=== PATIENT | male | born 1945 | race Caucasian/White ===

== ENCOUNTER 2018-08-04 18:01 | Inpatient (IN) ==
--- NOTE | 2018-08-04 18:49 | Cat Scan Report ---
CLINICAL INFORMATION: Acute neurodeficit code stroke COMPARISON: 05/24/[address] without contrast. TECHNIQUE: 2.5 mm helical slices were obtained in the skull base to vertex. Following reconstruction, axial reformatted images were reviewed at bone and parenchymal windows. The exam was performed using radiation dose optimization techniques including, but not limited to, automated exposure control, adjustment of the mA and/or kV according to patient size and use of iterative reconstruction technique. FINDINGS: The ventricles, sulci, fissures, and cisterns are symmetrically enlarged compatible with moderate age-related atrophy. This has increased considerably since previous study. Moderate patchy chronic ischemic changes throughout the cerebral white matter also progressed considerably. There are scattered remote lacunar infarcts in the deep bifrontal and basal ganglia which are all new. There is no intracerebral hemorrhage, mass effect or edema. 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 Right cochlear implant is grossly normal . IMPRESSION: Moderate atrophy and extensive chronic ischemic changes in the deep cerebral white matter with scattered remote lacunar infarcts in the deep bifrontal white matter and both basal ganglia all new from the remote comparison CT 11 years ago. There is no intracerebral hemorrhage mass effect or edema or other acute finding. Interpreted and Authenticated by: Abhishek Goldman 08/04/18
[2018-08-04 18:53] LABS: POC Blood Urea Nitrogen 39 mg/dl (8-23); POC CO2 19 mmol/L (22-30); POC Chloride 106 mmol/L (96-108); POC Glucose, Random 155 mg/dL (70-105); POC Potassium 4.3 mmol/L (3.3-5.1); POC Sodium 140 mmol/L (133-145)
[2018-08-04 18:54] LABS: POC Pro Time 12.2 sec (11.9-14.5)
[2018-08-04 19:26] LABS: Basophils # (Auto) 0 K/mcL (0.0-0.3); Basophils % (Auto) 0.5 % (0.0-2.0); Eosinophils # (Auto) 0.2 K/mcL (0.0-0.7); Eosinophils % (Auto) 2.8 % (0.0-7.0); Granulocytes % (Auto) 72.4 % (38.0-78.0); Hematocrit 35.5 % (41.0-55.0); Lymphocytes # (Auto) 1.3 K/mcL (1.5-4.8); Lymphocytes % (Auto) 15.5 % (15.5-49.0); Mean Cell Volume 98.1 fL (80.0-100.0); Mean Corpuscular HGB Conc 33.7 g/dL (31.0-36.0); Monocytes # (Auto) 0.7 K/mcL (0.1-0.9); Monocytes % (Auto) 8.8 % (1.0-12.0); Platelet Count 164 K/mcL (140-440); RBC 3.62 M/mcL (4.50-5.90); Red Cell Distribution Width 13.7 % (11.5-14.5); WBC 8.1 K/mcL (4.5-11.0)
[2018-08-04 19:46] LABS: Alcohol,Blood 0.163 gm/dl (<0.010)
[2018-08-04 19:51] LABS: ALT/SGPT 12 U/l (0-40); AST/SGOT 17 U/l (0-37); Albumin 3.3 gm/dL (3.2-5.2); Albumin/Globulin Ratio 1.1 (1.0-2.3); Alkaline Phosphatase 98 U/L (39-117); Bilirubin,Total 0.3 mg/dL (0.0-1.0); Blood Urea Nitrogen 43 mg/dl (8-23); Calcium 9.2 mg/dl (8.6-10.4); Carbon Dioxide 17 mmol/L (22-30); Chloride 104 mmol/L (96-108); Glomerular Filtration Rate 22; Glucose 156 mg/dL (70-105); Potassium 4.3 mmol/L (3.3-5.1); Sodium 138 mmol/L (133-145)
--- NOTE | 2018-08-04 19:53 | Emergency Department Note ---
Neuro HPI - General Chief Complaint: Neuro Symptoms/Deficit Stated Complaint: Weakness, recent hydrocephalus Time Seen by Provider: 08/04/18 19:52 Source: EMS Mode of arrival: EMS - History of Present Illness HPI Narrative: This 73-year-old gentleman developed some slurred speech and describing blurry vision and imbalance that was worsened. He has had some episodes in the past. His last normal was 330. Today his memory is also been bad and that he has not remembered conversations. His speech included inappropriate things such as "put the dog on the lesion in the house" and he seemed to be mouthing some words. At times he was not making sense. At times he was unable to walk because of imbalance. It feels like he cannot make his legs work. This is been progressive over multiple weeks but the last few weeks have been worse for his had to use a walker a lot of the time. He has had difficulty balancing his checkbook in the last 3 to 4 months with it being significantly worse. He has fallen 3 times in the last 4 weeks. Has a diagnosis of hydrocephalus and is being scheduled for a shunt possibly. REVIEW OF SYSTEMS: No fevers, chills, sweats. No chest pain or palpitations No cough or shortness of breath No nausea or vomiting No dysuria Feels imbalanced and dizzy like he is going to fall over but not near syncope No anxiety or depression per - Related Data Home Medications: Home Medications Medication Instructions Recorded Confirmed Hydrochlorothiazide [Oretic] 25 mg PO DAILY 08/04/18 08/04/18 Metoprolol Succinate [Toprol Xl] 100 mg PO ONCE 08/04/18 08/04/18 Ramipril [Altace] 2.5 mg PO TID 08/04/18 08/04/18 Simvastatin [Zocor] 40 mg PO HS 08/04/18 08/04/18 Allergies/Adverse Reactions: Allergies Allergy/AdvReac Type Severity Reaction Status Date / Time aspirin Allergy Mild Gastrointestinal Verified 08/04/18 18:03 Upset Past Medical History - Past Medical History [facility] Narrative: Medical History (Last Updated 08/04/18 @ 20:17 by Howie Napier DO) Cochlear implant status (Acute) Overweight (BMI 25.0-29.9) (Chronic) History of acute myocardial infarction (Chronic) Diabetes mellitus type 2, controlled (Chronic) Normal pressure hydrocephalus (Chronic) Chronic renal failure, stage 3 (moderate) (Chronic) Meniere's disease (Chronic) Chronic alcoholism (Acute) Hearing loss (Chronic) Past Surgical History (Last Updated 08/04/18 @ 20:24 by Howie Napier DO) Cochlear implant status (Acute) Psychiatric history: Denies: anxiety, depression - Social History smoking status: Former smoker Alcohol use: Reports: Daily, Heavy Amount of alcohol consumed: 24 (4 glasses of wine of about 6 ounces each daily.) Drug use: Reports: none. Denies: marijuana Physical Exam Limitations: no limitations General appearance: alert, in no apparent distress Head: atraumatic, normocephalic Eye: Present: PERRL, EOMI, visual browne intact. Absent: nystagmus ENT: normal oropharynx, mucous membranes moist Neck: Present: trachea midline. Absent: lymphadenopathy, thyromegaly Chest: Present: symmetric chest wall rise Respiratory: Present: normal lung sounds bilaterally. Absent: respiratory distress, wheezes, stridor, accessory muscle use, prolonged expiratory phase Cardiovascular: Present: regular rate, normal rhythm. Absent: systolic murmur, diastolic murmur Abdominal: Present: soft. Absent: distention, tenderness, guarding, rebound, rigidity, organomegaly, mass Extremities: Absent: pedal edema, pretibial edema, calf tenderness Neurological: Present: alert, oriented X3 Patient oriented to: Present: person, place, time Speech: Present: slurred Cranial nerves: EOM function (II, III, IV, ): Normal, facial sensation (V): Normal Cerebellar function: finger to nose: Normal, heel to mckeon: Normal Cerebellar function: ataxic gait Motor strength - LUE: 4/5 Motor strength - RUE: 4/5 Motor strength - LLE: 4/5 Motor strength - RLE: 4/5 Sensory exam upper extremity: Normal: light touch, pin prick Sensory exam lower extremity: Normal: light touch, pin prick Coma Scale Eye Opening: Spontaneous Coma Scale Motor Response: Obeys Commands Coma Scale Verbal Response: Oriented Coma Scale Total: 15 Psychiatric: Present: flat affect (Mildly), serious Skin: Present: warm, dry Course Vital Signs Temperature 98.5 F 08/04/18 18:03 Pulse Rate 71 08/04/18 18:03 Respiratory Rate 20 08/04/18 18:03 Blood Pressure 142/77 08/04/18 18:03 Pulse Oximetry (%) 95 08/04/18 18:03 Temperature 98.5 F 08/04/18 18:03 Pulse Rate 69 08/04/18 21:45 Respiratory Rate 20 08/04/18 21:45 Blood Pressure 132/79 08/04/18 21:45 Pulse Oximetry (%) 91 08/04/18 21:45 Neuro Symptoms/Deficit - [facility] Narrative Medical decision making narrative: 6:08 PM - some progressive ambulatory difficulties and dysfunction with falls and disequilibrium probably attributed to his normal pressure hydrocephalus. But today with worsening of slurred speech. We will do CT scan of the head. 6:30 PM - CT of the head is negative for bleed. Unable to do CTA of the head neck due to his renal dysfunction. Await labs. 7:30 PM - labs include a mild normochromic normocytic anemia. Creatinine is 2.7 with BUN proportional at 43. Liver function tests are normal. Alcohol level is 0.163. 9:05 PM - I spoke with Dr. No, neurosurgeon, [facility] who emphasizes that his normal pressure hydrocephalus is not the cause of his slurred speech or needing acute intervention. He does recommend further evaluation to make sure that he has not had other causes such as a stroke. 10:23 PM - spoke with , neurologist, [place], who after reviewing the clinical information says there is no other imaging available. He recommends admitting the patient and having a CT scan of the head in 24 hours as well as carotid ultrasound to be done. Make sure there is no infection but there is no urgent need for any neurologic intervention or consultation as nothing can be done currently. He suggest going ahead with Plavix 75 mg daily as it is possible stroke could be very small. 10:49 PM - spoke with Dr. Allen, hospitalist here at [facility] who kindly accepts this patient's care. Note that slurred speech persisted throughout his emergency room stay with no significant variation. Difficulty not seeing all of his words completely with quiet voice some as well. - Lab Data Lab results reviewed: Yes I reviewed the patient's lab results. Result diagrams: 08/04/18 18:40 08/04/18 18:40 Lab Results 06/13/19 06/13/19 06/13/19 Range/Units 18:40 18:40 18:40 WBC 8.1 (4.5-11.0) K/mcL RBC 3.62 L (4.50-5.90) M/mcL Hgb 12.0 L (13.5-16.5) g/dL Hct 35.5 L (41.0-55.0) % POC Hct 33.0 L (41.0-55.0) % MCV 98.1 (80.0-100.0) fL MCH 33.1 (26.0-34.0) pg MCHC 33.7 (31.0-36.0) g/dL RDW 13.7 (11.5-14.5) % Plt Count 164 (140-440) K/mcL MPV 8.0 (7.4-10.4) fL Gran % 72.4 (38.0-78.0) % Lymph % (Auto) 15.5 (15.5-49.0) % [place] % (Auto) 8.8 (1.0-12.0) % Eos % (Auto) 2.8 (0.0-7.0) % Baso % (Auto) 0.5 (0.0-2.0) % Gran # 5.9 (1.8-8.0) K/mcL Lymph # (Auto) 1.3 L (1.5-4.8) K/mcL [place] # (Auto) 0.7 (0.1-0.9) K/mcL Eos # (Auto) 0.2 (0.0-0.7) K/mcL Baso # (Auto) 0 (0.0-0.3) K/mcL POC PT 12.2 (11.9-14.5) sec POC INR 1.0 (0.9-1.2) APTT 34 (20-37) sec POC Sodium 140 (133-145) mmol/L Sodium 138 (133-145) mmol/L POC Potassium 4.3 (3.3-5.1) mmol/L Potassium 4.3 (3.3-5.1) mmol/L POC Chloride 106 (96-108) mmol/L Chloride 104 (96-108) mmol/L Carbon Dioxide 17 L (22-30) mmol/L POC Total CO2 19 L (22-30) mmol/L Anion Gap 17.0 H (8-16) POC BUN 39 H (8-23) mg/dl BUN 43 H (8-23) mg/dl Creatinine 2.7 H (0.7-1.2) mg/dl POC Creatinine 3.0 H (0.7-1.2) mg/dl GFR Calculation 22 Glucose 156 H (70-105) mg/dL POC Glucose 155 H (70-105) mg/dL Calcium 9.2 (8.6-10.4) mg/dl POC WB Ioniz Calcium 1.20 (1.16-1.32) mmol/L Total Bilirubin 0.3 (0.0-1.0) mg/dL AST 17 (0-37) U/l ALT 12 (0-40) U/l Alkaline Phosphatase 98 (39-117) U/L Troponin T (0-0.03) ng/ml Total Protein 6.3 (5.9-8.4) gm/dL Albumin 3.3 (3.2-5.2) gm/dL Globulin 3.0 (2.2-3.7) gm/dL Albumin/Globulin Ratio 1.1 (1.0-2.3) Ethyl Alcohol (<0.010) gm/dl 08/04/18 08/04/18 Range/Units 18:40 18:40 WBC (4.5-11.0) K/mcL RBC (4.50-5.90) M/mcL Hgb (13.5-16.5) g/dL Hct (41.0-55.0) % POC Hct (41.0-55.0) % MCV (80.0-100.0) fL MCH (26.0-34.0) pg MCHC (31.0-36.0) g/dL RDW (11.5-14.5) % Plt Count (140-440) K/mcL MPV (7.4-10.4) fL Gran % (38.0-78.0) % Lymph % (Auto) (15.5-49.0) % [place] % (Auto) (1.0-12.0) % Eos % (Auto) (0.0-7.0) % Baso % (Auto) (0.0-2.0) % Gran # (1.8-8.0) K/mcL Lymph # (Auto) (1.5-4.8) K/mcL [place] # (Auto) (0.1-0.9) K/mcL Eos # (Auto) (0.0-0.7) K/mcL Baso # (Auto) (0.0-0.3) K/mcL POC PT (11.9-14.5) sec POC INR (0.9-1.2) APTT (20-37) sec POC Sodium (133-145) mmol/L Sodium (133-145) mmol/L POC Potassium (3.3-5.1) mmol/L Potassium (3.3-5.1) mmol/L POC Chloride (96-108) mmol/L Chloride (96-108) mmol/L Carbon Dioxide (22-30) mmol/L POC Total CO2 (22-30) mmol/L Anion Gap (8-16) POC BUN (8-23) mg/dl BUN (8-23) mg/dl Creatinine (0.7-1.2) mg/dl POC Creatinine (0.7-1.2) mg/dl GFR Calculation Glucose (70-105) mg/dL POC Glucose (70-105) mg/dL Calcium (8.6-10.4) mg/dl POC WB Ioniz Calcium (1.16-1.32) mmol/L Total Bilirubin (0.0-1.0) mg/dL AST (0-37) U/l ALT (0-40) U/l Alkaline Phosphatase (39-117) U/L Troponin T < 0.01 (0-0.03) ng/ml Total Protein (5.9-8.4) gm/dL Albumin (3.2-5.2) gm/dL Globulin (2.2-3.7) gm/dL Albumin/Globulin Ratio (1.0-2.3) Ethyl Alcohol 0.163 H (<0.010) gm/dl - Radiology Data Radiology results reviewed: Yes I reviewed the patient's radiology results. - EKG Data EKG results narrative: No acute coronary syndrome findings. This ECG will be read by a natural remedy consultant. Disposition Pt seen by BIOLOGICAL SCIENCE TECHNICIAN/PA only: No Clinical Impression: Slurred speech, Ataxia, Normal pressure hydrocephalus, Chronic alcoholism Anemia Qualifiers: Anemia type: unspecified type Qualified Code(s): D64.9 - Anemia, unspecified CVA (cerebral vascular accident) Qualifiers: CVA mechanism: unspecified Qualified Code(s): I63.9 - Cerebral infarction, unspecified Disposition: Xfer As Inpt ([facility]) Condition: Fair Referrals: Francisco Cali MD [Primary Care Provider] -
--- NOTE | 2018-08-04 22:54 | Internal Med History&Physical ---
Medical - H&P: [facility] Patient information: Note initiated : 08/04/18 at 10:49 pm Service Date, if different from initiated Date: [] Patient: Darron Veliz a 73 y/o M admitted on for Weakness, recent hydrocephalus. Chief Complaint: [] Chief complaint: Weakness, slurred speech History of present illness: Mr. Veliz is a 73 year old M with a history of NPH/DM type II/CAD and alcoholism who presents to ER with rapid onset difficulty speaking along with balance and coordination. Symptoms started around 3:30 in the afternoon. Symptoms were not associated with loss of consciousness, headache, chest palpitation, tearing neck pain or diaphoresis. Denies taking new medication, dehydration, he denied associated difficulty swallowing or unilateral weakness. He then presented to the ER. Initial work-up with head CT revealed chronic ischemic change with remote lacunar infarct but no hemorrhage. Elevated blood alcohol level at 0.163. Creatinine 2.7. ER physician discussed with ne urosurgery(history of hydrocephalus) who did not recommend acute intervention. Subsequently stroke neurologist was consulted. Patient was unable to undergo CT angiogram head or neck due to elevated creatinine or MRI brain due to cochlear implant. Neurologist recommended Plavix and statin and hospital admission for carotid Doppler/repeat CT head in 24 hours as no further interventions mandated at tertiary center. Subsequently hospitalist service was consulted. At the time of evaluation p ferminient is able to answer most of the questions. He is alert and cooperative. Endorses to history as above. He also endorses to gradual weakness that has progressed since he saw the neurosurgeon 3 weeks ago. He denies sensory abnormalities Review of systems 10 point review system was performed and is negative except was discussed above Medical - H&P: PMH Medical history: Cochlear implant status (Acute) Overweight (BMI 25.0-29.9) (Chronic) History of acute myocardial infarction (Chronic) Diabetes mellitus type 2, controlled (Chronic) Normal pressure hydrocephalus (Chronic) Hypertensive chronic renal failure, stage 3 (moderate) (Chronic) Meniere's disease (Chronic) Chronic alcoholism (Acute) Hearing loss (Chronic) History of myocardial infarctions status post CABG Hypertension History of gout Alcohol dependence Past Surgical History (Last Updated 08/04/18 @ 20:24 by Howie Napier DO) Cochlear implant status (Acute) CABG 7 years ago Sinus surgeries Psychiatric history: Denies: anxiety, depression - Social History smoking status: Former smoker Lives with significant other in [place] Alcohol use: Reports: Daily, Heavy Amount of alcohol consumed: 24 (4 glasses of wine of about 6 ounces each daily.) Drug use: Reports: none. Denies: marijuana Quit smoking 20 years ago Pertinent family history: CVA Father CAD/diabetes/cervical cancer mother Melanoma father Medical - H&P: Meds Home Medications Medication Instructions Recorded Confirmed Type Hydrochlorothiazide [Oretic] 25 mg PO DAILY 08/04/18 08/04/18 History Metoprolol Succinate [Toprol Xl] 100 mg PO ONCE 08/04/18 08/04/18 History Ramipril [Altace] 2.5 mg PO TID 08/04/18 08/04/18 History Simvastatin [Zocor] 40 mg PO HS 08/04/18 08/04/18 History Allergies Allergy/AdvReac Type Severity Reaction Status Date / Time aspirin Allergy Mild Gastrointestinal Verified 08/04/18 18:03 Upset Medical - H&P: Exam - Constitutional Vitals: Temp Pulse Resp BP Pulse Ox 98.5 F 69 20 132/79 91 08/04/18 18:03 08/04/18 21:45 08/04/18 21:45 08/04/18 21:45 08/04/18 21:45 General appearance: average body habitus Exam: Alert and cooperative Oral cavity dry no ear nose discharge Eye movement symmetrical Head normocephalic Neck no lymphadenopathy S1-S2 regular rhythm, no murmur appreciated Chest clear to auscultation bilaterally abdomen soft nontender Skin no suspicious lesion Lower extremity no cyanosis clubbing no joint swelling Psych alert cooperative Neuro normal cranial nerves except for dysarthria Symmetrical strength and sensation/tone Higher function unremarkable GCS 15, NIH 2 Medical - H&P: Reslt - Labs CBC & Chem 7: 08/04/18 18:40 08/04/18 18:40 Labs: Short CBC 08/04/18 Range/Units 18:40 WBC 8.1 (4.5-11.0) K/mcL Hgb 12.0 L (13.5-16.5) g/dL Hct 35.5 L (41.0-55.0) % Plt Count 164 (140-440) K/mcL BMP 08/04/18 18:40 Sodium 138 Potassium 4.3 Chloride 104 Carbon Dioxide 17 L BUN 43 H Creatinine 2.7 H Glucose 156 H Calcium 9.2 Cardiac Enzymes 08/04/18 Range/Units 18:40 Troponin T < 0.01 (0-0.03) ng/ml Liver Function 08/04/18 Range/Units 18:40 Total Bilirubin 0.3 (0.0-1.0) mg/dL AST 17 (0-37) U/l ALT 12 (0-40) U/l Alkaline Phosphatase 98 (39-117) U/L Albumin 3.3 (3.2-5.2) gm/dL Medical - H&P: A/P (1) Acute CVA (cerebrovascular accident) Current visit: Yes Status: Acute * Acute ischemic CVA with bulbar symptoms. Patient was started on Plavix/statin after stroke neurologist consult in ER. Cochlear implants precludes MRI brain. Elevated creatinine precludes CT angiogram head and neck. Neurologist recommended Doppler ultrasound/repeat CT in a.m. Continue Plavix/statin as per neurologist. For details of discussions between ER physician and neur ologist refer ED physician note. * Dysarthria/change mental status-likely secondary to CVA, possibly brainstem involvement * History of alcoholism-monitor for withdrawals * History of normal pressure hydrocephalus- will follow-up with neurosurgery as outpatient. * Hypertensive chronic kidney disease stage IIIb-nephrology consult. Monitor renal function. Avoid nephrotoxins. * History of CAD status post CABG 7 years ago at [place] * DM type II continue sliding-scale insulin/CCD * History of gout stable, continue allopurinol * History of hypertension continue ARMIN inhibitor/beta-court/thiazide * Full code * Prophylaxis heparin Plan * Inpatient admission telemetry * Echocardiogram/CT head in 24 hours/Doppler carotid * Monitor renal function * Monitor for alcohol withdrawal * PT OT ST eval * Pre-existing well condition management and home meds * Case management to coordinate discharge planning
[2018-08-05] MEDS ORDERED: ONDANSETRON 4 MG/2 ML VIAL IV PRN (00:13)
[2018-08-05] MEDS ORDERED: MAGNESIUM SULFATE 2 GM/50 ML BAG IV PRN (00:13)
[2018-08-05] MEDS ORDERED: DEXTROSE 31 GM ORAL.SUSP PO PRN (00:13)
[2018-08-05] MEDS ORDERED: POTASSIUM CHLORIDE 20 MEQ PACKET PO PRN (00:13)
[2018-08-05] MEDS ORDERED: METOPROLOL SUCCINATE 100 MG PO SCH (00:13)
[2018-08-05] MEDS ORDERED: traZODone HCL 50 MG TABLET PO PRN (00:13)
[2018-08-05] MEDS ORDERED: DEXTROSE 50% 50 ML VIAL IV PRN (00:13)
[2018-08-05] MEDS ORDERED: ACETAMINOPHEN 1,000 MG/100 ML BOTTLE IV PRN (00:13)
[2018-08-05] MEDS ORDERED: guaiFENesin/CODEINE 10 ML UDC PO PRN (00:13)
[2018-08-05] MEDS ORDERED: METOPROLOL SUCCINATE 50 MG TAB.XL.24H PO ONE ×2 (00:22→10:00)
[2018-08-05 05:05] LABS: Hematocrit 32.7 % (41.0-55.0); Hemoglobin 11.2 g/dL (13.5-16.5); Mean Cell Volume 97.9 fL (80.0-100.0); Mean Corpuscular HGB Conc 34.2 g/dL (31.0-36.0); Mean Platelet Volume 8.1 fL (7.4-10.4); Platelet Count 149 K/mcL (140-440); RBC 3.34 M/mcL (4.50-5.90); Red Cell Distribution Width 13.8 % (11.5-14.5); WBC 6.7 K/mcL (4.5-11.0)
[2018-08-05 05:16] LABS: ALT/SGPT 11 U/l (0-40); AST/SGOT 16 U/l (0-37); Albumin 2.9 gm/dL (3.2-5.2); Alkaline Phosphatase 91 U/L (39-117); Bilirubin,Direct < 0.2 mg/dL (0.0-0.3); Bilirubin,Total 0.3 mg/dL (0.0-1.0); Blood Urea Nitrogen 42 mg/dl (8-23); Calcium 9.2 mg/dl (8.6-10.4); Carbon Dioxide 20 mmol/L (22-30); Chloride 105 mmol/L (96-108); Glomerular Filtration Rate 22; Glucose 106 mg/dL (70-105); Lactate Dehydrogenase 157 U/L (94-250); Magnesium 1.4 mg/dL (1.6-2.5); Phosphorous 3.4 mg/dL (2.7-4.5); Sodium 138 mmol/L (133-145); Triglycerides 188 mg/dl (<150); Uric Acid 5.7 mg/dL (2.5-8.0)
[2018-08-05] MEDS: 0.9 % SODIUM CHLORIDE 10 ML SYRINGE IV SCH ×3 (05:32→21:46)
[2018-08-05 06:30] LABS: Eosinophils % (Manual) 6 % (0-7); Lymphocytes % 20 % (15-49); Monocytes % (Manual) 3 % (1-12); Platelet Estimate NORMAL (NORMAL); RBC Morphology NORMAL (NORMAL); Segmented Neutrophils % 71 % (38-78)
--- NOTE | 2018-08-05 07:13 | Internal Med Progress Note ---
Medical - PN: Subj Patient information: Note initiated : 08/05/18 at 7:11 am Service Date, if different from initiated Date: [] Patient: Darron Veliz a 73 y/o M admitted on 08/04/18 for Weakness, recent hydrocephalus. Chief Complaint: [] Interval history: Mr. Veliz is a 73 year old M with a history of NPH/DM type II/CAD and alcoholism who presents to ER with rapid onset difficulty speaking along with balance and coordination. Symptoms started around 3:30 in the afternoon. Symptoms were not associated with loss of consciousness, headache, chest palpitation, tearing neck pain or diaphoresis. Denies taking new medication, dehydration, he denied associated difficulty swallowing or unilateral weakness. He then presented to the ER. Initial work-up with head CT revealed chronic ischemic change with remote lacunar infarct but no hemorrhage. Elevated blood alcohol level at 0.163. Creatinine 2.7. ER physician discussed with neurosurgery(history of hydrocephalus) who did not recommend acute intervention. Subsequently stroke neurologist was consulted. Patient was unable to undergo CT angiogram head or neck due to elevated creatinine or MRI brain due to cochlear implant. Neurologist recommended Plavix and statin and hospital admission for carotid Doppler/repeat CT head in 24 hours as no further interventions mandated at tertiary center. Subsequently hospitalist service was consulted. At the time of evaluation patient is able to answer most of the questions. He is alert and cooperative. Endorses to history as above. He also endorses to gradual weakness that has progressed since he saw the neurosurgeon 3 weeks ago. He denies sensory abnormalities 08/05-patient doing well overnight. Denies score 2. No further neurological changes or deterioration. Persistent slurring. Stable hemodynamics. No telemetry events. No overnight fever or chills. Carotid ultrasound/echo/CT head ordered. Continue aggressive rehab/ST eval. Renal function at baseline with a creatinine 2.7. History of alcoholism currently on close monitoring for withdrawals. - Constitutional Vitals: Vital Signs Temp Pulse Resp BP Pulse Ox 98.7 F 68 18 171/78 94 08/05/18 03:54 08/04/18 23:50 08/05/18 03:54 08/05/18 03:54 08/05/18 03:54 Period Temp Pulse Resp BP Sys/Joseph Pulse Ox Last 24 Hr 97.8 F-98.7 F 67-73 15-24 115-171/49-91 87-95 Intake and Output 08/04/18 08/05/18 08/05/18 21:59 05:59 13:59 Output Total 750 400 Balance -750 -400 Weight 225 lb 212 lb 11.2 oz Intake & Output: Intake & Output 08/04/18 08/05/18 08/05/18 21:59 05:59 13:59 Output Total 750 400 Balance -750 -400 Weight 225 lb 212 lb 11.2 oz Output: Void Amount 750 400 Exam: Persistent dysarthria No telemetry events Stable hemodynamics Nonlabored breathing No anxiety Medical - PN: Obj Da - Labs CBC & Chem 7: 08/05/18 03:45 08/05/18 03:45 Labs: Abnormal Lab Results 08/05/18 08/05/18 08/04/18 03:45 03:45 18:40 RBC 3.34 L Hgb 11.2 L Hct 32.7 L POC Hct Lymph # (Auto) Carbon Dioxide 20 L POC Total CO2 Anion Gap POC BUN BUN 42 H Creatinine 2.7 H POC Creatinine Glucose 106 H POC Glucose Magnesium 1.4 L GGT 86 H Albumin 2.9 L Triglycerides 188 H Ethyl Alcohol 0.163 H 08/04/18 08/04/18 18:40 18:40 RBC 3.62 L Hgb 12.0 L Hct 35.5 L POC Hct 33.0 L Lymph # (Auto) 1.3 L Carbon Dioxide 17 L POC Total CO2 19 L Anion Gap 17.0 H POC BUN 39 H BUN 43 H Creatinine 2.7 H POC Creatinine 3.0 H Glucose 156 H POC Glucose 155 H Magnesium GGT Albumin Triglycerides Ethyl Alcohol Meds: Medications Acetaminophen (Tylenol) 650 mg PO Q4-6HP PRN PRN Reason: PAIN/FEVER > 101 Atorvastatin Calcium (Lipitor) 40 mg PO HS LA Clopidogrel Bisulfate (Plavix) 75 mg PO DAILY [facility] Cyanocobalamin (Vitamin B-12) 1,000 mcg PO BID LA Stop: 08/09/18 21:01 Dextrose (Dextrose 50%) 0 ml IV UD PRN PRN Reason: Hypoglycemia Diagnostic Test (Pha) (Accu-Chek) 1 each FS ACHS LA Docusate Sodium (Colace) 100 mg PO BID LA Folic Acid (Folic Acid) 1 mg PO DAILY [facility] Glucose (Insta-Glucose) 15 gm PO PRN PRN PRN Reason: Hypoglycemia Guaifenesin/Codeine Phosphate (Robitussin Ac) 10 ml PO Q4HP PRN PRN Reason: Cough Heparin Sodium (Porcine) (Heparin) 5,000 unit SQ Q12 [place] Hydrochlorothiazide (Oretic) 25 mg PO DAILY [facility] Magnesium Sulfate (Magnesium Sulfate) 2 gm in 50 mls @ 50 mls/hr IV UD PRN PRN Reason: MG = or < 1.7 Acetaminophen (Ofirmev) 1,000 mg in 100 mls @ 200 mls/hr IV Q6HP PRN PRN Reason: PAIN/FEVER > 101 Insulin Human Lispro (Humalog) 0 unit SQ ACHS LA; Protocol Iron Carb/Multivit/Respiratory Therapy Aide/Folic Acid (Multivitamin W/Minerals) 1 tab PO DAILY [facility] Melatonin (Melatonin 3mg Tablet) 3 mg PO HSP PRN PRN Reason: Insomnia Non-Formulary Medication (Metoprolol Succinate [Toprol Xl]) 100 mg PO ONCE [facility] Last Admin: 08/05/18 00:24 Dose: Not Given Documented by: Ondansetron HCl (Zofran) 4 mg IV Q4-6HP PRN PRN Reason: Nausea And Vomiting Potassium Chloride (Klor-Con) 40 meq PO DAILYP PRN PRN Reason: K+ < 3.5 Ramipril (Altace) 2.5 mg PO TID [facility] Senna/Docusate Sodium (Senna Plus Tablet) 1 tab PO HS [facility] Sodium Chloride (Saline Flush) 10 ml IV Q8 [facility] Last Admin: 08/05/18 05:32 Dose: 10 ml Documented by: Thiamine HCl (Vitamin B1) 100 mg PO DAILY [place] Trazodone HCl (Desyrel) 50 mg PO HSP PRN PRN Reason: Insomnia Medical - PN: A/P - Time Spent With Patient Total time spent is greater than 50% in coordination of care (as documented) at patient's floor/unit and/or counseling patient: 25 - 35 minutes (1) Acute CVA (cerebrovascular accident) Status: Acute Assessment and plan: * Acute ischemic CVA with dysarthria. Clinical diagnosis as MRI cannot be performed. Repeat CT in 24 hours. Await Doppler carotid/echocardiogram. Continue Plavix/statin as per recommendations from stroke neurologist consult in ER. Cochlear implants precludes MRI brain. Elevated creatinine precludes CT angiogram head and neck. For details of discussions between ER physician and neurologist refer to ED physician note. * Ataxia-likely secondary to NPH/CVA. Continue aggressive PT OT/gait training * History of alcoholism-monitor for withdrawals. History of limited consumption of 4 glasses of wine * History of normal pressure hydrocephalus-patient has seen neurosurgery 3 weeks ago. Will follow on discharge. * Hypertensive chronic kidney disease stage IIIb-nephrology consult. Monitor renal function. Avoid nephrotoxins. * History of CAD status post CABG 7 years ago at [place] * DM type II continue sliding-scale insulin/CCD * History of gout stable, continue allopurinol * History of hypertension continue ARMIN inhibitor/beta-court/thiazide * Full code * Prophylaxis heparin Plan * Continue stroke work-up including echocardiogram/CT head in 24 hours/Doppler carotid * Monitor renal function and avoid nephrotoxins * Monitor for alcohol withdrawal * PT OT ST eval * Pre-existing medical condition management on home meds * Case management to coordinate discharge planning Current Visit: Yes Medical - PN: Qual - Stroke Symptom Onset Unknown: Yes - VTE Deep Vein Thrombosis/Pulmonary Embolism Present on Admission: No
[2018-08-05] MEDS: ACETAMINOPHEN 325 MG TABLET PO PRN (08:10)
[2018-08-05] MEDS: INSULIN LISPRO 1 UNIT/0.01 ML UNIT SQ SCH ×4 (08:17→20:27)
[2018-08-05] MEDS ORDERED: RAMIPRIL 2.5 MG CAPSULE PO SCH (09:00)
[2018-08-05] MEDS ORDERED: HYDROCHLOROTHIAZIDE 25 MG TABLET PO SCH (09:00)
[2018-08-05] MEDS ORDERED: CLOPIDOGREL 75 MG TABLET PO SCH (09:00)
[2018-08-05] MEDS: DOCUSATE SODIUM 100 MG CAPSULE PO SCH ×2 (09:48→20:24)
[2018-08-05] MEDS: HEPARIN 5,000 UNIT/ML VIAL SQ SCH ×2 (09:48→20:23)
[2018-08-05] MEDS: CYANOCOBALAMIN (VITAMIN B-12) 500 MCG TABLET PO SCH ×2 (09:48→20:23)
[2018-08-05] MEDS: CLOPIDOGREL 75 MG TABLET PO SCH (09:48)
[2018-08-05] MEDS: FOLIC ACID 1 MG TABLET PO SCH (09:49)
[2018-08-05] MEDS: THIAMINE 100 MG TABLET PO SCH (09:49)
[2018-08-05] MEDS: MULTIVIT,THER IRON,CA,FA & MIN 1 TABLET PO SCH (09:49)
--- NOTE | 2018-08-05 09:59 | Ultrasound Report ---
CLINICAL INFORMATION: Weakness COMPARISON: None. TECHNIQUE: Spectral Doppler velocity measurements were obtained in the proximal, mid and distal common and internal carotid, both vertebral and proximal external carotid arteries bilaterally. Supplemental color and power Doppler imaging was also obtained to optimize stenosis detection. In reporting, any internal carotid stenosis was indirectly quantified comparing the distal internal carotid velocity. For ratio comparison, the internal carotid artery, at the level of stenosis, was utilized in the numerator and the normal distal internal carotid artery velocity was utilized as the denominator. Velocities are validated with angiographic measurements extrapolated from diameter data - as defined by the Society of Radiologists in Ultrasound Consensus Conference .Radiology 2003; 229; 340 - 346. FINDINGS: See worksheet by the technologist for velocities in PACS IMPRESSION: 1. Critical (greater than 90%) stenosis of the proximal left internal carotid artery. The left common and external carotid arteries are widely patent. Suggest CT cervical carotid angiogram. If the patient cannot tolerate IV contrast then a MR carotid angiogram would be an adequate substituted. 2. The right common, internal and external carotid arteries are widely patent 3. Antegrade flow present in both renal arteries. Please correlate with CTA CT Angiography or MRA MR Angiography if surgery is contemplated. Interpreted and Authenticated by: Abhishek Goldman 08/05/18
[2018-08-05] MEDS ORDERED: RAMIPRIL 2.5 MG CAPSULE PO ONE (10:00)
--- NOTE | 2018-08-05 11:37 | Internal Med Progress Note ---
Medical - PN: Subj Patient information: Note initiated : 08/05/18 at 11:28 am Service Date, if different from initiated Date: [] Patient: Darron Veliz a 73 y/o M admitted on 08/04/18 for Weakness, recent hydrocephalus. Chief Complaint: [] Interval history: Mr. Veliz is a 73 year old M with a history of NPH/DM type II/CAD and alcoholism who presents to ER with rapid onset difficulty speaking along with balance and coordination. Symptoms started around 3:30 in the afternoon. Symptoms were not associated with loss of consciousness, headache, chest palpitation, tearing neck pain or diaphoresis. Denies taking new medication, dehydration, he denied associated difficulty swallowing or unilateral weakness. He then presented to the ER. Initial work-up with head CT revealed chronic ischemic change with remote lacunar infarct but no hemorrhage. Elevated blood alcohol level at 0.163. Creatinine 2.7. ER physician discussed with neurosurgery(history of hydrocephalus) who did not recommend acute intervention. Subsequently stroke neurologist was consulted. Patient was unable to undergo CT angiogram head or neck due to elevated creatinine or MRI brain due to cochlear implant. Neurologist recommended Plavix and statin and hospital admission for carotid Doppler/repeat CT head in 24 hours as no further interventions mandated at tertiary center. Subsequently hospitalist service was consulted. At the time of evaluation patient is able to answer most of the questions. He is alert and cooperative. Endorses to history as above. He also endorses to gradual weakness that has progressed since he saw the neurosurgeon 3 weeks ago. He denies sensory abnormalities 08/05-patient doing well overnight. Denies score 2. No further neurological changes or deterioration. Persistent slurring. Stable hemodynamics. No telemetry events. No overnight fever or chills. Carotid ultrasound/echo/CT head ordered. Continue aggressive rehab/ST eval. Renal function at baseline with a creatinine 2.7. History of alcoholism currently on close monitoring for withdrawals. 08/06 - Constitutional Vitals: Vital Signs Temp Pulse Resp BP Pulse Ox 98.2 F 68 20 207/93 97 08/05/18 08:00 08/04/18 23:50 08/05/18 08:00 08/05/18 08:00 08/05/18 08:00 Period Temp Pulse Resp BP Sys/Joseph Pulse Ox Last 24 Hr 97.8 F-98.7 F 67-73 15-24 115-207/49-93 87-97 Intake and Output 08/04/18 08/05/18 08/05/18 21:59 05:59 13:59 Intake Total 240 Output Total 750 750 Balance -750 -510 Weight 102.058 kg 96.479 kg Intake & Output: Intake & Output 08/04/18 08/05/18 08/05/18 21:59 05:59 13:59 Intake Total 240 Output Total 750 750 Balance -750 -510 Weight 102.058 kg 96.479 kg Intake: Oral 240 Output: Void Amount 750 750 Other: Meal Breakfast Percent of Meal Consumed 100% Urine Appearance Clear Urine Color Pale Exam: General: Alert, Awake, No acute Distress Eyes/N/T: EOMI, Head/Neck: neck supple, normocephalic atraumatic CV: RRR, No murmurs, normal s1/s2 Pulm: Clear b/l, no wheezing/rhonchi/rales Abd: soft, nontender, +BS x4 Ext: no clubbing/cyanosis/edema Neuro: Alert, dysarthria, moves all extremities Skin: warm/dry Medical - PN: Obj Da - Labs CBC & Chem 7: 08/05/18 03:45 08/05/18 03:45 Labs: Abnormal Lab Results 08/05/18 08/05/18 08/04/18 03:45 03:45 18:40 RBC 3.34 L Hgb 11.2 L Hct 32.7 L POC Hct Lymph # (Auto) Carbon Dioxide 20 L POC Total CO2 Anion Gap POC BUN BUN 42 H Creatinine 2.7 H POC Creatinine Glucose 106 H POC Glucose Magnesium 1.4 L GGT 86 H Albumin 2.9 L Triglycerides 188 H Ethyl Alcohol 0.163 H 08/04/18 08/04/18 18:40 18:40 RBC 3.62 L Hgb 12.0 L Hct 35.5 L POC Hct 33.0 L Lymph # (Auto) 1.3 L Carbon Dioxide 17 L POC Total CO2 19 L Anion Gap 17.0 H POC BUN 39 H BUN 43 H Creatinine 2.7 H POC Creatinine 3.0 H Glucose 156 H POC Glucose 155 H Magnesium GGT Albumin Triglycerides Ethyl Alcohol Meds: Medications Acetaminophen (Tylenol) 650 mg PO Q4-6HP PRN PRN Reason: PAIN/FEVER > 101 Last Admin: 08/05/18 08:10 Dose: 650 mg Documented by: Atorvastatin Calcium (Lipitor) 40 mg PO HS [facility] Clopidogrel Bisulfate (Plavix) 75 mg PO DAILY [facility] Last Admin: 08/05/18 09:48 Dose: 75 mg Documented by: Cyanocobalamin (Vitamin B-12) 1,000 mcg PO BID [facility] Stop: 08/09/18 21:01 Last Admin: 08/05/18 09:48 Dose: 1,000 mcg Documented by: Dextrose (Dextrose 50%) 0 ml IV UD PRN PRN Reason: Hypoglycemia Diagnostic Test (Pha) (Accu-Chek) 1 each FS ACHS [facility] Last Admin: 08/05/18 08:17 Dose: 1 each Documented by: Docusate Sodium (Colace) 100 mg PO BID [facility] Last Admin: 08/05/18 09:48 Dose: 100 mg Documented by: Folic Acid (Folic Acid) 1 mg PO DAILY [facility] Last Admin: 08/05/18 09:49 Dose: 1 mg Documented by: Glucose (Insta-Glucose) 15 gm PO PRN PRN PRN Reason: Hypoglycemia Guaifenesin/Codeine Phosphate (Robitussin Ac) 10 ml PO Q4HP PRN PRN Reason: Cough Heparin Sodium (Porcine) (Heparin) 5,000 unit SQ Q12 [facility] Last Admin: 08/05/18 09:48 Dose: 5,000 unit Documented by: Hydrochlorothiazide (Oretic) 25 mg PO DAILY [facility] Last Admin: 08/05/18 09:48 Dose: 25 mg Documented by: Magnesium Sulfate (Magnesium Sulfate) 2 gm in 50 mls @ 50 mls/hr IV UD PRN PRN Reason: MG = or < 1.7 Acetaminophen (Ofirmev) 1,000 mg in 100 mls @ 200 mls/hr IV Q6HP PRN PRN Reason: PAIN/FEVER > 101 Insulin Human Lispro (Humalog) 0 unit SQ [facility]; Protocol Last Admin: 08/05/18 08:17 Dose: Not Given Documented by: Iron Carb/Multivit/[place]/Folic Acid (Multivitamin W/Minerals) 1 tab PO DAILY [facility] Last Admin: 08/05/18 09:49 Dose: 1 tab Documented by: Melatonin (Melatonin 3mg Tablet) 3 mg PO HSP PRN PRN Reason: Insomnia Metoprolol Succinate (Toprol Xl) 100 mg PO DAILY [facility] Ondansetron HCl (Zofran) 4 mg IV Q4-6HP PRN PRN Reason: Nausea And Vomiting Potassium Chloride (Klor-Con) 40 meq PO DAILYP PRN PRN Reason: K+ < 3.5 Ramipril (Altace) 2.5 mg PO DAILY [place] Senna/Docusate Sodium (Senna Plus Tablet) 1 tab PO HS [place] Sodium Chloride (Saline Flush) 10 ml IV Q8 [facility] Last Admin: 08/05/18 05:32 Dose: 10 ml Documented by: Thiamine HCl (Vitamin B1) 100 mg PO DAILY [facility] Last Admin: 08/05/18 09:49 Dose: 100 mg Documented by: Trazodone HCl (Desyrel) 50 mg PO HSP PRN PRN Reason: Insomnia Medical - PN: A/P - Time Spent With Patient Total time spent is greater than 50% in coordination of care (as documented) at patient's floor/unit and/or counseling patient: - Narrative A/P Narrative: A: *Acute ischemic CVA w/Dysarthria & dizziness: Clinical diagnosis as MRI cannot be performed (cochlear implants precludes MRI brain), Elevated creatinine precludes CT angiogram head and neck. For details of discussions between ER physician and neurologist refer to ED physician note. -Stenosis of Left IC artery *Ataxia: likely secondary to NPH/CVA. *h/o Alcoholism: *NPH: patient has seen neurosurgery 3 weeks ago. Will follow on discharge. *CKD IIIb, hypertensive: follows with Dr. Arguelles *CAD w/CABG 7 years ago at [place]: *DM type II: *HTN: home med ACEI/BB/thiazide Plan: -Permissive hypertension first 24 hours -echo pending -CT brain in AM -Continue Plavix/statin as per recommendations from stroke neurologist consult in ER. -Monitor renal function and avoid nephrotoxins -Monitor for alcohol withdrawal -SSI -PT OT ST eval -Case management to coordinate discharge planning -f/u with Dr. Elizondo/[facility] outpt -ppx: Heparin Full code Medical - PN: Qual - Stroke Symptom Onset Unknown: Yes - VTE Deep Vein Thrombosis/Pulmonary Embolism Present on Admission: No
[2018-08-05] MEDS ORDERED: LABETALOL 5 MG/ML ML IV PRN (11:42)
[2018-08-05] MEDS ORDERED: 0.9 % SODIUM CHLORIDE 1,000 ML IV SCH (11:45)
[2018-08-05] MEDS: SENNOSIDES/DOCUSATE SODIUM 1 TAB TABLET PO SCH (20:20)
[2018-08-05] MEDS: MELATONIN 3 MG TABLET PO PRN (20:48)
[2018-08-05] MEDS: ATORVASTATIN 20 MG TABLET PO SCH (21:46)
[2018-08-06 07:11] LABS: ALT/SGPT 14 U/l (0-40); AST/SGOT 22 U/l (0-37); Alkaline Phosphatase 102 U/L (39-117); Bilirubin,Direct < 0.2 mg/dL (0.0-0.3); Bilirubin,Total 0.5 mg/dL (0.0-1.0); Blood Urea Nitrogen 42 mg/dl (8-23); Calcium 9.4 mg/dl (8.6-10.4); Carbon Dioxide 22 mmol/L (22-30); Chloride 104 mmol/L (96-108); Glomerular Filtration Rate 25; Glucose 132 mg/dL (70-105); Lactate Dehydrogenase 187 U/L (94-250); Magnesium 1.8 mg/dL (1.6-2.5); Phosphorous 3.6 mg/dL (2.7-4.5); Potassium 3.8 mmol/L (3.3-5.1); Sodium 139 mmol/L (133-145); Triglycerides 184 mg/dl (<150); Uric Acid 5.8 mg/dL (2.5-8.0)
--- NOTE | 2018-08-06 08:13 | Internal Med Progress Note ---
Medical - PN: Subj Patient information: Note initiated : 08/06/18 at 8:06 am Service Date, if different from initiated Date: [] Patient: Darron Veliz a 73 y/o M admitted on 08/04/18 for Weakness, recent hydrocephalus. Chief Complaint: [] Interval history: Mr. Veliz is a 73 year old M with a history of NPH/DM type II/CAD and alcoholism who presents to ER with rapid onset difficulty speaking along with balance and coordination. Symptoms started around 3:30 in the afternoon. Symptoms were not associated with loss of consciousness, headache, chest palpitation, tearing neck pain or diaphoresis. Denies taking new medication, dehydration, he denied associated difficulty swallowing or unilateral weakness. He then presented to the ER. Initial work-up with head CT revealed chronic ischemic change with remote lacunar infarct but no hemorrhage. Elevated blood alcohol level at 0.163. Creatinine 2.7. ER physician discussed with neurosurgery(history of hydrocephalus) who did not recommend acute intervention. Subsequently stroke neurologist was consulted. Patient was unable to undergo CT angiogram head or neck due to elevated creatinine or MRI brain due to cochlear implant. Neurologist recommended Plavix and statin and hospital admission for carotid Doppler/repeat CT head in 24 hours as no further interventions mandated at tertiary center. Subsequently hospitalist service was consulted. At the time of evaluation patient is able to answer most of the questions. He is alert and cooperative. Endorses to history as above. He also endorses to gradual weakness that has progressed since he saw the neurosurgeon 3 weeks ago. He denies sensory abnormalities 08/05-patient doing well overnight. Denies score 2. No further neurological changes or deterioration. Persistent slurring. Stable hemodynamics. No telemetry events. No overnight fever or chills. Carotid ultrasound/echo/CT head ordered. Continue aggressive rehab/ST eval. Renal function at baseline with a creatinine 2.7. History of alcoholism currently on close monitoring for withdrawals. 08/06 Slept okay. No overnight events. Other than his headache is feeling fine. Feels his speech is improving. CT of the brain repeated unremarkable. Reports some constipation Review of Systems: denies fever/chills/nausea/vomiting/chest or abdominal pain/cough/dyspnea/diarrhea. Otherwise see above. - Constitutional Vitals: Vital Signs Temp Pulse Resp BP Pulse Ox 98.1 F 65 18 161/60 94 06/15/19 04:37 08/05/18 20:02 08/06/18 04:37 08/06/18 04:37 08/06/18 04:37 Period Temp Pulse Resp BP Sys/Joseph Pulse Ox Last 24 Hr 97.8 F-98.6 F 65-65 18-24 136-207/53-93 94-97 Intake and Output 08/05/18 08/06/18 08/06/18 21:59 05:59 13:59 Intake Total 340 Output Total 650 350 Balance -310 -350 Weight 96.615 kg Intake & Output: Intake & Output 08/05/18 08/06/18 08/06/18 21:59 05:59 13:59 Intake Total 340 Output Total 650 350 Balance -310 -350 Weight 96.615 kg Intake: IV 100 Oral 240 Output: Void Amount 650 350 Other: Meal Dinner Percent of Meal Consumed 100% Urine Color Dark Yellow Exam: General: Alert, Awake, No acute Distress Eyes/N/T: EOMI, Head/Neck: neck supple, normocephalic atraumatic CV: RRR, No murmurs, normal s1/s2 Pulm: Clear b/l, no wheezing/rhonchi/rales Abd: soft, nontender, +BS x4 Ext: no clubbing/cyanosis/edema Neuro: Alert, dysarthria, moves all extremities, face symmetrical Skin: warm/dry Medical - PN: Obj Da - Labs CBC & Chem 7: 08/05/18 03:45 08/06/18 03:50 Labs: Abnormal Lab Results 08/06/18 08/05/18 08/05/18 03:50 03:45 03:45 RBC 3.34 L Hgb 11.2 L Hct 32.7 L POC Hct Lymph # (Auto) Carbon Dioxide 20 L POC Total CO2 Anion Gap POC BUN BUN 42 H 42 H Creatinine 2.5 H 2.7 H POC Creatinine Glucose 132 H 106 H POC Glucose Magnesium 1.4 L GGT 99 H 86 H Albumin 3.0 L 2.9 L Triglycerides 184 H 188 H Ethyl Alcohol 08/04/18 08/04/18 08/04/18 18:40 18:40 18:40 RBC 3.62 L Hgb 12.0 L Hct 35.5 L POC Hct 33.0 L Lymph # (Auto) 1.3 L Carbon Dioxide 17 L POC Total CO2 19 L Anion Gap 17.0 H POC BUN 39 H BUN 43 H Creatinine 2.7 H POC Creatinine 3.0 H Glucose 156 H POC Glucose 155 H Magnesium GGT Albumin Triglycerides Ethyl Alcohol 0.163 H Meds: Medications Acetaminophen (Tylenol) 650 mg PO Q4-6HP PRN PRN Reason: PAIN/FEVER > 101 Last Admin: 08/05/18 08:10 Dose: 650 mg Documented by: Atorvastatin Calcium (Lipitor) 40 mg PO HS [facility] Last Admin: 08/05/18 21:46 Dose: 40 mg Documented by: Clopidogrel Bisulfate (Plavix) 75 mg PO DAILY [facility] Last Admin: 08/05/18 09:48 Dose: 75 mg Documented by: Cyanocobalamin (Vitamin B-12) 1,000 mcg PO BID [facility] Stop: 08/09/18 21:01 Last Admin: 08/05/18 20:23 Dose: 1,000 mcg Documented by: Dextrose (Dextrose 50%) 0 ml IV UD PRN PRN Reason: Hypoglycemia Diagnostic Test (Pha) (Accu-Chek) 1 each FS ACHS [facility] Last Admin: 08/05/18 20:24 Dose: 1 each Documented by: Docusate Sodium (Colace) 100 mg PO BID [facility] Last Admin: 08/05/18 20:24 Dose: 100 mg Documented by: Folic Acid (Folic Acid) 1 mg PO DAILY [facility] Last Admin: 08/05/18 09:49 Dose: 1 mg Documented by: Glucose (Insta-Glucose) 15 gm PO PRN PRN PRN Reason: Hypoglycemia Guaifenesin/Codeine Phosphate (Robitussin Ac) 10 ml PO Q4HP PRN PRN Reason: Cough Heparin Sodium (Porcine) (Heparin) 5,000 unit SQ Q12 [facility] Last Admin: 08/05/18 20:23 Dose: 5,000 unit Documented by: Magnesium Sulfate (Magnesium Sulfate) 2 gm in 50 mls @ 50 mls/hr IV UD PRN PRN Reason: MG = or < 1.7 Acetaminophen (Ofirmev) 1,000 mg in 100 mls @ 200 mls/hr IV Q6HP PRN PRN Reason: PAIN/FEVER > 101 Last Infusion: 08/05/18 20:49 Dose: Infused Documented by: Insulin Human Lispro (Humalog) 0 unit SQ [facility]; Protocol Last Admin: 08/05/18 20:27 Dose: 1 unit Documented by: Iron Carb/Multivit/Strategic Debriefing Specialist/Folic Acid (Multivitamin W/Minerals) 1 tab PO DAILY [facility] Last Admin: 08/05/18 09:49 Dose: 1 tab Documented by: Labetalol HCl (Trandate) 0 mg IV Q2HP PRN PRN Reason: Hypertension Melatonin (Melatonin 3mg Tablet) 3 mg PO HSP PRN PRN Reason: Insomnia Last Admin: 08/05/18 20:48 Dose: 3 mg Documented by: Metoprolol Succinate (Toprol Xl) 100 mg PO DAILY [facility] Ondansetron HCl (Zofran) 4 mg IV Q4-6HP PRN PRN Reason: Nausea And Vomiting Potassium Chloride (Klor-Con) 40 meq PO DAILYP PRN PRN Reason: K+ < 3.5 Ramipril (Altace) 2.5 mg PO DAILY [facility] Senna/Docusate Sodium (Senna Plus Tablet) 1 tab PO HS [facility] Last Admin: 08/05/18 20:20 Dose: 1 tab Documented by: Sodium Chloride (Saline Flush) 10 ml IV Q8 [facility] Last Admin: 08/05/18 21:46 Dose: 10 ml Documented by: Thiamine HCl (Vitamin B1) 100 mg PO DAILY [facility] Last Admin: 08/05/18 09:49 Dose: 100 mg Documented by: Trazodone HCl (Desyrel) 50 mg PO HSP PRN PRN Reason: Insomnia Medical - PN: A/P - Time Spent With Patient Total time spent is greater than 50% in coordination of care (as documented) at patient's floor/unit and/or counseling patient: - Narrative A/P Narrative: A: *Acute ischemic CVA w/Dysarthria & dizziness: Clinical diagnosis as MRI cannot be performed (cochlear implants precludes MRI brain), Elevated creatinine precludes CT angiogram head and neck. For details of discussions between ER physician and neurologist refer to ED physician note. -original CT w/o showing remote bilateral frontal and basal ganglia infarcts and mod atrophy -repeat CT brain no new changes -Stenosis of Left IC artery -Echo unremarkable *Ataxia: likely secondary to NPH/CVA. *h/o Alcoholism: *NPH: patient has seen neurosurgery 3 weeks ago. Will follow on discharge, Dr. umana *CKD IIIb, hypertensive: follows with Dr. Arguelles *CAD w/CABG 7 years ago at [facility]: *DM type II: *HTN: home med ACEI/BB/thiazide Plan: -Permissive hypertension first 24 hours; restart home BB, hold thiazide for now -Continue Plavix/statin as per recommendations from stroke neurologist consult in ER. -Monitor renal function and avoid nephrotoxins -Monitor for alcohol withdrawal -SSI -PT/OT/ST eval -Case management to coordinate discharge planning -f/u with Dr. Elizondo outpt regarding Left ICA stenosis -ppx: Heparin Discharge planning Full code Medical - PN: Qual - Stroke Symptom Onset Unknown: Yes - VTE Deep Vein Thrombosis/Pulmonary Embolism Present on Admission: No
[2018-08-06] MEDS ORDERED: 0.9 % SODIUM CHLORIDE 1,000 ML IV SCH (08:15)
[2018-08-06] MEDS: ACETAMINOPHEN 325 MG TABLET PO PRN (08:18)
[2018-08-06] MEDS: 0.9 % SODIUM CHLORIDE 10 ML SYRINGE IV SCH ×2 (08:19→14:23)
[2018-08-06] MEDS ORDERED: RAMIPRIL 2.5 MG CAPSULE PO SCH (09:00)
--- NOTE | 2018-08-06 09:12 | Cat Scan Report ---
CLINICAL INFORMATION: CVA symptom, dysarthria COMPARISON: Head CT two days prior 08/04/2018. FINDINGS: The ventricles, sulci, fissures, and cisterns are symmetrically enlarged compatible with moderate age-related atrophy. This has increased considerably since previous study. Moderate patchy chronic ischemic changes throughout the cerebral white matter also progressed considerably. There are scattered remote lacunar infarcts in the deep bifrontal and basal ganglia which are all new. There is no intracerebral hemorrhage, mass effect or edema. 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 Right cochlear implant is grossly normal . IMPRESSION: Moderate atrophy and extensive chronic ischemic changes in the deep cerebral white matter with scattered remote lacunar infarcts in the deep bifrontal white matter and both basal ganglia all new from the remote comparison CT 11 years ago. There is no intracerebral hemorrhage mass effect or edema or other acute finding. Interpreted and Authenticated by: Abhishek Goldman 08/06/18
[2018-08-06] MEDS: HEPARIN 5,000 UNIT/ML VIAL SQ SCH ×2 (09:23→21:01)
[2018-08-06] MEDS: INSULIN LISPRO 1 UNIT/0.01 ML UNIT SQ SCH ×4 (09:23→21:11)
[2018-08-06] MEDS: CYANOCOBALAMIN (VITAMIN B-12) 500 MCG TABLET PO SCH ×2 (09:24→21:02)
[2018-08-06] MEDS: FOLIC ACID 1 MG TABLET PO SCH (09:24)
[2018-08-06] MEDS: MULTIVIT,THER IRON,CA,FA & MIN 1 TABLET PO SCH (09:25)
[2018-08-06] MEDS: METOPROLOL SUCCINATE 50 MG TAB.XL.24H PO SCH (09:25)
[2018-08-06] MEDS: THIAMINE 100 MG TABLET PO SCH (09:25)
[2018-08-06] MEDS: CLOPIDOGREL 75 MG TABLET PO SCH (09:25)
[2018-08-06] MEDS: DOCUSATE SODIUM 100 MG CAPSULE PO SCH (09:25)
[2018-08-06] MEDS ORDERED: POLYETHYLENE GLYCOL 3350 17 GM PACKET PO ONE (10:09)
[2018-08-06] MEDS ORDERED: BUTALB/ACETAMINOPHEN/CAFFEINE 1 TABLET PO ONE (10:09)
[2018-08-06] MEDS ORDERED: POLYETHYLENE GLYCOL 3350 17 GM PACKET PO PRN (10:09)
--- NOTE | 2018-08-06 10:28 | Discharge Summary ---
Medical - DS: Prov Patient information: Note initiated : 08/06/18 at 10:26 am Service Date, if different from initiated Date: [] Patient: Darron Veliz 73 y/o M admitted on 08/04/18 for Weakness, recent hydrocephalus. Chief Complaint: [] Date of admission: 08/04/18 23:50 Discharge date: 08/07/18 Primary care physician: Francisco Cali Medical - DS: Meds - Discharge Medications Prescriptions: Clopidogrel Bisulfate [Plavix] 75 mg PO DAILY #30 tab Ramipril [Altace] 10 mg PO DAILY #30 cap Active and Home Medications: Home Medications Hydrochlorothiazide [Oretic] 25 mg PO DAILY 08/04/18 [History Confirmed 08/04/18 Last Taken Unknown] Metoprolol Succinate [Toprol Xl] 100 mg PO DAILY 08/04/18 [History Confirmed 08/05/18 Last Taken Unknown] Ramipril [Altace] 2.5 mg PO DAILY 08/04/18 [History Confirmed 08/05/18 Last Taken Unknown] Simvastatin [Zocor] 40 mg PO HS 08/04/18 [History Confirmed 08/04/18 Last Taken Unknown] Home Medications Hydrochlorothiazide [Oretic] 25 mg PO DAILY 08/04/18 [History Confirmed 08/04/18 Last Taken Unknown] Metoprolol Succinate [Toprol Xl] 100 mg PO DAILY 08/04/18 [History Confirmed 08/05/18 Last Taken Unknown] Simvastatin [Zocor] 40 mg PO HS 08/04/18 [History Confirmed 08/04/18 Last Taken Unknown] Clopidogrel Bisulfate [Plavix] 75 mg PO DAILY #30 tab 08/06/18 [Rx Last Taken Unknown] Ramipril [Altace] 10 mg PO DAILY #30 cap 08/07/18 [Rx Last Taken Unknown] Medical - DS: Hosp Hospital course: Mr. Veliz is a 73 year old M Mr. Veliz is a 73 year old M with a history of NPH/DM type II/CAD and alcoholism who presents to ER with rapid onset difficulty speaking along with balance and coordination. Symptoms started around 3:30 in the afternoon. S ymptoms were not associated with loss of consciousness, headache, chest palpitation, tearing neck pain or diaphoresis. Denies taking new medication, dehydration, he denied associated difficulty swallowing or unilateral weakness. He then presented to the ER. Initial work-up with head CT revealed chronic ischemic change with remote lacunar infarct but no hemorrhage. Elevated blood alcohol level at 0.163. Creatinine 2.7. ER physician discussed with neurosurgery(history of hydrocephalus) who did not recommend acute intervention. Subsequently stroke neurologist was consulted. Patient was unable to undergo CT angiogram head or neck due to elevated creatinine or MRI brain due to cochlear implant. Neurologist recommended Plavix and statin and hospital admission for carotid Doppler/repeat CT head in 24 hours as no further interventions mandated at tertiary center. Subsequently hospitalist service was consulted. At the time of evaluation patient is able to answer most of the questions. He is alert and cooperative. Endorses to history as above. He also endorses to gradual weakness that has progressed since he saw the neurosurgeon 3 weeks ago. He denies sensory abnormalities 08/05-patient doing well overnight. Denies score 2. No further neurological changes or deterioration. Persistent slurring. Stable hemodynamics. No telemetry events. No overnight fever or chills. Carotid ultrasound/echo/CT head ordered. Continue aggressive rehab/ST eval. Renal function at baseline with a creatinine 2.7. History of alcoholism currently on close monitoring for withdrawals. 08/06 Slept okay. No overnight events. Other than his headache is feeling fine. Feels his speech is improving. CT of the brain repeated unremarkable. Reports some constipation 08/07 Patient continues to feel better. No overnight events. Stable for discharge. Increase his home ramipril. Instructed him to monitor his blood pressure twice daily and bring log to primary care provider. Discharge diagnosis: Acute ischemic CVA with dysarthria and dizziness hypertension Secondary discharge diagnosis: NPH alcoholism chronic kidney disease CAD diabetes hypertension - Time Spent with Patient Total time spent providing and/or coordinating discharge services: Greater than 30 minutes Medical - DS: Exam - Constitutional Vitals: Vital Signs Temp Pulse Resp BP BP Pulse Ox 08/06/18 08:00 98.0 F 20 182/87 99 08/06/18 04:37 98.1 F 18 161/60 94 08/06/18 00:10 98.6 F 145/53 08/05/18 21:38 136/53 08/05/18 21:05 186/87 08/05/18 20:47 188/89 08/05/18 20:32 174/67 08/05/18 20:17 181/85 08/05/18 20:02 65 194/81 96 08/05/18 19:59 65 190/81 96 08/05/18 12:00 97.8 F 24 H 183/82 97 08/05/18 11:18 183/82 Intake and Output 08/05/18 08/06/18 08/06/18 21:59 05:59 13:59 Intake Total 1169 240 Output Total 650 350 850 Balance 519 -488 -928 Intake: IV 929 Sodium Chloride 0.9% 1,000 ml @ 829 125 mls/hr IV .Q8H LA Rx#: [id number] Oral 240 240 Output: Void Amount 650 350 850 Other: Meal Dinner Breakfast Percent of Meal Consumed 100% 100% Feeding Ability Independent Urine Color Dark Yellow Weight 96.615 kg Medical - DS: Data Labs on day of discharge: Labs from last 24 hours 08/06/18 03:50 Sodium 139 Potassium 3.8 Chloride 104 Carbon Dioxide 22 Anion Gap 13.0 BUN 42 H Creatinine 2.5 H GFR Calculation 25 Glucose 132 H Uric Acid 5.8 Calcium 9.4 Phosphorus 3.6 Magnesium 1.8 Total Bilirubin 0.5 Direct Bilirubin < 0.2 GGT 99 H AST 22 ALT 14 Alkaline Phosphatase 102 Lactate Dehydrogenase 187 Total Protein 6.0 Albumin 3.0 L Globulin 3.0 Albumin/Globulin Ratio 1.0 Triglycerides 184 H Medical - DS: A/P - Patient/Caregiver Discharge Instructions Activity: as per physical therapy Diet: Cardiac Additional Instructions: Measure blood pressure twice daily and bring log to primary care provider for further adjustment of blood pressure medications Prescriptions: Clopidogrel Bisulfate [Plavix] 75 mg PO DAILY #30 tab - Follow up Plan Follow up with: Shonna Goodwin MD [Physician] - Abhishek Elizondo MD [Physician] - (Left internal carotid artery stenosis) Disposition: Home, Self-Care Prognosis: Fair Rehab Potential: Fair Overall status at discharge: patient is progressing back to baseline Medical - DS: Qual - VTE Deep Vein Thrombosis/Pulmonary Embolism Present on Admission: No
[2018-08-06] MEDS: ATORVASTATIN 20 MG TABLET PO SCH (21:02)
[2018-08-06] MEDS: MELATONIN 3 MG TABLET PO PRN (21:02)
[2018-08-06] MEDS: SENNOSIDES/DOCUSATE SODIUM 1 TAB TABLET PO SCH (21:02)
[2018-08-07] MEDS: DOCUSATE SODIUM 100 MG CAPSULE PO SCH ×2 (01:12→08:38)
[2018-08-07 05:49] LABS: ALT/SGPT 27 U/l (0-40); AST/SGOT 33 U/l (0-37); Albumin 2.7 gm/dL (3.2-5.2); Albumin/Globulin Ratio 0.9 (1.0-2.3); Alkaline Phosphatase 113 U/L (39-117); Bilirubin,Direct < 0.2 mg/dL (0.0-0.3); Bilirubin,Total 0.4 mg/dL (0.0-1.0); Blood Urea Nitrogen 41 mg/dl (8-23); Calcium 9.4 mg/dl (8.6-10.4); Carbon Dioxide 23 mmol/L (22-30); Chloride 107 mmol/L (96-108); Globulin 3.1 gm/dL (2.2-3.7); Glomerular Filtration Rate 27; Glucose 143 mg/dL (70-105); Lactate Dehydrogenase 177 U/L (94-250); Magnesium 1.6 mg/dL (1.6-2.5); Phosphorous 2.8 mg/dL (2.7-4.5); Potassium 3.7 mmol/L (3.3-5.1); Sodium 141 mmol/L (133-145); Triglycerides 172 mg/dl (<150); Uric Acid 5.6 mg/dL (2.5-8.0)
[2018-08-07] MEDS: 0.9 % SODIUM CHLORIDE 10 ML SYRINGE IV SCH ×2 (06:19→06:46)
[2018-08-07] MEDS: INSULIN LISPRO 1 UNIT/0.01 ML UNIT SQ SCH ×2 (06:47→11:55)
[2018-08-07] MEDS: ACETAMINOPHEN 325 MG TABLET PO PRN (06:57)
[2018-08-07] MEDS ORDERED: LABETALOL 5 MG/ML ML IV PRN (07:33)
[2018-08-07] MEDS: HEPARIN 5,000 UNIT/ML VIAL SQ SCH (08:32)
[2018-08-07] MEDS: CYANOCOBALAMIN (VITAMIN B-12) 500 MCG TABLET PO SCH (08:32)
[2018-08-07] MEDS: CLOPIDOGREL 75 MG TABLET PO SCH (08:32)
[2018-08-07] MEDS: THIAMINE 100 MG TABLET PO SCH (08:32)
[2018-08-07] MEDS: FOLIC ACID 1 MG TABLET PO SCH (08:32)
[2018-08-07] MEDS: METOPROLOL SUCCINATE 50 MG TAB.XL.24H PO SCH (08:32)
[2018-08-07] MEDS: MULTIVIT,THER IRON,CA,FA & MIN 1 TABLET PO SCH (08:32)
[2018-08-07] MEDS ORDERED: RAMIPRIL 2.5 MG CAPSULE PO SCH (09:00)
[2018-08-07] MEDS ORDERED: RAMIPRIL 5 MG CAPSULE PO ONE (16:11)
== END 2018-08-07 11:50 | disposition home or self-care (01) | DRG 65 ==
LOC: ED 18:01 → ICU 23:50 → ED 23:51 → ICU 08-06 15:00
PROVIDERS: ADMIT Internal Medicine; ATTEND Internal Medicine

== ENCOUNTER 2019-10-20 21:06 | Inpatient (IN) ==
[2019-10-20] MEDS ORDERED: IOPAMIDOL 100 ML BOTTLE IV ONE (21:07)
--- NOTE | 2019-10-20 21:54 | Emergency Department Note ---
Weakness HPI General Chief complaint: Weakness Stated complaint: weakness Time Seen by Provider: 10/20/19 21:10 Source: EMS Mode of arrival: EMS Limitations: physical limitation (wheelchair bound coming in.) History of Present Illness HPI Narrative: Narrative: This pleasant 74-year-old male comes accompanied by his significant other, Jenny Hensley with street 2 weeks ago of 3 fractured ribs on the posterior left side after a fall. He has had persisting left hip pain such that he is having difficulty ambulating due to the left hip pain as well as he has some right-sided weakness lower extremity weakness due to previous stroke as well as his generalized weakness. He can hardly transfer between wheelchair and a bed. He slept in his wheelchair due to pain recently. He gets dialysis 3 times per week. He has not been eating normally having skipped dinner the last 2 days and seems to have decreased his amount of fluids. He is not producing as much urine as he usually does which is a few times a day. It is actually been a bit darker. He takes hydrocodone once or twice daily as well as takes a muscle relaxant. He has been avoiding other people except he does get out to do dialysis. No fevers at home but he has had some chills last night. No sweats. He has had more cough and more phlegm with a little bit of gurgling in the past day or 2. He does not particularly feel short of breath. Related Data Home Medications Medication Instructions Recorded Confirmed hydrochlorothiazide 50 mg PO DAILY 08/04/18 10/21/19 metoprolol succinate 100 mg PO BID 08/04/18 10/21/19 aspirin 81 mg tablet,delayed 81 mg PO QDAY 10/06/19 10/21/19 release blood sugar diagnostic #10 each 10/06/19 10/21/19 fluticasone propionate 50 1 spray INTRANASAL QDAY 10/06/19 10/21/19 mcg/actuation nasal spray,suspension folic acid 1 mg tablet 1 mg PO QDAY 10/06/19 10/21/19 hydralazine 50 mg tablet 50 mg PO DAILY tab 10/06/19 10/21/19 pantoprazole 40 mg tablet,delayed 40 mg PO BID 10/06/19 10/21/19 release torsemide 20 mg tablet 20 mg PO QDAY 10/06/19 10/21/19 Previous Rx's Medication Instructions Recorded hydrocodone-acetaminophen 1 tab PO Q6-8HP PRN #20 tab 10/12/19 methocarbamol 500 mg PO TID PRN #20 tab 10/12/19 Allergies Allergy/AdvReac Type Severity Reaction Status Date / Time aspirin Allergy Mild Gastrointestinal Verified 10/12/19 13:54 Upset prednisone Allergy Verified 10/12/19 13:55 Review of Systems ROS ROS Narrative: Narrative: Denies chest pain No abdominal pain, nausea, vomiting, diarrhea. Has had some constipation. No hematochezia or melena Urine is a little bit darker than usual. Other ROS see HPI. PFS Narrative Patient History Narrative: Narrative: Medical/Surgical/Family History All Active Problems (Updated 10/21/19 @ 00:47 by Howie Napier DO) Weakness (Acute) Fever (Acute) Closed fracture of left hip (Acute) Elevated LFTs (Acute) Anemia due to chronic kidney disease (Acute) Cardiomegaly (Chronic) Multiple fractures of ribs, left side, initial encounter for closed fracture (Acute) At high risk for falls (Acute) Diabetes (Acute) Gastrointestinal stromal tumor (GIST) (Acute) Hydrocephalus (Acute) Hx of GI malignancy (Acute) History of tobacco use (Acute) Encounter for long-term (current) use of other medications (Acute) Class 1 obesity (Acute) Obstructive sleep apnea (Acute) Thrombocytopenia (Acute) Hereditary hemochromatosis (Acute) Carpal tunnel syndrome (Acute) Gout (Acute) COPD (chronic obstructive pulmonary disease) (Acute) CAD (coronary artery disease) (Acute) Arthralgia (Acute) History of squamous cell carcinoma (Acute) Weakness (Acute) Diplopia (Acute) Actinic keratosis (Acute) Confusion (Acute) Left knee pain (Acute) Osteoarthritis (Acute) Arthritis of right knee (Acute) Dependence on renal dialysis (Acute) Stroke (Acute) Chronic renal failure, stage 5 (Acute) DNR no code (do not resuscitate) (Chronic) CVA (cerebral vascular accident) (Acute) Anemia (Chronic) Cochlear implant status (Chronic) Overweight (BMI 25.0-29.9) (Chronic) History of acute myocardial infarction (Chronic) Diabetes mellitus type 2, controlled (Chronic) Normal pressure hydrocephalus (Chronic) Meniere's disease (Chronic) Chronic alcoholism (Acute) Hearing loss (Chronic) Medical History (Updated 10/21/19 @ 00:47 by Howie Napier DO) Actinic keratosis (Acute) Anemia (Chronic) Arthralgia (Acute) Arthritis of right knee (Acute) Ataxia (Resolved) CAD (coronary artery disease) (Acute) Cardiomegaly (Chronic) Carpal tunnel syndrome (Acute) Chronic alcoholism (Acute) Chronic kidney disease, stage 4 (severe) (Inactive) Chronic renal failure, stage 3 (moderate) (Inactive) creatinine 2.7 08-04-2018 Class 1 obesity (Acute) Concussion without loss of consciousness (Inactive) Confusion (Acute) COPD (chronic obstructive pulmonary disease) (Acute) Dependence on renal dialysis (Acute) Diabetes (Acute) Type 2 Diabetes mellitus type 2, controlled (Chronic) Diplopia (Acute) DNR no code (do not resuscitate) (Chronic) per patient's significant other, Medical POAJenny. Encounter for long-term (current) use of other medications (Acute) Gastrointestinal stromal tumor (GIST) (Acute) Gout (Acute) Hearing loss (Chronic) Hereditary hemochromatosis (Acute) History of acute myocardial infarction (Chronic) History of squamous cell carcinoma (Acute) History of tobacco use (Acute) Hx of GI malignancy (Acute) Hydrocephalus (Acute) Left knee pain (Acute) Meniere's disease (Chronic) Normal pressure hydrocephalus (Chronic) Obstructive sleep apnea (Acute) Osteoarthritis (Acute) Overweight (BMI 25.0-29.9) (Chronic) Seborrheic keratosis (Inactive) Slurred speech (Resolved) Stroke (Acute) Thrombocytopenia (Acute) Weakness (Acute) Surgical History (Updated 10/20/19 @ 21:57 by Howie Napier DO) Cochlear implant status (Chronic) H/O sinus surgery (Inactive) 3 sinus surgeries History of appendectomy (Inactive ~1948) History of carotid endarterectomy (Acute ~09/27/18) Patient significant other believes that this happened on the right in 2019. History of ear surgery (Inactive) 5 ear surgeries History of four vessel coronary artery bypass graft (Acute ~04/2006) History of partial gastrectomy (Acute ~2018) Stomach cancer; [facility] of [facility] (Inactive ~01/2012[facility] Family History Father, Age 58 Mother, Age 84 Skin cancer Unknown Cervical cancer Mother Diabetes Mother Congestive heart failure Mother Father Heart disease Unknown COPD (chronic obstructive pulmonary disease) Father Stroke Mother Social History Smoking Status: Former smoker Alcohol Intake Frequency: 2+ drinks per day Substance Use: does not use Exam Narrative Narrative: Narrative: General Limitations: physical limitation (wheelchair bound coming in.) General appearance: alert, in no apparent distress and nontoxic Head Head: atraumatic and normocephalic Eye Eye: Present normal appearance and EOMI Neck Neck: Present trachea midline; Absent lymphadenopathy and thyromegaly Chest Chest: Present symmetric chest wall rise and other (Some tenderness with movement such as reaching his right arm crossed and forward or changing positions will cause him to splint and have pain in his left posterior rib cage area where his fractures are.) Respiratory Respiratory: Present normal lung sounds bilaterally; Absent respiratory distress, rales/crackles, wheezes, stridor, accessory muscle use and prolonged expiratory phase Cardiovascular Cardiovascular: Present regular rate and normal rhythm; Absent systolic murmur and diastolic murmur Adbominal Abdominal: Present soft; Absent distention, tenderness, guarding, rebound, rigidity, organomegaly and mass Extremities Extremities: Absent pedal edema, pretibial edema, calf tenderness and cyanosis Back Back: Absent CVA tenderness (R), CVA tenderness (L) and spinous process tenderness Neurological Neurological: Present alert and oriented X3 Psychiatric Psychiatric: Present serious, polite and pleasant; Absent depressed, agitated, anxious and poor eye contact Skin Skin: Present warm and dry; Absent cyanosis and pallor Course Vital Signs Vital signs: Vital Signs Temperature 100.5 F H 10/20/19 21:09 Pulse Rate 99 H 10/20/19 21:09 Respiratory Rate 17 10/20/19 21:09 Blood Pressure 151/77 10/20/19 21:09 Pulse Oximetry (%) 94 10/20/19 21:09 Temperature 100.4 F H 10/20/19 23:31 Pulse Rate 100 H 10/21/19 00:31 Respiratory Rate 17 10/20/19 21:09 Blood Pressure 108/60 10/21/19 00:31 Pulse Oximetry (%) 97 10/21/19 00:31 MDM MDM Narrative Medical decision making narrative: Narrative: 9:30 PM - interviewed and examined. Dialysis patient with post fall 2 weeks ago with also some increased respiratory symptoms, consider pneumonia, consider dehydration; labs, lactic acid, pro calcitonin, blood culture, etc.. He has had dialysis today and earlier this week. He believes 2900 cc were removed today which is about normal for him. His hip pain has actually worsened rather than gotten better and so I will order CT imaging of the pelvis to include the left hip. Labs come back with a white count of 10.7. Hemoglobin 10.9, hematocrit 31.7. Platelet count 235. Lactic acid 1.0 CMP with normal electrolytes including anion gap of 15.0, carbon dioxide 25. BUN and creatinine are 23 and 3.1 which is lower than average but similar to the past several times from July. New is a bilirubin of 1.3 were normal was 0.4- 0.7. AST and ALT are elevated at 97/108 which is new. Alkaline phosphatase also elevated at 274 which is also new. 11:40 PM - bladder scan was only 5 cc visible. I suspect that patient may be somewhat intravascularly dry. He remains slightly tachy at 100-105 though his low-grade temperature could be the cause of his tachycardia as well. 11:50 PM - procalcitonin elevated at 0.38. I will ask for the chest [facility] 11[facility] PM - CT of the pelvis demonstrates a "left femoral basicervical fracture with fragmentation of the greater trochanter." Chest x-ray read as "no acute cardiopulmonary pathology". Patient continues to have low-grade temperature most recent a few minutes ago of 100.4. Had 100.2 earlier. Exact source of this fever is not known; pt confirms no runny nose, sore throat, no new or change with cough. No abdominal pain or diarrhea, nausea or vomiting. With his elevated liver function test and alkaline phos and bilirubin, CT scan of the abdomen seems appropriate but I will need to talk with nephrology first, re contrast and dialysis. 1213 approximately - spoke with hospitalist, Dr. Gianluca Merchant, who agrees with management of obtaining CT of the abdomen and pelvis because of the elevated LFTs, alk phos low-grade fever of uncertain origin; and if negative and nephrology and Ortho agreeable to have patient be admitted under his service and I will write transition orders. 12:23 AM - spoke with Dr. Tamez, pipe machine operator, who is okay with going ahead with contrast-enhanced CT abdomen of the pelvis. And she indicates we can give 500 cc of crystalloids. We could do a catheterized UA but it is okay to wait on this. She does agree with Zosyn 2.25 after blood cultures (blood cultures were done earlier). Possibility of bacteremia/sepsis due to his catheter is mentioned. 12:30 AM - I spoke with Ortho, Dr. Rocha, and read to him the hip fracture report. He is agreeable to consult and consider repair. He asked for the rapid COVID test in case patient will go to surgery in the near future (likely less than 48 hours). 12:47 AM - consider if his hemodialysis catheter has to be removed due to no other source for his fever -- will the obtaining and timing of a new catheter effect near future dialysis and surgery? 1:42 AM - if patient needs transfer for hemodialysis catheter placement it would not be until later in the morning anyway. His CT scan of the abdomen and pelvis comes back without any major pathology. Patient will be admitted to PCU. See transition orders. DNR per patient request after discussing some aspects of such scenarios. Lab Data Result diagrams: 10/20/19 21:44 10/20/19 21:44 Labs: Lab Results 10/20/19 10/20/19 10/20/19 Range/Units 21:44 21:44 21:44 WBC 10.7 (4.50-11.00) K/mcL RBC 3.26 L (4.63-6.08) M/mcL Hgb 10.9 L (13.7-17.5) g/dL Hct 31.7 L (40.1-51.0) % MCV 97.2 (80.0-100.0) fL MCH 33.4 (26.0-34.0) pg MCHC 34.4 (31.0-36.0) g/dL RDW 11.9 (11.5-14.5) % Plt Count 235 (140-440) K/mcL MPV 9.7 (7.4-10.4) fL Gran % 83.5 H (38.0-78.0) % Lymph % (Auto) 6.3 L (15.5-49.0) % [place] % (Auto) 9.3 (1.0-12.0) % Eos % (Auto) 0.4 (0.0-7.0) % Baso % (Auto) 0.5 (0.0-2.0) % Gran # 8.96 H (1.80-8.00) K/mcL Lymph # (Auto) 0.67 L (1.50-4.80) K/mcL [place] # (Auto) 1.00 H (0.10-0.90) K/mcL Eos # (Auto) 0.04 (0.00-0.70) K/mcL Baso # (Auto) 0.05 (0.00-0.30) K/mcL VBG Lactic Acid 1.0 (0.5-2.0) mmol/L Sodium 136 (133-145) mmol/L Potassium 3.9 (3.3-5.1) mmol/L Chloride 96 (96-108) mmol/L Carbon Dioxide 25 (22-30) mmol/L Anion Gap 15.0 (8-16) BUN 23 (8-23) mg/dl Creatinine 3.1 H (0.7-1.2) mg/dl GFR Calculation 19 Glucose 159 H (70-105) mg/dL Calcium 9.8 (8.6-10.4) mg/dl Total Bilirubin 1.3 H (0.0-1.0) mg/dL AST 97 H (0-37) U/l ALT 108 H (0-40) U/l Alkaline Phosphatase 274 H (39-117) U/L Total Protein 7.4 (5.9-8.4) gm/dL Albumin 3.3 (3.2-5.2) gm/dL Globulin 4.1 H (2.2-3.7) gm/dL Albumin/Globulin Ratio 0.8 L (1.0-2.3) Procalcitonin (<0.10) ng/mL 10/20/19 Range/Units 21:44 WBC (4.50-11.00) K/mcL RBC (4.63-6.08) M/mcL Hgb (13.7-17.5) g/dL Hct (40.1-51.0) % MCV (80.0-100.0) fL MCH (26.0-34.0) pg MCHC (31.0-36.0) g/dL RDW (11.5-14.5) % Plt Count (140-440) K/mcL MPV (7.4-10.4) fL Gran % (38.0-78.0) % Lymph % (Auto) (15.5-49.0) % [place] % (Auto) (1.0-12.0) % Eos % (Auto) (0.0-7.0) % Baso % (Auto) (0.0-2.0) % Gran # (1.80-8.00) K/mcL Lymph # (Auto) (1.50-4.80) K/mcL [place] # (Auto) (0.10-0.90) K/mcL Eos # (Auto) (0.00-0.70) K/mcL Baso # (Auto) (0.00-0.30) K/mcL VBG Lactic Acid (0.5-2.0) mmol/L Sodium (133-145) mmol/L Potassium (3.3-5.1) mmol/L Chloride (96-108) mmol/L Carbon Dioxide (22-30) mmol/L Anion Gap (8-16) BUN (8-23) mg/dl Creatinine (0.7-1.2) mg/dl GFR Calculation Glucose (70-105) mg/dL Calcium (8.6-10.4) mg/dl Total Bilirubin (0.0-1.0) mg/dL AST (0-37) U/l ALT (0-40) U/l Alkaline Phosphatase (39-117) U/L Total Protein (5.9-8.4) gm/dL Albumin (3.2-5.2) gm/dL Globulin (2.2-3.7) gm/dL Albumin/Globulin Ratio (1.0-2.3) Procalcitonin 0.38 (<0.10) ng/mL Discharge Plan Patient/Caregiver Discharge Instructions Pt seen by DOPE MAINTENANCE WORKER/PA only: No Clinical Impression: Weakness, Elevated LFTs Fever Qualifiers: Fever type: unspecified Qualified Code(s): R50.9 - Fever, unspecified Closed fracture of left hip Qualifiers: Encounter type: initial encounter Qualified Code(s): S72.002A - Fracture of unspecified part of neck of left femur, initial encounter for closed fracture Anemia due to chronic kidney disease Qualifiers: Chronic kidney disease stage: on chronic dialysis Qualified Code(s): N18.6 - End stage renal disease Patient Disposition: Xfer As Inpt ([facility]) Follow up with: Shonna Goodwin MD [Primary Care Provider] - Prescriptions: No Action fluticasone propionate 50 mcg/actuation spray,suspension 1 spray INTRANASAL QDAY RF: 0 folic acid 1 mg tablet 1 mg PO QDAY RF: 0 pantoprazole 40 mg tablet,delayed release (DR/EC) 40 mg PO BID RF: 0 torsemide 20 mg tablet 20 mg PO QDAY RF: 0 hydralazine 50 mg tablet 50 mg PO DAILY RF: 0 aspirin [Adult Aspirin Regimen] 81 mg tablet,delayed release (DR/EC) 81 mg PO QDAY RF: 0 (DME) Accu-Chek Guide test strips Strip See Rx Instructions .ROUTE .MEDSUPPLY Qty: 10 RF: 0 metoprolol succinate 100 MG tablet extended release 24 hr 100 mg PO BID RF: 0 hydrochlorothiazide 25 MG tablet 50 mg PO DAILY RF: 0 methocarbamol 500 mg tablet 500 mg PO TID PRN (Reason: Pain and spasm) Qty: 20 RF: 0 hydrocodone-acetaminophen 5-325 mg tablet 1 tab PO Q6-8HP PRN (Reason: pain) Qty: 20 RF: 0
[2019-10-20] MEDS ORDERED: ONDANSETRON 4 MG/2 ML VIAL IV ONE (22:11)
[2019-10-20] MEDS: HYDROmorphone 0.5 MG/0.5 ML SYRINGE IV PRN (22:21)
[2019-10-20 22:57] LABS: Basophils # (Auto) 0.05 K/mcL (0.00-0.30); Basophils % (Auto) 0.5 % (0.0-2.0); Eosinophils # (Auto) 0.04 K/mcL (0.00-0.70); Eosinophils % (Auto) 0.4 % (0.0-7.0); Granulocytes % (Auto) 83.5 % (38.0-78.0); Hematocrit 31.7 % (40.1-51.0); Hemoglobin 10.9 g/dL (13.7-17.5); Lymphocytes # (Auto) 0.67 K/mcL (1.50-4.80); Lymphocytes % (Auto) 6.3 % (15.5-49.0); Mean Cell Volume 97.2 fL (80.0-100.0); Mean Corpuscular HGB Conc 34.4 g/dL (31.0-36.0); Mean Platelet Volume 9.7 fL (7.4-10.4); Monocytes % (Auto) 9.3 % (1.0-12.0); Platelet Count 235 K/mcL (140-440); RBC 3.26 M/mcL (4.63-6.08); Red Cell Distribution Width 11.9 % (11.5-14.5); WBC 10.7 K/mcL (4.50-11.00)
[2019-10-20 23:18] LABS: ALT/SGPT 108 U/l (0-40); AST/SGOT 97 U/l (0-37); Albumin 3.3 gm/dL (3.2-5.2); Albumin/Globulin Ratio 0.8 (1.0-2.3); Alkaline Phosphatase 274 U/L (39-117); Bilirubin,Total 1.3 mg/dL (0.0-1.0); Blood Urea Nitrogen 23 mg/dl (8-23); Calcium 9.8 mg/dl (8.6-10.4); Carbon Dioxide 25 mmol/L (22-30); Chloride 96 mmol/L (96-108); Globulin 4.1 gm/dL (2.2-3.7); Glomerular Filtration Rate 19; Glucose 159 mg/dL (70-105)
[2019-10-21] MEDS: HYDROmorphone 0.5 MG/0.5 ML SYRINGE IV PRN ×3 (00:07→14:16)
[2019-10-21] MEDS ORDERED: 0.9 % SODIUM CHLORIDE 500 ML IV ONE (00:31)
[2019-10-21] MEDS ORDERED: PIPERACILLIN SODIUM/TAZOBACTAM 2.25 GM in DEXTROSE 5% IN WATER 50 ML IV ONE (00:32)
[2019-10-21] MEDS ORDERED: DEXTROSE 5% IN WATER 50 ML IV ONE (01:12)
[2019-10-21] MEDS ORDERED: ONDANSETRON 4 MG/2 ML VIAL IV PRN ×4 (01:37→12:32)
[2019-10-21] MEDS ORDERED: NALOXONE HCL 0.4 MG/ML VIAL IV PRN ×3 (01:37→12:32)
[2019-10-21] MEDS ORDERED: HYDROmorphone 0.5 MG/0.5 ML SYRINGE IV PRN ×2 (01:37→12:32)
--- NOTE | 2019-10-21 06:22 | XRay Report ---
INDICATION: fever TECHNIQUE: AP portable semiupright chest x-ray COMPARISON: Previous chest x-ray dated 07/28/2007 FINDINGS:The examination was initially interpreted by [facility] Previous median sternotomy. There is a large caliber right central venous catheter with its tip in the right atrium. There is no pneumothorax. Lungs:Lungs are negative. No focal pulmonary parenchymal infiltrate or mass Heart, vascular:No significant cardiomegaly. Pulmonary vascularity is normal. No pulmonary edema or pulmonary congestion Mediastinum, kristyn:No mediastinal widening. No hilar mass Pleura:There may be a single small calcified pleural plaque at the left lung base. Skeletal:Nonacute healed left-sided rib fractures IMPRESSION: 1. Right central venous catheter with its tip in the right atrium. No pneumothorax 2. No other acute abnormality Interpreted and Authenticated by: Abhishek Tovar 10/21/19
--- NOTE | 2019-10-21 06:29 | Cat Scan Report ---
INDICATION: pain left hip, after fall 2 wks ago TECHNIQUE: Axial images through the pelvis. Sagittal and coronal reformatted images COMPARISON: Plain film examination dated 10/12/2019 FINDINGS: Basicervical left hip fracture. No significant displacement. There is a nondisplaced greater trochanter fracture. Left femoral head is negative. Calvarium is negative. There is no pelvic fracture. Pubic bones iliac bones are negative. Sacrum and sacroiliac joints are unremarkable. There is severe atherosclerotic calcification. There is very dense calcification of the left common iliac artery with probable significant stenosis or occlusion. No free intraperitoneal fluid. No localized fluid collections. No extrapelvic soft tissue mass. Examination initially interpreted by [facility] IMPRESSION: Basicervical left hip fracture. Associated nondisplaced fracture of the greater trochanter Interpreted and Authenticated by: Abhishek Tovar 10/21/19
--- NOTE | 2019-10-21 07:03 | Cat Scan Report ---
INDICATION: Elevated liver function tests COMPARISON: None. TECHNIQUE: Axial images were obtained through the abdomen and pelvis. Sagittally and coronally reformatted images. 80 mL Isovue 370 injected intravenously. Oral contrast material was not administered FINDINGS: Examination was initially interpreted by [facility] Lung bases:Bilateral lower lobe pulmonary parenchymal density most consistent with atelectasis. No significant pleural effusion. No discrete mass or consolidation. There is severe calcified coronary artery disease. There is cardiomegaly. No pericardial effusion. Liver:Negative. No focal intrahepatic mass. No focal abnormality. Liver contour is smooth. No evidence for cirrhosis Gallbladder, bilary:No calcified gallstones. No gallbladder wall thickening. No dilated intra or extrahepatic bile ducts. Spleen:No splenomegaly. Normal enhancement of splenic and portal veins. Pancreas:No pancreatic mass. No peripancreatic abnormality Adrenal glands:Negative Kidneys, ureters, bladder:Kidneys are atrophic bilaterally No solid or cystic renal mass. No hydronephrosis. No obstructing calculi. There is no hydroureter. No ureteral stone No bladder calculi or detectable mass Gastrointestinal:No detectable colonic mass. There is no diverticulitis. Small bowel is negative. No mechanical small bowel obstruction. Stomach and duodenum are unremarkable Appendix: The appendix is not visualized Vascular:Calcification of the abdominal aorta. No abdominal aortic aneurysm. There is dense calcification at the origins of the celiac trunk and superior mesenteric artery. There is probable stenosis in the proximal superior mesenteric artery. Renal arteries are calcified. Lymphatic:No retroperitoneal or mesenteric adenopathy Mesentery, peritoneum: No free intraperitoneal fluid. No mesenteric or retroperitoneal mass. No intra-abdominal abscess Reproductive:Prostate is not significantly enlarged Musculoskeletal:Multilevel degenerative facet arthropathy. Probable spinal canal stenosis at L3-4 and L4-5. No acute compression fractures. There is mild T12 superior endplate depression. Sacrum and pelvis are negative. IMPRESSION: 1. Cardiomegaly 2. Extensive atherosclerotic disease 3. Renal atrophy 4. Negative liver The exam was performed using radiation dose optimization techniques including, but not limited to, automated exposure control, adjustment of the mA and/or kV according to patient size and use of iterative reconstruction technique. Interpreted and Authenticated by: Abhishek Tovar 10/21/19
[2019-10-21 07:22] LABS: Basophils # (Auto) 0.06 K/mcL (0.00-0.30); Basophils % (Auto) 0.6 % (0.0-2.0); Eosinophils # (Auto) 0.07 K/mcL (0.00-0.70); Eosinophils % (Auto) 0.6 % (0.0-7.0); Granulocytes % (Auto) 76.8 % (38.0-78.0); Hematocrit 30.6 % (40.1-51.0); Hemoglobin 10.3 g/dL (13.7-17.5); Lymphocytes # (Auto) 1.22 K/mcL (1.50-4.80); Lymphocytes % (Auto) 11.2 % (15.5-49.0); Mean Corpuscular HGB Conc 33.7 g/dL (31.0-36.0); Mean Platelet Volume 9.8 fL (7.4-10.4); Monocytes # (Auto) 1.18 K/mcL (0.10-0.90); Monocytes % (Auto) 10.8 % (1.0-12.0); Platelet Count 222 K/mcL (140-440); RBC 3.06 M/mcL (4.63-6.08); WBC 10.9 K/mcL (4.50-11.00)
[2019-10-21 07:45] LABS: ALT/SGPT 87 U/l (0-40); AST/SGOT 60 U/l (0-37); Albumin 3.1 gm/dL (3.2-5.2); Albumin/Globulin Ratio 0.8 (1.0-2.3); Alkaline Phosphatase 236 U/L (39-117); Bilirubin,Total 1.3 mg/dL (0.0-1.0); Blood Urea Nitrogen 27 mg/dl (8-23); Calcium 9.8 mg/dl (8.6-10.4); Carbon Dioxide 29 mmol/L (22-30); Chloride 97 mmol/L (96-108); Globulin 3.9 gm/dL (2.2-3.7); Glomerular Filtration Rate 16; Glucose 121 mg/dL (70-105); Lactate Dehydrogenase 157 U/L (94-250); Phosphorous 5.3 mg/dL (2.7-4.5); Triglycerides 138 mg/dl (<150); Uric Acid 4.4 mg/dL (2.5-8.0)
[2019-10-21] MEDS ORDERED: DEXTROSE 50% 50 ML VIAL IV PRN ×2 (09:45→12:32)
[2019-10-21] MEDS ORDERED: MAGNESIUM SULFATE 2 GM/50 ML BAG IV PRN ×2 (09:45→12:32)
[2019-10-21] MEDS ORDERED: IPRATROPIUM/ALBUTEROL 3 ML AMPUL.NEB NEB PRN ×3 (09:45→12:32)
[2019-10-21] MEDS ORDERED: HYDROcodone/APAP 5/325MG TABLET PO PRN ×3 (09:45→12:32)
[2019-10-21] MEDS ORDERED: POTASSIUM CHLORIDE 40 MEQ in DEXTROSE 5% IN WATER 500 ML IV PRN ×2 (09:45→12:32)
[2019-10-21] MEDS ORDERED: SENNOSIDES 1 TABLET PO PRN ×2 (09:45→12:32)
[2019-10-21] MEDS ORDERED: DEXTROSE 31 GM ORAL.SUSP PO PRN ×2 (09:45→12:32)
[2019-10-21] MEDS ORDERED: POTASSIUM CHLORIDE 20 MEQ TABLET PO PRN ×4 (09:45→12:32)
[2019-10-21] MEDS ORDERED: POLYETHYLENE GLYCOL 3350 17 GM PACKET PO PRN ×2 (09:45→12:32)
[2019-10-21] MEDS ORDERED: cloNIDine HCL 0.1 MG TABLET PO PRN ×2 (09:45→12:32)
[2019-10-21] MEDS ORDERED: LORazepam 2 MG/ML VIAL IV PRN ×2 (09:45→12:32)
[2019-10-21] MEDS ORDERED: ACETAMINOPHEN 325 MG TABLET PO PRN ×2 (09:45→12:32)
--- NOTE | 2019-10-21 09:45 | Internal Med History&Physical ---
HPI History of Present Illness Patient information: Note initiated : 10/21/19 at 9:27 am Service Date, if different from initiated Date: [] Patient: Darron Veliz a 74 y/o M admitted on 10/21/19 for weakness. Chief Complaint: [] History of present illness: Mr. Veliz is a 74 year old M Who is brought in the ED because of weakness and inability to bear weight on the left hip. He fell several weeks ago and sustained some fractures the left side. He did have a stroke recent Vinny in July and had right-sided weakness. He is difficult for him to transfer between wheelchair and bed sleeps in a wheelchair recently. He is on hemodialysis Wednesday. Work-up in the ED demonstrated left femoral neck fracture. Only patient was noted to have a temperature of 100.4, chest x-ray and CT abdomen pelvis were done. But unable to get urine in the ED. he states he did have a fever yesterday but not today. He has had a mild cough of clear sputum for the past week. Chest x-ray unremarkable. Afebrile o/n. Review of Systems: Pertinent positives above. Denies headache//nausea/vomiting/chest or abdominal pain/dyspnea/diarrhea. Many 10 point review of system reviewed negative PFSH PFSH All Active Problems (Updated 10/21/19 @ 00:47 by Howie Napier DO) Weakness (Acute) Fever (Acute) Closed fracture of left hip (Acute) Elevated LFTs (Acute) Anemia due to chronic kidney disease (Acute) Cardiomegaly (Chronic) Multiple fractures of ribs, left side, initial encounter for closed fracture (Acute) At high risk for falls (Acute) Diabetes (Acute) Gastrointestinal stromal tumor (GIST) (Acute) Hydrocephalus (Acute) Hx of GI malignancy (Acute) History of tobacco use (Acute) Encounter for long-term (current) use of other medications (Acute) Class 1 obesity (Acute) Obstructive sleep apnea (Acute) Thrombocytopenia (Acute) Hereditary hemochromatosis (Acute) Carpal tunnel syndrome (Acute) Gout (Acute) COPD (chronic obstructive pulmonary disease) (Acute) CAD (coronary artery disease) (Acute) Arthralgia (Acute) History of squamous cell carcinoma (Acute) Weakness (Acute) Diplopia (Acute) Actinic keratosis (Acute) Confusion (Acute) Left knee pain (Acute) Osteoarthritis (Acute) Arthritis of right knee (Acute) Dependence on renal dialysis (Acute) Stroke (Acute) Chronic renal failure, stage 5 (Acute) DNR no code (do not resuscitate) (Chronic) CVA (cerebral vascular accident) (Acute) Anemia (Chronic) Cochlear implant status (Chronic) Overweight (BMI 25.0-29.9) (Chronic) History of acute myocardial infarction (Chronic) Diabetes mellitus type 2, controlled (Chronic) Normal pressure hydrocephalus (Chronic) Meniere's disease (Chronic) Chronic alcoholism (Acute) Hearing loss (Chronic) Medical History (Updated 10/21/19 @ 00:47 by Howie Napier DO) Actinic keratosis (Acute) Anemia (Chronic) Arthralgia (Acute) Arthritis of right knee (Acute) Ataxia (Resolved) CAD (coronary artery disease) (Acute) Cardiomegaly (Chronic) Carpal tunnel syndrome (Acute) Chronic alcoholism (Acute) Chronic kidney disease, stage 4 (severe) (Inactive) Chronic renal failure, stage 3 (moderate) (Inactive) creatinine 2.7 08-04-2018 Class 1 obesity (Acute) Concussion without loss of consciousness (Inactive) Confusion (Acute) COPD (chronic obstructive pulmonary disease) (Acute) Dependence on renal dialysis (Acute) Diabetes (Acute) Type 2 Diabetes mellitus type 2, controlled (Chronic) Diplopia (Acute) DNR no code (do not resuscitate) (Chronic) per patient's significant other, Medical POA, Jenny Hensley. Encounter for long-term (current) use of other medications (Acute) Gastrointestinal stromal tumor (GIST) (Acute) Gout (Acute) Hearing loss (Chronic) Hereditary hemochromatosis (Acute) History of acute myocardial infarction (Chronic) History of squamous cell carcinoma (Acute) History of tobacco use (Acute) Hx of GI malignancy (Acute) Hydrocephalus (Acute) Left knee pain (Acute) Meniere's disease (Chronic) Normal pressure hydrocephalus (Chronic) Obstructive sleep apnea (Acute) Osteoarthritis (Acute) Overweight (BMI 25.0-29.9) (Chronic) Seborrheic keratosis (Inactive) Slurred speech (Resolved) Stroke (Acute) Thrombocytopenia (Acute) Weakness (Acute) Surgical History (Updated 10/20/19 @ 21:57 by Howie Napier DO) Cochlear implant status (Chronic) H/O sinus surgery (Inactive) 3 sinus surgeries History of appendectomy (Inactive ~1948) History of carotid endarterectomy (Acute ~09/27/18) Patient significant other believes that this happened on the right in 2019. History of ear surgery (Inactive) 5 ear surgeries History of four vessel coronary artery bypass graft (Acute ~04/2006) History of partial gastrectomy (Acute ~2018) Stomach cancer; [facility] History of surgery (Inactive ~01/2012) [facility] Family History Mother , Age 84 Cervical cancer Diabetes Stroke Congestive heart failure Unknown Heart disease Unknown Skin cancer Father , Age 58 COPD (chronic obstructive pulmonary disease) Congestive heart failure Social History (Updated 10/06/19 @ 08:37 by Franca Sheridan) marital status: single occupational status: disabled physical activity: none smoking status: Never smoker smoking status start date: 02/22/1959 smoking status stop date: 02/22/79 alcohol intake frequency: 2+ drinks per day counseling given: No substance use type: does not use MEDS/ALLERGIES Home Medications and Allergies Home Medications Medication Instructions Recorded Confirmed Type hydrochlorothiazide 50 mg PO DAILY 08/04/18 10/21/19 History metoprolol succinate 100 mg PO BID 08/04/18 10/21/19 History aspirin 81 mg tablet,delayed 81 mg PO QDAY 10/06/19 10/21/19 History release blood sugar diagnostic #10 each 10/06/19 10/21/19 History fluticasone propionate 50 1 spray INTRANASAL QDAY 10/06/19 10/21/19 History mcg/actuation nasal spray,suspension folic acid 1 mg tablet 1 mg PO QDAY 10/06/19 10/21/19 History hydralazine 50 mg tablet 50 mg PO DAILY tab 10/06/19 10/21/19 History pantoprazole 40 mg tablet,delayed 40 mg PO BID 10/06/19 10/21/19 History release torsemide 20 mg tablet 20 mg PO QDAY 10/06/19 10/21/19 History hydrocodone-acetaminophen 1 tab PO Q6-8HP PRN #20 tab 10/12/19 10/21/19 Rx methocarbamol 500 mg PO TID PRN #20 tab 10/12/19 10/21/19 Rx Allergies Allergy/AdvReac Type Severity Reaction Status Date / Time prednisone Allergy Unknown Unknown Verified 10/21/19 07:35 aspirin AdvReac Mild Gastrointestinal Verified 10/21/19 07:35 Upset EXAM Constitutional Vitals: Temp Pulse Resp BP Pulse Ox 99.7 F H 89 16 146/75 99 10/21/19 08:01 10/21/19 08:26 10/21/19 08:26 10/21/19 08:01 10/21/19 09:23 DATA Data Completed and Pending Labs: Labs from last 24 hours 10/21/19 10/21/19 10/21/19 08:36 05:57 05:57 WBC 10.9 RBC 3.06 L Hgb 10.3 L Hct 30.6 L MCV 100.0 MCH 33.7 MCHC 33.7 RDW 12.0 Plt Count 222 MPV 9.8 Gran % 76.8 Lymph % (Auto) 11.2 L [place] % (Auto) 10.8 Eos % (Auto) 0.6 Baso % (Auto) 0.6 Gran # 8.35 H Lymph # (Auto) 1.22 L [place] # (Auto) 1.18 H Eos # (Auto) 0.07 Baso # (Auto) 0.06 PT Pending INR Pending VBG Lactic Acid Sodium 140 Potassium 4.2 Chloride 97 Carbon Dioxide 29 Anion Gap 14.0 BUN 27 H Creatinine 3.6 H GFR Calculation 16 Glucose 121 H Uric Acid 4.4 Calcium 9.8 Phosphorus 5.3 H Magnesium 1.9 Total Bilirubin 1.3 H Direct Bilirubin 1.0 H GGT 230 H AST 60 H ALT 87 H Alkaline Phosphatase 236 H Lactate Dehydrogenase 157 Total Protein 7.0 Albumin 3.1 L Globulin 3.9 H Albumin/Globulin Ratio 0.8 L Triglycerides 138 Procalcitonin COVID-19 PCR 10/21/19 10/20/19 10/20/19 00:39 21:44 21:44 WBC RBC Hgb Hct MCV MCH MCHC RDW Plt Count MPV Gran % Lymph % (Auto) [place] % (Auto) Eos % (Auto) Baso % (Auto) Gran # Lymph # (Auto) [place] # (Auto) Eos # (Auto) Baso # (Auto) PT INR VBG Lactic Acid 1.0 Sodium Potassium Chloride Carbon Dioxide Anion Gap BUN Creatinine GFR Calculation Glucose Uric Acid Calcium Phosphorus Magnesium Total Bilirubin Direct Bilirubin GGT AST ALT Alkaline Phosphatase Lactate Dehydrogenase Total Protein Albumin Globulin Albumin/Globulin Ratio Triglycerides Procalcitonin 0.38 COVID-19 PCR Covid-19 negative 10/20/19 10/20/19 21:44 21:44 WBC 10.7 RBC 3.26 L Hgb 10.9 L Hct 31.7 L MCV 97.2 MCH 33.4 MCHC 34.4 RDW 11.9 Plt Count 235 MPV 9.7 Gran % 83.5 H Lymph % (Auto) 6.3 L [place] % (Auto) 9.3 Eos % (Auto) 0.4 Baso % (Auto) 0.5 Gran # 8.96 H Lymph # (Auto) 0.67 L [place] # (Auto) 1.00 H Eos # (Auto) 0.04 Baso # (Auto) 0.05 PT INR VBG Lactic Acid Sodium 136 Potassium 3.9 Chloride 96 Carbon Dioxide 25 Anion Gap 15.0 BUN 23 Creatinine 3.1 H GFR Calculation 19 Glucose 159 H Uric Acid Calcium 9.8 Phosphorus Magnesium Total Bilirubin 1.3 H Direct Bilirubin GGT AST 97 H ALT 108 H Alkaline Phosphatase 274 H Lactate Dehydrogenase Total Protein 7.4 Albumin 3.3 Globulin 4.1 H Albumin/Globulin Ratio 0.8 L Triglycerides Procalcitonin COVID-19 PCR A/P Narrative A/P Narrative: A: *Left hip fracture: *Fever in ED 100.5: CXR and ct a/p unremarkable, UA pending, does have HD cath *h/o CVA w/residual right side weakness/numbess: *Ataxia: 2/2 NPH/CVA *NPH: follows with Dr. umana *ESRD: follows with Dr. Arguelles *CAD w/CABG 7 years ago at [place]: *DM type II: *HTN: home med Hydralazine/BB/thiazide *h/o Alcoholism: states currently drinks 2-3/day *GERD: P: -Dr. Rocha for orthopedic surgery -Dr. Tamez for dialysis - -awaiting BC/UA before further Abx -cont ASA post-op -CIWA -SSI -pt/ot - -ppx: scd currently and post-op per ortho DNR Time Spent With Patient Time: Total time spent is greater than 50% in coordination of care (as documented) at patient's floor/unit and/or counseling patient: QUALITY Stroke Onset of Symptoms Date: 08/06/19
--- NOTE | 2019-10-21 10:11 | Consultation ---
DATE OF CONSULTATION: 10/21/2019 IDENTIFICATION: Mr. Veliz is a 74-year-old male. CHIEF COMPLAINT: Hip pain, subsequent to a base of the neck fracture of the left hip. HISTORY: Mr. Veliz sustained a fall several weeks ago. He had rib fractures and has had persistent left hip pain and has been unable to weightbear. He now presents with generalized weakness and of course part of his complaint is this left hip. He has had challenges managing at home because of such. On examination this morning, he does have minimal pain at rest, but does certainly complain of any pain with range of motion in the left groin. He certainly has the rib fractures on the left as well and pain there. PAST MEDICAL HISTORY: Significant for diabetes. He has hypertension, sleep apnea. He has renal failure, for which he does dialysis. He has coronary artery disease and COPD. PAST SURGICAL HISTORY: Not particularly contributory to this present problem, neither is his family history. MEDICATIONS: Hydrochlorothiazide, metoprolol, aspirin, fluticasone, hydralazine, pantoprazole, torsemide. ALLERGIES: LISTED ASPIRIN AND PREDNISONE. REVIEW OF SYSTEMS: Again, he has multiple medical problems that are being actively managed. He did have a fever in the emergency room. PHYSICAL EXAMINATION: GENERAL: He is a sleeping as I enter the room, but he does awaken appropriately, is responsive and answers questions, although seems just slightly somnolent as if he was not too distantly medicated. HEAD: Normocephalic, atraumatic. EYES: PERRLA. Conjunctivae clear. ENT: Within normal limits. NECK: Supple without pain on range of motion. HEART: Regular. LUNGS: Clear. ABDOMEN: Generally benign. MUSCULOSKELETAL: He does have pain over the chest wall on the left. EXTREMITIES: His left lower extremity shows no gross deformity. He is neurologically intact. Pulses are difficult to elicit, but he does have appropriate cap refill. He does have pain with any motion whatsoever. IMAGING: Radiographs demonstrate a fracture, low base of the neck. This is minimally displaced, slightly angulated. IMPRESSION: Left hip fracture in need of operative stabilization. This is certainly an explanation for why he has been unable to bear weight. This has been discussed with the patient along with risks, complications and limitations of surgical intervention and we will plan to move ahead with an open reduction and internal fixation of left hip. GDD:in Job ID: [id number] Doc ID: [id number] Son Rocha MD
[2019-10-21] MEDS ORDERED: DEXAMETHASONE 10 MG/ML VIAL ONE (10:22)
[2019-10-21] MEDS ORDERED: LIDOCAINE HCL/PF 100 MG/5 ML SYRINGE IV ONE (10:22)
[2019-10-21] MEDS ORDERED: PHENYLEPHRINE 10 MG/ML VIAL ONE (10:22)
[2019-10-21] MEDS ORDERED: KETAMINE 100 MG/ML ML ONE (10:22)
[2019-10-21] MEDS ORDERED: ONDANSETRON 4 MG/2 ML VIAL ONE (10:22)
[2019-10-21] MEDS ORDERED: PROPOFOL 200 MG/20 ML VIAL IV ONE (10:22)
[2019-10-21 10:46] LABS: INR 1.2 (0.9-1.1); Prothrombin Time 15.2 sec (11.9-14.5)
[2019-10-21] MEDS ORDERED: MEPERIDINE 25 MG/ML SYRINGE IV PRN (10:54)
[2019-10-21] MEDS ORDERED: fentaNYL 100 MCG/2 ML VIAL IV PRN (10:54)
[2019-10-21] MEDS ORDERED: ePHEDrine 50 MG/ML AMPUL IV PRN (10:54)
[2019-10-21] MEDS ORDERED: diphenhydrAMINE 50 MG/ML VIAL IV PRN (10:54)
[2019-10-21] MEDS ORDERED: ATROPINE SULFATE 0.4 MG/ML VIAL IV PRN (10:54)
[2019-10-21] MEDS ORDERED: METOPROLOL TARTRATE 5 MG/5 ML VIAL IV PRN (10:54)
[2019-10-21] MEDS ORDERED: METHOCARBAMOL 1,000 MG/10 ML VIAL IV PRN (10:54)
[2019-10-21] MEDS ORDERED: LACTATED RINGERS 1,000 ML IV SCH (11:00)
--- NOTE | 2019-10-21 11:24 | Brief Operative Note ---
Brief Operative Note Date of procedure: 10/21/19 Pre-op diagnosis: Left hip fracture Post-op diagnosis: same Procedure: gamma ORIF Grafts/Implants: No Complications: none Surgeon: Son Rocha Petroleum Sampler: Yanet Jesus Estimated blood loss (cc): 50
[2019-10-21] MEDS ORDERED: METHOCARBAMOL 500 MG TABLET PO PRN ×2 (11:25→12:32)
[2019-10-21] MEDS ORDERED: BLOOD SUGAR DIAGNOSTIC SCH (11:30)
[2019-10-21] MEDS ORDERED: INSULIN LISPRO 1 UNIT/0.01 ML UNIT SQ SCH (11:30)
[2019-10-21] MEDS ORDERED: MEPERIDINE 50 MG/ML INJECTION ONE (11:48)
--- NOTE | 2019-10-21 11:57 | XRay Report ---
INDICATION: ORIF Left Hip TECHNIQUE: 0.5 minutes fluoroscopy and 4.30 mGy exposure utilized. Intraoperative spot films were obtained. Open reduction and internal fixation of left basicervical hip fracture are performed with gamma nail placement IMPRESSION: Intraoperative fluoroscopy and spot films as above Interpreted and Authenticated by: Abhishek Tovar 10/21/19
[2019-10-21] MEDS ORDERED: IOPAMIDOL 100 ML BOTTLE IV ONE (12:32)
[2019-10-21] MEDS: 0.9 % SODIUM CHLORIDE 10 ML SYRINGE IV SCH ×2 (13:00→20:24)
[2019-10-21] MEDS ORDERED: 0.9 % SODIUM CHLORIDE 10 ML SYRINGE IV SCH (14:00)
[2019-10-21] MEDS: METOPROLOL SUCCINATE 50 MG TAB.XL.24H PO SCH ×2 (14:39→20:23)
[2019-10-21] MEDS: TORSEMIDE 10 MG TABLET PO SCH (14:40)
[2019-10-21] MEDS: HYDROCHLOROTHIAZIDE 25 MG TABLET PO SCH (14:41)
[2019-10-21] MEDS: hydrALAZINE 25 MG TABLET PO SCH (14:42)
[2019-10-21] MEDS: HYDROcodone/APAP 5/325MG TABLET PO PRN (16:19)
[2019-10-21] MEDS: ACETAMINOPHEN 650 MG/65 ML BOTTLE IV PRN (16:20)
[2019-10-21] MEDS: INSULIN LISPRO 1 UNIT/0.01 ML UNIT SQ SCH ×2 (16:53→23:38)
[2019-10-21 18:11] LABS: Appearance,Urine CLEAR; Bilirubin,Urine NEG (NEG); Color,Urine AMBER; Glucose,Urine (UA) NEGATIVE (NEG); Ketones,Urine NEG (NEG); Leukocyte Esterase,Urine 25 /uL (NEG); Nitrate,Urine NEG (NEG); Protein,Urine >=500 mg/dL (NEG); Specific Gravity,Urine 1.031 (1.000-1.035); Urine Blood 0.03 mg/dL (<0.03)
[2019-10-21 18:42] LABS: Bacteria,Urine 0 /hpf (0); Culture Indicated,Urine YES; Mucus,Urine 1+ /hpf (0); Urine Hyaline Cast 2 /lpf (0-2); Urine RBC 1 /hpf (0-1); Urine Squamous Epithelial Cell 1 /hpf (0-4); Urine WBC 22 /hpf (0-4)
[2019-10-21] MEDS: PANTOPRAZOLE 40 MG TABLET PO SCH (20:23)
[2019-10-21] MEDS: DOCUSATE SODIUM 100 MG CAPSULE PO SCH (20:23)
[2019-10-21] MEDS ORDERED: PANTOPRAZOLE 40 MG TABLET PO SCH (21:00)
[2019-10-21] MEDS ORDERED: FAMOTIDINE 20 MG TABLET PO SCH ×2 (21:00)
[2019-10-21] MEDS ORDERED: METOPROLOL SUCCINATE 50 MG TAB.XL.24H PO SCH (21:00)
[2019-10-21] MEDS ORDERED: DOCUSATE SODIUM 100 MG CAPSULE PO SCH (21:00)
[2019-10-21 21:26] LABS: Band Neutrophils % 2 % (0-10); Lymphocytes % 10 % (15-49); Monocytes % (Manual) 5 % (1-12); Platelet Estimate NORMAL (NORMAL); RBC Morphology NORMAL (NORMAL); Segmented Neutrophils % 83 % (38-78)
[2019-10-22] MEDS: HYDROmorphone 0.5 MG/0.5 ML SYRINGE IV PRN ×2 (04:39→20:08)
[2019-10-22] MEDS: ACETAMINOPHEN 650 MG/65 ML BOTTLE IV PRN ×2 (04:39→13:37)
[2019-10-22] MEDS: 0.9 % SODIUM CHLORIDE 10 ML SYRINGE IV SCH ×4 (05:37→20:41)
[2019-10-22 07:05] LABS: Basophils # (Auto) 0.03 K/mcL (0.00-0.30); Basophils % (Auto) 0.2 % (0.0-2.0); Eosinophils # (Auto) 0 K/mcL (0.00-0.70); Eosinophils % (Auto) 0 % (0.0-7.0); Granulocytes % (Auto) 88.4 % (38.0-78.0); Hematocrit 27.6 % (40.1-51.0); Hemoglobin 9.2 g/dL (13.7-17.5); Lymphocytes # (Auto) 0.63 K/mcL (1.50-4.80); Lymphocytes % (Auto) 4.5 % (15.5-49.0); Mean Corpuscular HGB Conc 33.3 g/dL (31.0-36.0); Mean Platelet Volume 9.9 fL (7.4-10.4); Monocytes # (Auto) 0.97 K/mcL (0.10-0.90); Monocytes % (Auto) 6.9 % (1.0-12.0); Platelet Count 221 K/mcL (140-440); RBC 2.76 M/mcL (4.63-6.08); Red Cell Distribution Width 11.9 % (11.5-14.5); WBC 14.1 K/mcL (4.50-11.00)
[2019-10-22 07:24] LABS: ALT/SGPT 45 U/l (0-40); AST/SGOT 35 U/l (0-37); Albumin/Globulin Ratio 0.8 (1.0-2.3); Alkaline Phosphatase 196 U/L (39-117); Bilirubin,Direct 0.5 mg/dL (0.0-0.3); Bilirubin,Total 0.7 mg/dL (0.0-1.0); Blood Urea Nitrogen 45 mg/dl (8-23); Calcium 10.2 mg/dl (8.6-10.4); Carbon Dioxide 25 mmol/L (22-30); Chloride 99 mmol/L (96-108); Globulin 3.6 gm/dL (2.2-3.7); Glomerular Filtration Rate 12; Glucose 164 mg/dL (70-105); Lactate Dehydrogenase 171 U/L (94-250); Phosphorous 6.2 mg/dL (2.7-4.5); Triglycerides 142 mg/dl (<150); Uric Acid 6.4 mg/dL (2.5-8.0)
[2019-10-22] MEDS: INSULIN LISPRO 1 UNIT/0.01 ML UNIT SQ SCH ×4 (07:26→20:40)
[2019-10-22] MEDS: HYDROcodone/APAP 5/325MG TABLET PO PRN ×3 (08:20→16:37)
--- NOTE | 2019-10-22 08:23 | Internal Med Progress Note ---
SUBJECTIVE Subjective Patient information: Note initiated : 10/22/19 at 8:20 am Service Date, if different from initiated Date: [] Patient: Darron Veliz a 74 y/o M admitted on 10/21/19 for weakness. Chief Complaint: [] Interval history: History of present illness: Mr. Veliz is a 74 year old M Who is brought in the ED because of weakness and inability to bear weight on the left hip. He fell several weeks ago and sustained some fractures the left side. He did have a stroke recent [place] in July and had right-sided weakness. He is difficult for him to transfer between wheelchair and bed sleeps in a wheelchair recently. He is on hemodialysis Wednesday. Work-up in the ED demonstrated left femoral neck fracture. Only patient was noted to have a temperature of 100.4, chest x-ray and CT abdomen pelvis were done. But unable to get urine in the ED. he states he did have a fever yesterday but not today. He has had a mild cough of clear sputum for the past week. Chest x-ray unremarkable. Afebrile o/n. 10/21 Slept well. No issues overnight. Had ORIF yesterday. Nephrology for dialysis in the morning. Afebrile. Did have a leukocytosis, this could be reactive postop but ruling out infection. Review of Systems: Feels constipated. Denies headache/fever/chills/nausea/vomiting/chest or abdominal pain/cough/dyspnea/diarrhea. Otherwise see above. Constitutional Vitals: Vital Signs Temp Pulse Resp BP Pulse Ox 97.7 F 73 12 127/84 100 10/22/19 04:01 10/22/19 07:36 10/22/19 07:01 10/22/19 07:01 10/22/19 07:36 Period Temp Pulse Resp BP Sys/Joseph Pulse Ox Last 24 Hr 97.7 F-99.8 F 66-102 12-22 105-171/61-91 2-100 Intake and Output 10/21/19 10/22/19 10/22/19 21:59 05:59 13:59 Intake Total 65 65 Output Total 350 150 Balance -285 -85 Weight 85.366 kg Intake & Output: Intake & Output 10/21/19 10/22/19 10/22/19 21:59 05:59 13:59 Intake Total 65 65 Output Total 350 150 Balance -285 -85 Weight 85.366 kg Intake: IV 65 65 Output: Urine Catheter Amount 350 Void Amount 150 Other: Urine Appearance Clear Straight Clear Urine Color Dark Darlene Dark Yellow Straight Dark Darlene Exam: General: Awake, No acute Distress Eyes/N/T: EOMI, Head/Neck: neck supple, CV: RRR, No murmurs, Pulm: Clear b/l, no wheezing/rhonchi/rales Abd: soft, nontender, +BS x4 Ext: no clubbing/cyanosis/edema Neuro: Alert, follows commands , right side weakness chronic from previous cva Skin: warm/dry OBJ DATA Labs CBC & Chem 7: 10/22/19 04:31 10/22/19 05:00 Labs: Abnormal Lab Results 10/22/19 10/22/19 10/21/19 05:00 04:31 17:04 WBC 14.1 H RBC 2.76 L Hgb 9.2 L Hct 27.6 L Gran % 88.4 H Lymph % (Auto) 4.5 L Gran # 12.51 H Lymph # (Auto) 0.63 L [place] # (Auto) 0.97 H Seg Neutrophils % Lymphocytes % Vacuolated Neuts PT INR Anion Gap 17.0 H BUN 45 H Creatinine 4.4 H Glucose 164 H Phosphorus 6.2 H* Total Bilirubin Direct Bilirubin 0.5 H GGT 197 H AST ALT 45 H Alkaline Phosphatase 196 H Albumin 3.0 L Globulin Albumin/Globulin Ratio 0.8 L Urine Protein >=500 A Urine Occult Blood 0.03 A Urine Urobilinogen 4.0 A Ur Leukocyte Esterase 25 A Urine WBC 22 H 10/21/19 10/21/19 10/21/19 08:36 05:57 05:57 WBC RBC Hgb Hct Gran % Lymph % (Auto) Gran # Lymph # (Auto) [place] # (Auto) Seg Neutrophils % 83 H Lymphocytes % 10 L Vacuolated Neuts 1+ A PT 15.2 H INR 1.2 H Anion Gap BUN 27 H Creatinine 3.6 H Glucose 121 H Phosphorus 5.3 H Total Bilirubin 1.3 H Direct Bilirubin 1.0 H GGT 230 H AST 60 H ALT 87 H Alkaline Phosphatase 236 H Albumin 3.1 L Globulin 3.9 H Albumin/Globulin Ratio 0.8 L Urine Protein Urine Occult Blood Urine Urobilinogen Ur Leukocyte Esterase Urine WBC 10/21/19 10/20/19 10/20/19 05:57 21:44 21:44 WBC RBC 3.06 L 3.26 L Hgb 10.3 L 10.9 L Hct 30.6 L 31.7 L Gran % 83.5 H Lymph % (Auto) 11.2 L 6.3 L Gran # 8.35 H 8.96 H Lymph # (Auto) 1.22 L 0.67 L [place] # (Auto) 1.18 H 1.00 H Seg Neutrophils % Lymphocytes % Vacuolated Neuts PT INR Anion Gap BUN Creatinine 3.1 H Glucose 159 H Phosphorus Total Bilirubin 1.3 H Direct Bilirubin GGT AST 97 H ALT 108 H Alkaline Phosphatase 274 H Albumin Globulin 4.1 H Albumin/Globulin Ratio 0.8 L Urine Protein Urine Occult Blood Urine Urobilinogen Ur Leukocyte Esterase Urine WBC Meds: Medications Acetaminophen (Tylenol) 650 mg PO Q6HP PRN PRN Reason: PAIN/FEVER > 101 Hydrocodone Bitart/Acetaminophen ([place] 5/325mg) 1 tab PO Q6-8HP PRN; Protocol PRN Reason: pain Last Admin: 10/21/19 16:19 Dose: 1 tab Documented by: Albuterol/Ipratropium (Duoneb) 3 ml NEB Q4HP PRN PRN Reason: Shortness Of Breath Aspirin (Aspirin) 81 mg PO DAILY [facility] Calcium Carbonate/Glycine (Tums) 1,000 mg CHEWED TIDCC LA Clonidine HCl (Catapres) 0.1 mg PO Q4HP PRN PRN Reason: ALC Dextrose (Dextrose 50%) 0 ml IV UD PRN PRN Reason: Hypoglycemia Diagnostic Test (Pha) (Accu-Chek) 1 each FS ACHS [facility] Last Admin: 10/22/19 07:26 Dose: 1 each Documented by: Docusate Sodium (Colace) 100 mg PO BID [facility] Last Admin: 10/21/19 20:23 Dose: 100 mg Documented by: Famotidine (Pepcid) 20 mg PO HS [facility] Last Admin: 10/21/19 20:23 Dose: 20 mg Documented by: Fluticasone Propionate (Flonase) 1 spray NS QDAY [facility] Folic Acid (Folic Acid) 1 mg PO QDAY [facility] Glucose (Insta-Glucose) 15 gm PO PRN PRN PRN Reason: Hypoglycemia Hydralazine HCl (Apresoline) 50 mg PO DAILY [facility] Last Admin: 10/21/19 14:42 Dose: 50 mg Documented by: Hydrochlorothiazide (Oretic) 50 mg PO DAILY [facility] Last Admin: 10/21/19 14:41 Dose: 50 mg Documented by: Hydromorphone HCl (Dilaudid) 0.5 mg IV Q2HP PRN; Protocol PRN Reason: Per Pain Protocol Last Admin: 10/22/19 04:39 Dose: 0.5 mg Documented by: Magnesium Sulfate (Magnesium Sulfate) 2 gm in 50 mls @ 50 mls/hr IV UD PRN PRN Reason: Magnesium </= 1.6 Potassium Chloride 40 meq/ (Dextrose) 520 mls @ 130 mls/hr IV UD PRN PRN Reason: Potassium < 3 Acetaminophen (Ofirmev) 650 mg in 65 mls @ 130 mls/hr IV Q6HP PRN; Protocol PRN Reason: PAIN/FEVER > 101 Last Infusion: 10/22/19 05:37 Dose: Infused Documented by: Insulin Human Lispro (Humalog) 0 unit SQ ACHS [facility]; Protocol Last Admin: 10/22/19 07:26 Dose: Not Given Documented by: Lorazepam (Ativan) 0 mg IV Q4HP PRN; Protocol PRN Reason: Alcohol Withdrawal Methocarbamol (Robaxin) 500 mg PO TID PRN PRN Reason: Pain and spasm Metoprolol Succinate (Toprol Xl) 100 mg PO BID [facility] Last Admin: 10/21/19 20:23 Dose: 100 mg Documented by: Naloxone HCl (Narcan) 0.1 mg IV Q2MIN PRN PRN Reason: Opiate Reversal Ondansetron HCl (Zofran) 4 mg IV Q4HP PRN PRN Reason: Nausea And Vomiting Pantoprazole Sodium (Protonix) 40 mg PO BID [facility] Last Admin: 10/21/19 20:23 Dose: 40 mg Documented by: Polyethylene Glycol (Miralax) 17 gm PO DAILYP PRN PRN Reason: Constipation Potassium Chloride (Kdur) 40 meq PO UD PRN PRN Reason: Potssium is 3-3.5 Potassium Chloride (Kdur) 40 meq PO UD PRN PRN Reason: Potassium < 3 Senna (Senokot) 2 tab PO DAILYP PRN PRN Reason: Constipation Sodium Chloride (Saline Flush) 10 ml IV Q8 [facility] Last Admin: 10/22/19 05:37 Dose: 10 ml Documented by: Torsemide (Demadex) 20 mg PO QDAY [facility] Last Admin: 10/21/19 14:40 Dose: 20 mg Documented by: A/P Narrative A/P Narrative: A: *Left hip fracture: s/p ORIF (10/20) *Fever in ED 100.5: CXR and ct a/p unremarkable, UA abnormal, does have HD cath and cx's pending -none since *Abnormal UA: treat as UTI given initial fever. -post-op leukocytosis from ?surgery reactive vs infection *h/o CVA w/residual right side weakness/numbess: *Ataxia: 2/2 NPH/CVA *NPH: follows with Dr. umana *ESRD: follows with Dr. Arguelles *CAD w/CABG 7 years ago at [place]: *DM type II: *HTN: home med Hydralazine/BB/thiazide *h/o Alcoholism: states currently drinks 2-3/day *GERD: *h/o etoh: P: -pt at increased perioperative risk given age and comorbidities, -Dr. Rocha for orthopedic surgery -Dr. Arguelles for dialysis -Rocephin, pending UC and BC via HD cath -CIWA -SSI -pt/ot - -ppx: ASA 81mg bid per post-op ortho orders DNR Time Spent With Patient Time: Total time spent is greater than 50% in coordination of care (as documented) at patient's floor/unit and/or counseling patient: QUALITY Stroke Onset of Symptoms Date: 08/06/19
[2019-10-22] MEDS ORDERED: cefTRIAXone 2 GM in DEXTROSE 5% IN WATER 50 ML IV ONE (08:26)
[2019-10-22] MEDS ORDERED: TORSEMIDE 10 MG TABLET PO SCH (09:00)
[2019-10-22] MEDS ORDERED: FLUTICASONE PROPIONATE SPRAY.NAS NS SCH ×2 (09:00)
[2019-10-22] MEDS ORDERED: FOLIC ACID 1 MG TABLET PO SCH ×2 (09:00)
[2019-10-22] MEDS ORDERED: ASPIRIN 81 MG TAB.CHEW PO SCH ×2 (09:00)
[2019-10-22] MEDS ORDERED: hydrALAZINE 25 MG TABLET PO SCH (09:00)
[2019-10-22] MEDS ORDERED: HYDROCHLOROTHIAZIDE 25 MG TABLET PO SCH (09:00)
[2019-10-22] MEDS: HYDROCHLOROTHIAZIDE 25 MG TABLET PO SCH (09:19)
[2019-10-22] MEDS: TORSEMIDE 10 MG TABLET PO SCH (09:19)
[2019-10-22] MEDS: METOPROLOL SUCCINATE 50 MG TAB.XL.24H PO SCH ×2 (09:19→20:10)
[2019-10-22] MEDS: DOCUSATE SODIUM 100 MG CAPSULE PO SCH ×2 (09:20→20:10)
[2019-10-22] MEDS: PANTOPRAZOLE 40 MG TABLET PO SCH ×2 (09:20→17:12)
[2019-10-22 09:41] LABS: Band Neutrophils % 3 % (0-10); Lymphocytes % 16 % (15-49); Macrocytosis 1+ (NONE SEEN); Monocytes % (Manual) 5 % (1-12); Platelet Estimate NORMAL (NORMAL); RBC Morphology ABNORM (NORMAL); Segmented Neutrophils % 76 % (38-78)
--- NOTE | 2019-10-22 10:45 | Orthopedic Progress Note ---
SUBJECTIVE Subjective Patient information: Note initiated : 10/22/19 at 10:38 am Service Date, if different from initiated Date: [] Patient: Darron Veliz 74 y/o M admitted on 10/21/19 for weakness. Chief Complaint: [S/P ORIF OF LEFT HIP] PATIENT REPORTS GENERALIZED WEAKNESS INCLUDING BOTH RIB PAIN FROM HIS FALL AND POST-SURGICAL HIP PAIN. OTHERWISE, HE IS MAKING PROGRESS. HE DENIES ANY NEW O NSET CHEST PAIN, SOA, OR CALF TENDERNESS. Constitutional Vitals: Vital Signs Temp Pulse Resp BP Pulse Ox 97.8 F 72 18 133/67 100 10/22/19 10:01 10/22/19 08:01 10/22/19 10:01 10/22/19 10:01 10/22/19 10:01 Period Temp Pulse Resp BP Sys/Joseph Pulse Ox Last 24 Hr 97.7 F-99.8 F 66-102 12-22 105-171/61-95 91-100 Intake and Output 10/21/19 10/22/19 10/22/19 21:59 05:59 13:59 Intake Total 65 65 Output Total 350 150 Balance -285 -85 Weight 188 lb 3.2 oz Intake & Output: Intake & Output 10/21/19 10/22/19 10/22/19 21:59 05:59 13:59 Intake Total 65 65 Output Total 350 150 Balance -285 -85 Weight 188 lb 3.2 oz Intake: IV 65 65 Output: Urine Catheter Amount 350 Void Amount 150 Other: Urine Appearance Clear Straight Clear Urine Color Dark Darlene Dark Yellow Straight Dark Darlene General appearance: cooperative and no acute distress Head Head exam: Present atraumatic and normal inspection Expanded Lower Extremity Exam Hip exam: Present tenderness (TENDERNESS TO PALPATION OVER THE LEFT HIP INCISION) Lower leg exam: Present Alva's sign (NEGATIVE BILATERALLY) Neurological Exam Neurological exam: Present alert and oriented X3 Psychiatric Psychiatric exam: Present normal affect and normal mood OBJ DATA Labs CBC & Chem 7: 10/22/19 04:31 10/22/19 05:00 Labs: Abnormal Lab Results 10/22/19 10/22/19 10/22/19 05:00 05:00 04:31 WBC 14.1 H RBC 2.76 L Hgb 9.2 L Hct 27.6 L Gran % 88.4 H Lymph % (Auto) 4.5 L Gran # 12.51 H Lymph # (Auto) 0.63 L [place] # (Auto) 0.97 H Seg Neutrophils % Lymphocytes % Vacuolated Neuts RBC Morphology Abnorm A Macrocytosis 1+ A PT INR Anion Gap 17.0 H BUN 45 H Creatinine 4.4 H Glucose 164 H Phosphorus 6.2 H* Total Bilirubin Direct Bilirubin 0.5 H GGT 197 H AST ALT 45 H Alkaline Phosphatase 196 H Albumin 3.0 L Globulin Albumin/Globulin Ratio 0.8 L Urine Protein Urine Occult Blood Urine Urobilinogen Ur Leukocyte Esterase Urine WBC 10/21/19 10/21/19 10/21/19 17:04 08:36 05:57 WBC RBC Hgb Hct Gran % Lymph % (Auto) Gran # Lymph # (Auto) [place] # (Auto) Seg Neutrophils % 83 H Lymphocytes % 10 L Vacuolated Neuts 1+ A RBC Morphology Macrocytosis PT 15.2 H INR 1.2 H Anion Gap BUN Creatinine Glucose Phosphorus Total Bilirubin Direct Bilirubin GGT AST ALT Alkaline Phosphatase Albumin Globulin Albumin/Globulin Ratio Urine Protein >=500 A Urine Occult Blood 0.03 A Urine Urobilinogen 4.0 A Ur Leukocyte Esterase 25 A Urine WBC 22 H 10/21/19 10/21/19 10/20/19 05:57 05:57 21:44 WBC RBC 3.06 L Hgb 10.3 L Hct 30.6 L Gran % Lymph % (Auto) 11.2 L Gran # 8.35 H Lymph # (Auto) 1.22 L [place] # (Auto) 1.18 H Seg Neutrophils % Lymphocytes % Vacuolated Neuts RBC Morphology Macrocytosis PT INR Anion Gap BUN 27 H Creatinine 3.6 H 3.1 H Glucose 121 H 159 H Phosphorus 5.3 H Total Bilirubin 1.3 H 1.3 H Direct Bilirubin 1.0 H GGT 230 H AST 60 H 97 H ALT 87 H 108 H Alkaline Phosphatase 236 H 274 H Albumin 3.1 L Globulin 3.9 H 4.1 H Albumin/Globulin Ratio 0.8 L 0.8 L Urine Protein Urine Occult Blood Urine Urobilinogen Ur Leukocyte Esterase Urine WBC 10/20/19 21:44 WBC RBC 3.26 L Hgb 10.9 L Hct 31.7 L Gran % 83.5 H Lymph % (Auto) 6.3 L Gran # 8.96 H Lymph # (Auto) 0.67 L [place] # (Auto) 1.00 H Seg Neutrophils % Lymphocytes % Vacuolated Neuts RBC Morphology Macrocytosis PT INR Anion Gap BUN Creatinine Glucose Phosphorus Total Bilirubin Direct Bilirubin GGT AST ALT Alkaline Phosphatase Albumin Globulin Albumin/Globulin Ratio Urine Protein Urine Occult Blood Urine Urobilinogen Ur Leukocyte Esterase Urine WBC Meds: Medications Acetaminophen (Tylenol) 650 mg PO Q6HP PRN PRN Reason: PAIN/FEVER > 101 Hydrocodone Bitart/Acetaminophen ([place] 5/325mg) 1 tab PO Q6-8HP PRN; Protocol PRN Reason: pain Last Admin: 10/22/19 08:20 Dose: 1 tab Documented by: Albuterol/Ipratropium (Duoneb) 3 ml NEB Q4HP PRN PRN Reason: Shortness Of Breath Aspirin (Aspirin) 81 mg PO DAILY [facility] Last Admin: 10/22/19 09:21 Dose: 81 mg Documented by: Calcium Carbonate/Glycine (Tums) 1,000 mg CHEWED TIDCC [facility] Ceftriaxone Sodium (Rocephin) 1 gm IV Q24H [facility]; Protocol Clonidine HCl (Catapres) 0.1 mg PO Q4HP PRN PRN Reason: ALC Dextrose (Dextrose 50%) 0 ml IV UD PRN PRN Reason: Hypoglycemia Diagnostic Test (Pha) (Accu-Chek) 1 each FS ACHS [facility] Last Admin: 10/22/19 07:26 Dose: 1 each Documented by: Docusate Sodium (Colace) 100 mg PO BID [facility] Last Admin: 10/22/19 09:20 Dose: 100 mg Documented by: Famotidine (Pepcid) 20 mg PO HS [facility] Last Admin: 10/21/19 20:23 Dose: 20 mg Documented by: Fluticasone Propionate (Flonase) 1 spray NS QDAY [facility] Folic Acid (Folic Acid) 1 mg PO QDAY [facility] Last Admin: 10/22/19 09:20 Dose: 1 mg Documented by: Glucose (Insta-Glucose) 15 gm PO PRN PRN PRN Reason: Hypoglycemia Hydralazine HCl (Apresoline) 50 mg PO DAILY [facility] Last Admin: 10/21/19 14:42 Dose: 50 mg Documented by: Hydrochlorothiazide (Oretic) 50 mg PO DAILY [facility] Last Admin: 10/22/19 09:19 Dose: 50 mg Documented by: Hydromorphone HCl (Dilaudid) 0.5 mg IV Q2HP PRN; Protocol PRN Reason: Per Pain Protocol Last Admin: 10/22/19 04:39 Dose: 0.5 mg Documented by: Magnesium Sulfate (Magnesium Sulfate) 2 gm in 50 mls @ 50 mls/hr IV UD PRN PRN Reason: Magnesium </= 1.6 Potassium Chloride 40 meq/ (Dextrose) 520 mls @ 130 mls/hr IV UD PRN PRN Reason: Potassium < 3 Acetaminophen (Ofirmev) 650 mg in 65 mls @ 130 mls/hr IV Q6HP PRN; Protocol PRN Reason: PAIN/FEVER > 101 Last Infusion: 10/22/19 05:37 Dose: Infused Documented by: Insulin Human Lispro (Humalog) 0 unit SQ ACHS [facility]; Protocol Last Admin: 10/22/19 07:26 Dose: Not Given Documented by: Lorazepam (Ativan) 0 mg IV Q4HP PRN; Protocol PRN Reason: Alcohol Withdrawal Methocarbamol (Robaxin) 500 mg PO TID PRN PRN Reason: Pain and spasm Metoprolol Succinate (Toprol Xl) 100 mg PO BID [facility] Last Admin: 10/22/19 09:19 Dose: 100 mg Documented by: Naloxone HCl (Narcan) 0.1 mg IV Q2MIN PRN PRN Reason: Opiate Reversal Ondansetron HCl (Zofran) 4 mg IV Q4HP PRN PRN Reason: Nausea And Vomiting Pantoprazole Sodium (Protonix) 40 mg PO BID [facility] Last Admin: 10/22/19 09:20 Dose: 40 mg Documented by: Polyethylene Glycol (Miralax) 17 gm PO DAILYP PRN PRN Reason: Constipation Potassium Chloride (Kdur) 40 meq PO UD PRN PRN Reason: Potssium is 3-3.5 Potassium Chloride (Kdur) 40 meq PO UD PRN PRN Reason: Potassium < 3 Senna (Senokot) 2 tab PO DAILYP PRN PRN Reason: Constipation Sodium Chloride (Saline Flush) 10 ml IV Q8 [facility] Last Admin: 10/22/19 05:37 Dose: 10 ml Documented by: Torsemide (Demadex) 20 mg PO QDAY [facility] Last Admin: 10/22/19 09:19 Dose: 20 mg Documented by: A/P Assessment and plan (1) Closed fracture of left hip: Status: Acute Comment: CONTINUE PAIN MANAGEMENT AND PT. PATIENT MAY BE WBAT. LIKELY DISCHARGE TO SNF IN 1-2 DAYS. Qualifiers: Encounter type: initial encounter Qualified Code(s): S72.002A - Fracture of unspecified part of neck of left femur, initial encounter for closed fracture Time Spent With Patient Time: Total time spent is greater than 50% in coordination of care (as documented) at patient's floor/unit and/or counseling patient:
[2019-10-22] MEDS: hydrALAZINE 25 MG TABLET PO SCH (10:46)
[2019-10-22] MEDS ORDERED: CALCIUM CARBONATE 500 MG TAB.CHEW CHEWED SCH (12:00)
[2019-10-22] MEDS ORDERED: MAGNESIUM SULFATE 2 GM/50 ML BAG IV PRN (13:59)
[2019-10-22] MEDS ORDERED: ACETAMINOPHEN 650 MG/65 ML BOTTLE IV PRN (13:59)
[2019-10-22] MEDS ORDERED: IOPAMIDOL 100 ML BOTTLE IV ONE (13:59)
[2019-10-22] MEDS ORDERED: LORazepam 2 MG/ML VIAL IV PRN (13:59)
[2019-10-22] MEDS ORDERED: cloNIDine HCL 0.1 MG TABLET PO PRN (13:59)
[2019-10-22] MEDS ORDERED: ACETAMINOPHEN 325 MG TABLET PO PRN (13:59)
[2019-10-22] MEDS ORDERED: DEXTROSE 50% 50 ML VIAL IV PRN (13:59)
[2019-10-22] MEDS ORDERED: DEXTROSE 31 GM ORAL.SUSP PO PRN (13:59)
[2019-10-22] MEDS ORDERED: POLYETHYLENE GLYCOL 3350 17 GM PACKET PO PRN (13:59)
[2019-10-22] MEDS ORDERED: ONDANSETRON 4 MG/2 ML VIAL IV PRN (13:59)
[2019-10-22] MEDS ORDERED: POTASSIUM CHLORIDE 40 MEQ in DEXTROSE 5% IN WATER 500 ML IV PRN (13:59)
[2019-10-22] MEDS ORDERED: NALOXONE HCL 0.4 MG/ML VIAL IV PRN (13:59)
[2019-10-22] MEDS ORDERED: POTASSIUM CHLORIDE 20 MEQ TABLET PO PRN ×2 (13:59)
[2019-10-22] MEDS ORDERED: SENNOSIDES 1 TABLET PO PRN (13:59)
[2019-10-22] MEDS ORDERED: IPRATROPIUM/ALBUTEROL 3 ML AMPUL.NEB NEB PRN (13:59)
[2019-10-22] MEDS: CALCIUM CARBONATE 500 MG TAB.CHEW CHEWED SCH (20:09)
[2019-10-22] MEDS: METHOCARBAMOL 500 MG TABLET PO PRN (20:10)
[2019-10-22] MEDS: FAMOTIDINE 20 MG TABLET PO SCH (20:10)
[2019-10-23] MEDS: HYDROcodone/APAP 5/325MG TABLET PO PRN ×3 (04:03→20:31)
[2019-10-23] MEDS: METHOCARBAMOL 500 MG TABLET PO PRN (04:18)
[2019-10-23] MEDS: HYDROmorphone 0.5 MG/0.5 ML SYRINGE IV PRN ×2 (04:18→07:20)
[2019-10-23] MEDS: 0.9 % SODIUM CHLORIDE 10 ML SYRINGE IV SCH ×3 (05:56→20:32)
--- NOTE | 2019-10-23 06:42 | Orthopedic Progress Note ---
SUBJECTIVE Subjective Patient information: Note initiated : 10/23/19 at 6:41 am Service Date, if different from initiated Date: [] Patient: Darron Veliz 74 y/o M admitted on 10/21/19 for weakness. Chief Complaint: [] Constitutional Vitals: Vital Signs Temp Pulse Resp BP Pulse Ox 100.0 F H 77 22 153/75 90 10/23/19 04:00 10/23/19 04:00 10/23/19 04:00 10/23/19 04:00 10/23/19 04:00 Period Temp Pulse Resp BP Sys/Joseph Pulse Ox Last 24 Hr 98.0 F-100.0 F 60-97 12-22 115-153/60-95 85-100 Intake and Output 10/22/19 10/23/19 10/23/19 21:59 05:59 13:59 Intake Total 65 65 Output Total 151 150 Balance -86 -85 Weight 191 lb 12.8 oz Intake & Output: Intake & Output 10/22/19 10/23/19 10/23/19 21:59 05:59 13:59 Intake Total 65 65 Output Total 151 150 Balance -86 -85 Weight 191 lb 12.8 oz Intake: IV 65 65 Output: Void Amount 150 150 # of times incontinent of urine 1 Other: Urine Appearance Clear Clear Urine Color Dark Yellow Dark Yellow OBJ DATA Labs CBC & Chem 7: 10/22/19 04:31 10/22/19 05:00 Labs: Abnormal Lab Results 10/22/19 10/22/19 10/22/19 05:00 05:00 04:31 WBC 14.1 H RBC 2.76 L Hgb 9.2 L Hct 27.6 L Gran % 88.4 H Lymph % (Auto) 4.5 L Gran # 12.51 H Lymph # (Auto) 0.63 L [place] # (Auto) 0.97 H Seg Neutrophils % Lymphocytes % Vacuolated Neuts RBC Morphology Abnorm A Macrocytosis 1+ A PT INR Anion Gap 17.0 H BUN 45 H Creatinine 4.4 H Glucose 164 H Phosphorus 6.2 H* Total Bilirubin Direct Bilirubin 0.5 H GGT 197 H AST ALT 45 H Alkaline Phosphatase 196 H Albumin 3.0 L Globulin Albumin/Globulin Ratio 0.8 L Urine Protein Urine Occult Blood Urine Urobilinogen Ur Leukocyte Esterase Urine WBC 10/21/19 10/21/1910/20/20 17:04 08:36 05:57 WBC RBC Hgb Hct Gran % Lymph % (Auto) Gran # Lymph # (Auto) [place] # (Auto) Seg Neutrophils % 83 H Lymphocytes % 10 L Vacuolated Neuts 1+ A RBC Morphology Macrocytosis PT 15.2 H INR 1.2 H Anion Gap BUN Creatinine Glucose Phosphorus Total Bilirubin Direct Bilirubin GGT AST ALT Alkaline Phosphatase Albumin Globulin Albumin/Globulin Ratio Urine Protein >=500 A Urine Occult Blood 0.03 A Urine Urobilinogen 4.0 A Ur Leukocyte Esterase 25 A Urine WBC 22 H 10/21/19 10/21/19 10/20/19 05:57 05:57 21:44 WBC RBC 3.06 L Hgb 10.3 L Hct 30.6 L Gran % Lymph % (Auto) 11.2 L Gran # 8.35 H Lymph # (Auto) 1.22 L [place] # (Auto) 1.18 H Seg Neutrophils % Lymphocytes % Vacuolated Neuts RBC Morphology Macrocytosis PT INR Anion Gap BUN 27 H Creatinine 3.6 H 3.1 H Glucose 121 H 159 H Phosphorus 5.3 H Total Bilirubin 1.3 H 1.3 H Direct Bilirubin 1.0 H GGT 230 H AST 60 H 97 H ALT 87 H 108 H Alkaline Phosphatase 236 H 274 H Albumin 3.1 L Globulin 3.9 H 4.1 H Albumin/Globulin Ratio 0.8 L 0.8 L Urine Protein Urine Occult Blood Urine Urobilinogen Ur Leukocyte Esterase Urine WBC 10/20/19 21:44 WBC RBC 3.26 L Hgb 10.9 L Hct 31.7 L Gran % 83.5 H Lymph % (Auto) 6.3 L Gran # 8.96 H Lymph # (Auto) 0.67 L [place] # (Auto) 1.00 H Seg Neutrophils % Lymphocytes % Vacuolated Neuts RBC Morphology Macrocytosis PT INR Anion Gap BUN Creatinine Glucose Phosphorus Total Bilirubin Direct Bilirubin GGT AST ALT Alkaline Phosphatase Albumin Globulin Albumin/Globulin Ratio Urine Protein Urine Occult Blood Urine Urobilinogen Ur Leukocyte Esterase Urine WBC Meds: Medications Acetaminophen (Tylenol) 650 mg PO Q6HP PRN PRN Reason: PAIN/FEVER > 101 Hydrocodone Bitart/Acetaminophen ([place] 5/325mg) 1 tab PO Q6-8HP PRN; Protocol PRN Reason: pain Last Admin: 08/31/20 04:03 Dose: 1 tab Documented by: Albuterol/Ipratropium (Duoneb) 3 ml NEB Q4HP PRN PRN Reason: Shortness Of Breath Aspirin (Aspirin) 81 mg PO DAILY [facility] Calcium Carbonate/Glycine (Tums) 1,000 mg CHEWED TIDCC [facility] Last Admin: 10/22/19 20:09 Dose: 1,000 mg Documented by: Ceftriaxone Sodium (Rocephin) 1 gm IV Q24H [facility]; Protocol Clonidine HCl (Catapres) 0.1 mg PO Q4HP PRN PRN Reason: ALC Dextrose (Dextrose 50%) 0 ml IV UD PRN PRN Reason: Hypoglycemia Diagnostic Test (Pha) (Accu-Chek) 1 each FS ACHS [facility] Last Admin: 10/22/19 20:40 Dose: 1 each Documented by: Docusate Sodium (Colace) 100 mg PO BID [facility] Last Admin: 10/22/19 20:10 Dose: 100 mg Documented by: Famotidine (Pepcid) 20 mg PO HS [facility] Last Admin: 10/22/19 20:10 Dose: 20 mg Documented by: Fluticasone Propionate (Flonase) 1 spray NS QDAY [facility] Folic Acid (Folic Acid) 1 mg PO QDAY [facility] Glucose (Insta-Glucose) 15 gm PO PRN PRN PRN Reason: Hypoglycemia Hydralazine HCl (Apresoline) 50 mg PO DAILY [facility] Hydrochlorothiazide (Oretic) 50 mg PO DAILY [facility] Hydromorphone HCl (Dilaudid) 0.5 mg IV Q2HP PRN; Protocol PRN Reason: Per Pain Protocol Last Admin: 10/23/19 04:18 Dose: 0.5 mg Documented by: Acetaminophen (Ofirmev) 650 mg in 65 mls @ 130 mls/hr IV Q6HP PRN; Protocol PRN Reason: PAIN/FEVER > 101 Last Infusion: 10/22/19 22:59 Dose: Infused Documented by: Magnesium Sulfate (Magnesium Sulfate) 2 gm in 50 mls @ 50 mls/hr IV UD PRN PRN Reason: Magnesium </= 1.6 Potassium Chloride 40 meq/ (Dextrose) 520 mls @ 130 mls/hr IV UD PRN PRN Reason: Potassium < 3 Insulin Human Lispro (Humalog) 0 unit SQ ACHS [facility]; Protocol Last Admin: 08/30/20 20:40 Dose: Not Given Documented by: Lorazepam (Ativan) 0 mg IV Q4HP PRN; Protocol PRN Reason: Alcohol Withdrawal Methocarbamol (Robaxin) 500 mg PO TID PRN PRN Reason: Pain and spasm Last Admin: 10/23/19 04:18 Dose: 500 mg Documented by: Metoprolol Succinate (Toprol Xl) 100 mg PO BID [facility] Last Admin: 10/22/19 20:10 Dose: 100 mg Documented by: Naloxone HCl (Narcan) 0.1 mg IV Q2MIN PRN PRN Reason: Opiate Reversal Ondansetron HCl (Zofran) 4 mg IV Q4HP PRN PRN Reason: Nausea And Vomiting Pantoprazole Sodium (Protonix) 40 mg PO BIDAC [facility] Last Admin: 10/22/19 17:12 Dose: 40 mg Documented by: Polyethylene Glycol (Miralax) 17 gm PO DAILYP PRN PRN Reason: Constipation Potassium Chloride (Kdur) 40 meq PO UD PRN PRN Reason: Potssium is 3-3.5 Potassium Chloride (Kdur) 40 meq PO UD PRN PRN Reason: Potassium < 3 Senna (Senokot) 2 tab PO DAILYP PRN PRN Reason: Constipation Sodium Chloride (Saline Flush) 10 ml IV Q8 [facility] Last Admin: 10/23/19 05:56 Dose: 10 ml Documented by: Torsemide (Demadex) 20 mg PO QDAY [facility] A/P Narrative A/P Narrative: no new ortho issues mobilize with physical therapy Time Spent With Patient Time: Total time spent is greater than 50% in coordination of care (as documented) at patient's floor/unit and/or counseling patient:
[2019-10-23 06:51] LABS: Basophils # (Auto) 0.03 K/mcL (0.00-0.30); Basophils % (Auto) 0.2 % (0.0-2.0); Eosinophils # (Auto) 0.11 K/mcL (0.00-0.70); Eosinophils % (Auto) 0.9 % (0.0-7.0); Granulocytes % (Auto) 87.9 % (38.0-78.0); Hematocrit 24.8 % (40.1-51.0); Hemoglobin 8.6 g/dL (13.7-17.5); Lymphocytes # (Auto) 0.72 K/mcL (1.50-4.80); Lymphocytes % (Auto) 5.8 % (15.5-49.0); Mean Cell Volume 99.2 fL (80.0-100.0); Mean Corpuscular HGB Conc 34.7 g/dL (31.0-36.0); Mean Platelet Volume 9.9 fL (7.4-10.4); Monocytes # (Auto) 0.64 K/mcL (0.10-0.90); Monocytes % (Auto) 5.2 % (1.0-12.0); Platelet Count 238 K/mcL (140-440); Red Cell Distribution Width 12.2 % (11.5-14.5); WBC 12.4 K/mcL (4.50-11.00)
[2019-10-23] MEDS: INSULIN LISPRO 1 UNIT/0.01 ML UNIT SQ SCH ×4 (07:16→20:32)
[2019-10-23] MEDS: PANTOPRAZOLE 40 MG TABLET PO SCH ×2 (07:17→19:27)
[2019-10-23] MEDS: CALCIUM CARBONATE 500 MG TAB.CHEW CHEWED SCH ×3 (07:17→19:27)
--- NOTE | 2019-10-23 07:33 | Operative Note ---
DATE OF OPERATION: 10/21/2019 PREOPERATIVE DIAGNOSIS: Left basilar neck hip fracture. POSTOPERATIVE DIAGNOSIS: Left basilar neck hip fracture. OPERATION PROPOSED: Left hip open reduction and internal fixation with a Sanchez gamma nail. OPERATION PERFORMED: Left hip open reduction and internal fixation with a Sanchez gamma nail. OPERATING SURGEON: Trevon Rocha M.D. BEHAVIORAL SERVICES TECH: Yanet Jesus PA-C. This provider's expertise and technical skill were required throughout the case. The PA assisted with preoperative coordination, intraoperative retraction, wound closure, dressing and splint application, as well as postoperative documentation and care coordination. INDICATIONS: This is a 74-year-old gentleman who has a minimally displaced base of the neck fracture. He has been unable to weightbear. He is in need of operative stabilization. OPERATION IN DETAIL: Informed consent was obtained. The patient was taken to the operating room where he was provided with appropriate anesthetic and prophylactic antibiotics. He was carefully positioned. His hip was prepped sterilely. An incision was made proximal to the greater trochanter. I advanced to the tip of the greater trochanter and then advanced a 3.2 mm guidewire cannulating the femur. An opening reamer was used. The guidewire was exchanged for a long ball tip guidewire. I then advanced an 11 mm short gamma nail down the femoral canal. This was held in position and a guidewire was placed retrograde across the fracture, low in the calcar to centralized in the femoral head and neck on both the anterior and the posterior projection of fluoroscopy. A reamer was used. A 100 mm hip screw was advanced through the matthieu. This was locked to the matthieu. An interlocking screw was placed distal through the guide. The wounds were irrigated thoroughly and closed with an 0 Vicryl in interrupted fashion, 2-0 Vicryl inverted deep dermal, and florence. Procedure was tolerated well. No complications. Estimated blood loss 100 mL. GDD:dipika Job ID: [id number] Doc ID: [id number] Son Rocha MD
--- NOTE | 2019-10-23 07:39 | Internal Med Progress Note ---
SUBJECTIVE Subjective Patient information: Note initiated : 10/23/19 at 7:37 am Service Date, if different from initiated Date: [] Patient: Darron Veliz a 74 y/o M admitted on 10/21/19 for weakness. Chief Complaint: [] Interval history: History of present illness: Mr. Veliz is a 74 year old M Who is brought in the ED because of weakness and inability to bear weight on the left hip. He fell several weeks ago and sustained some fractures the left side. He did have a stroke recent [place] in July and had right-sided weakness. He is difficult for him to transfer between wheelchair and bed sleeps in a wheelchair recently. He is on hemodialysis Wednesday. Work-up in the ED demonstrated left femoral neck fracture. Only patient was noted to have a temperature of 100.4, chest x-ray and CT abdomen pelvis were done. But unable to get urine in the ED. he states he did have a fever yesterday but not today. He has had a mild cough of clear sputum for the past week. Chest x-ray unremarkable. Afebrile o/n. 10/21 Slept well. No issues overnight. Had ORIF yesterday. Nephrology for dialysis in the morning. Afebrile. Did have a leukocytosis, this could be reactive postop but ruling out infection. 10/22 No overnight event or new complaints. Patient should be getting dialysis today. Leukocytosis improving. Cultures pending. Review of Systems: External hearing device out, unable to gather review of system Constitutional Vitals: Vital Signs Temp Pulse Resp BP Pulse Ox 100.0 F H 77 22 153/75 90 10/23/19 04:00 10/23/19 04:00 10/23/19 04:00 10/23/19 04:00 10/23/19 04:00 Period Temp Pulse Resp BP Sys/Joseph Pulse Ox Last 24 Hr 98.0 F-100.0 F 60-97 14-22 115-153/60-95 85-100 Intake and Output 10/22/19 10/23/19 10/23/19 21:59 05:59 13:59 Intake Total 65 65 Output Total 151 150 Balance -86 -85 Weight 86.999 kg Intake & Output: Intake & Output 10/22/19 10/23/19 10/23/19 21:59 05:59 13:59 Intake Total 65 65 Output Total 151 150 Balance -86 -85 Weight 86.999 kg Intake: IV 65 65 Output: Void Amount 150 150 # of times incontinent of urine 1 Other: Urine Appearance Clear Clear Urine Color Dark Yellow Dark Yellow Exam: General: Awake, No acute Distress Eyes/N/T: EOMI, Head/Neck: neck supple, CV: RRR, No murmurs, Pulm: Clear b/l, no wheezing/rhonchi/rales Abd: soft, nontender, +BS x4 Ext: no clubbing/cyanosis/edema Neuro: Alert, follows commands , right side weakness chronic from previous cva Skin: warm/dry OBJ DATA Labs CBC & Chem 7: 10/23/19 05:06 10/23/19 05:06 Labs: Abnormal Lab Results 10/23/19 10/22/19 10/22/19 05:06 05:00 05:00 WBC 12.4 H RBC 2.50 L Hgb 8.6 L Hct 24.8 L MCH 34.4 H Gran % 87.9 H Lymph % (Auto) 5.8 L Gran # 10.91 H Lymph # (Auto) 0.72 L Hodgeman # (Auto) Seg Neutrophils % Lymphocytes % Vacuolated Neuts RBC Morphology Abnorm A Macrocytosis 1+ A PT INR Anion Gap 17.0 H BUN 45 H Creatinine 4.4 H Glucose 164 H Phosphorus 6.2 H* Total Bilirubin Direct Bilirubin 0.5 H GGT 197 H AST ALT 45 H Alkaline Phosphatase 196 H Albumin 3.0 L Globulin Albumin/Globulin Ratio 0.8 L Urine Protein Urine Occult Blood Urine Urobilinogen Ur Leukocyte Esterase Urine WBC 10/22/19 10/21/19 10/21/19 04:31 17:04 08:36 WBC 14.1 H RBC 2.76 L Hgb 9.2 L Hct 27.6 L MCH Gran % 88.4 H Lymph % (Auto) 4.5 L Gran # 12.51 H Lymph # (Auto) 0.63 L Hodgeman # (Auto) 0.97 H Seg Neutrophils % Lymphocytes % Vacuolated Neuts RBC Morphology Macrocytosis PT 15.2 H INR 1.2 H Anion Gap BUN Creatinine Glucose Phosphorus Total Bilirubin Direct Bilirubin GGT AST ALT Alkaline Phosphatase Albumin Globulin Albumin/Globulin Ratio Urine Protein >=500 A Urine Occult Blood 0.03 A Urine Urobilinogen 4.0 A Ur Leukocyte Esterase 25 A Urine WBC 22 H 10/21/19 10/21/19 10/21/19 05:57 05:57 05:57 WBC RBC 3.06 L Hgb 10.3 L Hct 30.6 L MCH Gran % Lymph % (Auto) 11.2 L Gran # 8.35 H Lymph # (Auto) 1.22 L Hodgeman # (Auto) 1.18 H Seg Neutrophils % 83 H Lymphocytes % 10 L Vacuolated Neuts 1+ A RBC Morphology Macrocytosis PT INR Anion Gap BUN 27 H Creatinine 3.6 H Glucose 121 H Phosphorus 5.3 H Total Bilirubin 1.3 H Direct Bilirubin 1.0 H GGT 230 H AST 60 H ALT 87 H Alkaline Phosphatase 236 H Albumin 3.1 L Globulin 3.9 H Albumin/Globulin Ratio 0.8 L Urine Protein Urine Occult Blood Urine Urobilinogen Ur Leukocyte Esterase Urine WBC 10/20/19 10/20/19 21:44 21:44 WBC RBC 3.26 L Hgb 10.9 L Hct 31.7 L MCH Gran % 83.5 H Lymph % (Auto) 6.3 L Gran # 8.96 H Lymph # (Auto) 0.67 L Hodgeman # (Auto) 1.00 H Seg Neutrophils % Lymphocytes % Vacuolated Neuts RBC Morphology Macrocytosis PT INR Anion Gap BUN Creatinine 3.1 H Glucose 159 H Phosphorus Total Bilirubin 1.3 H Direct Bilirubin GGT AST 97 H ALT 108 H Alkaline Phosphatase 274 H Albumin Globulin 4.1 H Albumin/Globulin Ratio 0.8 L Urine Protein Urine Occult Blood Urine Urobilinogen Ur Leukocyte Esterase Urine WBC Meds: Medications Acetaminophen (Tylenol) 650 mg PO Q6HP PRN PRN Reason: PAIN/FEVER > 101 Hydrocodone Bitart/Acetaminophen ([place] 5/325mg) 1 tab PO Q6-8HP PRN; Protocol PRN Reason: pain Last Admin: 10/23/19 04:03 Dose: 1 tab Documented by: Albuterol/Ipratropium (Duoneb) 3 ml NEB Q4HP PRN PRN Reason: Shortness Of Breath Aspirin (Aspirin) 81 mg PO BID [facility] Calcium Carbonate/Glycine (Tums) 1,000 mg CHEWED TIDCC LA Last Admin: 10/23/19 07:17 Dose: 1,000 mg Documented by: Ceftriaxone Sodium (Rocephin) 1 gm IV Q24H [facility]; Protocol Clonidine HCl (Catapres) 0.1 mg PO Q4HP PRN PRN Reason: ALC Dextrose (Dextrose 50%) 0 ml IV UD PRN PRN Reason: Hypoglycemia Diagnostic Test (Pha) (Accu-Chek) 1 each FS ACHS [facility] Last Admin: 10/23/19 07:14 Dose: 1 each Documented by: Docusate Sodium (Colace) 100 mg PO BID [facility] Last Admin: 10/22/19 20:10 Dose: 100 mg Documented by: Famotidine (Pepcid) 20 mg PO HS [facility] Last Admin: 10/22/19 20:10 Dose: 20 mg Documented by: Fluticasone Propionate (Flonase) 1 spray NS QDAY [place] Folic Acid (Folic Acid) 1 mg PO QDAY [facility] Glucose (Insta-Glucose) 15 gm PO PRN PRN PRN Reason: Hypoglycemia Hydralazine HCl (Apresoline) 50 mg PO DAILY [facility] Hydrochlorothiazide (Oretic) 50 mg PO DAILY [facility] Hydromorphone HCl (Dilaudid) 0.5 mg IV Q2HP PRN; Protocol PRN Reason: Per Pain Protocol Last Admin: 10/23/19 07:20 Dose: 0.5 mg Documented by: Acetaminophen (Ofirmev) 650 mg in 65 mls @ 130 mls/hr IV Q6HP PRN; Protocol PRN Reason: PAIN/FEVER > 101 Last Infusion: 10/22/19 22:59 Dose: Infused Documented by: Magnesium Sulfate (Magnesium Sulfate) 2 gm in 50 mls @ 50 mls/hr IV UD PRN PRN Reason: Magnesium </= 1.6 Potassium Chloride 40 meq/ (Dextrose) 520 mls @ 130 mls/hr IV UD PRN PRN Reason: Potassium < 3 Insulin Human Lispro (Humalog) 0 unit SQ [facility]; Protocol Last Admin: 10/23/19 07:16 Dose: Not Given Documented by: Lorazepam (Ativan) 0 mg IV Q4HP PRN; Protocol PRN Reason: Alcohol Withdrawal Methocarbamol (Robaxin) 500 mg PO TID PRN PRN Reason: Pain and spasm Last Admin: 10/23/19 04:18 Dose: 500 mg Documented by: Metoprolol Succinate (Toprol Xl) 100 mg PO BID [facility] Last Admin: 10/22/19 20:10 Dose: 100 mg Documented by: Naloxone HCl (Narcan) 0.1 mg IV Q2MIN PRN PRN Reason: Opiate Reversal Ondansetron HCl (Zofran) 4 mg IV Q4HP PRN PRN Reason: Nausea And Vomiting Pantoprazole Sodium (Protonix) 40 mg PO BIDAC [facility] Last Admin: 10/23/19 07:17 Dose: 40 mg Documented by: Polyethylene Glycol (Miralax) 17 gm PO DAILYP PRN PRN Reason: Constipation Potassium Chloride (Kdur) 40 meq PO UD PRN PRN Reason: Potssium is 3-3.5 Potassium Chloride (Kdur) 40 meq PO UD PRN PRN Reason: Potassium < 3 Senna (Senokot) 2 tab PO DAILYP PRN PRN Reason: Constipation Sodium Chloride (Saline Flush) 10 ml IV Q8 [facility] Last Admin: 10/23/19 05:56 Dose: 10 ml Documented by: Torsemide (Demadex) 20 mg PO QDAY LA A/P Narrative A/P Narrative: A: *Left hip fracture: s/p ORIF (10/20) *Fever in ED 100.5: CXR and ct a/p unremarkable, UA abnormal, does have HD cath and cx's pending -none since *Abnormal UA: treat as UTI given initial fever. 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 Arguelles *CAD w/CABG 7 years ago at [place]: *DM type II: *HTN: home med Hydralazine/BB/thiazide *h/o Alcoholism: states currently drinks 2-3/day *GERD: *h/o etoh: P: -pt at increased perioperative risk given age and comorbidities, -Dr. Rocha for orthopedic surgery -Dr. Arguelles for dialysis -Rocephin, pending and BC via HD cath -CIWA -SSI -pt/ot - -ppx: ASA 81mg bid per post-op ortho orders DNR Time Spent With Patient Time: Total time spent is greater than 50% in coordination of care (as documented) at patient's floor/unit and/or counseling patient: QUALITY Stroke Onset of Symptoms Date: 08/06/19
[2019-10-23 07:44] LABS: Calcium 9.8 mg/dl (8.6-10.4); Carbon Dioxide 21 mmol/L (22-30); Glucose 98 mg/dL (70-105)
[2019-10-23 07:58] LABS: Blood Urea Nitrogen 60 mg/dl (8-23); Chloride 95 mmol/L (96-108); Glomerular Filtration Rate 9
[2019-10-23] MEDS ORDERED: cefTRIAXone 1 GM VIAL IV SCH (09:00)
[2019-10-23] MEDS ORDERED: ASPIRIN 81 MG TAB.CHEW PO SCH (09:00)
[2019-10-23] MEDS: FOLIC ACID 1 MG TABLET PO SCH (09:55)
[2019-10-23] MEDS: DOCUSATE SODIUM 100 MG CAPSULE PO SCH ×2 (09:55→20:32)
[2019-10-23] MEDS: TORSEMIDE 10 MG TABLET PO SCH (09:56)
[2019-10-23] MEDS: ASPIRIN 81 MG TAB.CHEW PO SCH ×2 (09:56→20:33)
[2019-10-23] MEDS: HYDROCHLOROTHIAZIDE 25 MG TABLET PO SCH (09:56)
[2019-10-23] MEDS: METOPROLOL SUCCINATE 50 MG TAB.XL.24H PO SCH ×2 (09:57→20:32)
[2019-10-23] MEDS: hydrALAZINE 25 MG TABLET PO SCH (09:58)
[2019-10-23] MEDS: FLUTICASONE PROPIONATE SPRAY.NAS NS SCH (10:22)
[2019-10-23] MEDS: cefTRIAXone 1 GM VIAL IV SCH (10:23)
[2019-10-23] MEDS ORDERED: DARBEPOETIN ALFA 100 MCG/ML VIAL SQ ONE (11:48)
--- NOTE | 2019-10-23 12:21 | Consultation ---
DATE OF CONSULTATION: 10/23/2019 REFERRING PHYSICIAN: Gianluca Merchant D.O. REASON FOR CONSULTATION: End-stage renal disease. REASON FOR HOSPITALIZATION: The patient is a 74-year-old gentleman with history of end-stage renal disease on hemodialysis. He dialyzes Mondays, Wednesdays, and Fridays. He was brought into the emergency room because of weakness and inability to bear weight on his left hip. He fell several weeks ago and sustained a fracture on the left side. He had a stroke recently in July and had right-sided weakness. He had difficulty transferring from wheelchair to bed. In the workup in the emergency room, he was found to have left femoral fracture. He had a low-grade fever as well. For that reason, blood cultures were drawn and chest x-rays were done which were unremarkable. He had surgery by Dr. Rocha with left hip replacement. He is recovering fairly well with that. PAST MEDICAL HISTORY: Significant for: 1. End-stage renal disease on hemodialysis. He dialyzes Mondays, Wednesdays, and Fridays at [facility]. 2. Anemia related to chronic kidney disease. 3. Multiple rib fractures in the past. 4. Diabetes. 5. He had a GI malignancy. 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 He has been followed by for that and Oncology. 6. History of carpal tunnel syndrome. 7. Hereditary hemochromatosis. 8. COPD. 9. Coronary artery disease. 10. Meniere's disease with hearing loss. PAST SURGICAL HISTORY: 1. Partial gastrectomy for suspected stomach cancer. 2. Four-vessel coronary artery bypass. 3. History of ear surgery in the past. 4. Carotid endarterectomy in the past. FAMILY HISTORY: Mother had cervical cancer, diabetes, and a history of stroke. Father had COPD and congestive heart failure. SOCIAL HISTORY: No history of smoking. He drinks one to two drinks per night. MEDICATIONS ON ADMISSION: 1. Metoprolol 100 mg twice daily. 2. Aspirin 81 mg daily. 3. Folic acid 1 mg daily. 4. Hydralazine 50 mg daily. 5. Protonix 40 mg twice daily. 6. Torsemide 20 mg daily. REVIEW OF SYSTEMS: Ten systems were reviewed and as indicated above. PHYSICAL EXAMINATION: GENERAL: Alert, oriented x3, not in any distress. VITAL SIGNS: Blood pressure has been running from 130 to 140s systolic with a diastolic in the 70s. Pulse rates are in the 90s, respiration rate of 16, temperature 99.5. HEENT: NC/AT. Pupils are reactive. External ear and auditory canal appears normal. Oral cavity appears normal with normal mucosa. NECK: Supple. No jugular venous distention. No lymphadenopathy. No thyromegaly. LUNGS: Decreased air entry bilaterally. No rales or rhonchi heard. CARDIAC: S1, S2 heard. No S3, S4. No murmurs, no rubs. ABDOMEN: Soft, nontender, no organomegaly. Positive bowel sounds. No mass. No rebound. EXTREMITIES: Did not show any evidence of edema and difficult to palpate his dorsalis pedis and posterior tibials. No skin rash or joint swellings noted. NEUROLOGIC: Grossly intact. LABORATORY DATA: White count is 12.4 with a hemoglobin of 8.6 and a platelet count of 238. Sodium 136, potassium 3.9, chloride of 95, CO2 of 21, BUN of 60, creatinine of 5.5. ASSESSMENT AND PLAN: 1. End-stage renal disease on hemodialysis. He is due for dialysis today. He will have 4 hours of dialysis as his usual treatment. We will attempt to remove about 3 kilos of fluid as tolerated. 2. Positive blood cultures. Repeat blood cultures have been drawn from the dialysis catheter. We will follow that. The initial one I was told was 1 out of 2 and was drawn in the peripheral. 3. Anemia. He is quite anemic and it is thought related to surgery as well. We will give him a dose of Aranesp 100 mcg. 4. Hypertension. Blood pressures are adequately controlled. Thank you, Dr. Merchant, for referring this patient for consultation. I will follow with you. Elder Job ID: [id number] Doc ID: [id number] Barney Arguelles MD
--- NOTE | 2019-10-23 17:37 | Cat Scan Report ---
CLINICAL INFORMATION: Code stroke COMPARISON: 10/12/2019 TECHNIQUE: 2.5 mm helical slices were obtained in the skull base to vertex. Following reconstruction, axial reformatted images were reviewed at bone and parenchymal windows. The exam was performed using radiation dose optimization techniques including, but not limited to, automated exposure control, adjustment of the mA and/or kV according to patient size and use of iterative reconstruction technique. FINDINGS: The ventricles, sulci, fissures, and cisterns are enlarged compatible with moderate age-related atrophy - no extra-axial fluid collection or mass appreciated. Moderate patchy chronic ischemic changes in the cerebral white matter are expected for age and unchanged. Scattered remote lacunar infarcts in the deep left frontal white matter of both basal ganglia and the inferior right cerebellum are seen - as before. There is no intracerebral hemorrhage, mass effect, edema or other acute finding. Battery the right temporal subgaleal soft tissue with wires extending into the petrous temporal region to the cochlear promontory monitory electrodes are grossly intact. IMPRESSION: Moderate atrophy and chronic ischemic changes in with the cerebral white matter with lacunar infarcts in basal ganglia, left frontal white matter and cerebellum are all stable. There is no intracerebral hemorrhage, edema or other acute finding. Interpreted and Authenticated by: Abhishek Goldman 10/23/19
[2019-10-23] MEDS ORDERED: ASPIRIN 81 MG TAB.CHEW CHEWED ONE (17:40)
--- NOTE | 2019-10-23 17:57 | Event Note ---
Event Note Event Note: Shortly after hemodialysis nurse noted change in mental status. Code stroke was activated. CT head performed unremarkable. CT angiogram head neck ordered by stroke neurologist. Patient seen in between test. Lethargic however no significant neuro deficits noted except for residual right-sided weakness consistent with prior CVA. Stat dose aspirin 325 mg Initiate telemetry monitoring Time spent 35 minutes
[2019-10-23] MEDS: FAMOTIDINE 20 MG TABLET PO SCH (20:32)
[2019-10-24] MEDS: HYDROcodone/APAP 5/325MG TABLET PO PRN ×2 (03:48→09:41)
[2019-10-24] MEDS: 0.9 % SODIUM CHLORIDE 10 ML SYRINGE IV SCH (05:30)
[2019-10-24 06:49] LABS: Basophils # (Auto) 0.05 K/mcL (0.00-0.30); Basophils % (Auto) 0.5 % (0.0-2.0); Eosinophils # (Auto) 0.09 K/mcL (0.00-0.70); Eosinophils % (Auto) 0.9 % (0.0-7.0); Granulocytes % (Auto) 81.7 % (38.0-78.0); Hematocrit 24.8 % (40.1-51.0); Hemoglobin 8.7 g/dL (13.7-17.5); Lymphocytes # (Auto) 0.95 K/mcL (1.50-4.80); Lymphocytes % (Auto) 9.6 % (15.5-49.0); Mean Cell Volume 97.6 fL (80.0-100.0); Mean Corpuscular HGB Conc 35.1 g/dL (31.0-36.0); Mean Platelet Volume 9.7 fL (7.4-10.4); Monocytes # (Auto) 0.72 K/mcL (0.10-0.90); Monocytes % (Auto) 7.3 % (1.0-12.0); Platelet Count 247 K/mcL (140-440); RBC 2.54 M/mcL (4.63-6.08); WBC 9.9 K/mcL (4.50-11.00)
[2019-10-24 07:07] LABS: Calcium 9.5 mg/dl (8.6-10.4); Carbon Dioxide 22 mmol/L (22-30); Glucose 95 mg/dL (70-105)
[2019-10-24 07:13] LABS: Blood Urea Nitrogen 32 mg/dl (8-23); Chloride 93 mmol/L (96-108); Glomerular Filtration Rate 15
[2019-10-24] MEDS: PANTOPRAZOLE 40 MG TABLET PO SCH (07:42)
[2019-10-24] MEDS: INSULIN LISPRO 1 UNIT/0.01 ML UNIT SQ SCH ×2 (07:42→11:55)
[2019-10-24] MEDS: CALCIUM CARBONATE 500 MG TAB.CHEW CHEWED SCH (08:21)
[2019-10-24] MEDS: hydrALAZINE 25 MG TABLET PO SCH (08:22)
[2019-10-24] MEDS: ASPIRIN 81 MG TAB.CHEW PO SCH (08:22)
[2019-10-24] MEDS: METOPROLOL SUCCINATE 50 MG TAB.XL.24H PO SCH (08:22)
[2019-10-24] MEDS: TORSEMIDE 10 MG TABLET PO SCH (08:23)
[2019-10-24] MEDS: FOLIC ACID 1 MG TABLET PO SCH (08:23)
[2019-10-24] MEDS: HYDROCHLOROTHIAZIDE 25 MG TABLET PO SCH (08:23)
[2019-10-24] MEDS: DOCUSATE SODIUM 100 MG CAPSULE PO SCH (08:23)
[2019-10-24] MEDS: FLUTICASONE PROPIONATE SPRAY.NAS NS SCH (08:24)
[2019-10-24] MEDS: cefTRIAXone 1 GM VIAL IV SCH (08:51)
--- NOTE | 2019-10-24 09:48 | Discharge Summary ---
Discharge Provider Provider Patient information: Note initiated : 10/24/19 at 9:41 am Service Date, if different from initiated Date: [] Patient: Darron Veliz 74 y/o M admitted on 10/21/19 for weakness. Chief Complaint: [] Discharge diagnosis *Left hip fracture: s/p ORIF (10/20) ongoing PT OT. Transitioning to SNF for continued posthospitalization rehab. *Abnormal UA: treat as UTI given initial fever-resolved *h/o CVA w/residual right side weakness/numbess: No new events on CT head. 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 Arguelles *CAD w/CABG 7 years ago at [facility]: Managed on aspirin *DM type II: Managed on sliding scale insulin/CC diet *HTN: Managed on home med Hydralazine/BB/thiazide *h/o etoh: No episodes of withdrawal. Brief hospital course Mr. Veliz is a 74 year old M Who is brought in the ED because of weakness and inability to bear weight on the left hip. He fell several weeks ago and sustained some fractures the left side. He did have a stroke recent [place] in July and had right-sided weakness. He is difficult for him to transfer between wheelchair and bed sleeps in a wheelchair recently. He is on hemodialysis Wednesday. Work-up in the ED demonstrated left femoral neck fracture. Only patient was noted to have a temperature of 100.4, chest x-ray and CT abdomen pelvis were done. But unable to get urine in the ED. he states he did have a fever yesterday but not today. He has had a mild cough of clear sputum for the past week. Chest x-ray unremarkable. Afebrile o/n. 10/21 Slept well. No issues overnight. Had ORIF yesterday. Nephrology for dialysis in the morning. Afebrile. Did have a leukocytosis, this could be reactive postop but ruling out infection. 10/22 No overnight event or new complaints. Patient should be getting dialysis today. Leukocytosis improving. Cultures pending. Shortly after hemodialysis nurse noted change in mental status. Code stroke was activated. CT head performed unremarkable. CT angiogram head neck ordered by stroke neurologist. Patient seen in between test. Lethargic however no significant neuro deficits noted except for residual right-sided weakness consistent with prior CVA. Patient was started on aspirin to [address] angiogram head and neck was ordered however patient refused. Also significant improvement mental status was noted over the next 1 hour with patient returning to baseline. Further testing was deferred however continued neurochecks/telemetry monitoring. 10/23-patient now at baseline. Ongoing physical therapy. Discharging today to [facility], [place]. We will follow-up with primary care physician/nephrology for continued hemodialysis. Date of admission: 10/21/19 02:08 Discharge date: 10/24/19 Primary care physician: Shonna Goodwin Consults: 10/21/19 07:30 Consult to Physician [CONS] Routine Comment: Consulting Provider: Son Rocha Reason For Exam: Physician to Consult 10/21/19 09:48 Consult to Physician [CONS] Routine Comment: Consulting Provider: Eugenia Tamez Reason For Exam: Physician to Consult Discharge Meds Discharge Medications Home Medications hydrochlorothiazide 50 mg PO DAILY 08/04/18 [History Confirmed 10/21/19 Last Taken Unknown] metoprolol succinate 100 mg PO BID 08/04/18 [History Confirmed 10/21/19 Last Taken Unknown] aspirin 81 mg tablet,delayed release 81 mg PO QDAY 10/06/19 [History Confirmed 10/21/19 Last Taken Unknown] blood sugar diagnostic #10 each 10/06/19 [History Confirmed 10/21/19 Last Taken Unknown] fluticasone propionate 50 mcg/actuation nasal spray,suspension 1 spray INTRANASAL QDAY 10/06/19 [History Confirmed 10/21/19 Last Taken Unknown] folic acid 1 mg tablet 1 mg PO QDAY 10/06/19 [History Confirmed 10/21/19 Last Taken Unknown] hydralazine 50 mg tablet 50 mg PO DAILY tab 10/06/19 [History Confirmed 10/21/19 Last Taken Unknown] pantoprazole 40 mg tablet,delayed release 40 mg PO BID 10/06/19 [History Confirmed 10/21/19 Last Taken Unknown] torsemide 20 mg tablet 20 mg PO QDAY 10/06/19 [History Confirmed 10/21/19 Last Taken Unknown] hydrocodone-acetaminophen 1 tab PO Q6-8HP PRN #20 tab 10/12/19 [Rx Confirmed 10/21/19 Last Taken Unknown] methocarbamol 500 mg PO TID PRN #20 tab 10/12/19 [Rx Confirmed 10/21/19 Last Taken Unknown] aspirin [Ecotrin Low Strength] 81 mg PO BID 14 Days #28 tab 10/24/19 [Rx Last Taken Unknown] docusate sodium 100 mg PO BID #30 cap 10/24/19 [Rx Last Taken Unknown] hydrocodone-acetaminophen 1 tab PO Q4H PRN #10 tab 10/24/19 [Rx Last Taken Unknown] insulin lispro [Humalog U-100 Insulin] See Protocol SUBCUT ACHS #10 ml 10/24/19 [Rx Last Taken Unknown] sennosides [Senna Lax] 2 tab PO DAILYP PRN #30 tab 10/24/19 [Rx Last Taken Unknown] COURSE Hospital Course Hospital course: . Discharge diagnosis: . Time Spent with Patient Time attestation: Total time spent providing and/or coordinating discharge services: EXAM Constitutional Vitals: Temp Pulse Resp BP Pulse Ox 98.8 F 77 22 164/76 92 10/24/19 07:36 10/24/19 07:36 10/24/19 07:36 10/24/19 07:36 10/24/19 09:00 Discharge Data Data Completed and Pending Labs on day of discharge: Labs from last 24 hours 10/24/19 10/24/19 05:40 05:40 WBC 9.9 RBC 2.54 L Hgb 8.7 L Hct 24.8 L MCV 97.6 MCH 34.3 H MCHC 35.1 RDW 12.0 Plt Count 247 MPV 9.7 Gran % 81.7 H Lymph % (Auto) 9.6 L Lea % (Auto) 7.3 Eos % (Auto) 0.9 Baso % (Auto) 0.5 Gran # 8.11 H Lymph # (Auto) 0.95 L Lea # (Auto) 0.72 Eos # (Auto) 0.09 Baso # (Auto) 0.05 Sodium 134 Potassium 3.5 Chloride 93 L Carbon Dioxide 22 Anion Gap 19.0 H BUN 32 H Creatinine 3.8 H GFR Calculation 15 Glucose 95 Calcium 9.5 Preliminary micro results at discharge 10/20/19 21:44 Blood Culture - Preliminary Blood 10/20/19 21:52 Blood Culture - Preliminary Blood 10/21/19 15:30 Blood Culture - Preliminary Blood 10/21/19 15:40 Blood Culture - Preliminary Blood Discharge Plan Patient/Caregiver Discharge Instructions Activity: increase activity as tolerated Diet: Renal/Consistent Carbs Instructions: ORIF of Hip Fracture (DC) Activity Restrictions/Additional Instructions: Discharge Instructions: Weight bearing as tolerated. You have the dry gauze dressing that needs to be changed daily. You may shower. Do not scrub incision. Pat dry. To avoid constipation while taking any narcotic pain medication, take an over the counter stool softener/laxative. Use ice packs as directed, on for 20 minutes at a time, throughout the day. Ice and elevation will help with pain and swelling. Take Aspirin 81 mg BID for 14 days to prevent blood clots (see medication list). Hold home dose aspirin 81 mg daily - for 2 weeks, then resume. Follow-up PCP in [5] days. F/u orthopedics as scheduled by orthopedics along with post op care. Post op care/mobility/weightbearing and DVT prophylaxis per orthopedics. Hospitalist recommends primary care physician to check CBC BMP UA as a posthospital follow-up in 1 week. Continue aggressive bowel regimen to prevent constipation. Maintain fall precautions. Daily weights measurements. Continue directed therapies including PT and OT on discharge as advised. ST eval and treatment if indicated. High protein calorie supplements. All meals in chair, sitting upright at 90 degrees, to prevent aspiration. Return to ER if concerning symptoms noted including worsening shortness of breath, fever chills, neurological changes, diarrhea, bleeding Refrain from smoking and alcohol. Continue diet and activity as advised Discussed importance of medication adherence. If you have any questions or concerns call your orthopedic surgeon before going to the emergency room. [facility] has a traffic control signaler physician 24 hours per day/7 days per week and can be reached at [phone]. Call for fevers above 100.5 or pain not controlled by medication. This discharge packet is provided to you to help keep you informed about your care. We want to ensure you get everything you need when you go home. You will also be receiving a call from us in a few days to follow up with you and see how you are doing since your discharge. This gives us a chance to listen to any concerns you maybe experiencing since you were discharged or any additional needs you may have, as well as providing us feedback on your care experience. We strive to always provide excellent care and thank you for your feedback and for choosing [facility]. Prescriptions: New sennosides [Senna Lax] 8.6 mg Tablet 2 tab PO DAILYP PRN (Reason: Constipation) Qty: 30 RF: 0 docusate sodium 100 mg Capsule 100 mg PO BID Qty: 30 RF: 0 aspirin [Ecotrin Low Strength] 81 mg Tablet,Delayed Release (Dr/Ec) 81 mg PO BID 14 Days Qty: 28 RF: 0 hydrocodone-acetaminophen 5-325 mg Tablet 1 tab PO Q4H PRN (Reason: Pain) Qty: 10 RF: 0 insulin lispro [Humalog U-100 Insulin] 100 unit/mL Solution See Protocol unit SUBCUT ACHS Qty: 10 RF: 0 Continued fluticasone propionate 50 mcg/actuation spray,suspension 1 spray INTRANASAL QDAY RF: 0 folic acid 1 mg tablet 1 mg PO QDAY RF: 0 pantoprazole 40 mg tablet,delayed release (DR/EC) 40 mg PO BID RF: 0 torsemide 20 mg tablet 20 mg PO QDAY RF: 0 hydralazine 50 mg tablet 50 mg PO DAILY RF: 0 aspirin [Adult Aspirin Regimen] 81 mg tablet,delayed release (DR/EC) 81 mg PO QDAY RF: 0 (DME) Accu-Chek Guide test strips Strip See Rx Instructions .ROUTE .MEDSUPPLY Qty: 10 RF: 0 metoprolol succinate 100 MG tablet extended release 24 hr 100 mg PO BID RF: 0 hydrochlorothiazide 25 MG tablet 50 mg PO DAILY RF: 0 methocarbamol 500 mg tablet 500 mg PO TID PRN (Reason: Pain and spasm) Qty: 20 RF: 0 hydrocodone-acetaminophen 5-325 mg tablet 1 tab PO Q6-8HP PRN (Reason: pain) Qty: 20 RF: 0 Other Ambulatory Orders: OT Discharge Order (Routine) Location: None Selected Ordered By: Del Wolf Physical Therapy at Discharge - [facility] (Routine) Location: None Selected Ordered By: Del Wolf Follow Up Plan Follow up with: Son Rocha MD [Physician] - (Please call and schedule a surgical follow up to be seen in 10-14 day from surgery.) Shonna Goodwin MD [Primary Care Provider] - (Please call and schedule a hospital follow up to be seen in 5 days.) Patient Disposition: Xfer SNF Rehab Potential: Fair I certify that the patient requires SNF services: Yes Overall status at discharge: patient is progressing back to baseline Discharge Date/Time: 10/24/19 11:50 Discharge Location: [facility] Discharge Orders: Discharge Order (Routine); Ordered 10/24/19 Ordered By: Del Wolf
== END 2019-10-24 11:50 | DRG 480 ==
LOC: ED 21:06 → ICU 10-21 02:08 → MEDSUR 10-22 15:50
PROVIDERS: ADMIT Internal Medicine; ATTEND Internal Medicine

== ENCOUNTER 2019-11-04 18:41 | Inpatient (IN) ==
[2019-11-04] MEDS ORDERED: 0.9 % SODIUM CHLORIDE 10 ML SYRINGE IV ONE (19:34)
--- NOTE | 2019-11-04 19:47 | Emergency Department Note ---
SOB HPI General Chief Complaint: Shortness of Breath/Dyspnea Stated Complaint: increased shortness of breath Time Seen by Provider: 11/04/19 18:57 Source: patient, EMS and other Mode of arrival: EMS Limitations: physical limitation History of Present Illness HPI Narrative: This very hard of hearing 74-year-old male is at [facility], recuperating from a hip fracture and surgery from the , and gets regular dialysis and was found to have low saturations today that were poorly responsive to oxygen and was transferred because of this. Reportedly he has had some low-grade fevers in the 99.8 100.0 range in the past [address] Arguelles for dialysis on Wednesday and blood cultures were done at that time as well as a COVID test which was negative. 2 days ago because of his fevers he had a COVID test done which results came back this morning and was positive. A rapid today confirmed it. He was found to have saturation at 79% on room air and was given 4 L via nasal cannula and it still stayed in the low 80s and was increased to 5 L with that variable in the 87-91% range and was transferred because of this. Patient reports having some phlegm every few days that he is able to produce. He does not believe he has had fevers, chills, sweats. No sore throat or runny nose has been reported or nausea or vomiting or diarrhea. It is exceedingly difficult to get any additional information reasonably from patient due to his difficulties understanding due to his very hard of hearing. Related Data Home Medications Medication Instructions Recorded Confirmed hydrochlorothiazide 50 mg PO DAILY 08/04/18 11/04/19 metoprolol succinate 100 mg PO BID 08/04/18 11/04/19 blood sugar diagnostic #10 each 10/06/19 11/04/19 fluticasone propionate 50 1 spray INTRANASAL QDAY 10/06/19 11/04/19 mcg/actuation nasal spray,suspension folic acid 1 mg tablet 1 mg PO QDAY 10/06/19 11/04/19 hydralazine 50 mg tablet 50 mg PO DAILY tab 10/06/19 11/04/19 pantoprazole 40 mg tablet,delayed 40 mg PO BID 10/06/19 11/04/19 release torsemide 20 mg tablet 20 mg PO QDAY 10/06/19 11/04/19 acetaminophen 650 mg PO Q8H PRN 11/04/19 11/04/19 docusate sodium 100 mg PO BID 11/04/19 11/04/19 Previous Rx's Medication Instructions Recorded methocarbamol 500 mg PO TID PRN #20 tab 10/12/19 aspirin [Ecotrin Low Strength] 81 mg PO BID 14 Days #28 tab 10/24/19 docusate sodium 100 mg PO BID #30 cap 10/24/19 hydrocodone-acetaminophen 1 tab PO Q4H PRN #10 tab 10/24/19 sennosides [Senna Lax] 2 tab PO DAILYP PRN #30 tab 10/24/19 Allergies Allergy/AdvReac Type Severity Reaction Status Date / Time prednisone Allergy Unknown Unknown Verified 10/21/19 07:35 aspirin AdvReac Mild Gastrointestinal Verified 10/21/19 07:35 Upset Review of Systems ROS ROS Narrative: Denies fever, chills, sweats No sore throat or runny nose. Has chest pain when is moved around; he attributes this to his rib fractures. Has some phlegm production as above with occasional intermittent cough. He has recently fallen on the with rib fractures and a femur fracture that was repaired. He was admitted in this hospital and then discharged on the first. Denies nausea. Has a little abdominal discomfort but mostly when he gets moved around. Additional history is extremely difficult to do due to his severe hardness of hearing. [facility] Narrative Patient History Narrative: Narrative: Medical/Surgical/Family History All Active Problems (Updated 11/04/19 @ 22:58 by Howie Napier DO) Pneumonia due to COVID-19 virus (Acute) DNR (do not resuscitate) (Acute) Hypoxia (Acute) Poor vision (Acute) Weakness (Acute) Fever (Acute) Closed fracture of left hip (Acute) Elevated LFTs (Acute) Anemia due to chronic kidney disease (Acute) Cardiomegaly (Chronic) Multiple fractures of ribs, left side, initial encounter for closed fracture (Acute) At high risk for falls (Acute) Diabetes (Acute) Gastrointestinal stromal tumor (GIST) (Acute) Hydrocephalus (Acute) Hx of GI malignancy (Acute) History of tobacco use (Acute) Encounter for long-term (current) use of other medications (Acute) Class 1 obesity (Acute) Obstructive sleep apnea (Acute) Thrombocytopenia (Acute) Hereditary hemochromatosis (Acute) Carpal tunnel syndrome (Acute) Gout (Acute) COPD (chronic obstructive pulmonary disease) (Acute) CAD (coronary artery disease) (Acute) Arthralgia (Acute) History of squamous cell carcinoma (Acute) Weakness (Acute) Diplopia (Acute) Actinic keratosis (Acute) Confusion (Acute) Left knee pain (Acute) Osteoarthritis (Acute) Arthritis of right knee (Acute) Dependence on renal dialysis (Acute) Stroke (Acute) Chronic renal failure, stage 5 (Acute) DNR no code (do not resuscitate) (Chronic) CVA (cerebral vascular accident) (Acute) Anemia (Chronic) Cochlear implant status (Chronic) Overweight (BMI 25.0-29.9) (Chronic) History of acute myocardial infarction (Chronic) Diabetes mellitus type 2, controlled (Chronic) Normal pressure hydrocephalus (Chronic) Meniere's disease (Chronic) Chronic alcoholism (Acute) Hearing loss (Chronic) Medical History (Updated 11/04/19 @ 22:58 by Howie Napier DO) Actinic keratosis (Acute) Anemia (Chronic) Arthralgia (Acute) Arthritis of right knee (Acute) Ataxia (Resolved) CAD (coronary artery disease) (Acute) Cardiomegaly (Chronic) Carpal tunnel syndrome (Acute) Chronic alcoholism (Acute) Chronic kidney disease, stage 4 (severe) (Inactive) Chronic renal failure, stage 3 (moderate) (Inactive) creatinine 2.7 08-04-2018 Class 1 obesity (Acute) Concussion without loss of consciousness (Inactive) Confusion (Acute) COPD (chronic obstructive pulmonary disease) (Acute) Dependence on renal dialysis (Acute) Diabetes (Acute) Type 2 Diabetes mellitus type 2, controlled (Chronic) Diplopia (Acute) DNR no code (do not resuscitate) (Chronic) per patient's significant other, Medical POAJenny. Encounter for long-term (current) use of other medications (Acute) Gastrointestinal stromal tumor (GIST) (Acute) Gout (Acute) Hearing loss (Chronic) Hereditary hemochromatosis (Acute) History of acute myocardial infarction (Chronic) History of squamous cell carcinoma (Acute) History of tobacco use (Acute) Hx of GI malignancy (Acute) Hydrocephalus (Acute) Left knee pain (Acute) Meniere's disease (Chronic) Normal pressure hydrocephalus (Chronic) Obstructive sleep apnea (Acute) Osteoarthritis (Acute) Overweight (BMI 25.0-29.9) (Chronic) Seborrheic keratosis (Inactive) Slurred speech (Resolved) Stroke (Acute) Thrombocytopenia (Acute) Weakness (Acute) Surgical History (Updated 11/04/19 @ 22:58 by Howie Napier DO) Cochlear implant status (Chronic) H/O sinus surgery (Inactive) 3 sinus surgeries History of appendectomy (Inactive ~1948) History of carotid endarterectomy (Acute ~09/27/18) Patient significant other believes that this happened on the right in 2019. History of ear surgery (Inactive) 5 ear surgeries; cochlear implant History of four vessel coronary artery bypass graft (Acute ~04/2006) History of partial gastrectomy (Acute ~2018) Stomach cancer; [facility] History of surgery (Inactive ~01/2012) [facility] Family History Father, Age 58 Mother, Age 84 Skin cancer Unknown Cervical cancer Mother Diabetes Mother Congestive heart failure Mother Father Heart disease Unknown COPD (chronic obstructive pulmonary disease) Father Stroke Mother Social History Smoking Status: Never smoker Alcohol Intake Frequency: 2+ drinks per day Substance Use: does not use Exam Narrative Narrative: Narrative: General Limitations: physical limitation General appearance: alert, in no apparent distress and nontoxic Head Head: atraumatic and normocephalic Eye Eye: Present normal appearance and EOMI ENT ENT: Present normal oropharynx, mucous membranes moist and other (Severely hard of hearing. Has cochlear implant. His cochlear implant battery is going low and later it went . He does not have his recreation facility attendant for this because no one can get into his domicile at [facility] because of some of his COVID positive status.) Neck Neck: Present trachea midline; Absent lymphadenopathy and thyromegaly Chest Chest: Present symmetric chest wall rise Respiratory Respiratory: Present rales/crackles (Mild-moderate crackles in the bilateral bases.) and other (Without oxygen does become short of breath with 5 or 6 word dyspnea.); Absent respiratory distress, wheezes, stridor, accessory muscle use and prolonged expiratory phase Cardiovascular Cardiovascular: Present regular rate and normal rhythm; Absent tachycardia, systolic murmur and diastolic murmur Adbominal Abdominal: Present soft; Absent distention, tenderness, guarding, rebound, rigidity, organomegaly and mass Extremities Extremities: Absent pedal edema, pretibial edema, calf tenderness and cyanosis Back Back: Neurological Neurological: Present alert, oriented X3 and other (Very difficult to communicate with due to his deafness and he cannot see very well to communicate via writing.) Psychiatric Psychiatric: Present normal affect, polite and pleasant; Absent depressed, agitated, anxious and poor eye contact Skin Skin: Present warm and dry; Absent cyanosis and pallor Course Vital Signs Vital signs: Vital Signs Temperature 97.4 F 11/04/19 18:44 Pulse Rate 77 11/04/19 18:44 Respiratory Rate 18 11/04/19 18:44 Blood Pressure 108/63 11/04/19 18:44 Pulse Oximetry (%) 95 11/04/19 18:44 Temperature 97.4 F 11/04/19 18:44 Pulse Rate 76 11/04/19 21:50 Respiratory Rate 12 11/04/19 21:50 Blood Pressure 111/58 11/04/19 21:50 Pulse Oximetry (%) 95 11/04/19 21:50 MDM MDM Narrative Medical decision making narrative: 7:10 PM - interviewed and examined. Hypoxia in a COVID positive patient. I will speak with the [facility]. 7:35 PM - I spoke with the [facility], per states, and collected more information. COVID test king only turned positive today. Significant hypoxia and oxygen requirement. He is a chronic dialysis patient. Must do additional work-up. He does have crackles in the bilateral bases. 7:42 PM - EKG handed to me is with patient having normal sinus rhythm, rate 77. No ACS findings. Unremarkable EKG. 8:30 PM - chest x-ray results read as "Mild patchy bibasilar infiltrates - new" 9:25 PM - 2 calls have gone out to [facility] to discuss his transfer/care in last 40-50 minutes; he is not a candidate for being kept here locally. Patient gave permission for transfer. 9:29 PM - White count 5.2. Hemoglobin and hematocrit 9.0/26.7, similar to previous. PT 14.7. INR 1.1. PTT 42 (20-437) Fibrinogen elevated at 610 (200-400) D-dimer 2.49 (less than 0.40) Lactic acid 1.1 Electrolytes unremarkable with a potassium of 3.6. BUN 27, creatinine 3.4 Glucose 117 Troponin 0 0.09 which is better than it has been in the past. BNP 1762. Pro calcitonin 0.30 (0.26-0.50 "antibiotic therapy encouraged. Bacterial infection possible.") 9:56 PM -I spoke with hospitalist, Dr. No Webb, [facility], who points out that if patient is not to be intubated his main treatment is oxygen and dexamethasone. He is not a candidate for remdesivir due to his renal failure. His treatment is primarily oxygen and dexamethasone. She is requesting that I rediscussed this with the patient and with the hospitalist. I neglected to speak with her regarding CT angio of the chest and unfractionated heparin given his other abnormalities. The call center at [facility] tried to call her again but she did not answer and they will be texting her. I gave Asim, transfer center person, my cell phone. 10:03 PM -I spoke with Jenny Hensley, patient's significant other, who indicates that she has power of trust and estates attorney and this should be available here. She indicates that patient has multiple times previously indicated he would not want intubation, is DNR. She believes that this is his desires and confirms this again. 10:09 PM - in regards to the questions regarding CT angiogram of the chest scan that she, Dr. Webb, [facility] hospitalist, would consider it if his hypoxia was out of proportion to what could be explained by the COVID. She would recommend that this certainly be cleared with the funeral home associate first due to his kidney circumstances and functions. It is her opinion that heparin shou ld not yet be started as he is not tachycardic, tachypneic or other symptoms suggestive of significant thromboembolic syndrome. 10:13 PM - spoke with Dr. Allen, hospitalist, [facility], who points out that many patients and/or their families have changed their minds necessitating more aggressive measures such as intubation and transfer. He asked that we reconfirm that he does not want to be intubated. 10:19 PM - confirmed DNR status again with Jenny as well as with the patient over the next 20 minutes. Patient indicates he does not want to be intubated very specifically. Therefore patient will be admitted here for treatment with dexamethasone, oxygen and if needed positive pressure, and consideration for heparin if determined to be beneficial versus risk. Dr. Allen will be made aware. He previously agreed if the circumstances were met. Lab Data Result diagrams: 11/04/19 19:45 11/04/19 19:44 Labs: Lab Results 11/04/19 11/04/19 11/04/19 Range/Units 19:44 19:44 19:44 WBC (4.50-11.00) K/mcL RBC (4.63-6.08) M/mcL Hgb (13.7-17.5) g/dL Hct (40.1-51.0) % MCV (80.0-100.0) fL MCH (26.0-34.0) pg MCHC (31.0-36.0) g/dL RDW (11.5-14.5) % Plt Count (140-440) K/mcL MPV (7.4-10.4) fL Gran % (38.0-78.0) % Lymph % (Auto) (15.5-49.0) % [place] % (Auto) (1.0-12.0) % Eos % (Auto) (0.0-7.0) % Baso % (Auto) (0.0-2.0) % Gran # (1.80-8.00) K/mcL Lymph # (Auto) (1.50-4.80) K/mcL [place] # (Auto) (0.10-0.90) K/mcL Eos # (Auto) (0.00-0.70) K/mcL Baso # (Auto) (0.00-0.30) K/mcL PT TNP INR Not Reportable APTT Not Reportable Fibrinogen 610 H (200-400) mg/dL D-Dimer 2.49 H (0.00-0.40) ug/ml VBG Lactic Acid (0.5-2.0) mmol/L Sodium 138 (133-145) mmol/L Potassium 3.6 (3.3-5.1) mmol/L Chloride 101 (96-108) mmol/L Carbon Dioxide 24 (22-30) mmol/L Anion Gap 13.0 (8-16) BUN 27 H (8-23) mg/dl Creatinine 3.4 H (0.7-1.2) mg/dl GFR Calculation 17 Glucose 117 H (70-105) mg/dL Calcium 9.6 (8.6-10.4) mg/dl Total Bilirubin 0.7 (0.0-1.0) mg/dL AST 46 H (0-37) U/l ALT 7 (0-40) U/l Alkaline Phosphatase 215 H (39-117) U/L Troponin T (0-0.03) ng/ml NT-Pro-B Natriuret Pep 1762.0 H (0-125) pg/ml Total Protein 6.3 (5.9-8.4) gm/dL Albumin 2.6 L (3.2-5.2) gm/dL Globulin 3.7 (2.2-3.7) gm/dL Albumin/Globulin Ratio 0.7 L (1.0-2.3) Procalcitonin (<0.10) ng/mL 11/04/19 11/04/19 11/04/19 Range/Units 19:45 19:45 19:45 WBC 5.2 (4.50-11.00) K/mcL RBC 2.70 L (4.63-6.08) M/mcL Hgb 9.0 L (13.7-17.5) g/dL Hct 26.7 L (40.1-51.0) % MCV 98.9 (80.0-100.0) fL MCH 33.3 (26.0-34.0) pg MCHC 33.7 (31.0-36.0) g/dL RDW 13.6 (11.5-14.5) % Plt Count 173 (140-440) K/mcL MPV 10.1 (7.4-10.4) fL Gran % 80.4 H (38.0-78.0) % Lymph % (Auto) 11.7 L (15.5-49.0) % [place] % (Auto) 5.8 (1.0-12.0) % Eos % (Auto) 1.7 (0.0-7.0) % Baso % (Auto) 0.4 (0.0-2.0) % Gran # 4.18 (1.80-8.00) K/mcL Lymph # (Auto) 0.61 L (1.50-4.80) K/mcL [place] # (Auto) 0.30 (0.10-0.90) K/mcL Eos # (Auto) 0.09 (0.00-0.70) K/mcL Baso # (Auto) 0.02 (0.00-0.30) K/mcL PT 14.7 H INR 1.1 APTT 42 H Fibrinogen (200-400) mg/dL D-Dimer (0.00-0.40) ug/ml VBG Lactic Acid (0.5-2.0) mmol/L Sodium (133-145) mmol/L Potassium (3.3-5.1) mmol/L Chloride (96-108) mmol/L Carbon Dioxide (22-30) mmol/L Anion Gap (8-16) BUN (8-23) mg/dl Creatinine (0.7-1.2) mg/dl GFR Calculation Glucose (70-105) mg/dL Calcium (8.6-10.4) mg/dl Total Bilirubin (0.0-1.0) mg/dL AST (0-37) U/l ALT (0-40) U/l Alkaline Phosphatase (39-117) U/L Troponin T (0-0.03) ng/ml NT-Pro-B Natriuret Pep (0-125) pg/ml Total Protein (5.9-8.4) gm/dL Albumin (3.2-5.2) gm/dL Globulin (2.2-3.7) gm/dL Albumin/Globulin Ratio (1.0-2.3) Procalcitonin 0.30 (<0.10) ng/mL 11/04/19 11/04/19 Range/Units 19:45 19:45 WBC (4.50-11.00) K/mcL RBC (4.63-6.08) M/mcL Hgb (13.7-17.5) g/dL Hct (40.1-51.0) % MCV (80.0-100.0) fL MCH (26.0-34.0) pg MCHC (31.0-36.0) g/dL RDW (11.5-14.5) % Plt Count (140-440) K/mcL MPV (7.4-10.4) fL Gran % (38.0-78.0) % Lymph % (Auto) (15.5-49.0) % [place] % (Auto) (1.0-12.0) % Eos % (Auto) (0.0-7.0) % Baso % (Auto) (0.0-2.0) % Gran # (1.80-8.00) K/mcL Lymph # (Auto) (1.50-4.80) K/mcL [place] # (Auto) (0.10-0.90) K/mcL Eos # (Auto) (0.00-0.70) K/mcL Baso # (Auto) (0.00-0.30) K/mcL PT INR APTT Fibrinogen (200-400) mg/dL D-Dimer (0.00-0.40) ug/ml VBG Lactic Acid 1.1 (0.5-2.0) mmol/L Sodium (133-145) mmol/L Potassium (3.3-5.1) mmol/L Chloride (96-108) mmol/L Carbon Dioxide (22-30) mmol/L Anion Gap (8-16) BUN (8-23) mg/dl Creatinine (0.7-1.2) mg/dl GFR Calculation Glucose (70-105) mg/dL Calcium (8.6-10.4) mg/dl Total Bilirubin (0.0-1.0) mg/dL AST (0-37) U/l ALT (0-40) U/l Alkaline Phosphatase (39-117) U/L Troponin T 0.09 H* (0-0.03) ng/ml NT-Pro-B Natriuret Pep (0-125) pg/ml Total Protein (5.9-8.4) gm/dL Albumin (3.2-5.2) gm/dL Globulin (2.2-3.7) gm/dL Albumin/Globulin Ratio (1.0-2.3) Procalcitonin (<0.10) ng/mL Discharge Plan Patient/Caregiver Discharge Instructions Pt seen by PAYROLL ACCOUNTING CLERK/PA only: No Clinical Impression: Pneumonia due to COVID-19 virus, Cochlear implant status, DNR (do not resuscitate), Hypoxia, Poor vision Patient Disposition: Xfer As Inpt ([facility]) Follow up with: Shonna Goodwin MD [Primary Care Provider] - Prescriptions: No Action fluticasone propionate 50 mcg/actuation spray,suspension 1 spray INTRANASAL QDAY RF: 0 folic acid 1 mg tablet 1 mg PO QDAY RF: 0 pantoprazole 40 mg tablet,delayed release (DR/EC) 40 mg PO BID RF: 0 torsemide 20 mg tablet 20 mg PO QDAY RF: 0 hydralazine 50 mg tablet 50 mg PO DAILY RF: 0 (DME) Accu-Chek Guide test strips Strip See Rx Instructions .ROUTE .MEDSUPPLY Qty: 10 RF: 0 metoprolol succinate 100 MG tablet extended release 24 hr 100 mg PO BID RF: 0 hydrochlorothiazide 25 MG tablet 50 mg PO DAILY RF: 0 methocarbamol 500 mg tablet 500 mg PO TID PRN (Reason: Pain and spasm) Qty: 20 RF: 0 sennosides [Senna Lax] 8.6 mg Tablet 2 tab PO DAILYP PRN (Reason: Constipation) Qty: 30 RF: 0 docusate sodium 100 mg Capsule 100 mg PO BID Qty: 30 RF: 0 aspirin [Ecotrin Low Strength] 81 mg Tablet,Delayed Release (Dr/Ec) 81 mg PO BID 14 Days Qty: 28 RF: 0 hydrocodone-acetaminophen 5-325 mg Tablet 1 tab PO Q4H PRN (Reason: Pain) Qty: 10 RF: 0 acetaminophen 325 mg Tablet 650 mg PO Q8H PRN (Reason: Pain) RF: 0 docusate sodium 100 mg Tablet 100 mg PO BID RF: 0
--- NOTE | 2019-11-04 20:02 | XRay Report ---
CLINICAL INFORMATION: dyspnea COMPARISON: 10/20/2019 FINDINGS: Right IJ double-lumen catheter tip overlies the tricuspid valve plane - as previously seen. Heart size, mediastinum and pulmonary vessels are normal. Mild patchy bibasilar infiltrates have developed. Malunified old left-sided rib fractures as before. No effusion. IMPRESSION: Mild patchy bibasilar infiltrates - new Interpreted and Authenticated by: Abhishek Goldman 11/04/19
[2019-11-04 20:29] LABS: Basophils # (Auto) 0.02 K/mcL (0.00-0.30); Basophils % (Auto) 0.4 % (0.0-2.0); Eosinophils # (Auto) 0.09 K/mcL (0.00-0.70); Eosinophils % (Auto) 1.7 % (0.0-7.0); Granulocytes % (Auto) 80.4 % (38.0-78.0); Hematocrit 26.7 % (40.1-51.0); Lymphocytes # (Auto) 0.61 K/mcL (1.50-4.80); Lymphocytes % (Auto) 11.7 % (15.5-49.0); Mean Cell Volume 98.9 fL (80.0-100.0); Mean Corpuscular HGB Conc 33.7 g/dL (31.0-36.0); Mean Platelet Volume 10.1 fL (7.4-10.4); Monocytes % (Auto) 5.8 % (1.0-12.0); Platelet Count 173 K/mcL (140-440); Red Cell Distribution Width 13.6 % (11.5-14.5); WBC 5.2 K/mcL (4.50-11.00)
[2019-11-04 20:31] LABS: ALT/SGPT 7 U/l (0-40); AST/SGOT 46 U/l (0-37); Albumin 2.6 gm/dL (3.2-5.2); Albumin/Globulin Ratio 0.7 (1.0-2.3); Alkaline Phosphatase 215 U/L (39-117); Bilirubin,Total 0.7 mg/dL (0.0-1.0); Calcium 9.6 mg/dl (8.6-10.4); Carbon Dioxide 24 mmol/L (22-30); Chloride 101 mmol/L (96-108); Globulin 3.7 gm/dL (2.2-3.7); Glomerular Filtration Rate 17; Glucose 117 mg/dL (70-105)
[2019-11-04 20:39] LABS: Blood Urea Nitrogen 27 mg/dl (8-23)
[2019-11-04 20:46] LABS: INR 1.1 (0.9-1.1); Prothrombin Time 14.7 sec (11.9-14.5)
[2019-11-05] MEDS ORDERED: DEXAMETHASONE 4 MG TABLET PO ONE (01:33)
--- NOTE | 2019-11-05 09:25 | Internal Med History&Physical ---
HPI History of Present Illness Patient information: Note initiated : 11/04/19 at 23:22 pm Service Date, if different from initiated Date: [] Patient: Darron Veliz a 74 y/o M admitted on 11/05/19 for increased shortness of breath. Chief Complaint: [] History of present illness: Mr. Veliz is a 74 year old M with a history of CAD/DM type II/HTN/ESRD on HD 3 times a week who was recently discharged to [facility] following left hip fracture. He now presents to the ER today with increasing shortness of breath, decreased LOC and low saturation during dialysis not responding to supplemental oxygen. Patient has been experiencing low-grade fever last few days. He had a Kovic test done at dialysis which was positive. Work-up was consistent severe hypoxia with sats in 70s requiring 5 L oxygen. Imaging consistent with pneumonia, patient is a DNR and hence was not accepted to tertiary center after discussion the ER physician with Mary Moore. Patient was started on dexamethasone and subsequently hospitalist service was consulted for admission and management of COVID pneumonia. Remdesivir contraindicated in light of ESRD/GFR less than 30 At the time of evaluation patient is very drowsy sedated short of breath. No family members present. Most of the history is obtained from review of medical records and ER physician. Review of systems 10 point review system was attempted and is negative except for ones cussed above PFSH PFSH All Active Problems (Updated 11/04/19 @ 22:58 by Howie Napier DO) Pneumonia due to COVID-19 virus (Acute) DNR (do not resuscitate) (Acute) Hypoxia (Acute) Poor vision (Acute) Weakness (Acute) Fever (Acute) Closed fracture of left hip (Acute) Elevated LFTs (Acute) Anemia due to chronic kidney disease (Acute) Cardiomegaly (Chronic) Multiple fractures of ribs, left side, initial encounter for closed fracture (Acute) At high risk for falls (Acute) Diabetes (Acute) Gastrointestinal stromal tumor (GIST) (Acute) Hydrocephalus (Acute) Hx of GI malignancy (Acute) History of tobacco use (Acute) Encounter for long-term (current) use of other medications (Acute) Class 1 obesity (Acute) Obstructive sleep apnea (Acute) Thrombocytopenia (Acute) Hereditary hemochromatosis (Acute) Carpal tunnel syndrome (Acute) Gout (Acute) COPD (chronic obstructive pulmonary disease) (Acute) CAD (coronary artery disease) (Acute) Arthralgia (Acute) History of squamous cell carcinoma (Acute) Weakness (Acute) Diplopia (Acute) Actinic keratosis (Acute) Confusion (Acute) Left knee pain (Acute) Osteoarthritis (Acute) Arthritis of right knee (Acute) Dependence on renal dialysis (Acute) Stroke (Acute) Chronic renal failure, stage 5 (Acute) DNR no code (do not resuscitate) (Chronic) CVA (cerebral vascular accident) (Acute) Anemia (Chronic) Cochlear implant status (Chronic) Overweight (BMI 25.0-29.9) (Chronic) History of acute myocardial infarction (Chronic) Diabetes mellitus type 2, controlled (Chronic) Normal pressure hydrocephalus (Chronic) Meniere's disease (Chronic) Chronic alcoholism (Acute) Hearing loss (Chronic) Medical History (Updated 11/04/19 @ 22:58 by Howie Napier DO) Actinic keratosis (Acute) Anemia (Chronic) Arthralgia (Acute) Arthritis of right knee (Acute) Ataxia (Resolved) CAD (coronary artery disease) (Acute) Cardiomegaly (Chronic) Carpal tunnel syndrome (Acute) Chronic alcoholism (Acute) Chronic kidney disease, stage 4 (severe) (Inactive) Chronic renal failure, stage 3 (moderate) (Inactive) creatinine 2.7 08-04-2018 Class 1 obesity (Acute) Concussion without loss of consciousness (Inactive) Confusion (Acute) COPD (chronic obstructive pulmonary disease) (Acute) Dependence on renal dialysis (Acute) Diabetes (Acute) Type 2 Diabetes mellitus type 2, controlled (Chronic) Diplopia (Acute) DNR no code (do not resuscitate) (Chronic) per patient's significant other, Medical POA, Jenny Hensley. Encounter for long-term (current) use of other medications (Acute) Gastrointestinal stromal tumor (GIST) (Acute) Gout (Acute) Hearing loss (Chronic) Hereditary hemochromatosis (Acute) History of acute myocardial infarction (Chronic) History of squamous cell carcinoma (Acute) History of tobacco use (Acute) Hx of GI malignancy (Acute) Hydrocephalus (Acute) Left knee pain (Acute) Meniere's disease (Chronic) Normal pressure hydrocephalus (Chronic) Obstructive sleep apnea (Acute) Osteoarthritis (Acute) Overweight (BMI 25.0-29.9) (Chronic) Seborrheic keratosis (Inactive) Slurred speech (Resolved) Stroke (Acute) Thrombocytopenia (Acute) Weakness (Acute) Surgical History (Updated 11/04/19 @ 22:58 by Howie Napier DO) Cochlear implant status (Chronic) H/O sinus surgery (Inactive) 3 sinus surgeries History of appendectomy (Inactive ~194) History of carotid endarterectomy (Acute ~09/27/18) Patient significant other believes that this happened on the right in 2019. History of ear surgery (Inactive) 5 ear surgeries; cochlear implant History of four vessel coronary artery bypass graft (Acute ~04/2006) History of partial gastrectomy (Acute ~2018) Stomach cancer; [facility] History of surgery (Inactive ~01/2012) [facility] Family History Mother , Age 84 Cervical cancer Diabetes Stroke Congestive heart failure Unknown Heart disease Unknown Skin cancer Father , Age 58 COPD (chronic obstructive pulmonary disease) Congestive heart failure Social History (Updated 10/06/19 @ 08:37 by Franca Sheridan) marital status: single occupational status: disabled physical activity: none smoking status: Never smoker smoking status start date: 02/22/1959 smoking status stop date: 02/22/79 alcohol intake frequency: 2+ drinks per day counseling given: No substance use type: does not use MEDS/ALLERGIES Home Medications and Allergies Home Medications Medication Instructions Recorded Confirmed Type hydrochlorothiazide 50 mg PO DAILY 08/04/18 11/05/19 History metoprolol succinate 100 mg PO BID 08/04/18 11/05/19 History blood sugar diagnostic #10 each 10/06/19 11/04/19 History fluticasone propionate 50 1 spray INTRANASAL QDAY 10/06/19 11/05/19 History mcg/actuation nasal spray,suspension folic acid 1 mg tablet 1 mg PO QDAY 10/06/19 11/05/19 History hydralazine 50 mg tablet 50 mg PO DAILY tab 10/06/19 11/05/19 History pantoprazole 40 mg tablet,delayed 40 mg PO BID 10/06/19 11/04/19 History release torsemide 20 mg tablet 20 mg PO QDAY 10/06/19 11/04/19 History methocarbamol 500 mg PO TID PRN #20 tab 08/20/20 09/13/20 Rx aspirin [Ecotrin Low Strength] 81 mg PO BID 14 Days #28 tab 10/24/19 11/05/19 Rx docusate sodium 100 mg PO BID #30 cap 10/24/19 11/05/19 Rx hydrocodone-acetaminophen 1 tab PO Q4H PRN #10 tab 10/24/19 11/05/19 Rx sennosides [Senna Lax] 2 tab PO DAILYP PRN #30 tab 10/24/19 11/04/19 Rx acetaminophen 650 mg PO Q8H PRN 11/04/19 11/05/19 History bisacodyl [Dulcolax (bisacodyl)] 10 mg NE QDAY PRN 11/05/19 11/05/19 History Allergies Allergy/AdvReac Type Severity Reaction Status Date / Time prednisone Allergy Unknown Unknown Verified 10/21/19 07:35 aspirin AdvReac Mild Gastrointestinal Verified 10/21/19 07:35 Upset EXAM Constitutional Vitals: Temp Pulse Resp BP Pulse Ox 97.3 F 71 21 155/77 97 11/05/19 07:47 11/05/19 03:07 11/05/19 07:47 11/05/19 07:47 11/05/19 07:47 Hard of hearing confused and drowsy Head normocephalic Oral cavity moist Hard of hearing Eye movement symmetrical Neck supple no lymphadenopathy S1-S2 occasionally irregular Labored breathing Nondistended nontender abdomen Lower extremity no cyanosis clubbing or joint swelling Sacral ulcer Psych confused anxious Neuro moving all 4 extremities DATA Data Completed and Pending Labs: Labs from last 24 hours 11/04/19 11/04/19 11/04/19 19:45 19:45 19:45 WBC RBC Hgb Hct MCV MCH MCHC RDW Plt Count MPV Gran % Lymph % (Auto) [place] % (Auto) Eos % (Auto) Baso % (Auto) Gran # Lymph # (Auto) [place] # (Auto) Eos # (Auto) Baso # (Auto) PT 14.7 H INR 1.1 APTT 42 H Fibrinogen D-Dimer VBG Lactic Acid 1.1 Sodium Potassium Chloride Carbon Dioxide Anion Gap BUN Creatinine GFR Calculation Glucose Calcium Total Bilirubin AST ALT Alkaline Phosphatase Troponin T 0.09 H* NT-Pro-B Natriuret Pep Total Protein Albumin Globulin Albumin/Globulin Ratio Procalcitonin 11/04/19 11/04/1920 19:45 19:45 19:44 WBC 5.2 RBC 2.70 L Hgb 9.0 L Hct 26.7 L MCV 98.9 MCH 33.3 MCHC 33.7 RDW 13.6 Plt Count 173 MPV 10.1 Gran % 80.4 H Lymph % (Auto) 11.7 L [place] % (Auto) 5.8 Eos % (Auto) 1.7 Baso % (Auto) 0.4 Gran # 4.18 Lymph # (Auto) 0.61 L [place] # (Auto) 0.30 Eos # (Auto) 0.09 Baso # (Auto) 0.02 PT INR APTT Fibrinogen 610 H D-Dimer 2.49 H VBG Lactic Acid Sodium Potassium Chloride Carbon Dioxide Anion Gap BUN Creatinine GFR Calculation Glucose Calcium Total Bilirubin AST ALT Alkaline Phosphatase Troponin T NT-Pro-B Natriuret Pep Total Protein Albumin Globulin Albumin/Globulin Ratio Procalcitonin 0.30 11/04/19 11/04/19 19:44 19:44 WBC RBC Hgb Hct MCV MCH MCHC RDW Plt Count MPV Gran % Lymph % (Auto) [place] % (Auto) Eos % (Auto) Baso % (Auto) Gran # Lymph # (Auto) [place] # (Auto) Eos # (Auto) Baso # (Auto) PT TNP INR Not Reportable APTT Not Reportable Fibrinogen D-Dimer VBG Lactic Acid Sodium 138 Potassium 3.6 Chloride 101 Carbon Dioxide 24 Anion Gap 13.0 BUN 27 H Creatinine 3.4 H GFR Calculation 17 Glucose 117 H Calcium 9.6 Total Bilirubin 0.7 AST 46 H ALT 7 Alkaline Phosphatase 215 H Troponin T NT-Pro-B Natriuret Pep 1762.0 H Total Protein 6.3 Albumin 2.6 L Globulin 3.7 Albumin/Globulin Ratio 0.7 L Procalcitonin A/P Narrative A/P Narrative: * COVID-19 pneumonia. PSI over 100. Critically ill. High risk mortality. Started on dexamethasone. Remdesivir contraindicated in light of GFR less than 30. Kovic precautions * Acute hypoxic respiratory failure-continue supplemental oxygen/COVID pr ecautions * History of prior CVA with residual right-sided weakness/ataxia * Recent left hip fracture-continue mobilization as tolerated * Normal pressure hydrocephalus follows up with Dr. Rm * History of ESRD follows up with Dr. Arguelles * CAD/CABG continue home medications * DM type II continue basal prandial insulin * History of alcoholism * GERD * DNR Plan * Inpatient admission * Dexamethasone * Remains high risk mortality patient and confirms DNR and would not want intubation should he deteriorate * Pre-existing medical condition management to continue on home medication Time Spent With Patient Time: Total time spent is greater than 50% in coordination of care (as documented) at patient's floor/unit and/or counseling patient: QUALITY VTE Deep Vein Thrombosis/Pulmonary Embolism Present on Admission: No
[2019-11-05] MEDS: DEXAMETHASONE 4 MG TABLET PO SCH (10:18)
[2019-11-05] MEDS ORDERED: BLOOD SUGAR DIAGNOSTIC SCH (11:00)
[2019-11-05] MEDS ORDERED: SENNOSIDES 1 TABLET PO PRN (11:00)
[2019-11-05] MEDS ORDERED: BISACODYL 10 MG SUPP.RECT PR PRN (11:00)
[2019-11-05] MEDS ORDERED: METHOCARBAMOL 500 MG TABLET PO PRN (11:00)
[2019-11-05] MEDS ORDERED: MAGNESIUM SULFATE 2 GM/50 ML BAG IV PRN (11:01)
[2019-11-05] MEDS ORDERED: ACETAMINOPHEN 650 MG/65 ML BOTTLE IV PRN (11:01)
[2019-11-05] MEDS ORDERED: ACETAMINOPHEN 325 MG TABLET PO PRN (11:10)
--- NOTE | 2019-11-05 11:13 | Internal Med Progress Note ---
SUBJECTIVE Subjective Patient information: Note initiated : 11/05/19 at 11:08 am Service Date, if different from initiated Date: [] Patient: Darron Veliz a 74 y/o M admitted on 11/05/19 for increased shortness of breath. Chief Complaint: [] History of present illness: Mr. Veliz is a 74 year old M with a history of CAD/DM type II/HTN/ESRD on HD 3 times a week who was recently discharged to [facility] following left hip fracture. He now presents to the ER today with increasing shortness of breath, decreased LOC and low saturation during dialysis not responding to supplemental oxygen. Patient has been experiencing low-grade fever last few days. He had a Kovic test done at dialysis which was positive. Work-up was consistent severe hypoxia with sats in 70s requiring 5 L oxygen. Imaging consistent with pneumonia, patient is a DNR and hence was not accepted to tertiary center after discussion the ER physician with Mary Moore. Patient was started on dexamethasone and subsequently hospitalist service was consulted for admission and management of COVID pneumonia. Remdesivir contraindicated in light of ESRD/GFR less than 30 At the time of evaluation patient is very drowsy sedated short of breath. No family members present. Most of the history is obtained from review of medical records and ER physician. 11/04-patient seen in room. Resting comfortably. On 4 L oxygen nasal cannula. No family at bedside. On COVID precautions. Nephrology consult for dialysis. Constitutional Vitals: Vital Signs Temp Pulse Resp BP Pulse Ox 97.3 F 71 21 155/77 97 11/05/19 07:47 11/05/19 03:07 11/05/19 07:47 11/05/19 07:47 11/05/19 07:47 Period Temp Pulse Resp BP Sys/Joseph Pulse Ox Last 24 Hr 97.3 F-97.5 F 66-77 12-28 108-161/56-77 94-99 Intake and Output 11/04/19 11/05/19 11/05/19 21:59 05:59 13:59 Intake Total 100 Output Total 1 Balance 99 Weight 85.275 kg 82.554 kg Hard of hearing Minimal labored breathing No anxiety Intake & Output: Intake & Output 11/04/19 11/05/19 11/05/19 21:59 05:59 13:59 Intake Total 100 Output Total 1 Balance 99 Weight 85.275 kg 82.554 kg Intake: Oral 100 Output: # of times incontinent of urine 1 Other: Stool Size Moderate Stool Color Brown # Bowel Movements 1 OBJ DATA Labs CBC & Chem 7: 11/04/19 19:45 11/04/19 19:44 Labs: Abnormal Lab Results 11/04/19 11/04/19 11/04/19 19:45 19:45 19:45 RBC 2.70 L Hgb 9.0 L Hct 26.7 L Gran % 80.4 H Lymph % (Auto) 11.7 L Lymph # (Auto) 0.61 L PT 14.7 H APTT 42 H Fibrinogen D-Dimer BUN Creatinine Glucose AST Alkaline Phosphatase Troponin T 0.09 H* NT-Pro-B Natriuret Pep Albumin Albumin/Globulin Ratio 11/04/19 11/04/19 19:44 19:44 RBC Hgb Hct Gran % Lymph % (Auto) Lymph # (Auto) PT APTT Fibrinogen 610 H D-Dimer 2.49 H BUN 27 H Creatinine 3.4 H Glucose 117 H AST 46 H Alkaline Phosphatase 215 H Troponin T NT-Pro-B Natriuret Pep 1762.0 H Albumin 2.6 L Albumin/Globulin Ratio 0.7 L Meds: Medications Acetaminophen (Tylenol (Pp)) tablet PO Q8H PRN PRN Reason: Pain Hydrocodone Bitart/Acetaminophen ([place] 5/325mg) 1 tab PO Q4H PRN; Protocol PRN Reason: Pain Bisacodyl (Dulcolax) 10 mg MD QDAY PRN PRN Reason: Constipation Dexamethasone (Decadron) 6 mg PO DAILY [facility] Last Admin: 11/05/19 10:18 Dose: 6 mg Documented by: Docusate Sodium (Colace) 100 mg PO BID [facility] Fluticasone Propionate (Flonase) 1 spray NS DAILY [facility] Folic Acid (Folic Acid) 1 mg PO QDAY [facility] Hydrochlorothiazide (Oretic) 50 mg PO DAILY [facility] Magnesium Sulfate (Magnesium Sulfate) 2 gm in 50 mls @ 50 mls/hr IV UD PRN PRN Reason: Mag < or = 1.7 Acetaminophen (Ofirmev) 650 mg in 65 mls @ 130 mls/hr IV Q6HP PRN; Protocol PRN Reason: Per Pain Protocol/Fever > 101 Methocarbamol (Robaxin) 500 mg PO TID PRN PRN Reason: Pain and spasm Non-Formulary Medication (Aspirin [Ecotrin Low Strength]) 81 mg PO BID LA Non-Formulary Medication (Hydralazine) 50 mg PO DAILY LA Non-Formulary Medication (Metoprolol Succinate) 100 mg PO BID LA Pantoprazole Sodium (Protonix) 40 mg PO BIDAC LA Potassium Chloride (Potassium Chloride) 20 meq PO BIDCC PRN PRN Reason: K <3.6 Senna (Senokot) 2 tab PO DAILYP PRN PRN Reason: Constipation Torsemide (Demadex) 20 mg PO DAILY LA A/P Narrative A/P Narrative: * COVID-19 pneumonia. PSI over 100. Critically ill. High risk mortality. Started on dexamethasone. Remdesivir contraindicated in light of GFR less than 30. Kovic precautions * Acute hypoxic respiratory failure-continue supplemental oxygen/COVID precaut ions * History of prior CVA with residual right-sided weakness/ataxia * Recent left hip fracture-continue mobilization as tolerated * Normal pressure hydrocephalus follows up with Dr. Rm * History of ESRD -HD per nephrology * HTN continue thiazide/hydralazine * CAD/CABG continue home medications -continue metoprolol * DM type II continue basal prandial insulin * History of alcoholism * GERD continue PPI * DNR Plan * COVID-19 precautions * Dexamethasone * Remains high risk mortality, patient and confirms DNR and would not want intubation should he deteriorate * Pre-existing medical condition management on home medication Time Spent With Patient Time: Total time spent is greater than 50% in coordination of care (as docu mented) at patient's floor/unit and/or counseling patient: QUALITY VTE Deep Vein Thrombosis/Pulmonary Embolism Present on Admission: No
[2019-11-05] MEDS ORDERED: DEXTROSE 31 GM ORAL.SUSP PO PRN (12:37)
[2019-11-05] MEDS ORDERED: DEXTROSE 50% 50 ML VIAL IV PRN (12:37)
[2019-11-05] MEDS: TORSEMIDE 10 MG TABLET PO SCH (13:00)
[2019-11-05] MEDS: METOPROLOL SUCCINATE 50 MG TAB.XL.24H PO SCH ×2 (13:01→20:27)
[2019-11-05] MEDS: hydrALAZINE 25 MG TABLET PO SCH (13:01)
[2019-11-05] MEDS: ASPIRIN 81 MG TAB.CHEW PO SCH ×2 (13:01→20:28)
[2019-11-05] MEDS: FOLIC ACID 1 MG TABLET PO SCH (13:02)
[2019-11-05] MEDS: HYDROCHLOROTHIAZIDE 25 MG TABLET PO SCH (13:02)
[2019-11-05] MEDS: FLUTICASONE PROPIONATE SPRAY.NAS NS SCH (13:19)
[2019-11-05] MEDS: INSULIN LISPRO 1 UNIT/0.01 ML UNIT SQ SCH ×3 (13:19→20:28)
[2019-11-05] MEDS: HYDROcodone/APAP 5/325MG TABLET PO PRN (14:58)
[2019-11-05] MEDS: PANTOPRAZOLE 40 MG TABLET PO SCH (16:41)
[2019-11-05] MEDS: DOCUSATE SODIUM 100 MG CAPSULE PO SCH (20:29)
[2019-11-05] MEDS ORDERED: ASPIRIN 81 MG TAB.CHEW PO SCH (21:00)
[2019-11-06 06:52] LABS: Chloride 99 mmol/L (96-108)
[2019-11-06 06:53] LABS: ALT/SGPT < 5 U/l (0-40); AST/SGOT 33 U/l (0-37); Albumin 2.4 gm/dL (3.2-5.2); Albumin/Globulin Ratio 0.6 (1.0-2.3); Alkaline Phosphatase 215 U/L (39-117); Bilirubin,Direct 0.2 mg/dL (0.0-0.3); Bilirubin,Total 0.6 mg/dL (0.0-1.0); Blood Urea Nitrogen 53 mg/dl (8-23); Calcium 9.8 mg/dl (8.6-10.4); Carbon Dioxide 19 mmol/L (22-30); Globulin 4.1 gm/dL (2.2-3.7); Glomerular Filtration Rate 12; Glucose 151 mg/dL (70-105); Lactate Dehydrogenase 298 U/L (94-250); Phosphorous 3.9 mg/dL (2.7-4.5); Triglycerides 207 mg/dl (<150); Uric Acid 7.2 mg/dL (2.5-8.0)
[2019-11-06] MEDS: METOPROLOL SUCCINATE 50 MG TAB.XL.24H PO SCH ×2 (08:02→22:32)
[2019-11-06] MEDS: FOLIC ACID 1 MG TABLET PO SCH (08:03)
[2019-11-06] MEDS: PANTOPRAZOLE 40 MG TABLET PO SCH ×2 (08:03→18:06)
[2019-11-06] MEDS: DOCUSATE SODIUM 100 MG CAPSULE PO SCH ×2 (08:04→22:32)
[2019-11-06] MEDS: hydrALAZINE 25 MG TABLET PO SCH (08:05)
[2019-11-06] MEDS: ASPIRIN 81 MG TAB.CHEW PO SCH ×2 (08:05→22:33)
[2019-11-06] MEDS: TORSEMIDE 10 MG TABLET PO SCH (08:06)
[2019-11-06] MEDS: DEXAMETHASONE 4 MG TABLET PO SCH (08:07)
[2019-11-06] MEDS: HYDROCHLOROTHIAZIDE 25 MG TABLET PO SCH (08:08)
[2019-11-06] MEDS: INSULIN LISPRO 1 UNIT/0.01 ML UNIT SQ SCH ×4 (08:17→22:36)
[2019-11-06] MEDS: FLUTICASONE PROPIONATE SPRAY.NAS NS SCH (08:20)
[2019-11-06] MEDS ORDERED: FOLIC ACID 1 MG TABLET PO SCH (09:00)
[2019-11-06] MEDS ORDERED: TORSEMIDE 10 MG TABLET PO SCH (09:00)
[2019-11-06] MEDS ORDERED: FLUTICASONE PROPIONATE SPRAY.NAS NS SCH (09:00)
[2019-11-06] MEDS ORDERED: HYDROCHLOROTHIAZIDE 25 MG TABLET PO SCH (09:00)
[2019-11-06] MEDS ORDERED: hydrALAZINE 25 MG TABLET PO SCH (09:00)
[2019-11-06 09:12] LABS: Hematocrit 29.5 % (40.1-51.0); Hemoglobin 8.9 g/dL (13.7-17.5); Mean Cell Volume 109.3 fL (80.0-100.0); Mean Corpuscular HGB Conc 30.2 g/dL (31.0-36.0); Mean Platelet Volume 9.9 fL (7.4-10.4); Platelet Count 221 K/mcL (140-440); Red Cell Distribution Width 13.4 % (11.5-14.5)
[2019-11-06 09:13] LABS: Anisocytosis 1+ (NONE SEEN); Band Neutrophils % 2 % (0-10); Eosinophils % (Manual) 1 % (0-7); Lymphocytes % 12 % (15-49); Macrocytosis 2+ (NONE SEEN); Monocytes % (Manual) 6 % (1-12); Platelet Estimate NORMAL (NORMAL); Polychromasia 1+ (NONE SEEN); RBC Morphology ABNORM (NORMAL); Segmented Neutrophils % 79 % (38-78)
--- NOTE | 2019-11-06 12:13 | Consultation ---
DATE OF CONSULTATION: 11/06/2019 REFERRING PHYSICIAN: Del Wolf MD REASON FOR CONSULTATION: End-stage renal disease. The patient is a 74-year-old gentleman with history of coronary artery disease, type 2 diabetes, end-stage renal disease on hemodialysis. He recently had hip fracture and was discharged to [facility]. He presented to the Emergency Room with increasing shortness of breath, decreased or loss of consciousness, and low saturations. He was experiencing a fever in the last few days. [facility] and was found to be positive. When he came in, he was severely hypoxic with O2 sats in the 70% range on 5 liters of oxygen. Chest x-ray was consistent with pneumonia. He was not accepted at a tertiary center because he was a DNR. He was started on dexamethasone. Remdesivir was contraindicated because of the end-stage renal disease. PAST MEDICAL HISTORY: Significant for: 1. End-stage renal disease on hemodialysis. 2. History of coronary artery disease. 3. History of closed fracture of the left hip. 4. Anemia of chronic kidney disease. 5. History of tobacco use. 6. Hereditary hemochromatosis. 7. COPD. 8. History of cerebrovascular accident. PAST SURGICAL HISTORY: History of cochlear implant, sinus surgeries, carotid endarterectomy, partial gastrectomy for stomach cancer, hip surgery. FAMILY HISTORY: Mother at the age of 84, had cervical cancer, diabetes and congestive heart failure. Father at 58 with COPD and congestive heart failure. SOCIAL HISTORY: He is a disabled, single, and drinks 2 drinks per day, and no history of alcohol use. MEDICATIONS ON ADMISSION: 1. Metoprolol 100 mg twice daily. 2. Folic acid 1 mg daily. 3. Hydralazine 50 mg 3 times daily. 4. Pantoprazole 40 mg daily. 5. Torsemide 20 mg daily. 6. Aspirin 81 mg daily. ALLERGIES: REVIEW OF SYSTEMS: Reviewed as indicated in history of present illness. PHYSICAL EXAMINATION: GENERAL: The patient is somewhat sleepy, arousable, falls asleep quickly. He is still on 4 liters of oxygen. VITAL SIGNS: His blood pressure is 131/69 with a pulse rate of 67, temperature 97.3 with a pulse oximetry of 92%. I's and O's: 730 mL in and 300 mL out. HEENT: Normocephalic/atraumatic. Pupils reactive. External ear canal appears normal. Oral cavity shows normal mucosa. NECK: Supple. He has about 10 cm of jugular venous distention. No lymphadenopathy. No thyromegaly. LUNGS: Decreased air entry bilaterally. Rales heard in both bases. CARDIAC: S1 and S2. No S3, S4. No murmurs. ABDOMEN: Soft, nontender. No organomegaly. Positive bowel sounds. EXTREMITIES: Did not show any evidence of edema. LABORATORY DATA: White count 5.0 with hemoglobin of 8.9 and platelet count of 221, sodium 136, potassium 4.2, chloride 99, CO2 19, BUN 53, creatinine 4.4. ASSESSMENT AND PLAN: 1. End-stage renal disease on hemodialysis. He will have his regular dialysis treatment today. We will attempt to remove about 2.5 kilos of fluid. 2. COVID-associated pneumonia. Management per hospitalist. He is not a candidate for Remdesivir. 3. Volume status appeared adequate. Medical problems management per hospitalist. HARISH:dipika Job ID: [id number] Doc ID: [id number] Barney Arguelles MD
[2019-11-06] MEDS ORDERED: guaiFENesin 600 MG TAB.SR.12H PO PRN (19:30)
[2019-11-06] MEDS: BENZONATATE 100 MG CAPSULE PO PRN (22:40)
[2019-11-07] MEDS: BENZONATATE 100 MG CAPSULE PO PRN (05:05)
[2019-11-07 07:10] LABS: Hematocrit 27.3 % (40.1-51.0); Hemoglobin 9.2 g/dL (13.7-17.5); Mean Cell Volume 97.2 fL (80.0-100.0); Mean Corpuscular HGB Conc 33.7 g/dL (31.0-36.0); Platelet Count 240 K/mcL (140-440); RBC 2.81 M/mcL (4.63-6.08)
[2019-11-07] MEDS: PANTOPRAZOLE 40 MG TABLET PO SCH ×2 (07:24→16:45)
[2019-11-07] MEDS: INSULIN LISPRO 1 UNIT/0.01 ML UNIT SQ SCH ×4 (07:24→21:16)
[2019-11-07 08:00] LABS: ALT/SGPT 9 U/l (0-40); AST/SGOT 30 U/l (0-37); Albumin 2.8 gm/dL (3.2-5.2); Albumin/Globulin Ratio 0.7 (1.0-2.3); Alkaline Phosphatase 189 U/L (39-117); Bilirubin,Direct 0.3 mg/dL (0.0-0.3); Bilirubin,Total 0.6 mg/dL (0.0-1.0); Chloride 97 mmol/L (96-108); Globulin 3.9 gm/dL (2.2-3.7); Glucose 103 mg/dL (70-105); Lactate Dehydrogenase 286 U/L (94-250); Phosphorous 3.4 mg/dL (2.7-4.5); Uric Acid 4.1 mg/dL (2.5-8.0)
[2019-11-07 08:09] LABS: Blood Urea Nitrogen 35 mg/dl (8-23); Carbon Dioxide 27 mmol/L (22-30); Glomerular Filtration Rate 20; Triglycerides 304 mg/dl (<150)
--- NOTE | 2019-11-07 08:40 | XRay Report ---
HISTORY: Increased shortness of breath FINDINGS: Heart is mildly enlarged. There has been prior coronary bypass surgery. No congestive heart failure or pleural effusion are present. There are increased interstitial lung markings about both diaphragms. Similar findings were present on a prior chest CT done on 10/21/19 and the chest x-ray on 11/04/19. This could be inflammation or fibrosis. Mid and upper lung [place] are clear. There is an incidental azygos lobe. Patient has a dual lumen central venous catheter placed to the right internal jugular vein into the right atrium of the heart. There are multiple old healed left-sided rib fractures and old fracture the midshaft of the right humerus. IMPRESSION: Interstitial lung disease in both lower lobes which remains stable. This may be a combination of fibrosis and inflammation. Stable cardiomegaly, without congestive heart failure Interpreted and Authenticated by: Denis Alcazar 11/07/19
[2019-11-07 08:52] LABS: Anisocytosis 2+ (NONE SEEN); Eosinophils % (Manual) 2 % (0-7); Lymphocytes % 19 % (15-49); Macrocytosis 1+ (NONE SEEN); Monocytes % (Manual) 7 % (1-12); Platelet Estimate NORMAL (NORMAL); Polychromasia 2+ (NONE SEEN); RBC Morphology ABNORM (NORMAL); Segmented Neutrophils % 72 % (38-78)
--- NOTE | 2019-11-07 08:59 | Nephrology Progress Note ---
SUBJECTIVE Subjective Patient information: Note initiated : 11/07/19 at 8:57 am Service Date, if different from initiated Date: [] Patient: Darron Veliz 74 y/o M admitted on 11/05/19 for increased shortness of breath. Chief Complaint: Clinically remains stable. Constitutional Vitals: Vital Signs Temp Pulse Resp BP Pulse Ox 98.5 F 65 24 H 135/64 90 11/07/19 07:26 11/07/19 07:26 11/07/19 07:26 11/07/19 07:26 11/07/19 04:58 Period Temp Pulse Resp BP Sys/Joseph Pulse Ox Last 24 Hr 96.6 F-98.5 F 60-100 18-28 97-137/41-81 89-94 Intake and Output 11/06/19 11/07/19 11/07/19 21:59 05:59 13:59 Intake Total 540 125 Output Total 1302 200 Balance -762 -75 Weight 184 lb 8 oz Intake & Output: Intake & Output 11/06/19 11/07/19 11/07/19 21:59 05:59 13:59 Intake Total 540 125 Output Total 1302 200 Balance -762 -75 Weight 184 lb 8 oz Intake: Nourishment/Supplement quantity 120 (ml) Oral 420 125 Output: Void Amount 200 # of times incontinent of urine 2 Hemodialysis UF 1300 Other: Meal Dinner Percent of Meal Consumed 50% Feeding Ability Independent Nourishment/Supplement name nepere Urine Appearance Clear Urine Color Dark Yellow Lungs denton rales cardiac regular pa soft -edema A/P Narrative A/P Narrative: ESRD HD yesterday. Electrolytes and flud status appear stable. CXR no chf. HD in am. COVID pneumonia. Time Spent With Patient Time: Total time spent is greater than 50% in coordination of care (as documented) at patient's floor/unit and/or counseling patient:
[2019-11-07] MEDS: TORSEMIDE 10 MG TABLET PO SCH (09:46)
[2019-11-07] MEDS: DEXAMETHASONE 4 MG TABLET PO SCH (09:46)
[2019-11-07] MEDS: HYDROCHLOROTHIAZIDE 25 MG TABLET PO SCH (09:47)
[2019-11-07] MEDS: ASPIRIN 81 MG TAB.CHEW PO SCH ×2 (09:47→21:12)
[2019-11-07] MEDS: DOCUSATE SODIUM 100 MG CAPSULE PO SCH ×2 (09:47→21:13)
[2019-11-07] MEDS: FOLIC ACID 1 MG TABLET PO SCH (09:47)
[2019-11-07] MEDS: hydrALAZINE 25 MG TABLET PO SCH (09:48)
[2019-11-07] MEDS: METOPROLOL SUCCINATE 50 MG TAB.XL.24H PO SCH ×2 (09:48→21:12)
[2019-11-07] MEDS: FLUTICASONE PROPIONATE SPRAY.NAS NS SCH (11:22)
--- NOTE | 2019-11-07 11:27 | Internal Med Progress Note ---
SUBJECTIVE Subjective Patient information: Note initiated : 11/07/19 at 11:23 am Service Date, if different from initiated Date: [] Patient: Darron Veliz a 74 y/o M admitted on 11/05/19 for increased shortness of breath. Chief Complaint: [] History of present illness: Mr. Veliz is a 74 year old M with a history of CAD/DM type II/HTN/ESRD on HD 3 times a week who was recently discharged to [facility] following left hip fracture. He now presents to the ER today with increasing shortness of breath, decreased LOC and low saturation during dialysis not responding to supplemental oxygen. Patient has been experiencing low-grade fever last few days. He had a Kovic test done at dialysis which was positive. Work-up was consistent severe hypoxia with sats in 70s requiring 5 L oxygen. Imaging consistent with pneumonia, patient is a DNR and hence was not accepted to tertiary center after discussion the ER physician with Mary Moore. Patient was started on dexamethasone and subsequently hospitalist service was consulted for admission and management of COVID pneumonia. Remdesivir contraindicated in light of ESRD/GFR less than 30 At the time of evaluation patient is very drowsy sedated short of breath. No family members present. Most of the history is obtained from review of medical records and ER physician. 11/04-patient seen in room. Resting comfortably. On 4 L oxygen nasal cannula. No family at bedside. On COVID precautions. Nephrology consult for dialysis. 11/05-undergoing dialysis today. On 45 years oxygen. Able to communicate. Hard of hearing. Denies active distress.On COVID-19 precautions. Occasionally incontinent. Constitutional Vitals: Vital Signs Temp Pulse Resp BP Pulse Ox 98.5 F 65 24 H 135/64 90 11/07/19 07:26 11/07/19 07:26 11/07/19 07:26 11/07/19 07:26 11/07/19 04:58 Period Temp Pulse Resp BP Sys/Joseph Pulse Ox Last 24 Hr 96.6 F-98.5 F 60-100 18-28 97-137/41-81 89-94 Intake and Output 11/06/19 11/07/19 11/07/19 21:59 05:59 13:59 Intake Total 540 125 Output Total 1302 200 Balance -762 -75 Weight 83.688 kg Alert and respond to commands Hard of hearing On 4 L oxygen Nonlabored breathing Intake & Output: Intake & Output 11/06/19 11/07/19 11/07/19 21:59 05:59 13:59 Intake Total 540 125 Output Total 1302 200 Balance -762 -75 Weight 83.688 kg Intake: Nourishment/Supplement quantity 120 (ml) Oral 420 125 Output: Void Amount 200 # of times incontinent of urine 2 Hemodialysis UF 1300 Other: Meal Dinner Percent of Meal Consumed 50% Feeding Ability Independent Nourishment/Supplement name nepere Urine Appearance Clear Urine Color Dark Yellow OBJ DATA Labs CBC & Chem 7: 11/07/19 05:25 11/07/19 05:25 Labs: Abnormal Lab Results 11/07/19 11/07/19 11/06/19 05:25 05:25 04:48 RBC 2.81 L Hgb 9.2 L Hct 27.3 L MCV MCHC Gran % Lymph % (Auto) Lymph # (Auto) Seg Neutrophils % Lymphocytes % RBC Morphology Abnorm A Polychromasia 2+ A Anisocytosis 2+ A Macrocytosis 1+ A PT APTT Fibrinogen D-Dimer Carbon Dioxide 19 L Anion Gap 18.0 H BUN 35 H 53 H Creatinine 3.0 H 4.4 H Glucose 151 H GGT 136 H 142 H AST Alkaline Phosphatase 189 H 215 H Lactate Dehydrogenase 286 H 298 H Troponin T NT-Pro-B Natriuret Pep Albumin 2.8 L 2.4 L Globulin 3.9 H 4.1 H Albumin/Globulin Ratio 0.7 L 0.6 L Triglycerides 304 H 207 H 11/06/19 11/04/19 11/04/19 04:48 19:45 19:45 RBC 2.70 L Hgb 8.9 L Hct 29.5 L MCV 109.3 H MCHC 30.2 L Gran % Lymph % (Auto) Lymph # (Auto) Seg Neutrophils % 79 H Lymphocytes % 12 L RBC Morphology Abnorm A Polychromasia 1+ A Anisocytosis 1+ A Macrocytosis 2+ A PT 14.7 H APTT 42 H Fibrinogen D-Dimer Carbon Dioxide Anion Gap BUN Creatinine Glucose GGT AST Alkaline Phosphatase Lactate Dehydrogenase Troponin T 0.09 H* NT-Pro-B Natriuret Pep Albumin Globulin Albumin/Globulin Ratio Triglycerides 11/04/19 11/04/19 11/04/19 19:45 19:44 19:44 RBC 2.70 L Hgb 9.0 L Hct 26.7 L MCV MCHC Gran % 80.4 H Lymph % (Auto) 11.7 L Lymph # (Auto) 0.61 L Seg Neutrophils % Lymphocytes % RBC Morphology Polychromasia Anisocytosis Macrocytosis PT APTT Fibrinogen 610 H D-Dimer 2.49 H Carbon Dioxide Anion Gap BUN 27 H Creatinine 3.4 H Glucose 117 H GGT AST 46 H Alkaline Phosphatase 215 H Lactate Dehydrogenase Troponin T NT-Pro-B Natriuret Pep 1762.0 H Albumin 2.6 L Globulin Albumin/Globulin Ratio 0.7 L Triglycerides Meds: Medications Acetaminophen (Tylenol) 650 mg PO Q8HP PRN PRN Reason: PAIN/FEVER > 101 Hydrocodone Bitart/Acetaminophen (Steele 5/325mg) 1 tab PO Q4HP PRN; Protocol PRN Reason: Pain Last Admin: 11/05/19 14:58 Dose: 1 tab Documented by: Aspirin (Aspirin) 81 mg PO BID [facility] Last Admin: 11/07/19 09:47 Dose: 81 mg Documented by: Benzonatate (Tessalon) 100 mg PO TIDP PRN PRN Reason: Cough Last Admin: 11/07/19 05:05 Dose: 100 mg Documented by: Bisacodyl (Dulcolax) 10 mg [place] QDAY PRN PRN Reason: Constipation Dexamethasone (Decadron) 6 mg PO DAILY [facility] Last Admin: 11/07/19 09:46 Dose: 6 mg Documented by: Dextrose (Dextrose 50%) 0 ml IV UD PRN PRN Reason: Hypoglycemia Diagnostic Test (Pha) (Accu-Chek) 1 each FS ACHS [facility] Last Admin: 11/07/19 11:20 Dose: 1 each Documented by: Docusate Sodium (Colace) 100 mg PO BID [facility] Last Admin: 11/07/19 09:47 Dose: 100 mg Documented by: Fluticasone Propionate (Flonase) 1 spray NS DAILY [facility] Last Admin: 11/07/19 11:22 Dose: Not Given Documented by: Folic Acid (Folic Acid) 1 mg PO QDAY [facility] Last Admin: 11/07/19 09:47 Dose: 1 mg Documented by: Glucose (Insta-Glucose) 15 gm PO PRN PRN PRN Reason: Hypoglycemia Guaifenesin (Mucinex) 600 mg PO BIDP PRN PRN Reason: Congestion Hydralazine HCl (Apresoline) 50 mg PO DAILY [facility] Last Admin: 11/07/19 09:48 Dose: 50 mg Documented by: Hydrochlorothiazide (Oretic) 50 mg PO DAILY [facility] Last Admin: 11/07/19 09:47 Dose: 50 mg Documented by: Magnesium Sulfate (Magnesium Sulfate) 2 gm in 50 mls @ 50 mls/hr IV UD PRN PRN Reason: Mag < or = 1.7 Acetaminophen (Ofirmev) 650 mg in 65 mls @ 130 mls/hr IV Q6HP PRN; Protocol PRN Reason: Per Pain Protocol/Fever > 101 Insulin Human Lispro (Humalog) 0 unit SQ ACHS [facility]; Protocol Last Admin: 11/07/19 11:20 Dose: Not Given Documented by: Methocarbamol (Robaxin) 500 mg PO TIDP PRN PRN Reason: Pain and spasm Metoprolol Succinate (Toprol Xl) 100 mg PO BID [facility] Last Admin: 11/07/19 09:48 Dose: 100 mg Documented by: Pantoprazole Sodium (Protonix) 40 mg PO BIDAC [facility] Last Admin: 11/07/19 07:24 Dose: 40 mg Documented by: Potassium Chloride (Potassium Chloride) 20 meq PO BIDCC PRN PRN Reason: K <3.6 Senna (Senokot) 2 tab PO DAILYP PRN PRN Reason: Constipation Torsemide (Demadex) 20 mg PO DAILY [facility] Last Admin: 11/07/19 09:46 Dose: 20 mg Documented by: A/P Narrative A/P Narrative: * COVID-19 pneumonia. continue dexamethasone. Remdesivir contraindicated in light of GFR less than 30. Continue COVID-19 precautions * Acute hypoxic respiratory failure-on 4 L oxygen * History of prior CVA with residual right-sided weakness/ataxia * Recent left hip fracture-continue mobilization as tolerated * Sacral pressure ulcer continue frequent offloading/wound care * Normal pressure hydrocephalus follows up with Dr. Rm * History of ESRD -hemodialysis per nephrology. * HTN continue thiazide/hydralazine * CAD/CABG continue home medications -continue metoprolol * DM type II continue basal prandial insulin * History of alcoholism * GERD continue PPI * DNR Plan * Continue COVID-19 precautions * Dexamethasone * HD per nephrology * Remains high risk mortality, patient and confirms DNR and would not want intubation should he deteriorate * Pre-existing medical condition management on home medication Time Spent With Patient Time: Total time spent is greater than 50% in coordination of care (as documented) at patient's floor/unit and/or counseling patient: QUALITY VTE Deep Vein Thrombosis/Pulmonary Embolism Present on Admission: No
--- NOTE | 2019-11-07 11:30 | Internal Med Progress Note ---
SUBJECTIVE Subjective Patient information: Note initiated : 11/06/19 at 10:28 am Service Date, if different from initiated Date: [] Patient: Darron Veliz a 74 y/o M admitted on 11/05/19 for increased shortness of breath. Chief Complaint: History of present illness: Mr. Veliz is a 74 year old M with a history of CAD/DM type II/HTN/ESRD on HD 3 times a week who was recently discharged to [facility] following left hip fracture. He now presents to the ER today with increasing shortness of breath, decreased LOC and low saturation during dialysis not responding to supplemental oxygen. Patient has been experiencing low-grade fever last few days. He had a Kovic test done at dialysis which was positive. Work-up was consistent severe hypoxia with sats in 70s requiring 5 L oxygen. Imaging consistent with pneumonia, patient is a DNR and hence was not accepted to tertiary center after discussion the ER physician with Mary Moore. Patient was started on dexamethasone and subsequently hospitalist service was consulted for admission and management of COVID pneumonia. Remdesivir contraindicated in light of ESRD/GFR less than 30 At the time of evaluation patient is very drowsy sedated short of breath. No family members present. Most of the history is obtained from review of medical records and ER physician. 11/04-patient seen in room. Resting comfortably. On 4 L oxygen nasal cannula. No family at bedside. On COVID precautions. Nephrology consult for dialysis. 11/05-undergoing dialysis today. On 45 years oxygen. Able to communicate. Hard of hearing. Denies active distress.On COVID-19 precautions. Occasionally incontinent. Constitutional Vitals: Vital Signs Temp Pulse Resp BP Pulse Ox 98.5 F 65 24 H 135/64 90 11/07/19 07:26 11/07/19 07:26 11/07/19 07:26 11/07/19 07:26 11/07/19 04:58 Period Temp Pulse Resp BP Sys/Joseph Pulse Ox Last 24 Hr 96.6 F-98.5 F 60-100 18-28 97-137/41-81 89-94 Intake and Output 11/06/19 11/07/19 11/07/19 21:59 05:59 13:59 Intake Total 540 125 Output Total 1302 200 Balance -762 -75 Weight 83.688 kg Hard of hearing Alert and respond to commands Minimally labored breathing On 4 L oxygen Intake & Output: Intake & Output 11/06/19 11/07/19 11/07/19 21:59 05:59 13:59 Intake Total 540 125 Output Total 1302 200 Balance -762 -75 Weight 83.688 kg Intake: Nourishment/Supplement quantity 120 (ml) Oral 420 125 Output: Void Amount 200 # of times incontinent of urine 2 Hemodialysis UF 1300 Other: Meal Dinner Percent of Meal Consumed 50% Feeding Ability Independent Nourishment/Supplement name nepere Urine Appearance Clear Urine Color Dark Yellow OBJ DATA Labs CBC & Chem 7: 11/07/19 05:25 11/07/19 05:25 Labs: Abnormal Lab Results 11/07/19 11/07/19 11/06/19 05:25 05:25 04:48 RBC 2.81 L Hgb 9.2 L Hct 27.3 L MCV MCHC Gran % Lymph % (Auto) Lymph # (Auto) Seg Neutrophils % Lymphocytes % RBC Morphology Abnorm A Polychromasia 2+ A Anisocytosis 2+ A Macrocytosis 1+ A PT APTT Fibrinogen D-Dimer Carbon Dioxide 19 L Anion Gap 18.0 H BUN 35 H 53 H Creatinine 3.0 H 4.4 H Glucose 151 H GGT 136 H 142 H AST Alkaline Phosphatase 189 H 215 H Lactate Dehydrogenase 286 H 298 H Troponin T NT-Pro-B Natriuret Pep Albumin 2.8 L 2.4 L Globulin 3.9 H 4.1 H Albumin/Globulin Ratio 0.7 L 0.6 L Triglycerides 304 H 207 H 11/06/19 11/04/19 11/04/19 04:48 19:45 19:45 RBC 2.70 L Hgb 8.9 L Hct 29.5 L MCV 109.3 H MCHC 30.2 L Gran % Lymph % (Auto) Lymph # (Auto) Seg Neutrophils % 79 H Lymphocytes % 12 L RBC Morphology Abnorm A Polychromasia 1+ A Anisocytosis 1+ A Macrocytosis 2+ A PT 14.7 H APTT 42 H Fibrinogen D-Dimer Carbon Dioxide Anion Gap BUN Creatinine Glucose GGT AST Alkaline Phosphatase Lactate Dehydrogenase Troponin T 0.09 H* NT-Pro-B Natriuret Pep Albumin Globulin Albumin/Globulin Ratio Triglycerides 09/12/20 09/12/20 09/12/20 19:45 19:44 19:44 RBC 2.70 L Hgb 9.0 L Hct 26.7 L MCV MCHC Gran % 80.4 H Lymph % (Auto) 11.7 L Lymph # (Auto) 0.61 L Seg Neutrophils % Lymphocytes % RBC Morphology Polychromasia Anisocytosis Macrocytosis PT APTT Fibrinogen 610 H D-Dimer 2.49 H Carbon Dioxide Anion Gap BUN 27 H Creatinine 3.4 H Glucose 117 H GGT AST 46 H Alkaline Phosphatase 215 H Lactate Dehydrogenase Troponin T NT-Pro-B Natriuret Pep 1762.0 H Albumin 2.6 L Globulin Albumin/Globulin Ratio 0.7 L Triglycerides Meds: Medications Acetaminophen (Tylenol) 650 mg PO Q8HP PRN PRN Reason: PAIN/FEVER > 101 Hydrocodone Bitart/Acetaminophen ([place]up[place] 5/325mg) 1 tab PO Q4HP PRN; Protocol PRN Reason: Pain Last Admin: 11/05/19 14:58 Dose: 1 tab Documented by: Aspirin (Aspirin) 81 mg PO BID [facility] Last Admin: 11/07/19 09:47 Dose: 81 mg Documented by: Benzonatate (Tessalon) 100 mg PO TIDP PRN PRN Reason: Cough Last Admin: 11/07/19 05:05 Dose: 100 mg Documented by: Bisacodyl (Dulcolax) 10 mg [place] QDAY PRN PRN Reason: Constipation Dexamethasone (Decadron) 6 mg PO DAILY [facility] Last Admin: 11/07/19 09:46 Dose: 6 mg Documented by: Dextrose (Dextrose 50%) 0 ml IV UD PRN PRN Reason: Hypoglycemia Diagnostic Test (Pha) (Accu-Chek) 1 each FS ACHS [facility] Last Admin: 11/07/19 11:20 Dose: 1 each Documented by: Docusate Sodium (Colace) 100 mg PO BID [facility] Last Admin: 11/07/19 09:47 Dose: 100 mg Documented by: Fluticasone Propionate (Flonase) 1 spray NS DAILY [facility] Last Admin: 11/07/19 11:22 Dose: Not Given Documented by: Folic Acid (Folic Acid) 1 mg PO QDAY [facility] Last Admin: 11/07/19 09:47 Dose: 1 mg Documented by: Glucose (Insta-Glucose) 15 gm PO PRN PRN PRN Reason: Hypoglycemia Guaifenesin (Mucinex) 600 mg PO BIDP PRN PRN Reason: Congestion Hydralazine HCl (Apresoline) 50 mg PO DAILY [facility] Last Admin: 11/07/19 09:48 Dose: 50 mg Documented by: Hydrochlorothiazide (Oretic) 50 mg PO DAILY [facility] Last Admin: 11/07/19 09:47 Dose: 50 mg Documented by: Magnesium Sulfate (Magnesium Sulfate) 2 gm in 50 mls @ 50 mls/hr IV UD PRN PRN Reason: Mag < or = 1.7 Acetaminophen (Ofirmev) 650 mg in 65 mls @ 130 mls/hr IV Q6HP PRN; Protocol PRN Reason: Per Pain Protocol/Fever > 101 Insulin Human Lispro (Humalog) 0 unit SQ ACHS [facility]; Protocol Last Admin: 11/07/19 11:20 Dose: Not Given Documented by: Methocarbamol (Robaxin) 500 mg PO TIDP PRN PRN Reason: Pain and spasm Metoprolol Succinate (Toprol Xl) 100 mg PO BID [facility] Last Admin: 11/07/19 09:48 Dose: 100 mg Documented by: Pantoprazole Sodium (Protonix) 40 mg PO BIDAC [facility] Last Admin: 11/07/19 07:24 Dose: 40 mg Documented by: Potassium Chloride (Potassium Chloride) 20 meq PO BIDCC PRN PRN Reason: K <3.6 Senna (Senokot) 2 tab PO DAILYP PRN PRN Reason: Constipation Torsemide (Demadex) 20 mg PO DAILY [facility] Last Admin: 11/07/19 09:46 Dose: 20 mg Documented by: A/P Narrative A/P Narrative: * COVID-19 pneumonia. continue dexamethasone. Remdesivir contraindicated in light of GFR less than 30. Continue COVID-19 precautions. * Acute hypoxic respiratory failure-on 4 L oxygen * History of prior CVA with residual right-sided weakness/ataxia * Recent left hip fracture-continue mobilization as tolerated * Sacral pressure ulcer continue frequent offloading/wound care * Normal pressure hydrocephalus follows up with Dr. Rm * History of ESRD -hemodialysis per nephrology. * HTN continue thiazide/hydralazine * CAD/CABG continue home medications -continue metoprolol * DM type II continue basal prandial insulin * History of alcoholism no evidence of withdrawal * GERD continue PPI * DNR Plan * Continue COVID-19 precautions * Dexamethasone * Interval chest imaging in 24 hours * Continue HD per nephrology * DNR * Continue pre-existing medical condition management on home medication Time Spent With Patient Time: Total time spent is greater than 50% in coordination of care (as documented) at patient's floor/unit and/or counseling patient: QUALITY VTE Deep Vein Thrombosis/Pulmonary Embolism Present on Admission: No
[2019-11-08 06:29] LABS: Hematocrit 28.6 % (40.1-51.0); Hemoglobin 9.6 g/dL (13.7-17.5); Mean Cell Volume 96.9 fL (80.0-100.0); Mean Corpuscular HGB Conc 33.6 g/dL (31.0-36.0); Platelet Count 246 K/mcL (140-440); RBC 2.95 M/mcL (4.63-6.08); WBC 8.5 K/mcL (4.50-11.00)
[2019-11-08 06:55] LABS: ALT/SGPT 16 U/l (0-40); AST/SGOT 32 U/l (0-37); Albumin/Globulin Ratio 0.8 (1.0-2.3); Alkaline Phosphatase 217 U/L (39-117); Bilirubin,Total 0.7 mg/dL (0.0-1.0); Carbon Dioxide 26 mmol/L (22-30); Globulin 3.8 gm/dL (2.2-3.7); Glucose 108 mg/dL (70-105); Lactate Dehydrogenase 290 U/L (94-250); Triglycerides 294 mg/dl (<150); Uric Acid 6.4 mg/dL (2.5-8.0)
[2019-11-08 06:56] LABS: Bilirubin,Direct 0.4 mg/dL (0.0-0.3); Blood Urea Nitrogen 57 mg/dl (8-23); Chloride 95 mmol/L (96-108); Glomerular Filtration Rate 14; Phosphorous 4.6 mg/dL (2.7-4.5)
[2019-11-08] MEDS: PANTOPRAZOLE 40 MG TABLET PO SCH ×2 (08:09→17:47)
[2019-11-08] MEDS: INSULIN LISPRO 1 UNIT/0.01 ML UNIT SQ SCH ×4 (08:09→22:26)
[2019-11-08 08:39] LABS: Band Neutrophils % 1 % (0-10); Lymphocytes % 9 % (15-49); Metamyelocytes % 3 % (0-0); Monocytes % (Manual) 12 % (1-12); Myelocytes % 4 % (0-0); Platelet Estimate NORMAL (NORMAL); RBC Morphology NORMAL (NORMAL); Segmented Neutrophils % 71 % (38-78)
--- NOTE | 2019-11-08 08:55 | Nephrology Progress Note ---
SUBJECTIVE Subjective Patient information: Note initiated : 11/08/19 at 8:51 am Service Date, if different from initiated Date: [] Patient: Darron Veliz 74 y/o M admitted on 11/05/19 for increased shortness of breath. Chief Complaint: Appear status quo to slightly better. Constitutional Vitals: Vital Signs Temp Pulse Resp BP Pulse Ox 97.9 F 67 16 134/73 93 11/08/19 08:00 11/08/19 08:00 11/08/19 08:00 11/08/19 08:00 11/08/19 08:00 Period Temp Pulse Resp BP Sys/Joseph Pulse Ox Last 24 Hr 97.4 F-99.9 F 53-81 16-22 103-150/46-99 89-96 Intake and Output 11/07/19 11/08/19 11/08/19 21:59 05:59 13:59 Intake Total 940 200 Output Total 250 175 Balance 940 -50 -175 Weight 185 lb Intake & Output: Intake & Output 11/07/19 11/08/19 11/08/19 21:59 05:59 13:59 Intake Total 940 200 Output Total 250 175 Balance 940 -50 -175 Weight 185 lb Intake: Oral 940 200 Output: Void Amount 250 175 Other: Meal Dinner Percent of Meal Consumed 100% Feeding Ability Independent Urine Appearance Clear Urine Color Dark Yellow Light Darlene Lungs denton rales Cardiac regular pa soft no edema. A/P Narrative A/P Narrative: ESRD. HD today. Electrolytes and volume status appear adequate. COVID associated pneumonia. Management per hospitalist. Time Spent With Patient Time: Total time spent is greater than 50% in coordination of care (as documented) at patient's floor/unit and/or counseling patient:
[2019-11-08] MEDS: ASPIRIN 81 MG TAB.CHEW PO SCH ×2 (09:32→22:22)
[2019-11-08] MEDS: DEXAMETHASONE 4 MG TABLET PO SCH (09:32)
[2019-11-08] MEDS: DOCUSATE SODIUM 100 MG CAPSULE PO SCH ×2 (09:32→22:22)
[2019-11-08] MEDS: FOLIC ACID 1 MG TABLET PO SCH (09:33)
[2019-11-08] MEDS: FLUTICASONE PROPIONATE SPRAY.NAS NS SCH (09:33)
[2019-11-08] MEDS: TORSEMIDE 10 MG TABLET PO SCH (09:33)
[2019-11-08] MEDS: TIOTROPIUM BROMIDE 18 MCG INHALANT INH SCH (09:33)
[2019-11-08] MEDS: hydrALAZINE 25 MG TABLET PO SCH (14:17)
[2019-11-08] MEDS: METOPROLOL SUCCINATE 50 MG TAB.XL.24H PO SCH ×2 (14:18→22:22)
[2019-11-08] MEDS: HYDROCHLOROTHIAZIDE 25 MG TABLET PO SCH (14:18)
--- NOTE | 2019-11-08 15:57 | Internal Med Progress Note ---
SUBJECTIVE Subjective Patient information: Note initiated : 11/07/19 at 10:52 am Service Date, if different from initiated Date: [] Patient: Darron Veliz a 74 y/o M admitted on 11/05/19 for increased shortness of breath. Chief Complaint: Mr. Veliz is a 74 year old M with a history of CAD/DM type II/HTN/ESRD on HD 3 times a week who was recently discharged to [facility] following left hip fracture. He now presents to the ER today with increasing shortness of breath, decreased LOC and low saturation during dialysis not responding to supplemental oxygen. Patient has been experiencing low-grade fever last few days. He had a Kovic test done at dialysis which was positive. Work-up was consistent severe hypoxia with sats in 70s requiring 5 L oxygen. Imaging consistent with pneumonia, patient is a DNR and hence was not accepted to tertiary center after discussion the ER physician with Mary Moore. Patient was started on dexamethasone and subsequently hospitalist service was consulted for admission and management of COVID pneumonia. Remdesivir contraindicated in light of ESRD/GFR less than 30 At the time of evaluation patient is very drowsy sedated short of breath. No family members present. Most of the history is obtained from review of medical records and ER physician. 11/04-patient seen in room. Resting comfortably. On 4 L oxygen nasal cannula. No family at bedside. On COVID precautions. Nephrology consult for dialysis. 11/05-undergoing dialysis today. On 45 years oxygen. Able to communicate. Hard of hearing. Denies active distress.On COVID-19 precautions. Occasionally incontinent. 11/06-patient continues to be short of breath. No overnight events. White count 10,000. On 4 days oxygen. Ongoing hemodialysis per nephrology. Persistent interstitial lung disease on chest imaging. Constitutional Vitals: Vital Signs Temp Pulse Resp BP Pulse Ox 97.2 F 67 24 H 108/61 94 11/08/19 13:30 11/08/19 13:30 11/08/19 12:00 11/08/19 13:30 11/08/19 12:00 Period Temp Pulse Resp BP Sys/Joseph Pulse Ox Last 24 Hr 97.2 F-98.5 F 53-80 16-24 93-150/49-78 92-96 Intake and Output 11/08/19 11/08/1920 05:59 13:59 21:59 Intake Total 200 Output Total 250 1175 Balance -50 -1175 Weight 83.915 kg alert hard of hearing Labored breathing No anxiety Intake & Output: Intake & Output 11/08/19 11/08/19 11/08/19 05:59 13:59 21:59 Intake Total 200 Output Total 250 1175 Balance -50 -1175 Weight 83.915 kg Intake: Oral 200 Output: Void Amount 250 175 Hemodialysis UF 1000 Other: Urine Appearance Clear Clear Urine Color Dark Yellow Light Darlene Light Darlene OBJ DATA Labs CBC & Chem 7: 11/08/19 05:00 11/08/19 05:00 Labs: Abnormal Lab Results 11/08/19 11/08/19 11/07/19 05:00 05:00 05:25 RBC 2.95 L Hgb 9.6 L Hct 28.6 L MCV MCHC Seg Neutrophils % Lymphocytes % 9 L Metamyelocytes % 3 H Myelocytes % 4 H RBC Morphology Polychromasia Anisocytosis Macrocytosis Chloride 95 L Carbon Dioxide Anion Gap BUN 57 H 35 H Creatinine 3.9 H 3.0 H Glucose 108 H Phosphorus 4.6 H Direct Bilirubin 0.4 H GGT 164 H 136 H Alkaline Phosphatase 217 H 189 H Lactate Dehydrogenase 290 H 286 H Albumin 3.0 L 2.8 L Globulin 3.8 H 3.9 H Albumin/Globulin Ratio 0.8 L 0.7 L Triglycerides 294 H 304 H 11/07/19 11/06/19 11/06/19 05:25 04:48 04:48 RBC 2.81 L 2.70 L Hgb 9.2 L 8.9 L Hct 27.3 L 29.5 L MCV 109.3 H MCHC 30.2 L Seg Neutrophils % 79 H Lymphocytes % 12 L Metamyelocytes % Myelocytes % RBC Morphology Abnorm A Abnorm A Polychromasia 2+ A 1+ A Anisocytosis 2+ A 1+ A Macrocytosis 1+ A 2+ A Chloride Carbon Dioxide 19 L Anion Gap 18.0 H BUN 53 H Creatinine 4.4 H Glucose 151 H Phosphorus Direct Bilirubin GGT 142 H Alkaline Phosphatase 215 H Lactate Dehydrogenase 298 H Albumin 2.4 L Globulin 4.1 H Albumin/Globulin Ratio 0.6 L Triglycerides 207 H Meds: Medications Acetaminophen (Tylenol) 650 mg PO Q8HP PRN PRN Reason: PAIN/FEVER > 101 Hydrocodone Bitart/Acetaminophen ([place] 5/325mg) 1 tab PO Q4HP PRN; Protocol PRN Reason: Pain Last Admin: 11/05/19 14:58 Dose: 1 tab Documented by: Aspirin (Aspirin) 81 mg PO BID [facility] Last Admin: 11/08/19 09:32 Dose: 81 mg Documented by: Benzonatate (Tessalon) 100 mg PO TIDP PRN PRN Reason: Cough Last Admin: 11/07/19 05:05 Dose: 100 mg Documented by: Bisacodyl (Dulcolax) 10 mg MD QDAY PRN PRN Reason: Constipation Dexamethasone (Decadron) 6 mg PO DAILY [facility] Last Admin: 11/08/19 09:32 Dose: 6 mg Documented by: Dextrose (Dextrose 50%) 0 ml IV UD PRN PRN Reason: Hypoglycemia Diagnostic Test (Pha) (Accu-Chek) 1 each FS [facility] Last Admin: 11/08/19 11:49 Dose: 1 each Documented by: Docusate Sodium (Colace) 100 mg PO BID [facility] Last Admin: 11/08/19 09:32 Dose: 100 mg Documented by: Fluticasone Propionate (Flonase) 1 spray NS DAILY [facility] Last Admin: 11/08/19 09:33 Dose: Not Given Documented by: Folic Acid (Folic Acid) 1 mg PO QDAY [facility] Last Admin: 11/08/19 09:33 Dose: 1 mg Documented by: Glucose (Insta-Glucose) 15 gm PO PRN PRN PRN Reason: Hypoglycemia Guaifenesin (Mucinex) 600 mg PO BIDP PRN PRN Reason: Congestion Hydralazine HCl (Apresoline) 50 mg PO DAILY [facility] Last Admin: 11/08/19 14:17 Dose: Not Given Documented by: Hydrochlorothiazide (Oretic) 50 mg PO DAILY [facility] Last Admin: 11/08/19 14:18 Dose: Not Given Documented by: Magnesium Sulfate (Magnesium Sulfate) 2 gm in 50 mls @ 50 mls/hr IV UD PRN PRN Reason: Mag < or = 1.7 Acetaminophen (Ofirmev) 650 mg in 65 mls @ 130 mls/hr IV Q6HP PRN; Protocol PRN Reason: Per Pain Protocol/Fever > 101 Insulin Human Lispro (Humalog) 0 unit SQ ACHS [facility]; Protocol Last Admin: 11/08/19 11:49 Dose: Not Given Documented by: Methocarbamol (Robaxin) 500 mg PO TIDP PRN PRN Reason: Pain and spasm Metoprolol Succinate (Toprol Xl) 100 mg PO BID [facility] Last Admin: 11/08/19 14:18 Dose: Not Given Documented by: Pantoprazole Sodium (Protonix) 40 mg PO BIDAC [facility] Last Admin: 11/08/19 08:09 Dose: 40 mg Documented by: Potassium Chloride (Potassium Chloride) 20 meq PO BIDCC PRN PRN Reason: K <3.6 Senna (Senokot) 2 tab PO DAILYP PRN PRN Reason: Constipation Tiotropium [place] (Spiriva) 18 mcg INH DAILY [facility] Last Admin: 11/08/19 09:33 Dose: 1 each Documented by: Torsemide (Demadex) 20 mg PO DAILY [facility] Last Admin: 11/08/19 09:33 Dose: 20 mg Documented by: A/P Narrative A/P Narrative: * COVID-19 pneumonia. On dexamethasone. Remdesivir contraindicated in light of GFR less than 30. Continuing COVID-19 precautions. * Acute hypoxic respiratory failure-on 4-5 L oxygen, interval imaging unchanged * History of prior CVA with residual right-sided weakness/ataxia on aspirin * Recent left hip fracture-continue mobilization as tolerated * Sacral pressure ulcer continue frequent offloading/wound care * Normal pressure hydrocephalus follows up with Dr. Rm * History of ESRD -hemodialysis per nephrology. * HTN continue thiazide/hydralazine * CAD/CABG continue home medications -continue metoprolol * DM type II continue basal prandial insulin * History of alcoholism no evidence of withdrawal * GERD continue PPI * DNR Plan * Continue supplemental oxygen/Dexamethasone * Hemodialysis per nephrology * DNR * Continue pre-existing medical condition management on home medication * Guarded prognosis Time Spent With Patient Time: Total time spent is greater than 50% in coordination of care (as documen rafia) at patient's floor/unit and/or counseling patient: Total time spent with greater than 50% in coordination of care (as documented) at patient's floor/unit and/or counseling patient:: Greater than 35 minutes QUALITY VTE Deep Vein Thrombosis/Pulmonary Embolism Present on Admission: No
--- NOTE | 2019-11-08 16:01 | Internal Med Progress Note ---
SUBJECTIVE Subjective Patient information: Note initiated : 11/08/19 at 3:58 pm Service Date, if different from initiated Date: [] Patient: Darron Veliz a 74 y/o M admitted on 11/05/19 for increased shortness of breath. Chief Complaint: Mr. Veliz is a 74 year old M with a history of CAD/DM type II/HTN/ESRD on HD 3 times a week who was recently discharged to [facility] following left hip f racture. He now presents to the ER today with increasing shortness of breath, decreased LOC and low saturation during dialysis not responding to supplemental oxygen. Patient has been experiencing low-grade fever last few days. He had a Kovic test done at dialysis which was positive. Work-up was consistent severe hypoxia with sats in 70s requiring 5 L oxygen. Imaging consistent with pneumonia, patient is a DNR and hence was not accepted to tertiary center after discussion the ER physician with Mary Moore. Patient was started on dexamethasone and subsequently hospitalist service was consulted for admission and management of COVID pneumonia. Remdesivir contraindicated in light of ESRD/GFR less than 30 At the time of evaluation patient is very drowsy sedated short of breath. No family members present. Most of the history is obtained from review of medical records and ER physician. 11/04-patient seen in room. Resting comfortably. On 4 L oxygen nasal cannula. No family at bedside. On COVID precautions. Nephrology consult for dialysis. 11/05-undergoing dialysis today. On 45 years oxygen. Able to communicate. Hard of hearing. Denies active distress.On COVID-19 precautions. Occasionally incontinent. 11/06-patient continues to be short of breath. No overnight events. White count 10,000. On 4 days oxygen. Ongoing hemodialysis per nephrology. Persistent i nterstitial lung disease on chest imaging. 11/07-traumatic deterioration in overall status requiring 10 L oxygen rebreather mask. Worsening respiratory status. Continue steroids/supplemental oxygen. Remains DNR. Will initiate high flow oxygen if necessary. Was barely able to tolerate hemodialysis for an hour Constitutional Vitals: Vital Signs Temp Pulse Resp BP Pulse Ox 97.2 F 67 24 H 108/61 94 11/08/19 13:30 11/08/19 13:30 11/08/19 12:00 11/08/19 13:30 11/08/19 12:00 Period Temp Pulse Resp BP Sys/Joseph Pulse Ox Last 24 Hr 97.2 F-98.5 F 53-80 16-24 93-150/49-78 92-96 Intake and Output 11/08/19 11/08/19 11/08/19 05:59 13:59 21:59 Intake Total 200 Output Total 250 1175 Balance -50 -1175 Weight 83.915 kg labored breathing Anxious and confused Worsening overall since previous day Intake & Output: Intake & Output 11/08/19 11/08/19 11/08/19 05:59 13:59 21:59 Intake Total 200 Output Total 250 1175 Balance -50 -1175 Weight 83.915 kg Intake: Oral 200 Output: Void Amount 250 175 Hemodialysis UF 1000 Other: Urine Appearance Clear Clear Urine Color Dark Yellow Light Darlene Light Darlene OBJ DATA Labs CBC & Chem 7: 11/08/19 05:00 11/08/19 05:00 Labs: Abnormal Lab Results 11/08/19 11/08/19 11/07/19 05:00 05:00 05:25 RBC 2.95 L Hgb 9.6 L Hct 28.6 L MCV MCHC Seg Neutrophils % Lymphocytes % 9 L Metamyelocytes % 3 H Myelocytes % 4 H RBC Morphology Polychromasia Anisocytosis Macrocytosis Chloride 95 L Carbon Dioxide Anion Gap BUN 57 H 35 H Creatinine 3.9 H 3.0 H Glucose 108 H Phosphorus 4.6 H Direct Bilirubin 0.4 H GGT 164 H 136 H Alkaline Phosphatase 217 H 189 H Lactate Dehydrogenase 290 H 286 H Albumin 3.0 L 2.8 L Globulin 3.8 H 3.9 H Albumin/Globulin Ratio 0.8 L 0.7 L Triglycerides 294 H 304 H 11/07/19 11/06/19 11/06/19 05:25 04:48 04:48 RBC 2.81 L 2.70 L Hgb 9.2 L 8.9 L Hct 27.3 L 29.5 L MCV 109.3 H MCHC 30.2 L Seg Neutrophils % 79 H Lymphocytes % 12 L Metamyelocytes % Myelocytes % RBC Morphology Abnorm A Abnorm A Polychromasia 2+ A 1+ A Anisocytosis 2+ A 1+ A Macrocytosis 1+ A 2+ A Chloride Carbon Dioxide 19 L Anion Gap 18.0 H BUN 53 H Creatinine 4.4 H Glucose 151 H Phosphorus Direct Bilirubin GGT 142 H Alkaline Phosphatase 215 H Lactate Dehydrogenase 298 H Albumin 2.4 L Globulin 4.1 H Albumin/Globulin Ratio 0.6 L Triglycerides 207 H Meds: Medications Acetaminophen (Tylenol) 650 mg PO Q8HP PRN PRN Reason: PAIN/FEVER > 101 Hydrocodone Bitart/Acetaminophen ([place] 5/325mg) 1 tab PO Q4HP PRN; Protocol PRN Reason: Pain Last Admin: 11/05/19 14:58 Dose: 1 tab Documented by: Aspirin (Aspirin) 81 mg PO BID [facility] Last Admin: 11/08/19 09:32 Dose: 81 mg Documented by: Benzonatate (Tessalon) 100 mg PO TIDP PRN PRN Reason: Cough Last Admin: 11/07/19 05:05 Dose: 100 mg Documented by: Bisacodyl (Dulcolax) 10 mg ID QDAY PRN PRN Reason: Constipation Dexamethasone (Decadron) 6 mg PO DAILY [facility] Last Admin: 11/08/19 09:32 Dose: 6 mg Documented by: Dextrose (Dextrose 50%) 0 ml IV UD PRN PRN Reason: Hypoglycemia Diagnostic Test (Pha) (Accu-Chek) 1 each FS ACHS [facility] Last Admin: 11/08/19 11:49 Dose: 1 each Documented by: Docusate Sodium (Colace) 100 mg PO BID [facility] Last Admin: 11/08/19 09:32 Dose: 100 mg Documented by: Fluticasone Propionate (Flonase) 1 spray NS DAILY [facility] Last Admin: 11/08/19 09:33 Dose: Not Given Documented by: Folic Acid (Folic Acid) 1 mg PO QDAY [facility] Last Admin: 11/08/19 09:33 Dose: 1 mg Documented by: Glucose (Insta-Glucose) 15 gm PO PRN PRN PRN Reason: Hypoglycemia Guaifenesin (Mucinex) 600 mg PO BIDP PRN PRN Reason: Congestion Hydralazine HCl (Apresoline) 50 mg PO DAILY [facility] Last Admin: 11/08/19 14:17 Dose: Not Given Documented by: Hydrochlorothiazide (Oretic) 50 mg PO DAILY [facility] Last Admin: 11/08/19 14:18 Dose: Not Given Documented by: Magnesium Sulfate (Magnesium Sulfate) 2 gm in 50 mls @ 50 mls/hr IV UD PRN PRN Reason: Mag < or = 1.7 Acetaminophen (Ofirmev) 650 mg in 65 mls @ 130 mls/hr IV Q6HP PRN; Protocol PRN Reason: Per Pain Protocol/Fever > 101 Insulin Human Lispro (Humalog) 0 unit SQ ACHS [facility]; Protocol Last Admin: 11/08/19 11:49 Dose: Not Given Documented by: Methocarbamol (Robaxin) 500 mg PO TIDP PRN PRN Reason: Pain and spasm Metoprolol Succinate (Toprol Xl) 100 mg PO BID [facility] Last Admin: 11/08/19 14:18 Dose: Not Given Documented by: Pantoprazole Sodium (Protonix) 40 mg PO BIDAC [facility] Last Admin: 11/08/19 08:09 Dose: 40 mg Documented by: Potassium Chloride (Potassium Chloride) 20 meq PO BIDCC PRN PRN Reason: K <3.6 Senna (Senokot) 2 tab PO DAILYP PRN PRN Reason: Constipation Tiotropium [place] (Spiriva) 18 mcg INH DAILY [facility] Last Admin: 11/08/19 09:33 Dose: 1 each Documented by: Torsemide (Demadex) 20 mg PO DAILY [facility] Last Admin: 11/08/19 09:33 Dose: 20 mg Documented by: A/P Narrative A/P Narrative: * COVID-19 pneumonia. Clinical deterioration noted. Continuing on dexamethasone. Remdesivir contraindicated in light of GFR less than 30. Continuing COVID-19 precautions. * Acute hypoxic respiratory failure- worsening now on 10 L/nonrebreather interval deterioration noted. Repeat chest imaging a.m. * History of prior CVA with residual right-sided weakness/ataxia on aspirin * Recent left hip fracture * Sacral pressure ulcer continue frequent offloading/wound care * Normal pressure hydrocephalus follows up with Dr. Rm * History of ESRD -was unable to complete hemodialysis today . * HTN continue thiazide/hydralazine * CAD/CABG continue home medications -continue metoprolol * DM type II continue basal prandial insulin * History of alcoholism no evidence of withdrawal * GERD continue PPI * DNR Plan * Continue supplemental oxygen/Dexamethasone * Hemodialysis per nephrology * Interval chest imaging * Continue pre-existing medical condition management on home medication * Poor prognosis in light of deteriorating respiratory status Time Spent With Patient Time: Total time spent is greater than 50% in coordination of care (as documented) at patient's floor/unit and/or counseling patient: QUALITY VTE Deep Vein Thrombosis/Pulmonary Embolism Present on Admission: No
[2019-11-08] MEDS: 0.9 % SODIUM CHLORIDE 10 ML SYRINGE IV SCH (22:28)
[2019-11-09 07:02] LABS: Hematocrit 27.4 % (40.1-51.0); Hemoglobin 9.4 g/dL (13.7-17.5); Mean Cell Volume 94.8 fL (80.0-100.0); Mean Corpuscular HGB Conc 34.3 g/dL (31.0-36.0); Platelet Count 232 K/mcL (140-440); RBC 2.89 M/mcL (4.63-6.08); Red Cell Distribution Width 12.9 % (11.5-14.5); WBC 7.4 K/mcL (4.50-11.00)
[2019-11-09] MEDS: PANTOPRAZOLE 40 MG TABLET PO SCH ×2 (07:06→16:59)
[2019-11-09] MEDS: 0.9 % SODIUM CHLORIDE 10 ML SYRINGE IV SCH ×3 (07:07→22:11)
[2019-11-09] MEDS: INSULIN LISPRO 1 UNIT/0.01 ML UNIT SQ SCH ×4 (07:08→22:10)
[2019-11-09 07:29] LABS: ALT/SGPT 15 U/l (0-40); AST/SGOT 24 U/l (0-37); Albumin/Globulin Ratio 0.8 (1.0-2.3); Alkaline Phosphatase 200 U/L (39-117); Bilirubin,Total 0.7 mg/dL (0.0-1.0); Calcium 9.3 mg/dl (8.6-10.4); Carbon Dioxide 26 mmol/L (22-30); Chloride 96 mmol/L (96-108); Globulin 3.7 gm/dL (2.2-3.7); Glucose 107 mg/dL (70-105); Lactate Dehydrogenase 270 U/L (94-250); Phosphorous 3.7 mg/dL (2.7-4.5); Triglycerides 261 mg/dl (<150)
[2019-11-09 07:36] LABS: Bilirubin,Direct 0.3 mg/dL (0.0-0.3); Blood Urea Nitrogen 35 mg/dl (8-23); Glomerular Filtration Rate 19
--- NOTE | 2019-11-09 09:41 | XRay Report ---
HISTORY: Worsening Covid pneumonia FINDINGS: There are widespread mild to moderate alveolar infiltrates in both lungs. The greatest consolidation is in the lower lobes, left greater than right. Lung volumes are relatively small due to suboptimal inspiration. No pleural effusion is present. The heart is mildly enlarged but magnified by portable technique. Central venous catheter remains well-positioned. Comparison with the prior chest x-rays done on 11/04/2019 and 11/07/2019 shows mild progression of the pneumonia bilaterally. IMPRESSION: Bilateral pneumonia which is becoming worse Interpreted and Authenticated by: Denis Alcazar 11/09/19
[2019-11-09] MEDS: METOPROLOL SUCCINATE 50 MG TAB.XL.24H PO SCH ×2 (10:00→22:09)
[2019-11-09] MEDS: HYDROCHLOROTHIAZIDE 25 MG TABLET PO SCH (10:00)
[2019-11-09] MEDS: DOCUSATE SODIUM 100 MG CAPSULE PO SCH ×2 (10:01→22:09)
[2019-11-09] MEDS: DEXAMETHASONE 4 MG TABLET PO SCH (10:01)
[2019-11-09] MEDS: hydrALAZINE 25 MG TABLET PO SCH (10:01)
[2019-11-09] MEDS: FOLIC ACID 1 MG TABLET PO SCH (10:01)
[2019-11-09] MEDS: TORSEMIDE 10 MG TABLET PO SCH (10:01)
[2019-11-09] MEDS: ASPIRIN 81 MG TAB.CHEW PO SCH ×2 (10:02→22:11)
[2019-11-09] MEDS: FLUTICASONE PROPIONATE SPRAY.NAS NS SCH (10:05)
[2019-11-09] MEDS: TIOTROPIUM BROMIDE 18 MCG INHALANT INH SCH (10:05)
[2019-11-09 12:03] LABS: Band Neutrophils % 2 % (0-10); Lymphocytes % 10 % (15-49); Metamyelocytes % 2 % (0-0); Monocytes % (Manual) 5 % (1-12); Myelocytes % 1 % (0-0); Platelet Estimate NORMAL (NORMAL); RBC Morphology NORMAL (NORMAL); Segmented Neutrophils % 80 % (38-78)
--- NOTE | 2019-11-09 13:17 | Internal Med Progress Note ---
SUBJECTIVE Subjective Patient information: Note initiated : 11/09/19 at 1:16 pm Service Date, if different from initiated Date: [] Patient: Darron Veliz a 74 y/o M admitted on 11/05/19 for increased shortness of breath. Chief Complaint: [] Mr. Veliz is a 74 year old M with a history of CAD/DM type II/HTN/ESRD on HD 3 times a week who was recently discharged to [facility] following left hip fracture. He now presents to the ER today with increasing shortness of breath, decreased LOC and low saturation during dialysis not responding to supplemental oxygen. Patient has been experiencing low-grade fever last few days. He had a Kovic test done at dialysis which was positive. Work-up was consistent severe hypoxia with sats in 70s requiring 5 L oxygen. Imaging consistent with pneumonia, patient is a DNR and hence was not accepted to tertiary center after discussion the ER physician with Mary Moore. Patient was started on dexamethasone and subsequently hospitalist service was consulted for admission and management of COVID pneumonia. Remdesivir contraindicated in light of ESRD/GFR less than 30 At the time of evaluation patient is very drowsy sedated short of breath. No family members present. Most of the history is obtained from review of medical records and ER physician. 11/04-patient seen in room. Resting comfortably. On 4 L oxygen nasal cannula. No family at bedside. On COVID precautions. Nephrology consult for dialysis. 11/05-undergoing dialysis today. On 45 years oxygen. Able to communicate. Hard of hearing. Denies active distress.On COVID-19 precautions. Occasionally incontinent. 11/06-patient continues to be short of breath. No overnight events. White count 10,000. On 4 days oxygen. Ongoing hemodialysis per nephrology. Persistent interstitial lung disease on chest imaging. 11/07-traumatic deterioration in overall status requiring 10 L oxygen rebreather mask. Worsening respiratory status. Continue steroids/supplemental oxygen. Remains DNR. Will initiate high flow oxygen if necessary. Was barely able to tolerate hemodialysis for an hour 11/08-patient doing well. On 4 L oxygen. Alert and sitting on chair. No significant distress. No concerns per nursing staff. No overnight fever chills. Continuing dexamethasone. updated by nursing staff. Constitutional Vitals: vital Signs Temp Pulse Resp BP Pulse Ox 98.9 F 61 18 125/59 96 11/09/19 11:01 11/09/19 11:01 11/09/19 11:01 11/09/19 11:01 11/09/19 11:01 Period Temp Pulse Resp BP Sys/Joseph Pulse Ox Last 24 Hr 97.2 F-98.9 F 58-68 16-24 101-147/59-70 93-100 Intake and Output 11/08/19 11/09/19 11/09/19 21:59 05:59 13:59 Intake Total 250 240 Output Total 200 Balance 50 240 Alert Non labored breathing No anxiety Hard of hearing Intake & Output: Intake & Output 11/08/19 11/09/19 11/09/19 21:59 05:59 13:59 Intake Total 250 240 Output Total 200 Balance 50 240 Intake: Oral 250 240 Output: Void Amount 200 Other: Meal Breakfast Percent of Meal Consumed 75% Feeding Ability Independent Urine Appearance Clear Urine Color Dark Yellow Light Darlene OBJ DATA Labs CBC & Chem 7: 11/09/19 05:15 11/09/19 05:15 Labs: Abnormal Lab Results 11/09/19 11/09/19 11/08/19 05:15 05:15 05:00 RBC 2.89 L Hgb 9.4 L Hct 27.4 L Seg Neutrophils % 80 H Lymphocytes % 10 L Metamyelocytes % 2 H Myelocytes % 1 H RBC Morphology Polychromasia Anisocytosis Macrocytosis Chloride 95 L BUN 35 H 57 H Creatinine 3.1 H 3.9 H Glucose 107 H 108 H Phosphorus 4.6 H Direct Bilirubin 0.4 H GGT 139 H 164 H Alkaline Phosphatase 200 H 217 H Lactate Dehydrogenase 270 H 290 H Albumin 3.0 L 3.0 L Globulin 3.8 H Albumin/Globulin Ratio 0.8 L 0.8 L Triglycerides 261 H 294 H 11/08/19 11/07/19 11/07/19 05:00 05:25 05:25 RBC 2.95 L 2.81 L Hgb 9.6 L 9.2 L Hct 28.6 L 27.3 L Seg Neutrophils % Lymphocytes % 9 L Metamyelocytes % 3 H Myelocytes % 4 H RBC Morphology Abnorm A Polychromasia 2+ A Anisocytosis 2+ A Macrocytosis 1+ A Chloride BUN 35 H Creatinine 3.0 H Glucose Phosphorus Direct Bilirubin GGT 136 H Alkaline Phosphatase 189 H Lactate Dehydrogenase 286 H Albumin 2.8 L Globulin 3.9 H Albumin/Globulin Ratio 0.7 L Triglycerides 304 H Meds: Medications Acetaminophen (Tylenol) 650 mg PO Q8HP PRN PRN Reason: PAIN/FEVER > 101 Hydrocodone Bitart/Acetaminophen ([place] 5/325mg) 1 tab PO Q4HP PRN; Protocol PRN Reason: Pain Last Admin: 11/05/19 14:58 Dose: 1 tab Documented by: Aspirin (Aspirin) 81 mg PO BID [facility] Last Admin: 11/09/19 10:02 Dose: 81 mg Documented by: Benzonatate (Tessalon) 100 mg PO TIDP PRN PRN Reason: Cough Last Admin: 11/07/19 05:05 Dose: 100 mg Documented by: Bisacodyl (Dulcolax) 10 mg OR QDAY PRN PRN Reason: Constipation Dexamethasone (Decadron) 6 mg PO DAILY [facility] Last Admin: 11/09/19 10:01 Dose: 6 mg Documented by: Dextrose (Dextrose 50%) 0 ml IV UD PRN PRN Reason: Hypoglycemia Diagnostic Test (Pha) (Accu-Chek) 1 each FS ACHS [facility] Last Admin: 11/09/19 11:17 Dose: 1 each Documented by: Docusate Sodium (Colace) 100 mg PO BID [facility] Last Admin: 11/09/19 10:01 Dose: 100 mg Documented by: Fluticasone Propionate (Flonase) 1 spray NS DAILY [facility] Last Admin: 11/09/19 10:05 Dose: Not Given Documented by: Folic Acid (Folic Acid) 1 mg PO QDAY [facility] Last Admin: 11/09/19 10:01 Dose: 1 mg Documented by: Glucose (Insta-Glucose) 15 gm PO PRN PRN PRN Reason: Hypoglycemia Guaifenesin (Mucinex) 600 mg PO BIDP PRN PRN Reason: Congestion Hydralazine HCl (Apresoline) 50 mg PO DAILY [facility] Last Admin: 11/09/19 10:01 Dose: 50 mg Documented by: Hydrochlorothiazide (Oretic) 50 mg PO DAILY [facility] Last Admin: 11/09/19 10:00 Dose: 50 mg Documented by: Magnesium Sulfate (Magnesium Sulfate) 2 gm in 50 mls @ 50 mls/hr IV UD PRN PRN Reason: Mag < or = 1.7 Acetaminophen (Ofirmev) 650 mg in 65 mls @ 130 mls/hr IV Q6HP PRN; Protocol PRN Reason: Per Pain Protocol/Fever > 101 Insulin Human Lispro (Humalog) 0 unit SQ ACHS [facility]; Protocol Last Admin: 11/09/19 11:19 Dose: Not Given Documented by: Methocarbamol (Robaxin) 500 mg PO TIDP PRN PRN Reason: Pain and spasm Metoprolol Succinate (Toprol Xl) 100 mg PO BID [facility] Last Admin: 11/09/19 10:00 Dose: 100 mg Documented by: Pantoprazole Sodium (Protonix) 40 mg PO BIDAC [facility] Last Admin: 11/09/19 07:06 Dose: 40 mg Documented by: Potassium Chloride (Potassium Chloride) 20 meq PO BIDCC PRN PRN Reason: K <3.6 Senna (Senokot) 2 tab PO DAILYP PRN PRN Reason: Constipation Sodium Chloride (Saline Flush) 10 ml IV Q8 [facility] Last Admin: 11/09/19 07:07 Dose: 10 ml Documented by: Tiotropium [place] (Spiriva) 18 mcg INH DAILY [facility] Last Admin: 11/09/19 10:05 Dose: 1 each Documented by: Torsemide (Demadex) 20 mg PO DAILY [facility] Last Admin: 11/09/19 10:01 Dose: 20 mg Documented by: A/P Narrative A/P Narrative: * COVID-19 pneumonia. Currently on 4 L oxygen. Continue dexamethasone. Remdesivir contraindicated in light of GFR less than 30. Continuing COVID-19 precautions. Interval chest imaging resolved with no active infiltrates. * Acute hypoxic respiratory failure-clinical improvement noted this morning now on 4 L oxygen. Continue weaning as tolerated * History of prior CVA with residual right-sided weakness/ataxia on aspirin * Recent left hip fracture-continue OT/ambulation as tolerated * Sacral pressure ulcer continue frequent offloading/wound care * Normal pressure hydrocephalus follows up with Dr. Rm * History of ESRD -was unable to complete hemodialysis today . * HTN continue thiazide/hydralazine * CAD/CABG continue home medications -continue metoprolol * DM type II continue basal prandial insulin * History of alcoholism no evidence of withdrawal * GERD continue PPI * DNR Plan * Continue supplemental oxygen/Dexamethasone * Hemodialysis per nephrology * Continue pre-existing medical condition management on home medication * Improving prognosis * Discharge planning per case management Time Spent With Patient Time: Total time spent is greater than 50% in coordination of care (as documented) at patient's floor/unit and/or counseling patient: QUALITY VTE Deep Vein Thrombosis/Pulmonary Embolism Present on Admission: No
[2019-11-10] MEDS: 0.9 % SODIUM CHLORIDE 10 ML SYRINGE IV SCH ×3 (05:30→22:14)
[2019-11-10] MEDS: PANTOPRAZOLE 40 MG TABLET PO SCH ×2 (06:57→16:52)
[2019-11-10] MEDS: INSULIN LISPRO 1 UNIT/0.01 ML UNIT SQ SCH ×4 (06:57→22:28)
[2019-11-10] MEDS: FOLIC ACID 1 MG TABLET PO SCH (09:00)
[2019-11-10] MEDS: TORSEMIDE 10 MG TABLET PO SCH (09:00)
[2019-11-10] MEDS: DEXAMETHASONE 4 MG TABLET PO SCH (09:00)
[2019-11-10] MEDS: DOCUSATE SODIUM 100 MG CAPSULE PO SCH ×2 (09:01→22:14)
[2019-11-10] MEDS: ASPIRIN 81 MG TAB.CHEW PO SCH ×2 (09:01→22:14)
[2019-11-10] MEDS: TIOTROPIUM BROMIDE 18 MCG INHALANT INH SCH (09:12)
[2019-11-10] MEDS: hydrALAZINE 25 MG TABLET PO SCH (09:12)
[2019-11-10] MEDS: METOPROLOL SUCCINATE 50 MG TAB.XL.24H PO SCH ×2 (09:12→22:14)
[2019-11-10] MEDS: FLUTICASONE PROPIONATE SPRAY.NAS NS SCH (09:12)
[2019-11-10] MEDS: HYDROCHLOROTHIAZIDE 25 MG TABLET PO SCH (09:12)
--- NOTE | 2019-11-10 09:56 | Internal Med Progress Note ---
SUBJECTIVE Subjective Patient information: Note initiated : 11/10/19 at 9:53 am Service Date, if different from initiated Date: [] Patient: Darron Veliz a 74 y/o M admitted on 11/05/19 for increased shortness of breath. Chief Complaint: Mr. Veliz is a 74 year old M with a history of CAD/DM type II/HTN/ESRD on HD 3 times a week who was recently discharged to [facility] following left hip fr acture. He now presents to the ER today with increasing shortness of breath, decreased LOC and low saturation during dialysis not responding to supplemental oxygen. Patient has been experiencing low-grade fever last few days. He had a Kovic test done at dialysis which was positive. Work-up was consistent severe hypoxia with sats in 70s requiring 5 L oxygen. Imaging consistent with pneumonia, patient is a DNR and hence was not accepted to tertiary center after discussion the ER physician with Mary Moore. Patient was started on dexamethasone and subsequently hospitalist service was consulted for admission and management of COVID pneumonia. Remdesivir contraindicated in light of ESRD/GFR less than 30 At the time of evaluation patient is very drowsy sedated short of breath. No family members present. Most of the history is obtained from review of medical records and ER physician. 11/04-patient seen in room. Resting comfortably. On 4 L oxygen nasal cannula. No family at bedside. On COVID precautions. Nephrology consult for dialysis. 11/05-undergoing dialysis today. On 45 years oxygen. Able to communicate. Hard of hearing. Denies active distress.On COVID-19 precautions. Occasionally incontinent. 11/06-patient continues to be short of breath. No overnight events. White count 10,000. On 4 days oxygen. Ongoing hemodialysis per nephrology. Persistent in terstitial lung disease on chest imaging. 11/07-traumatic deterioration in overall status requiring 10 L oxygen rebreather mask. Worsening respiratory status. Continue steroids/supplemental oxygen. Remains DNR. Will initiate high flow oxygen if necessary. Was barely able to tolerate hemodialysis for an hour 11/08-patient doing well. On 4 L oxygen. Alert and sitting on chair. No significant distress. No concerns per nursing staff. No overnight fever chills. Continuing dexamethasone. updated by nursing staff. 11/09-patient remains unchanged currently on 4 L oxygen. However worsening bilateral chest infiltrates on interval imaging. On dexamethasone. No overnight events. No additional concerns per staff. Ongoing hemodialysis per nephrology. Repeat chest imaging 24 hours. Constitutional Vitals: Vital Signs Temp Pulse Resp BP Pulse Ox 98.4 F 65 20 141/69 98 11/10/19 08:47 11/10/19 09:44 11/10/19 07:09 11/10/19 09:44 11/10/19 07:09 Period Temp Pulse Resp BP Sys/Joseph Pulse Ox Last 24 Hr 97.5 F-98.9 F 61-72 16-20 117-158/57-82 96-99 Intake and Output 11/09/19 11/10/19 11/10/19 21:59 05:59 13:59 Intake Total 100 200 Output Total 250 150 Balance -150 50 Weight 83.915 kg Alert and respond to commands Hard of hearing Minimally labored breathing Anxious Intake & Output: Intake & Output 11/09/19 11/10/19 11/10/19 21:59 05:59 13:59 Intake Total 100 200 Output Total 250 150 Balance -150 50 Weight 83.915 kg Intake: Oral 100 200 Output: Void Amount 250 150 Other: Meal Dinner Percent of Meal Consumed 50% Urine Appearance Clear Clear Urine Color Dark Yellow Dark Yellow Stool Size Large Stool Color Brown Stool Consistency Soft Formed # Bowel Movements 1 OBJ DATA Labs CBC & Chem 7: 11/09/19 05:15 11/09/19 05:15 Labs: Abnormal Lab Results 11/09/19 11/09/19 11/08/19 05:15 05:15 05:00 RBC 2.89 L Hgb 9.4 L Hct 27.4 L Seg Neutrophils % 80 H Lymphocytes % 10 L Metamyelocytes % 2 H Myelocytes % 1 H Chloride 95 L BUN 35 H 57 H Creatinine 3.1 H 3.9 H Glucose 107 H 108 H Phosphorus 4.6 H Direct Bilirubin 0.4 H GGT 139 H 164 H Alkaline Phosphatase 200 H 217 H Lactate Dehydrogenase 270 H 290 H Albumin 3.0 L 3.0 L Globulin 3.8 H Albumin/Globulin Ratio 0.8 L 0.8 L Triglycerides 261 H 294 H 11/08/19 05:00 RBC 2.95 L Hgb 9.6 L Hct 28.6 L Seg Neutrophils % Lymphocytes % 9 L Metamyelocytes % 3 H Myelocytes % 4 H Chloride BUN Creatinine Glucose Phosphorus Direct Bilirubin GGT Alkaline Phosphatase Lactate Dehydrogenase Albumin Globulin Albumin/Globulin Ratio Triglycerides Meds: Medications Acetaminophen (Tylenol) 650 mg PO Q8HP PRN PRN Reason: PAIN/FEVER > 101 Hydrocodone Bitart/Acetaminophen ([place] 5/325mg) 1 tab PO Q4HP PRN; Protocol PRN Reason: Pain Last Admin: 11/05/19 14:58 Dose: 1 tab Documented by: Aspirin (Aspirin) 81 mg PO BID [facility] Last Admin: 11/10/19 09:01 Dose: 81 mg Documented by: Benzonatate (Tessalon) 100 mg PO TIDP PRN PRN Reason: Cough Last Admin: 11/07/19 05:05 Dose: 100 mg Documented by: Bisacodyl (Dulcolax) 10 mg RI QDAY PRN PRN Reason: Constipation Dexamethasone (Decadron) 6 mg PO DAILY [facility] Last Admin: 11/10/19 09:00 Dose: 6 mg Documented by: Dextrose (Dextrose 50%) 0 ml IV UD PRN PRN Reason: Hypoglycemia Diagnostic Test (Pha) (Accu-Chek) 1 each FS ACHS [facility] Last Admin: 11/10/19 06:57 Dose: 1 each Documented by: Docusate Sodium (Colace) 100 mg PO BID [facility] Last Admin: 11/10/19 09:01 Dose: 100 mg Documented by: Fluticasone Propionate (Flonase) 1 spray NS DAILY [facility] Last Admin: 11/10/19 09:12 Dose: Not Given Documented by: Folic Acid (Folic Acid) 1 mg PO QDAY [facility] Last Admin: 11/10/19 09:00 Dose: 1 mg Documented by: Glucose (Insta-Glucose) 15 gm PO PRN PRN PRN Reason: Hypoglycemia Guaifenesin (Mucinex) 600 mg PO BIDP PRN PRN Reason: Congestion Hydralazine HCl (Apresoline) 50 mg PO DAILY [facility] Last Admin: 11/10/19 09:12 Dose: Not Given Documented by: Hydrochlorothiazide (Oretic) 50 mg PO DAILY [facility] Last Admin: 11/10/19 09:12 Dose: Not Given Documented by: Magnesium Sulfate (Magnesium Sulfate) 2 gm in 50 mls @ 50 mls/hr IV UD PRN PRN Reason: Mag < or = 1.7 Acetaminophen (Ofirmev) 650 mg in 65 mls @ 130 mls/hr IV Q6HP PRN; Protocol PRN Reason: Per Pain Protocol/Fever > 101 Insulin Human Lispro (Humalog) 0 unit SQ ACHS [facility]; Protocol Last Admin: 11/10/19 06:57 Dose: Not Given Documented by: Methocarbamol (Robaxin) 500 mg PO TIDP PRN PRN Reason: Pain and spasm Metoprolol Succinate (Toprol Xl) 100 mg PO BID [facility] Last Admin: 11/10/19 09:12 Dose: Not Given Documented by: Pantoprazole Sodium (Protonix) 40 mg PO BIDAC [facility] Last Admin: 11/10/19 06:57 Dose: 40 mg Documented by: Potassium Chloride (Potassium Chloride) 20 meq PO BIDCC PRN PRN Reason: K <3.6 Senna (Senokot) 2 tab PO DAILYP PRN PRN Reason: Constipation Sodium Chloride (Saline Flush) 10 ml IV Q8 [facility] Last Admin: 11/10/19 05:30 Dose: 10 ml Documented by: Tiotropium [place] (Spiriva) 18 mcg INH DAILY [facility] Last Admin: 11/10/19 09:12 Dose: Not Given Documented by: Torsemide (Demadex) 20 mg PO DAILY [facility] Last Admin: 11/10/19 09:00 Dose: 20 mg Documented by: A/P Narrative A/P Narrative: * COVID-19 pneumonia. Currently on 4-5 liter intermittently requiring oxygen mask during exertion. Continue dexamethasone. Remdesivir contraindicated in light of GFR less than 30. Continuing COVID-19 precautions. Interval chest imaging worsening bibasilar infiltrates. Continue serial imaging * Acute hypoxic respiratory failure- on 4 to 5 L oxygen at rest * History of prior CVA with residual right-sided weakness/ataxia on aspirin * Recent left hip fracture-continue OT/ambulation as tolerated * Sacral pressure ulcer continue frequent offloading/wound care * Normal pressure hydrocephalus follows up with Dr. Rm * History of ESRD -was unable to complete hemodialysis today . * HTN continue thiazide/hydralazine * CAD/CABG continue home medications -continue metoprolol * DM type II continue basal prandial insulin * History of alcoholism no evidence of withdrawal * GERD continue PPI * DNR Plan * Continue dexamethasone/oxygen as needed * Continue hemodialysis per nephrology * Continue pre-existing medical condition management on home medication * Interval worsening chest imaging, prognosis remains guarded * Discharge planning per case management Time Spent With Patient Time: Total time spent is greater than 50% in coordination of care (as doc umented) at patient's floor/unit and/or counseling patient: QUALITY VTE Deep Vein Thrombosis/Pulmonary Embolism Present on Admission: No
[2019-11-11] MEDS: 0.9 % SODIUM CHLORIDE 10 ML SYRINGE IV SCH ×3 (05:26→20:38)
[2019-11-11] MEDS: POTASSIUM CHLORIDE 20 MEQ/15 ML ML PO PRN (05:26)
[2019-11-11] MEDS: HYDROCHLOROTHIAZIDE 25 MG TABLET PO SCH (09:36)
[2019-11-11] MEDS: ASPIRIN 81 MG TAB.CHEW PO SCH ×2 (09:36→20:38)
[2019-11-11] MEDS: FOLIC ACID 1 MG TABLET PO SCH (09:36)
[2019-11-11] MEDS: METOPROLOL SUCCINATE 50 MG TAB.XL.24H PO SCH ×2 (09:36→20:38)
[2019-11-11] MEDS: HYDROcodone/APAP 5/325MG TABLET PO PRN ×2 (09:37→20:36)
[2019-11-11] MEDS: DEXAMETHASONE 4 MG TABLET PO SCH (09:38)
[2019-11-11] MEDS: TORSEMIDE 10 MG TABLET PO SCH (09:38)
[2019-11-11] MEDS: DOCUSATE SODIUM 100 MG CAPSULE PO SCH ×2 (09:38→20:38)
[2019-11-11] MEDS: hydrALAZINE 25 MG TABLET PO SCH (09:51)
[2019-11-11] MEDS: TIOTROPIUM BROMIDE 18 MCG INHALANT INH SCH (10:00)
[2019-11-11] MEDS: INSULIN LISPRO 1 UNIT/0.01 ML UNIT SQ SCH ×4 (11:00→20:36)
[2019-11-11] MEDS: PANTOPRAZOLE 40 MG TABLET PO SCH ×3 (11:45→17:06)
[2019-11-11] MEDS: FLUTICASONE PROPIONATE SPRAY.NAS NS SCH (11:48)
--- NOTE | 2019-11-11 17:36 | Internal Med Progress Note ---
SUBJECTIVE Subjective Patient information: Note initiated : 11/11/19 at 5:29 pm Service Date, if different from initiated Date: [] Patient: Darron Veliz a 74 y/o M admitted on 11/05/19 for increased shortness of breath. Chief Complaint: [] Mr. Veliz is a 74 year old M with a history of CAD/DM type II/HTN/ESRD on HD 3 times a week who was recently discharged to [facility] following left hip fracture. He now presents to the ER today with increasing shortness of breath, decreased LOC and low saturation during dialysis not responding to supplemental oxygen. Patient has been experiencing low-grade fever last few days. He had a Kovic test done at dialysis which was positive. Work-up was consistent severe hypoxia with sats in 70s requiring 5 L oxygen. Imaging consistent with pneumonia, patient is a DNR and hence was not accepted to tertiary center after discussion the ER physician with Mary Moore. Patient was started on dexamethasone and subsequently hospitalist service was consulted for admission and management of COVID pneumonia. Remdesivir contraindicated in light of ESRD/GFR less than 30 At the time of evaluation patient is very drowsy sedated short of breath. No family members present. Most of the history is obtained from review of medical records and ER physician. 11/04-patient seen in room. Resting comfortably. On 4 L oxygen nasal cannula. No family at bedside. On COVID precautions. Nephrology consult for dialysis. 11/05-undergoing dialysis today. On 45 years oxygen. Able to communicate. Hard of hearing. Denies active distress.On COVID-19 precautions. Occasionally incontinent. 11/06-patient continues to be short of breath. No overnight events. White count 10,000. On 4 days oxygen. Ongoing hemodialysis per nephrology. Persistent interstitial lung disease on chest imaging. 11/07-traumatic deterioration in overall status requiring 10 L oxygen rebreather mask. Worsening respiratory status. Continue steroids/supplemental oxygen. Remains DNR. Will initiate high flow oxygen if necessary. Was barely able to tolerate hemodialysis for an hour 11/08-patient doing well. On 4 L oxygen. Alert and sitting on chair. No significant distress. No concerns per nursing staff. No overnight fever chills. Continuing dexamethasone. updated by nursing staff. 11/09-patient remains unchanged currently on 4 L oxygen. However worsening bilateral chest infiltrates on interval imaging. On dexamethasone. No overnight events. No additional concerns per staff. Ongoing hemodialysis per nephrology. Repeat chest imaging 24 hours. 11/10 Patient still has shortness of breath but feels improving. Denies fever, chills, nausea or vomiting. He is now on 2 to 5 L oxygen Patient is not a candidate for remdesivir due to poor renal function. ROS: Positive for shortness of breath. All other systems were reviewed and are negat martin. Constitutional Vitals: Vital Signs Temp Pulse Resp BP Pulse Ox 97.1 F 59 L 16 116/90 97 11/11/19 15:27 11/11/19 15:27 11/11/19 15:27 11/11/19 15:27 11/11/19 15:27 Period Temp Pulse Resp BP Sys/Joseph Pulse Ox Last 24 Hr 95.2 F-99.2 F 59-69 12-24 101-131/56-90 90-97 Intake and Output 11/11/19 11/11/19 11/11/19 05:59 13:59 21:59 Intake Total 290 Output Total 0 Balance 290 Intake & Output: Intake & Output 11/11/19 11/11/19 11/11/19 05:59 13:59 21:59 Intake Total 290 Output Total 0 Balance 290 Intake: Oral 290 Output: Void Amount 0 Additional findings Additional findings: General - No acute distress Eyes - PERRLA, EOM intact ENT no rhinorrhea, no noticeable or palpable swelling, no redness or rash around throat or on face Neck supple, no JVD, no thyromegaly Respiratory: Lungs - course BS, no use of accessary muscles. Cardiovascular - RRR no m/r/g, GI - Normal bowel sounds, no distended, soft. Extremeties - No edema, cyanosis or clubbing Hemo/lymphatic/immune no lymphadenopathy Neurological Alert and oriented x 3, no focal neurological deficits. Psychiatry flat affect OBJ DATA Labs CBC & Chem 7: 11/09/19 05:15 11/09/19 05:15 Labs: Abnormal Lab Results 11/09/19 11/09/19 05:15 05:15 RBC 2.89 L Hgb 9.4 L Hct 27.4 L Seg Neutrophils % 80 H Lymphocytes % 10 L Metamyelocytes % 2 H Myelocytes % 1 H BUN 35 H Creatinine 3.1 H Glucose 107 H GGT 139 H Alkaline Phosphatase 200 H Lactate Dehydrogenase 270 H Albumin 3.0 L Albumin/Globulin Ratio 0.8 L Triglycerides 261 H Meds: Medications Acetaminophen (Tylenol) 650 mg PO Q8HP PRN PRN Reason: PAIN/FEVER > 101 Hydrocodone Bitart/Acetaminophen ([place] 5/325mg) 1 tab PO Q4HP PRN; Protocol PRN Reason: Pain Last Admin: 11/11/19 09:37 Dose: 1 tab Documented by: Aspirin (Aspirin) 81 mg PO BID [facility] Last Admin: 11/11/19 09:36 Dose: 81 mg Documented by: Benzonatate (Tessalon) 100 mg PO TIDP PRN PRN Reason: Cough Last Admin: 11/07/19 05:05 Dose: 100 mg Documented by: Bisacodyl (Dulcolax) 10 mg [place] QDAY PRN PRN Reason: Constipation Dexamethasone (Decadron) 6 mg PO DAILY [facility] Last Admin: 11/11/19 09:38 Dose: 6 mg Documented by: Dextrose (Dextrose 50%) 0 ml IV UD PRN PRN Reason: Hypoglycemia Diagnostic Test (Pha) (Accu-Chek) 1 each FS ACHS [facility] Last Admin: 11/11/19 17:06 Dose: 1 each Documented by: Docusate Sodium (Colace) 100 mg PO BID [facility] Last Admin: 11/11/19 09:38 Dose: 100 mg Documented by: Fluticasone Propionate (Flonase) 1 spray NS DAILY [facility] Last Admin: 11/11/19 11:48 Dose: 1 each Documented by: Folic Acid (Folic Acid) 1 mg PO QDAY [facility] Last Admin: 11/11/19 09:36 Dose: 1 mg Documented by: Glucose (Insta-Glucose) 15 gm PO PRN PRN PRN Reason: Hypoglycemia Guaifenesin (Mucinex) 600 mg PO BIDP PRN PRN Reason: Congestion Hydralazine HCl (Apresoline) 50 mg PO DAILY [facility] Last Admin: 11/11/19 09:51 Dose: Not Given Documented by: Hydrochlorothiazide (Oretic) 50 mg PO DAILY [facility] Last Admin: 11/11/19 09:36 Dose: 50 mg Documented by: Magnesium Sulfate (Magnesium Sulfate) 2 gm in 50 mls @ 50 mls/hr IV UD PRN PRN Reason: Mag < or = 1.7 Acetaminophen (Ofirmev) 650 mg in 65 mls @ 130 mls/hr IV Q6HP PRN; Protocol PRN Reason: Per Pain Protocol/Fever > 101 Insulin Human Lispro (Humalog) 0 unit SQ ACHS [facility]; Protocol Last Admin: 11/11/19 17:15 Dose: 3 units Documented by: Methocarbamol (Robaxin) 500 mg PO TIDP PRN PRN Reason: Pain and spasm Metoprolol Succinate (Toprol Xl) 100 mg PO BID [facility] Last Admin: 11/11/19 09:36 Dose: 100 mg Documented by: Pantoprazole Sodium (Protonix) 40 mg PO BIDAC [facility] Last Admin: 11/11/19 17:06 Dose: 40 mg Documented by: Potassium Chloride (Potassium Chloride) 20 meq PO BIDCC PRN PRN Reason: K <3.6 Last Admin: 11/11/19 05:26 Dose: 20 meq Documented by: Senna (Senokot) 2 tab PO DAILYP PRN PRN Reason: Constipation Sodium Chloride (Saline Flush) 10 ml IV Q8 [facility] Last Admin: 11/11/19 12:00 Dose: 10 ml Documented by: Tiotropium [place] (Spiriva) 18 mcg INH DAILY [facility] Last Admin: 11/11/19 10:00 Dose: 1 each Documented by: Torsemide (Demadex) 20 mg PO DAILY [facility] Last Admin: 11/11/19 09:38 Dose: 20 mg Documented by: A/P Narrative A/P Narrative: 1. Acute hypoxic respiratory failure- on 2 to 5 L oxygen at rest. Trying to wean off 2. COVID-19 pneumonia. Currently on 2-5 liter. Continue dexamethasone. Remdesivir contraindicated in light of GFR less than 30. Continuing COVID-19 precautions. Interval chest imaging worsening bibasilar infiltrates. Continue serial imaging 3. History of prior CVA with residual right-sided weakness/ataxia on aspirin 4. Recent left hip fracture-continue OT/ambulation as tolerated 5. Sacral pressure ulcer continue frequent offloading/wound care 6. Normal pressure hydrocephalus follows up with Dr. Rm 7. History of ESRD on HD. 8. HTN continue thiazide/hydralazine 9. CAD/CABG continue home medications -continue metoprolol 10. DM type II continue basal prandial insulin 11. History of alcoholism no evidence of withdrawal 12. GERD continue PPI 13. Code status: DNR Plan Continue dexamethasone/oxygen as needed Continue hemodialysis per nephrology Continue pre-existing medical condition management on home medication Interval worsening chest imaging, prognosis remains guarded Discharge planning per case management Time Spent With Patient Time: Total time spent is greater than 50% in coordination of care (as documented) at patient's floor/unit and/or counseling patient: QUALITY VTE Deep Vein Thrombosis/Pulmonary Embolism Present on Admission: No
[2019-11-12] MEDS: 0.9 % SODIUM CHLORIDE 10 ML SYRINGE IV SCH ×3 (05:47→21:29)
[2019-11-12] MEDS: PANTOPRAZOLE 40 MG TABLET PO SCH ×2 (06:57→17:18)
[2019-11-12] MEDS: INSULIN LISPRO 1 UNIT/0.01 ML UNIT SQ SCH ×4 (06:58→21:29)
[2019-11-12 08:28] LABS: ALT/SGPT 24 U/l (0-40); AST/SGOT 21 U/l (0-37); Albumin/Globulin Ratio 0.8 (1.0-2.3); Alkaline Phosphatase 183 U/L (39-117); Bilirubin,Total 0.7 mg/dL (0.0-1.0); Calcium 10.2 mg/dl (8.6-10.4); Carbon Dioxide 25 mmol/L (22-30); Chloride 98 mmol/L (96-108); Globulin 3.8 gm/dL (2.2-3.7); Glucose 84 mg/dL (70-105)
[2019-11-12 08:43] LABS: Blood Urea Nitrogen 57 mg/dl (8-23); Glomerular Filtration Rate 13
[2019-11-12] MEDS: ASPIRIN 81 MG TAB.CHEW PO SCH ×2 (08:43→21:39)
[2019-11-12] MEDS: DEXAMETHASONE 4 MG TABLET PO SCH (08:43)
[2019-11-12] MEDS: DOCUSATE SODIUM 100 MG CAPSULE PO SCH ×2 (08:45→21:39)
[2019-11-12] MEDS: FOLIC ACID 1 MG TABLET PO SCH (08:45)
[2019-11-12] MEDS: HYDROCHLOROTHIAZIDE 25 MG TABLET PO SCH (08:45)
[2019-11-12] MEDS: hydrALAZINE 25 MG TABLET PO SCH (08:45)
[2019-11-12] MEDS: TIOTROPIUM BROMIDE 18 MCG INHALANT INH SCH (08:46)
[2019-11-12] MEDS: FLUTICASONE PROPIONATE SPRAY.NAS NS SCH (08:46)
[2019-11-12] MEDS: METOPROLOL SUCCINATE 50 MG TAB.XL.24H PO SCH ×2 (08:57→21:39)
[2019-11-12 08:59] LABS: Basophils # (Auto) 0.07 K/mcL (0.00-0.30); Basophils % (Auto) 0.5 % (0.0-2.0); Eosinophils # (Auto) 0.11 K/mcL (0.00-0.70); Eosinophils % (Auto) 0.8 % (0.0-7.0); Granulocytes % (Auto) 83.8 % (38.0-78.0); Hematocrit 29.2 % (40.1-51.0); Hemoglobin 9.6 g/dL (13.7-17.5); Lymphocytes # (Auto) 0.98 K/mcL (1.50-4.80); Lymphocytes % (Auto) 7.5 % (15.5-49.0); Mean Corpuscular HGB Conc 32.9 g/dL (31.0-36.0); Mean Platelet Volume 10.1 fL (7.4-10.4); Monocytes # (Auto) 0.97 K/mcL (0.10-0.90); Monocytes % (Auto) 7.4 % (1.0-12.0); Platelet Count 257 K/mcL (140-440); RBC 2.98 M/mcL (4.63-6.08); Red Cell Distribution Width 13.3 % (11.5-14.5); WBC 13.1 K/mcL (4.50-11.00)
[2019-11-12] MEDS: TORSEMIDE 10 MG TABLET PO SCH (09:00)
--- NOTE | 2019-11-12 18:05 | Internal Med Progress Note ---
SUBJECTIVE Subjective Patient information: Note initiated : 11/12/19 at 5:59 pm Service Date, if different from initiated Date: [] Patient: Darron Veliz a 74 y/o M admitted on 11/05/19 for increased shortness of breath. Chief Complaint: [] Mr. Veliz is a 74 year old M with a history of CAD/DM type II/HTN/ESRD on HD 3 times a week who was recently discharged to [facility] following left hip fracture. He now presents to the ER today with increasing shortness of breath, decreased LOC and low saturation during dialysis not responding to supplemental oxygen. Patient has been experiencing low-grade fever last few days. He had a Kovic test done at dialysis which was positive. Work-up was consistent severe hypoxia with sats in 70s requiring 5 L oxygen. Imaging consistent with pneumonia, patient is a DNR and hence was not accepted to tertiary center after discussion the ER physician with Mary Moore. Patient was started on dexamethasone and subsequently hospitalist service was consulted for admission and management of COVID pneumonia. Remdesivir contraindicated in light of ESRD/GFR less than 30 At the time of evaluation patient is very drowsy sedated short of breath. No family members present. Most of the history is obtained from review of medical records and ER physician. 11/04-patient seen in room. Resting comfortably. On 4 L oxygen nasal cannula. No family at bedside. On COVID precautions. Nephrology consult for dialysis. 11/05-undergoing dialysis today. On 45 years oxygen. Able to communicate. Hard of hearing. Denies active distress.On COVID-19 precautions. Occasionally incontinent. 11/06-patient continues to be short of breath. No overnight events. White count 10,000. On 4 days oxygen. Ongoing hemodialysis per nephrology. Persistent interstitial lung disease on chest imaging. 11/07-traumatic deterioration in overall status requiring 10 L oxygen rebreather mask. Worsening respiratory status. Continue steroids/supplemental oxygen. Remains DNR. Will initiate high flow oxygen if necessary. Was barely able to tolerate hemodialysis for an hour 11/08-patient doing well. On 4 L oxygen. Alert and sitting on chair. No significant distress. No concerns per nursing staff. No overnight fever chills. Continuing dexamethasone. updated by nursing staff. 11/09-patient remains unchanged currently on 4 L oxygen. However worsening bilateral chest infiltrates on interval imaging. On dexamethasone. No overnight events. No additional concerns per staff. Ongoing hemodialysis per nephrology. Repeat chest imaging 24 hours. 11/10 Patient still has shortness of breath but feels improving. Denies fever, chills, nausea or vomiting. He is now on 2 to 5 L oxygen Patient is not a candidate for remdesivir due to poor renal function. 11/11 Patient still has shortness of breath but feels improving. Denies fever, chills, nausea or vomiting. WBC went up to 13.1 today. Afebrile. Continue monitor Patient is now on 2 to 2.5 L ROS: Positive for shortness of breath. All other systems were reviewed and are negative. Constitutional Vitals: Vital Signs Temp Pulse Resp BP Pulse Ox 98.0 F 75 18 121/70 97 11/12/19 15:49 11/12/19 15:49 11/12/19 15:49 11/12/19 15:49 11/12/19 15:49 Period Temp Pulse Resp BP Sys/Joseph Pulse Ox Last 24 Hr 97.1 F-98.9 F 61-75 18-22 121-142/54-85 88-98 Intake and Output 11/12/19 11/12/19 11/12/19 05:59 13:59 21:59 Intake Total 100 420 Output Total 0 200 Balance 100 220 Intake & Output: Intake & Output 11/12/19 11/12/19 11/12/19 05:59 13:59 21:59 Intake Total 100 420 Output Total 0 200 Balance 100 220 Intake: Oral 100 420 Output: Void Amount 0 200 Other: Meal Lunch Percent of Meal Consumed 75% Feeding Ability Independent # Bowel Movements 0 Additional findings Additional findings: General - No acute distress Eyes - PERRLA, EOM intact ENT no rhinorrhea, no noticeable or palpable swelling, no redness or rash around throat or on face Neck supple, no JVD, no thyromegaly Respiratory: Lungs - course BS, no use of accessary muscles. Cardiovascular - RRR no m/r/g, GI - Normal bowel sounds, no distended, soft. Extremeties - No edema, cyanosis or clubbing Hemo/lymphatic/immune no lymphadenopathy Neurological Alert and oriented x 3, no focal neurological deficits. Psychiatry flat affect OBJ DATA Labs CBC & Chem 7: 11/12/19 05:40 11/12/19 05:40 Labs: Abnormal Lab Results 11/12/19 11/12/19 05:40 05:40 WBC 13.1 H RBC 2.98 L Hgb 9.6 L Hct 29.2 L Gran % 83.8 H Lymph % (Auto) 7.5 L Gran # 10.96 H Lymph # (Auto) 0.98 L [place] # (Auto) 0.97 H BUN 57 H Creatinine 4.1 H Alkaline Phosphatase 183 H Albumin 3.0 L Globulin 3.8 H Albumin/Globulin Ratio 0.8 L Meds: Medications Acetaminophen (Tylenol) 650 mg PO Q8HP PRN PRN Reason: PAIN/FEVER > 101 Hydrocodone Bitart/Acetaminophen ([place] 5/325mg) 1 tab PO Q4HP PRN; Protocol PRN Reason: Pain Last Admin: 11/11/19 20:36 Dose: 1 tab Documented by: Aspirin (Aspirin) 81 mg PO BID [facility] Last Admin: 11/12/19 08:43 Dose: 81 mg Documented by: Benzonatate (Tessalon) 100 mg PO TIDP PRN PRN Reason: Cough Last Admin: 11/07/19 05:05 Dose: 100 mg Documented by: Bisacodyl (Dulcolax) 10 mg [place] QDAY PRN PRN Reason: Constipation Dexamethasone (Decadron) 6 mg PO DAILY [facility] Last Admin: 11/12/19 08:43 Dose: 6 mg Documented by: Dextrose (Dextrose 50%) 0 ml IV UD PRN PRN Reason: Hypoglycemia Diagnostic Test (Pha) (Accu-Chek) 1 each FS ACHS [facility] Last Admin: 11/12/19 17:11 Dose: 1 each Documented by: Docusate Sodium (Colace) 100 mg PO BID [facility] Last Admin: 11/12/19 08:45 Dose: 100 mg Documented by: Fluticasone Propionate (Flonase) 1 spray NS DAILY [facility] Last Admin: 11/12/19 08:46 Dose: 1 each Documented by: Folic Acid (Folic Acid) 1 mg PO QDAY [facility] Last Admin: 11/12/19 08:45 Dose: 1 mg Documented by: Glucose (Insta-Glucose) 15 gm PO PRN PRN PRN Reason: Hypoglycemia Guaifenesin (Mucinex) 600 mg PO BIDP PRN PRN Reason: Congestion Hydralazine HCl (Apresoline) 50 mg PO DAILY [facility] Last Admin: 11/12/19 08:45 Dose: 50 mg Documented by: Hydrochlorothiazide (Oretic) 50 mg PO DAILY [facility] Last Admin: 11/12/19 08:45 Dose: 50 mg Documented by: Magnesium Sulfate (Magnesium Sulfate) 2 gm in 50 mls @ 50 mls/hr IV UD PRN PRN Reason: Mag < or = 1.7 Acetaminophen (Ofirmev) 650 mg in 65 mls @ 130 mls/hr IV Q6HP PRN; Protocol PRN Reason: Per Pain Protocol/Fever > 101 Insulin Human Lispro (Humalog) 0 unit SQ ACHS [facility]; Protocol Last Admin: 11/12/19 17:15 Dose: 3 units Documented by: Methocarbamol (Robaxin) 500 mg PO TIDP PRN PRN Reason: Pain and spasm Metoprolol Succinate (Toprol Xl) 100 mg PO BID [facility] Last Admin: 11/12/19 08:57 Dose: 100 mg Documented by: Pantoprazole Sodium (Protonix) 40 mg PO BIDAC [facility] Last Admin: 11/12/19 17:18 Dose: 40 mg Documented by: Potassium Chloride (Potassium Chloride) 20 meq PO BIDCC PRN PRN Reason: K <3.6 Last Admin: 11/11/19 05:26 Dose: 20 meq Documented by: Senna (Senokot) 2 tab PO DAILYP PRN PRN Reason: Constipation Sodium Chloride (Saline Flush) 10 ml IV Q8 [facility] Last Admin: 11/12/19 14:25 Dose: 10 ml Documented by: Tiotropium [place] (Spiriva) 18 mcg INH DAILY [facility] Last Admin: 11/12/19 08:46 Dose: 1 each Documented by: Torsemide (Demadex) 20 mg PO DAILY [facility] Last Admin: 11/12/19 09:00 Dose: 20 mg Documented by: A/P Narrative A/P Narrative: 1. Acute hypoxic respiratory failure- on 2 to 2.5 L oxygen at rest. Trying to wean off 2. COVID-19 pneumonia. Continue dexamethasone. Remdesivir contraindicated in light of GFR less than 30. Continuing COVID-19 precautions. Interval chest imaging worsening bibasilar infiltrates. 3. History of prior CVA with residual right-sided weakness/ataxia on aspirin 4. Recent left hip fracture-continue OT/ambulation as tolerated 5. Sacral pressure ulcer continue frequent offloading/wound care 6. Normal pressure hydrocephalus follows up with Dr. Rm 7. History of ESRD on HD. 8. HTN continue thiazide/hydralazine 9. CAD/CABG continue home medications -continue metoprolol 10. DM type II continue basal prandial insulin 11. History of alcoholism no evidence of withdrawal 12. GERD continue PPI 13. Code status: DNR Plan Continue dexamethasone/oxygen as needed Continue hemodialysis per nephrology Continue pre-existing medical condition management on home medication Interval worsening chest imaging, prognosis remains guarded Discharge planning per case management Time Spent With Patient Time: Total time spent is greater than 50% in coordination of care (as documented) at patient's floor/unit and/or counseling patient: QUALITY VTE Deep Vein Thrombosis/Pulmonary Embolism Present on Admission: No
[2019-11-13] MEDS: 0.9 % SODIUM CHLORIDE 10 ML SYRINGE IV SCH ×3 (06:14→21:05)
[2019-11-13 06:33] LABS: Basophils # (Auto) 0.01 K/mcL (0.00-0.30); Basophils % (Auto) 0.1 % (0.0-2.0); Eosinophils # (Auto) 0.14 K/mcL (0.00-0.70); Eosinophils % (Auto) 1.2 % (0.0-7.0); Granulocytes % (Auto) 80.3 % (38.0-78.0); Hematocrit 30.9 % (40.1-51.0); Hemoglobin 10.1 g/dL (13.7-17.5); Lymphocytes # (Auto) 1.23 K/mcL (1.50-4.80); Lymphocytes % (Auto) 10.2 % (15.5-49.0); Mean Cell Volume 99.4 fL (80.0-100.0); Mean Corpuscular HGB Conc 32.7 g/dL (31.0-36.0); Monocytes # (Auto) 0.99 K/mcL (0.10-0.90); Monocytes % (Auto) 8.2 % (1.0-12.0); Platelet Count 252 K/mcL (140-440); RBC 3.11 M/mcL (4.63-6.08); Red Cell Distribution Width 13.3 % (11.5-14.5); WBC 12.1 K/mcL (4.50-11.00)
[2019-11-13 07:20] LABS: ALT/SGPT 28 U/l (0-40); AST/SGOT 24 U/l (0-37); Albumin/Globulin Ratio 0.8 (1.0-2.3); Alkaline Phosphatase 185 U/L (39-117); Bilirubin,Total 0.5 mg/dL (0.0-1.0); Calcium 9.7 mg/dl (8.6-10.4); Carbon Dioxide 22 mmol/L (22-30); Chloride 99 mmol/L (96-108); Globulin 3.8 gm/dL (2.2-3.7); Glomerular Filtration Rate 12; Glucose 100 mg/dL (70-105)
[2019-11-13 07:22] LABS: Blood Urea Nitrogen 75 mg/dl (8-23)
[2019-11-13] MEDS: INSULIN LISPRO 1 UNIT/0.01 ML UNIT SQ SCH ×4 (07:34→21:04)
[2019-11-13] MEDS: hydrALAZINE 25 MG TABLET PO SCH (07:47)
[2019-11-13] MEDS: PANTOPRAZOLE 40 MG TABLET PO SCH ×2 (07:47→17:43)
[2019-11-13] MEDS: DOCUSATE SODIUM 100 MG CAPSULE PO SCH ×2 (07:48→21:05)
[2019-11-13] MEDS: ASPIRIN 81 MG TAB.CHEW PO SCH ×2 (07:48→21:03)
[2019-11-13] MEDS: TORSEMIDE 10 MG TABLET PO SCH (07:49)
[2019-11-13] MEDS: DEXAMETHASONE 4 MG TABLET PO SCH (07:49)
[2019-11-13] MEDS: FOLIC ACID 1 MG TABLET PO SCH (07:50)
[2019-11-13] MEDS: HYDROCHLOROTHIAZIDE 25 MG TABLET PO SCH (07:50)
[2019-11-13] MEDS: METOPROLOL SUCCINATE 50 MG TAB.XL.24H PO SCH ×2 (07:51→21:04)
[2019-11-13] MEDS: FLUTICASONE PROPIONATE SPRAY.NAS NS SCH (07:53)
[2019-11-13] MEDS: TIOTROPIUM BROMIDE 18 MCG INHALANT INH SCH (07:55)
--- NOTE | 2019-11-13 11:11 | Nephrology Progress Note ---
SUBJECTIVE Subjective Patient information: Note initiated : 11/13/19 at 11:08 am Service Date, if different from initiated Date: [] Patient: Darron Veliz 74 y/o M admitted on 11/05/19 for increased shortness of breath. Chief Complaint: Mildly short of breath. Feel weak. Constitutional Vitals: Vital Signs Temp Pulse Resp BP Pulse Ox 97.6 F 59 L 20 155/81 93 11/13/19 07:10 11/13/19 03:39 11/13/19 07:10 11/13/19 07:10 11/13/19 07:40 Period Temp Pulse Resp BP Sys/Joseph Pulse Ox Last 24 Hr 97.5 F-98.0 F 59-75 18-24 121-155/64-98 93-99 Intake and Output 11/12/19 11/13/19 11/13/19 21:59 05:59 13:59 Intake Total 540 800 Output Total 326 175 Balance 214 625 Intake & Output: Intake & Output 11/12/19 11/13/19 11/13/19 21:59 05:59 13:59 Intake Total 540 800 Output Total 326 175 Balance 214 625 Intake: Oral 540 800 Output: Void Amount 325 175 # of times incontinent of urine 1 Other: Meal Dinner Percent of Meal Consumed 25% Feeding Ability Independent Urine Appearance Clear Clear Urine Color Tea Colored Tea Colored Alert and oriented No JVD. Chris rales. Cardiac regular PA soft No edema. A/P Narrative A/P Narrative: ESRD, due for dialysis today. Will dialyse with a 3k bath and remove about 2000ml as tolerated. Covid associated penumonia. He is getting better but very slow. Time Spent With Patient Time: Total time spent is greater than 50% in coordination of care (as docume nted) at patient's floor/unit and/or counseling patient:
--- NOTE | 2019-11-13 16:12 | Internal Med Progress Note ---
SUBJECTIVE Subjective Patient information: Note initiated : 11/13/19 at 4:09 pm Service Date, if different from initiated Date: [] Patient: Darron Veliz a 74 y/o M admitted on 11/05/19 for increased shortness of breath. Chief Complaint: [] Mr. Veliz is a 74 year old M with a history of CAD/DM type II/HTN/ESRD on HD 3 times a week who was recently discharged to [facility] following left hip fracture. He now presents to the ER today with increasing shortness of breath, decreased LOC and low saturation during dialysis not responding to supplemental oxygen. Patient has been experiencing low-grade fever last few days. He had a Kovic test done at dialysis which was positive. Work-up was consistent severe hypoxia with sats in 70s requiring 5 L oxygen. Imaging consistent with pneumonia, patient is a DNR and hence was not accepted to tertiary center after discussion the ER physician with Mary Moore. Patient was started on dexamethasone and subsequently hospitalist service was consulted for admission and management of COVID pneumonia. Remdesivir contraindicated in light of ESRD/GFR less than 30 At the time of evaluation patient is very drowsy sedated short of breath. No family members present. Most of the history is obtained from review of medical records and ER physician. 11/04-patient seen in room. Resting comfortably. On 4 L oxygen nasal cannula. No family at bedside. On COVID precautions. Nephrology consult for dialysis. 11/05-undergoing dialysis today. On 45 years oxygen. Able to communicate. Hard of hearing. Denies active distress.On COVID-19 precautions. Occasionally incontinent. 11/06-patient continues to be short of breath. No overnight events. White count 10,000. On 4 days oxygen. Ongoing hemodialysis per nephrology. Persistent interstitial lung disease on chest imaging. 11/07-traumatic deterioration in overall status requiring 10 L oxygen rebreather mask. Worsening respiratory status. Continue steroids/supplemental oxygen. Remains DNR. Will initiate high flow oxygen if necessary. Was barely able to tolerate hemodialysis for an hour 11/08-patient doing well. On 4 L oxygen. Alert and sitting on chair. No significant distress. No concerns per nursing staff. No overnight fever chills. Continuing dexamethasone. updated by nursing staff. 11/09-patient remains unchanged currently on 4 L oxygen. However worsening bilateral chest infiltrates on interval imaging. On dexamethasone. No overnight events. No additional concerns per staff. Ongoing hemodialysis per nephrology. Repeat chest imaging 24 hours. 11/10 Patient still has shortness of breath but feels improving. Denies fever, chills, nausea or vomiting. He is now on 2 to 5 L oxygen Patient is not a candidate for remdesivir due to poor renal function. 11/11 Patient still has shortness of breath but feels improving. Denies fever, chills, nausea or vomiting. WBC went up to 13.1 today. Afebrile. Continue monitor Patient is now on 2 to 2.5 L 11/12 Today patient blood pressure is soft, around 100. He received HD today. He is now on 0-1.5L WBC 12.1 Repeat chest x-ray ROS: Positive for shortness of breath. All other systems were reviewed and are negative. Constitutional Vitals: Vital Signs Temp Pulse Resp BP Pulse Ox 98.4 F 80 16 98/49 94 11/13/19 12:05 11/13/19 15:53 11/13/19 12:00 11/13/19 15:53 11/13/19 12:00 Period Temp Pulse Resp BP Sys/Joseph Pulse Ox Last 24 Hr 97.6 F-98.4 F 59-80 16-24 96-155/49-98 93-99 Intake and Output 11/13/19 11/13/19 11/13/19 05:59 13:59 21:59 Intake Total 800 Output Total 175 Balance 625 Intake & Output: Intake & Output 11/13/19 11/13/19 11/13/19 05:59 13:59 21:59 Intake Total 800 Output Total 175 Balance 625 Intake: Oral 800 Output: Void Amount 175 Other: Urine Appearance Clear Urine Color Tea Colored Additional findings Additional findings: General - No acute distress Eyes - PERRLA, EOM intact ENT no rhinorrhea, no noticeable or palpable swelling, no redness or rash around throat or on face Neck supple, no JVD, no thyromegaly Respiratory: Lungs - course BS, no use of accessary muscles. Cardiovascular - RRR no m/r/g, GI - Normal bowel sounds, no distended, soft. Extremeties - No edema, cyanosis or clubbing Hemo/lymphatic/immune no lymphadenopathy Neurological Alert and oriented x 2, no focal neurological deficits. Psychiatry flat affect OBJ DATA Labs CBC & Chem 7: 11/13/19 05:15 11/13/19 05:15 Labs: Abnormal Lab Results 11/13/19 11/13/19 11/12/19 05:15 05:15 05:40 WBC 12.1 H RBC 3.11 L Hgb 10.1 L Hct 30.9 L Gran % 80.3 H Lymph % (Auto) 10.2 L Gran # 9.68 H Lymph # (Auto) 1.23 L [place] # (Auto) 0.99 H Anion Gap 18.0 H BUN 75 H 57 H Creatinine 4.6 H 4.1 H Alkaline Phosphatase 185 H 183 H Albumin 3.0 L 3.0 L Globulin 3.8 H 3.8 H Albumin/Globulin Ratio 0.8 L 0.8 L 11/12/19 05:40 WBC 13.1 H RBC 2.98 L Hgb 9.6 L Hct 29.2 L Gran % 83.8 H Lymph % (Auto) 7.5 L Gran # 10.96 H Lymph # (Auto) 0.98 L [place] # (Auto) 0.97 H Anion Gap BUN Creatinine Alkaline Phosphatase Albumin Globulin Albumin/Globulin Ratio Meds: Medications Acetaminophen (Tylenol) 650 mg PO Q8HP PRN PRN Reason: PAIN/FEVER > 101 Hydrocodone Bitart/Acetaminophen ([place] 5/325mg) 1 tab PO Q4HP PRN; Protocol PRN Reason: Pain Last Admin: 11/11/19 20:36 Dose: 1 tab Documented by: Aspirin (Aspirin) 81 mg PO BID [facility] Last Admin: 11/13/19 07:48 Dose: 81 mg Documented by: Benzonatate (Tessalon) 100 mg PO TIDP PRN PRN Reason: Cough Last Admin: 11/07/19 05:05 Dose: 100 mg Documented by: Bisacodyl (Dulcolax) 10 mg [place] QDAY PRN PRN Reason: Constipation Dexamethasone (Decadron) 6 mg PO DAILY [facility] Last Admin: 11/13/19 07:49 Dose: 6 mg Documented by: Dextrose (Dextrose 50%) 0 ml IV UD PRN PRN Reason: Hypoglycemia Diagnostic Test (Pha) (Accu-Chek) 1 each FS ACHS [facility] Last Admin: 11/13/19 12:50 Dose: 1 each Documented by: Docusate Sodium (Colace) 100 mg PO BID [facility] Last Admin: 11/13/19 07:48 Dose: 100 mg Documented by: Fluticasone Propionate (Flonase) 1 spray NS DAILY [facility] Last Admin: 11/13/19 07:53 Dose: 1 each Documented by: Folic Acid (Folic Acid) 1 mg PO QDAY [facility] Last Admin: 11/13/19 07:50 Dose: 1 mg Documented by: Glucose (Insta-Glucose) 15 gm PO PRN PRN PRN Reason: Hypoglycemia Guaifenesin (Mucinex) 600 mg PO BIDP PRN PRN Reason: Congestion Hydralazine HCl (Apresoline) 50 mg PO DAILY [facility] Last Admin: 11/13/19 07:47 Dose: 50 mg Documented by: Hydrochlorothiazide (Oretic) 50 mg PO DAILY [facility] Last Admin: 11/13/19 07:50 Dose: 50 mg Documented by: Magnesium Sulfate (Magnesium Sulfate) 2 gm in 50 mls @ 50 mls/hr IV UD PRN PRN Reason: Mag < or = 1.7 Acetaminophen (Ofirmev) 650 mg in 65 mls @ 130 mls/hr IV Q6HP PRN; Protocol PRN Reason: Per Pain Protocol/Fever > 101 Insulin Human Lispro (Humalog) 0 unit SQ ACHS [facility]; Protocol Last Admin: 11/13/19 12:50 Dose: Not Given Documented by: Methocarbamol (Robaxin) 500 mg PO TIDP PRN PRN Reason: Pain and spasm Metoprolol Succinate (Toprol Xl) 100 mg PO BID [facility] Last Admin: 11/13/19 07:51 Dose: 100 mg Documented by: Pantoprazole Sodium (Protonix) 40 mg PO BIDAC [facility] Last Admin: 11/13/19 07:47 Dose: 40 mg Documented by: Potassium Chloride (Potassium Chloride) 20 meq PO BIDCC PRN PRN Reason: K <3.6 Last Admin: 11/11/19 05:26 Dose: 20 meq Documented by: Senna (Senokot) 2 tab PO DAILYP PRN PRN Reason: Constipation Sodium Chloride (Saline Flush) 10 ml IV Q8 [facility] Last Admin: 11/13/19 12:51 Dose: 10 ml Documented by: Tiotropium [place] (Spiriva) 18 mcg INH DAILY [facility] Last Admin: 11/13/19 07:55 Dose: 1 each Documented by: Torsemide (Demadex) 20 mg PO DAILY [place] Last Admin: 11/13/19 07:49 Dose: 20 mg Documented by: A/P Narrative A/P Narrative: 1. Acute hypoxic respiratory failure- on 0-1.5 L oxygen at rest. Trying to wean off 2. COVID-19 pneumonia. Continue dexamethasone. Remdesivir contraindicated in light of GFR less than 30. Continuing COVID-19 precautions. Interval chest imaging worsening bibasilar infiltrates. 3. History of prior CVA with residual right-sided weakness/ataxia on aspirin 4. Recent left hip fracture-continue OT/ambulation as tolerated 5. Sacral pressure ulcer continue frequent offloading/wound care 6. Normal pressure hydrocephalus follows up with Dr. Rm 7. History of ESRD on HD. 8. HTN continue thiazide/hydralazine 9. CAD/CABG continue home medications -continue metoprolol 10. DM type II continue basal prandial insulin 11. History of alcoholism no evidence of withdrawal 12. GERD continue PPI 13. Code status: DNR Plan Continue dexamethasone (since 11/04)/oxygen as needed Continue hemodialysis per nephrology Continue pre-existing medical condition management on home medication Interval worsening chest imaging, prognosis remains guarded Discharge planning per case management Time Spent With Patient Time: Total time spent is greater than 50% in coordination of care (as documented) at patient's floor/unit and/or counseling patient: QUALITY VTE Deep Vein Thrombosis/Pulmonary Embolism Present on Admission: No
[2019-11-14] MEDS: 0.9 % SODIUM CHLORIDE 10 ML SYRINGE IV SCH ×3 (06:11→22:00)
[2019-11-14 06:50] LABS: ALT/SGPT 26 U/l (0-40); AST/SGOT 21 U/l (0-37); Albumin 3.1 gm/dL (3.2-5.2); Albumin/Globulin Ratio 0.8 (1.0-2.3); Alkaline Phosphatase 196 U/L (39-117); Bilirubin,Total 0.7 mg/dL (0.0-1.0); Calcium 9.8 mg/dl (8.6-10.4); Carbon Dioxide 24 mmol/L (22-30); Chloride 96 mmol/L (96-108); Globulin 4.1 gm/dL (2.2-3.7); Glucose 101 mg/dL (70-105)
[2019-11-14 06:52] LABS: Basophils % (Auto) 0.8 % (0.0-2.0); Eosinophils # (Auto) 0.12 K/mcL (0.00-0.70); Granulocytes % (Auto) 80.3 % (38.0-78.0); Hematocrit 33.5 % (40.1-51.0); Hemoglobin 11.1 g/dL (13.7-17.5); Lymphocytes # (Auto) 1.24 K/mcL (1.50-4.80); Lymphocytes % (Auto) 10.2 % (15.5-49.0); Mean Cell Volume 98.8 fL (80.0-100.0); Mean Corpuscular HGB Conc 33.1 g/dL (31.0-36.0); Monocytes # (Auto) 0.93 K/mcL (0.10-0.90); Monocytes % (Auto) 7.7 % (1.0-12.0); Platelet Count 260 K/mcL (140-440); RBC 3.39 M/mcL (4.63-6.08); Red Cell Distribution Width 13.7 % (11.5-14.5); WBC 12.2 K/mcL (4.50-11.00)
[2019-11-14 06:55] LABS: Blood Urea Nitrogen 37 mg/dl (8-23); Glomerular Filtration Rate 19
[2019-11-14] MEDS: INSULIN LISPRO 1 UNIT/0.01 ML UNIT SQ SCH ×4 (09:02→22:33)
[2019-11-14] MEDS: POTASSIUM CHLORIDE 20 MEQ/15 ML ML PO PRN (09:03)
[2019-11-14] MEDS: FOLIC ACID 1 MG TABLET PO SCH (09:04)
[2019-11-14] MEDS: ASPIRIN 81 MG TAB.CHEW PO SCH ×2 (09:04→22:30)
[2019-11-14] MEDS: DOCUSATE SODIUM 100 MG CAPSULE PO SCH ×2 (09:04→22:30)
[2019-11-14] MEDS: PANTOPRAZOLE 40 MG TABLET PO SCH ×2 (09:04→17:27)
[2019-11-14] MEDS: hydrALAZINE 25 MG TABLET PO SCH (09:04)
[2019-11-14] MEDS: DEXAMETHASONE 4 MG TABLET PO SCH (09:04)
[2019-11-14] MEDS: TORSEMIDE 10 MG TABLET PO SCH (09:04)
[2019-11-14] MEDS: TIOTROPIUM BROMIDE 18 MCG INHALANT INH SCH (09:05)
[2019-11-14] MEDS: HYDROCHLOROTHIAZIDE 25 MG TABLET PO SCH (09:05)
[2019-11-14] MEDS: METOPROLOL SUCCINATE 50 MG TAB.XL.24H PO SCH ×2 (09:05→22:30)
[2019-11-14] MEDS: FLUTICASONE PROPIONATE SPRAY.NAS NS SCH (09:05)
--- NOTE | 2019-11-14 09:59 | Nephrology Progress Note ---
SUBJECTIVE Subjective Patient information: Note initiated : 11/14/19 at 9:57 am Service Date, if different from initiated Date: [] Patient: Darron Veliz 74 y/o M admitted on 11/05/19 for increased shortness of breath. Chief Complaint: Still short of breath. Constitutional Vitals: Vital Signs Temp Pulse Resp BP Pulse Ox 97.4 F 60 16 133/81 94 11/14/19 08:00 11/14/19 04:00 11/14/19 08:00 11/14/19 08:00 11/14/19 08:00 Period Temp Pulse Resp BP Sys/Joseph Pulse Ox Last 24 Hr 97.1 F-98.7 F 60-81 16- 96-133/41-81 90-96 Intake and Output 11/13/19 11/14/19 11/14/19 21:59 05:59 13:59 Intake Total 60 50 Output Total 1600 Balance -1540 50 Intake & Output: Intake & Output 11/13/19 11/14/19 11/14/19 21:59 05:59 13:59 Intake Total 60 50 Output Total 1600 Balance -1540 50 Intake: Oral 60 50 Output: Void Amount 200 Hemodialysis UF 1400 Other: Meal Dinner Percent of Meal Consumed 50% Feeding Ability Independent Urine Appearance Clear Urine Color Light Darlene Urine Odor Normal Lungs denton rales. Cardiac regular pa soft no edema A/P Narrative A/P Narrative: ESRD, electrolytes and volume look ok Pneumonia. clinically better, will check cxr. Time Spent With Patient Time: Total time spent is greater than 50% in coordination of care (as documented) at patient's floor/unit and/or counseling patient:
--- NOTE | 2019-11-14 12:09 | XRay Report ---
CLINICAL INFORMATION: Bilateral pneumonia COMPARISON: 11/09/2019 FINDINGS: Mild cardiomegaly is unchanged. Right double-lumen catheter tip, overlying the tricuspid valve plane, is unchanged position. Mediastinum and pulmonary vessels are normal. Moderate patchy left basilar infiltrate and small patchy right basilar infiltrates have worsened modestly. Small left pleural effusion noted. Old left-sided rib fractures seen as before IMPRESSION: Moderate atrophy left and smaller right basilar infiltrate worsening slightly Interpreted and Authenticated by: Abhishek Goldman 11/14/19
[2019-11-14] MEDS: HYDROcodone/APAP 5/325MG TABLET PO PRN ×2 (22:30→23:30)
--- NOTE | 2019-11-14 23:31 | Internal Med Progress Note ---
SUBJECTIVE Subjective Patient information: Note initiated : 11/14/19 at 11:29 pm Service Date, if different from initiated Date: [] Patient: Darron Veliz a 74 y/o M admitted on 11/05/19 for increased shortness of breath. Chief Complaint: [] Mr. Veliz is a 74 year old M with a history of CAD/DM type II/HTN/ESRD on HD 3 times a week who was recently discharged to [facility] following left hip fracture. He now presents to the ER today with increasing shortness of breath, decreased LOC and low saturation during dialysis not responding to supplemental oxygen. Patient has been experiencing low-grade fever last few days. He had a Kovic test done at dialysis which was positive. Work-up was consistent severe hypoxia with sats in 70s requiring 5 L oxygen. Imaging consistent with pneumonia, patient is a DNR and hence was not accepted to tertiary center after discussion the ER physician with Mary Moore. Patient was started on dexamethasone and subsequently hospitalist service was consulted for admission and management of COVID pneumonia. Remdesivir contraindicated in light of ESRD/GFR less than 30 At the time of evaluation patient is very drowsy sedated short of breath. No family members present. Most of the history is obtained from review of medical records and ER physician. 11/04-patient seen in room. Resting comfortably. On 4 L oxygen nasal cannula. No family at bedside. On COVID precautions. Nephrology consult for dialysis. 11/05-undergoing dialysis today. On 45 years oxygen. Able to communicate. Hard of hearing. Denies active distress.On COVID-19 precautions. Occasionally incontinent. 11/06-patient continues to be short of breath. No overnight events. White count 10,000. On 4 days oxygen. Ongoing hemodialysis per nephrology. Persistent interstitial lung disease on chest imaging. 11/07-traumatic deterioration in overall status requiring 10 L oxygen rebreather mask. Worsening respiratory status. Continue steroids/supplemental oxygen. Remains DNR. Will initiate high flow oxygen if necessary. Was barely able to tolerate hemodialysis for an hour 11/08-patient doing well. On 4 L oxygen. Alert and sitting on chair. No significant distress. No concerns per nursing staff. No overnight fever chills. Continuing dexamethasone. updated by nursing staff. 11/09-patient remains unchanged currently on 4 L oxygen. However worsening bilateral chest infiltrates on interval imaging. On dexamethasone. No overnight events. No additional concerns per staff. Ongoing hemodialysis per nephrology. Repeat chest imaging 24 hours. 11/10 Patient still has shortness of breath but feels improving. Denies fever, chills, nausea or vomiting. He is now on 2 to 5 L oxygen Patient is not a candidate for remdesivir due to poor renal function. 11/11 Patient still has shortness of breath but feels improving. Denies fever, chills, nausea or vomiting. WBC went up to 13.1 today. Afebrile. Continue monitor Patient is now on 2 to 2.5 L 11/12 Today patient blood pressure is soft, around 100. He received HD today. He is now on 0-1.5L WBC 12.1 Repeat chest x-ray - Moderate atrophy left and smaller right basilar infiltrate worsening slightly. But his condition is clinically improving. 11/13 Today he was initially scheduled to be discharged. But discharge was cancelled due to SNF no [facility] beds available until tomorrow morning. Pt is fine and does not have a new complaints He is on 2 L today. He will be possibly discharged tomorrow. ROS: Positive for shortness of breath. All other systems were reviewed and are negative. Constitutional Vitals: Vital Signs Temp Pulse Resp BP Pulse Ox 97.9 F 60 16 122/85 93 11/14/19 15:56 11/14/19 04:00 11/14/19 15:56 11/14/19 15:56 11/14/19 15:56 Period Temp Pulse Resp BP Sys/Joseph Pulse Ox Last 24 Hr 97.4 F-97.9 F 60 16-20 114-133/65-85 93-94 Intake and Output 11/14/19 11/14/19 11/15/19 13:59 21:59 05:59 Intake Total 300 Balance 300 Weight 83.915 kg Patient Weight 11/15/19 05:59 Weight 83.915 kg Intake & Output: Intake & Output 11/14/19 11/14/19 11/15/19 13:59 21:59 05:59 Intake Total 300 Balance 300 Weight 83.915 kg Intake: Oral 300 Other: Meal Lunch Percent of Meal Consumed 100% Feeding Ability Independent Urine Appearance Clear Urine Color Light Darlene Urine Odor Normal Stool Size Moderate Stool Color Brown Stool Consistency Formed # Bowel Movements 1 # of times incontinent of 0 Bowels OBJ DATA Labs CBC & Chem 7: 11/14/19 05:11 11/14/19 05:10 Labs: Abnormal Lab Results 11/14/19 11/14/19 11/13/19 05:11 05:10 05:15 WBC 12.2 H RBC 3.39 L Hgb 11.1 L Hct 33.5 L Gran % 80.3 H Lymph % (Auto) 10.2 L Gran # 9.76 H Lymph # (Auto) 1.24 L [place] # (Auto) 0.93 H Anion Gap 17.0 H 18.0 H BUN 37 H 75 H Creatinine 3.1 H 4.6 H Alkaline Phosphatase 196 H 185 H Albumin 3.1 L 3.0 L Globulin 4.1 H 3.8 H Albumin/Globulin Ratio 0.8 L 0.8 L 11/13/19 11/12/19 11/12/19 05:15 05:40 05:40 WBC 12.1 H 13.1 H RBC 3.11 L 2.98 L Hgb 10.1 L 9.6 L Hct 30.9 L 29.2 L Gran % 80.3 H 83.8 H Lymph % (Auto) 10.2 L 7.5 L Gran # 9.68 H 10.96 H Lymph # (Auto) 1.23 L 0.98 L [place] # (Auto) 0.99 H 0.97 H Anion Gap BUN 57 H Creatinine 4.1 H Alkaline Phosphatase 183 H Albumin 3.0 L Globulin 3.8 H Albumin/Globulin Ratio 0.8 L Meds: Medications Acetaminophen (Tylenol) 650 mg PO Q8HP PRN PRN Reason: PAIN/FEVER > 101 Hydrocodone Bitart/Acetaminophen ([place] 5/325mg) 1 tab PO Q4HP PRN; Protocol PRN Reason: Pain Last Admin: 11/11/19 20:36 Dose: 1 tab Documented by: Aspirin (Aspirin) 81 mg PO BID [facility] Last Admin: 11/14/19 22:30 Dose: 81 mg Documented by: Benzonatate (Tessalon) 100 mg PO TIDP PRN PRN Reason: Cough Last Admin: 11/07/19 05:05 Dose: 100 mg Documented by: Bisacodyl (Dulcolax) 10 mg [place] QDAY PRN PRN Reason: Constipation Dexamethasone (Decadron) 6 mg PO DAILY [facility] Last Admin: 11/14/19 09:04 Dose: 6 mg Documented by: Dextrose (Dextrose 50%) 0 ml IV UD PRN PRN Reason: Hypoglycemia Diagnostic Test (Pha) (Accu-Chek) 1 each FS ACHS [facility] Last Admin: 11/14/19 22:32 Dose: 1 each Documented by: Docusate Sodium (Colace) 100 mg PO BID [facility] Last Admin: 11/14/19 22:30 Dose: 100 mg Documented by: Fluticasone Propionate (Flonase) 1 spray NS DAILY [facility] Last Admin: 11/14/19 09:05 Dose: 1 each Documented by: Folic Acid (Folic Acid) 1 mg PO QDAY [facility] Last Admin: 11/14/19 09:04 Dose: 1 mg Documented by: Glucose (Insta-Glucose) 15 gm PO PRN PRN PRN Reason: Hypoglycemia Guaifenesin (Mucinex) 600 mg PO BIDP PRN PRN Reason: Congestion Hydralazine HCl (Apresoline) 50 mg PO DAILY [facility] Last Admin: 11/14/19 09:04 Dose: 50 mg Documented by: Hydrochlorothiazide (Oretic) 50 mg PO DAILY [facility] Last Admin: 11/14/19 09:05 Dose: 50 mg Documented by: Magnesium Sulfate (Magnesium Sulfate) 2 gm in 50 mls @ 50 mls/hr IV UD PRN PRN Reason: Mag < or = 1.7 Acetaminophen (Ofirmev) 650 mg in 65 mls @ 130 mls/hr IV Q6HP PRN; Protocol PRN Reason: Per Pain Protocol/Fever > 101 Insulin Human Lispro (Humalog) 0 unit SQ [facility]; Protocol Last Admin: 11/14/19 22:33 Dose: 1 units Documented by: Methocarbamol (Robaxin) 500 mg PO TIDP PRN PRN Reason: Pain and spasm Metoprolol Succinate (Toprol Xl) 100 mg PO BID [facility] Last Admin: 11/14/19 22:30 Dose: 100 mg Documented by: Pantoprazole Sodium (Protonix) 40 mg PO BIDAC [facility] Last Admin: 11/14/19 17:27 Dose: 40 mg Documented by: Potassium Chloride (Potassium Chloride) 20 meq PO BIDCC PRN PRN Reason: K <3.6 Last Admin: 11/14/19 09:03 Dose: 20 meq Documented by: Senna (Senokot) 2 tab PO DAILYP PRN PRN Reason: Constipation Sodium Chloride (Saline Flush) 10 ml IV Q8 [facility] Last Admin: 11/14/19 22:00 Dose: 10 ml Documented by: Tiotropium [place] (Spiriva) 18 mcg INH DAILY [facility] Last Admin: 11/14/19 09:05 Dose: Not Given Documented by: Torsemide (Demadex) 20 mg PO DAILY [facility] Last Admin: 11/14/19 09:04 Dose: 20 mg Documented by: Physical exam General - No acute distress Eyes - PERRLA, EOM intact ENT no rhinorrhea, no noticeable or palpable swelling, no redness or rash around throat or on face Neck supple, no JVD, no thyromegaly Respiratory: Lungs - course BS, no use of accessary muscles. Cardiovascular - RRR no m/r/g, GI - Normal bowel sounds, no distended, soft. Extremeties - No edema, cyanosis or clubbing Hemo/lymphatic/immune no lymphadenopathy Neurological Alert and oriented x 2, no focal neurological deficits. Psychiatry flat affect A/P Narrative A/P Narrative: 1. Acute hypoxic respiratory failure- on 0-1.5 L oxygen at rest. Trying to wean off 2. COVID-19 pneumonia. Continue dexamethasone. Remdesivir contraindicated in light of GFR less than 30. Continuing COVID-19 precautions. Interval chest imaging worsening bibasilar infiltrates. 3. History of prior CVA with residual right-sided weakness/ataxia on aspirin 4. Recent left hip fracture-continue OT/ambulation as tolerated 5. Sacral pressure ulcer continue frequent offloading/wound care 6. Normal pressure hydrocephalus follows up with Dr. Rm 7. History of ESRD on HD. 8. HTN continue thiazide/hydralazine 9. CAD/CABG continue home medications -continue metoprolol 10. DM type II continue basal prandial insulin 11. History of alcoholism no evidence of withdrawal 12. GERD continue PPI 13. Code status: DNR Plan Continue dexamethasone (since 11/04)/oxygen as needed Continue hemodialysis per nephrology Continue pre-existing medical condition management on home medication Interval worsening chest imaging, prognosis remains guarded Discharge planning per case management Time Spent With Patient Time: Total time spent is greater than 50% in coordination of care (as documented) at patient's floor/unit and/or counseling patient: Time Spent With Patient Time: Total time spent is greater than 50% in coordination of care (as documented) at patient's floor/unit and/or counseling patient: QUALITY VTE Deep Vein Thrombosis/Pulmonary Embolism Present on Admission: No
[2019-11-15] MEDS: 0.9 % SODIUM CHLORIDE 10 ML SYRINGE IV SCH ×3 (05:14→21:58)
[2019-11-15 07:43] LABS: Basophils # (Auto) 0.06 K/mcL (0.00-0.30); Basophils % (Auto) 0.5 % (0.0-2.0); Eosinophils # (Auto) 0.09 K/mcL (0.00-0.70); Eosinophils % (Auto) 0.7 % (0.0-7.0); Granulocytes % (Auto) 80.6 % (38.0-78.0); Hematocrit 30.9 % (40.1-51.0); Hemoglobin 10.1 g/dL (13.7-17.5); Lymphocytes # (Auto) 1.18 K/mcL (1.50-4.80); Lymphocytes % (Auto) 9.5 % (15.5-49.0); Mean Cell Volume 99.4 fL (80.0-100.0); Mean Corpuscular HGB Conc 32.7 g/dL (31.0-36.0); Mean Platelet Volume 10.2 fL (7.4-10.4); Monocytes # (Auto) 1.08 K/mcL (0.10-0.90); Monocytes % (Auto) 8.7 % (1.0-12.0); Platelet Count 233 K/mcL (140-440); RBC 3.11 M/mcL (4.63-6.08); Red Cell Distribution Width 13.8 % (11.5-14.5); WBC 12.5 K/mcL (4.50-11.00)
[2019-11-15 07:49] LABS: ALT/SGPT 21 U/l (0-40); AST/SGOT 17 U/l (0-37); Albumin/Globulin Ratio 0.8 (1.0-2.3); Alkaline Phosphatase 167 U/L (39-117); Bilirubin,Total 0.5 mg/dL (0.0-1.0); Blood Urea Nitrogen 61 mg/dl (8-23); Calcium 9.8 mg/dl (8.6-10.4); Carbon Dioxide 22 mmol/L (22-30); Chloride 97 mmol/L (96-108); Globulin 3.9 gm/dL (2.2-3.7); Glomerular Filtration Rate 11; Glucose 153 mg/dL (70-105)
[2019-11-15] MEDS: INSULIN LISPRO 1 UNIT/0.01 ML UNIT SQ SCH ×4 (08:50→21:26)
--- NOTE | 2019-11-15 08:52 | Nephrology Progress Note ---
SUBJECTIVE Subjective Patient information: Note initiated : 11/15/19 at 8:51 am Service Date, if different from initiated Date: [] Patient: Darron Veliz 74 y/o M admitted on 11/05/19 for increased shortness of breath. Chief Complaint: He has been feeling better. Working with PT. Constitutional Vitals: Vital Signs Temp Pulse Resp BP Pulse Ox 97.6 F 72 18 156/78 97 11/15/19 04:00 11/14/19 22:50 11/15/19 04:00 11/15/19 04:00 11/15/19 04:00 Period Temp Pulse Resp BP Sys/Joseph Pulse Ox Last 24 Hr 97.1 F-97.9 F 72 16-20 110-156/60-85 87-99 Intake and Output 11/14/19 11/15/19 11/15/19 21:59 05:59 13:59 Intake Total 300 100 Balance 300 100 Weight 185 lb Intake & Output: Intake & Output 11/14/19 11/15/19 11/15/19 21:59 05:59 13:59 Intake Total 300 100 Balance 300 100 Weight 185 lb Intake: Oral 300 100 Other: Meal Lunch Percent of Meal Consumed 100% Feeding Ability Independent Lungs denton rales cardiac regular pa soft no edema A/P Narrative A/P Narrative: ESRD. HD today. Pnemonia, covid related. Time Spent With Patient Time: Total time spent is greater than 50% in coordination of care (as documented) at patient's floor/unit and/or counseling patient:
--- NOTE | 2019-11-15 13:25 | Internal Med Progress Note ---
SUBJECTIVE Subjective Patient information: Note initiated : 11/15/19 at 1:22 pm Service Date, if different from initiated Date: [] Patient: Darron Veliz a 74 y/o M admitted on 11/05/19 for increased shortness of breath. Chief Complaint: [] Mr. Veliz is a 74 year old M with a history of CAD/DM type II/HTN/ESRD on HD 3 times a week who was recently discharged to [facility] following left hip fracture. He now presents to the ER today with increasing shortness of breath, decreased LOC and low saturation during dialysis not responding to supplemental oxygen. Patient has been experiencing low-grade fever last few days. He had a Kovic test done at dialysis which was positive. Work-up was consistent severe hypoxia with sats in 70s requiring 5 L oxygen. Imaging consistent with pneumonia, patient is a DNR and hence was not accepted to tertiary center after discussion the ER physician with [facility]. Patient was started on dexamethasone and subsequently hospitalist service was consulted for admission and management of COVID pneumonia. Remdesivir contraindicated in light of ESRD/GFR less than 30 At the time of evaluation patient is very drowsy sedated short of breath. No family members present. Most of the history is obtained from review of medical records and ER physician. 11/04-patient seen in room. Resting comfortably. On 4 L oxygen nasal cannula. No family at bedside. On COVID precautions. Nephrology consult for dialysis. 11/05-undergoing dialysis today. On 45 years oxygen. Able to communicate. Hard of hearing. Denies active distress.On COVID-19 precautions. Occasionally incontinent. 11/06-patient continues to be short of breath. No overnight events. White count 10,000. On 4 days oxygen. Ongoing hemodialysis per nephrology. Persistent interstitial lung disease on chest imaging. 11/07-traumatic deterioration in overall status requiring 10 L oxygen rebreather mask. Worsening respiratory status. Continue steroids/supplemental oxygen. Remains DNR. Will initiate high flow oxygen if necessary. Was barely able to tolerate hemodialysis for an hour 11/08-patient doing well. On 4 L oxygen. Alert and sitting on chair. No significant distress. No concerns per nursing staff. No overnight fever chills. Continuing dexamethasone. updated by nursing staff. 11/09-patient remains unchanged currently on 4 L oxygen. However worsening bilateral chest infiltrates on interval imaging. On dexamethasone. No overnight events. No additional concerns per staff. Ongoing hemodialysis per nephrology. Repeat chest imaging 24 hours. 11/10 Patient still has shortness of breath but feels improving. Denies fever, chills, nausea or vomiting. He is now on 2 to 5 L oxygen Patient is not a candidate for remdesivir due to poor renal function. 11/11 Patient still has shortness of breath but feels improving. Denies fever, chills, nausea or vomiting. WBC went up to 13.1 today. Afebrile. Continue monitor Patient is now on 2 to 2.5 L 11/12 Today patient blood pressure is soft, around 100. He received HD today. He is now on 0-1.5L WBC 12.1 Repeat chest x-ray - Moderate atrophy left and smaller right basilar infiltrate worsening slightly. But his condition is clinically improving. 11/13 Today he was initially scheduled to be discharged. But discharge was cancelled due to SNF no [facility] beds available until tomorrow morning. Pt is fine and does not have a new complaints He is on 2 L today. He will be possibly discharged tomorrow. 11/14 He feels fine. Denies fever, chills, or chest pain. He is on 2 L oxygen Today he may have dialysis. He may be able to discharge to SNF tomorrow. ROS: Positive for shortness of breath. All other systems were reviewed and are negative. Constitutional Vitals: Vital Signs Temp Pulse Resp BP Pulse Ox 97.3 F 80 24 H 102/63 90 11/15/19 12:00 11/15/19 13:00 11/15/19 12:00 11/15/19 13:00 11/15/19 12:00 Period Temp Pulse Resp BP Sys/Joseph Pulse Ox Last 24 Hr 97.1 F-97.9 F 62-82 16-24 86-156/53-85 87-99 Intake and Output 11/14/19 11/15/19 11/15/19 21:59 05:59 13:59 Intake Total 300 100 Balance 300 100 Weight 83.915 kg Intake & Output: Intake & Output 11/14/19 11/15/19 11/15/19 21:59 05:59 13:59 Intake Total 300 100 Balance 300 100 Weight 83.915 kg Intake: Oral 300 100 Other: Meal Lunch Percent of Meal Consumed 100% Feeding Ability Independent Additional findings Additional findings: General - No acute distress Eyes - PERRLA, EOM intact ENT no rhinorrhea, no noticeable or palpable swelling, no redness or rash around throat or on face Neck supple, no JVD, no thyromegaly Respiratory: Lungs - course BS, no use of accessary muscles. Cardiovascular - RRR no m/r/g, GI - Normal bowel sounds, no distended, soft. Extremeties - No edema, cyanosis or clubbing Hemo/lymphatic/immune no lymphadenopathy Neurological Alert and oriented x 2, no focal neurological deficits. Psychiatry flat affect OBJ DATA Labs CBC & Chem 7: 11/15/19 05:10 11/15/19 05:10 Labs: Abnormal Lab Results 11/15/19 11/15/19 11/14/19 05:10 05:10 05:11 WBC 12.5 H 12.2 H RBC 3.11 L 3.39 L Hgb 10.1 L 11.1 L Hct 30.9 L 33.5 L Gran % 80.6 H 80.3 H Lymph % (Auto) 9.5 L 10.2 L Gran # 10.07 H 9.76 H Lymph # (Auto) 1.18 L 1.24 L [place] # (Auto) 1.08 H 0.93 H Anion Gap 19.0 H BUN 61 H Creatinine 4.8 H Glucose 153 H Alkaline Phosphatase 167 H Albumin 3.0 L Globulin 3.9 H Albumin/Globulin Ratio 0.8 L 11/14/19 11/13/19 11/13/19 05:10 05:15 05:15 WBC 12.1 H RBC 3.11 L Hgb 10.1 L Hct 30.9 L Gran % 80.3 H Lymph % (Auto) 10.2 L Gran # 9.68 H Lymph # (Auto) 1.23 L [place] # (Auto) 0.99 H Anion Gap 17.0 H 18.0 H BUN 37 H 75 H Creatinine 3.1 H 4.6 H Glucose Alkaline Phosphatase 196 H 185 H Albumin 3.1 L 3.0 L Globulin 4.1 H 3.8 H Albumin/Globulin Ratio 0.8 L 0.8 L Meds: Medications Acetaminophen (Tylenol) 650 mg PO Q8HP PRN PRN Reason: PAIN/FEVER > 101 Hydrocodone Bitart/Acetaminophen ([place] 5/325mg) 1 tab PO Q4HP PRN; Protocol PRN Reason: Pain Last Admin: 11/14/19 22:30 Dose: 1 tab Documented by: Aspirin (Aspirin) 81 mg PO BID [facility] Last Admin: 11/14/19 22:30 Dose: 81 mg Documented by: Benzonatate (Tessalon) 100 mg PO TIDP PRN PRN Reason: Cough Last Admin: 11/07/19 05:05 Dose: 100 mg Documented by: Bisacodyl (Dulcolax) 10 mg [place] QDAY PRN PRN Reason: Constipation Dexamethasone (Decadron) 6 mg PO DAILY [facility] Last Admin: 11/14/19 09:04 Dose: 6 mg Documented by: Dextrose (Dextrose 50%) 0 ml IV UD PRN PRN Reason: Hypoglycemia Diagnostic Test (Pha) (Accu-Chek) 1 each FS [facility] Last Admin: 11/15/19 08:49 Dose: 1 each Documented by: Docusate Sodium (Colace) 100 mg PO BID [facility] Last Admin: 11/14/19 22:30 Dose: 100 mg Documented by: Fluticasone Propionate (Flonase) 1 spray NS DAILY [facility] Last Admin: 11/14/19 09:05 Dose: 1 each Documented by: Folic Acid (Folic Acid) 1 mg PO QDAY [facility] Last Admin: 11/14/19 09:04 Dose: 1 mg Documented by: Glucose (Insta-Glucose) 15 gm PO PRN PRN PRN Reason: Hypoglycemia Guaifenesin (Mucinex) 600 mg PO BIDP PRN PRN Reason: Congestion Hydralazine HCl (Apresoline) 50 mg PO DAILY [facility] Last Admin: 11/14/19 09:04 Dose: 50 mg Documented by: Hydrochlorothiazide (Oretic) 50 mg PO DAILY [facility] Last Admin: 11/14/19 09:05 Dose: 50 mg Documented by: Magnesium Sulfate (Magnesium Sulfate) 2 gm in 50 mls @ 50 mls/hr IV UD PRN PRN Reason: Mag < or = 1.7 Acetaminophen (Ofirmev) 650 mg in 65 mls @ 130 mls/hr IV Q6HP PRN; Protocol PRN Reason: Per Pain Protocol/Fever > 101 Insulin Human Lispro (Humalog) 0 unit SQ [facility]; Protocol Last Admin: 11/15/19 08:50 Dose: Not Given Documented by: Methocarbamol (Robaxin) 500 mg PO TIDP PRN PRN Reason: Pain and spasm Metoprolol Succinate (Toprol Xl) 100 mg PO BID [facility] Last Admin: 11/14/19 22:30 Dose: 100 mg Documented by: Pantoprazole Sodium (Protonix) 40 mg PO BIDAC [facility] Last Admin: 11/14/19 17:27 Dose: 40 mg Documented by: Potassium Chloride (Potassium Chloride) 20 meq PO BIDCC PRN PRN Reason: K <3.6 Last Admin: 11/14/19 09:03 Dose: 20 meq Documented by: Senna (Senokot) 2 tab PO DAILYP PRN PRN Reason: Constipation Sodium Chloride (Saline Flush) 10 ml IV Q8 [facility] Last Admin: 11/15/19 05:14 Dose: 10 ml Documented by: Tiotropium [place] (Spiriva) 18 mcg INH DAILY [facility] Last Admin: 11/14/19 09:05 Dose: Not Given Documented by: Torsemide (Demadex) 20 mg PO DAILY [facility] Last Admin: 11/14/19 09:04 Dose: 20 mg Documented by: A/P Narrative A/P Narrative: A/P Narrative A/P Narrative: 1. Acute hypoxic respiratory failure- on 1.5-2 L oxygen at rest. Trying to wean off 2. COVID-19 pneumonia. Continue dexamethasone. Remdesivir contraindicated in light of GFR less than 30. Continuing COVID-19 precautions. Interval chest imaging worsening bibasilar infiltrates. 3. History of prior CVA with residual right-sided weakness/ataxia on aspirin 4. Recent left hip fracture-continue OT/ambulation as tolerated 5. Sacral pressure ulcer continue frequent offloading/wound care 6. Normal pressure hydrocephalus follows up with Dr. Rm 7. History of ESRD on HD. 8. HTN continue thiazide/hydralazine 9. CAD/CABG continue home medications -continue metoprolol 10. DM type II continue basal prandial insulin 11. History of alcoholism no evidence of withdrawal 12. GERD continue PPI 13. Code status: DNR Plan Continue dexamethasone (since 11/04)/oxygen as needed Continue hemodialysis per nephrology Continue pre-existing medical condition management on home medication Interval worsening chest imaging, prognosis remains guarded Discharge planning per case management Time Spent With Patient Time: Total time spent is greater than 50% in coordination of care (as documented) at patient's floor/unit and/or counseling patient: Time Spent With Patient Time: Total time spent is greater than 50% in coordination of care (as documented) at patient's floor/unit and/or counseling patient: QUALITY VTE Deep Vein Thrombosis/Pulmonary Embolism Present on Admission: No
[2019-11-15] MEDS: PANTOPRAZOLE 40 MG TABLET PO SCH ×2 (14:20→17:51)
[2019-11-15] MEDS: hydrALAZINE 25 MG TABLET PO SCH (14:20)
[2019-11-15] MEDS: DEXAMETHASONE 4 MG TABLET PO SCH (14:21)
[2019-11-15] MEDS: DOCUSATE SODIUM 100 MG CAPSULE PO SCH ×2 (14:21→21:57)
[2019-11-15] MEDS: ASPIRIN 81 MG TAB.CHEW PO SCH ×2 (14:21→21:57)
[2019-11-15] MEDS: FLUTICASONE PROPIONATE SPRAY.NAS NS SCH (14:22)
[2019-11-15] MEDS: TORSEMIDE 10 MG TABLET PO SCH (14:22)
[2019-11-15] MEDS: FOLIC ACID 1 MG TABLET PO SCH (14:22)
[2019-11-15] MEDS: METOPROLOL SUCCINATE 50 MG TAB.XL.24H PO SCH ×2 (14:23→21:57)
[2019-11-15] MEDS: HYDROCHLOROTHIAZIDE 25 MG TABLET PO SCH (14:23)
[2019-11-15] MEDS: TIOTROPIUM BROMIDE 18 MCG INHALANT INH SCH (14:23)
--- NOTE | 2019-11-15 14:28 | Cat Scan Report ---
CLINICAL INFORMATION: Code stroke COMPARISON: 10/23/2019 TECHNIQUE: 2.5 mm helical slices were obtained in the skull base to vertex. Following reconstruction, axial reformatted images were reviewed at bone and parenchymal windows. The exam was performed using radiation dose optimization techniques including, but not limited to, automated exposure control, adjustment of the mA and/or kV according to patient size and use of iterative reconstruction technique. FINDINGS: The ventricles, sulci, fissures, and cisterns are symmetrically enlarged compatible with moderate age-related atrophy - no extra-axial fluid collection or mass appreciated. Moderate patchy chronic ischemic changes in the deep cerebral white matter are unchanged. Remote lacunar infarcts in the deep bifrontal white matter, basal ganglia and left thalamus seen as before. There is no intracerebral hemorrhage, mass effect, edema or other acute finding. Cochlea implant battery in the right parietal calvaria with the wires extending to the right petrous temporal regions in stable position. IMPRESSION: Moderate atrophy with patchy chronic ischemic changes in the deep cerebral white matter and remote lacunar infarcts the bifrontal white matter, basal ganglia and left thalamus - all stable. No intracerebral hemorrhage or other acute finding Interpreted and Authenticated by: Abhishek Goldman 11/15/19
--- NOTE | 2019-11-15 14:30 | Internal Med Progress Note ---
SUBJECTIVE Subjective Patient information: Note initiated : 11/15/19 at 2:29 pm Service Date, if different from initiated Date: [] Patient: Darron Veliz 74 y/o M admitted on 11/05/19 for increased shortness of breath. Chief Complaint: [] Constitutional Vitals: Vital Signs Temp Pulse Resp BP Pulse Ox 94.3 F L 72 24 H 145/75 90 11/15/19 13:45 11/15/19 13:45 11/15/19 12:00 11/15/19 13:45 11/15/19 12:00 Period Temp Pulse Resp BP Sys/Joseph Pulse Ox Last 24 Hr 94.3 F-97.9 F 62-93 16-24 86-156/53-101 87-99 Intake and Output 11/15/19 11/15/19 11/15/19 05:59 13:59 21:59 Intake Total 100 Output Total 1013 Balance 100 -1013 Intake & Output: Intake & Output 11/15/19 11/15/19 11/15/19 05:59 13:59 21:59 Intake Total 100 Output Total 1013 Balance 100 -1013 Intake: Oral 100 Output: Hemodialysis UF 1013 OBJ DATA Labs CBC & Chem 7: 11/15/19 05:10 11/15/19 05:10 Labs: Abnormal Lab Results 11/15/19 11/15/19 11/14/19 05:10 05:10 05:11 WBC 12.5 H 12.2 H RBC 3.11 L 3.39 L Hgb 10.1 L 11.1 L Hct 30.9 L 33.5 L Gran % 80.6 H 80.3 H Lymph % (Auto) 9.5 L 10.2 L Gran # 10.07 H 9.76 H Lymph # (Auto) 1.18 L 1.24 L [place] # (Auto) 1.08 H 0.93 H Anion Gap 19.0 H BUN 61 H Creatinine 4.8 H Glucose 153 H Alkaline Phosphatase 167 H Albumin 3.0 L Globulin 3.9 H Albumin/Globulin Ratio 0.8 L 11/14/19 11/13/19 11/13/19 05:10 05:15 05:15 WBC 12.1 H RBC 3.11 L Hgb 10.1 L Hct 30.9 L Gran % 80.3 H Lymph % (Auto) 10.2 L Gran # 9.68 H Lymph # (Auto) 1.23 L [place] # (Auto) 0.99 H Anion Gap 17.0 H 18.0 H BUN 37 H 75 H Creatinine 3.1 H 4.6 H Glucose Alkaline Phosphatase 196 H 185 H Albumin 3.1 L 3.0 L Globulin 4.1 H 3.8 H Albumin/Globulin Ratio 0.8 L 0.8 L Meds: Medications Acetaminophen (Tylenol) 650 mg PO Q8HP PRN PRN Reason: PAIN/FEVER > 101 Hydrocodone Bitart/Acetaminophen ([place] 5/325mg) 1 tab PO Q4HP PRN; Protocol PRN Reason: Pain Last Admin: 11/14/19 22:30 Dose: 1 tab Documented by: Aspirin (Aspirin) 81 mg PO BID [facility] Last Admin: 11/15/19 14:21 Dose: Not Given Documented by: Benzonatate (Tessalon) 100 mg PO TIDP PRN PRN Reason: Cough Last Admin: 11/07/19 05:05 Dose: 100 mg Documented by: Bisacodyl (Dulcolax) 10 mg [place] QDAY PRN PRN Reason: Constipation Dexamethasone (Decadron) 6 mg PO DAILY [facility] Last Admin: 11/15/19 14:21 Dose: Not Given Documented by: Dextrose (Dextrose 50%) 0 ml IV UD PRN PRN Reason: Hypoglycemia Diagnostic Test (Pha) (Accu-Chek) 1 each FS ACHS [facility] Last Admin: 11/15/19 14:24 Dose: Not Given Documented by: Docusate Sodium (Colace) 100 mg PO BID [facility] Last Admin: 11/15/19 14:21 Dose: Not Given Documented by: Fluticasone Propionate (Flonase) 1 spray NS DAILY [facility] Last Admin: 11/15/19 14:22 Dose: Not Given Documented by: Folic Acid (Folic Acid) 1 mg PO QDAY [facility] Last Admin: 11/15/19 14:22 Dose: Not Given Documented by: Glucose (Insta-Glucose) 15 gm PO PRN PRN PRN Reason: Hypoglycemia Guaifenesin (Mucinex) 600 mg PO BIDP PRN PRN Reason: Congestion Hydralazine HCl (Apresoline) 50 mg PO DAILY [facility] Last Admin: 11/15/19 14:20 Dose: Not Given Documented by: Hydrochlorothiazide (Oretic) 50 mg PO DAILY [facility] Last Admin: 11/15/19 14:23 Dose: Not Given Documented by: Magnesium Sulfate (Magnesium Sulfate) 2 gm in 50 mls @ 50 mls/hr IV UD PRN PRN Reason: Mag < or = 1.7 Acetaminophen (Ofirmev) 650 mg in 65 mls @ 130 mls/hr IV Q6HP PRN; Protocol PRN Reason: Per Pain Protocol/Fever > 101 Insulin Human Lispro (Humalog) 0 unit SQ ACHS [facility]; Protocol Last Admin: 11/15/19 14:25 Dose: Not Given Documented by: Methocarbamol (Robaxin) 500 mg PO TIDP PRN PRN Reason: Pain and spasm Metoprolol Succinate (Toprol Xl) 100 mg PO BID [facility] Last Admin: 11/15/19 14:23 Dose: Not Given Documented by: Pantoprazole Sodium (Protonix) 40 mg PO BIDAC [facility] Last Admin: 11/15/19 14:20 Dose: Not Given Documented by: Potassium Chloride (Potassium Chloride) 20 meq PO BIDCC PRN PRN Reason: K <3.6 Last Admin: 11/14/19 09:03 Dose: 20 meq Documented by: Senna (Senokot) 2 tab PO DAILYP PRN PRN Reason: Constipation Sodium Chloride (Saline Flush) 10 ml IV Q8 [facility] Last Admin: 11/15/19 05:14 Dose: 10 ml Documented by: Tiotropium [place] (Spiriva) 18 mcg INH DAILY [facility] Last Admin: 11/15/19 14:23 Dose: Not Given Documented by: Torsemide (Demadex) 20 mg PO DAILY [facility] Last Admin: 11/15/19 14:22 Dose: Not Given Documented by: A/P Narrative A/P Narrative: A: *Left hip fracture: s/p ORIF (10/20) *Fever in ED 100.5: CXR and ct a/p unremarkable, UA abnormal, does have HD cath and cx's pending -none since *Abnormal UA: treat as UTI given initial fever. 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 Arguelles *CAD w/CABG 7 years ago at [facility]: *DM type II: *HTN: home med Hydralazine/BB/thiazide *h/o Alcoholism: states currently drinks 2-3/day *GERD: *h/o etoh: P: -pt at increased perioperative risk given age and comorbidities, -Dr. Rocha for orthopedic surgery -Dr. Arguelles for dialysis -Rocephin, pending UC and BC via HD cath -CIWA -SSI -pt/ot - -ppx: ASA 81mg bid per post-op ortho orders Time Spent With Patient Time: Total time spent is greater than 50% in coordination of care (as documented) at patient's floor/unit and/or counseling patient: QUALITY VTE Deep Vein Thrombosis/Pulmonary Embolism Present on Admission: No
--- NOTE | 2019-11-15 14:32 | Discharge Summary ---
Discharge Provider Provider Patient information: Note initiated : 11/15/19 at 2:30 pm Service Date, if different from initiated Date: [] Patient: Darron Veilz 74 y/o M admitted on 11/05/19 for increased shortness of breath. Chief Complaint: [] Date of admission: 11/05/19 00:00 Primary care physician: Shonna Goodwin Consults: 11/04/19 Consult to Physician [CONS] Stat Comment: Consulting Provider: Del Wolf Reason For Exam: Physician to Consult 11/05/19 11:15 Consult to Physician [CONS] Routine Comment: Consulting Provider: Barney Arguelles Reason For Exam: Physician to Consult Discharge Meds Discharge Medications Home Medications hydrochlorothiazide 50 mg PO DAILY 08/04/18 [History Confirmed 11/05/19 Last Taken Unknown] metoprolol succinate 100 mg PO BID 08/04/18 [History Confirmed 11/05/19 Last Taken Unknown] blood sugar diagnostic #10 each 10/06/19 [History Confirmed 11/04/19 Last Taken Unknown] fluticasone propionate 50 mcg/actuation nasal spray,suspension 1 spray INTRANASAL QDAY 10/06/19 [History Confirmed 11/05/19 Last Taken Unknown] folic acid 1 mg tablet 1 mg PO QDAY 10/06/19 [History Confirmed 11/05/19 Last Taken Unknown] hydralazine 50 mg tablet 50 mg PO DAILY tab 10/06/19 [History Confirmed Last Taken Unknown] pantoprazole 40 mg tablet,delayed release 40 mg PO BID 10/06/19 [History Confirmed 11/04/19 Last Taken Unknown] torsemide 20 mg tablet 20 mg PO QDAY 10/06/19 [History Confirmed 11/04/19 Last Taken Unknown] methocarbamol 500 mg PO TID PRN #20 tab 10/12/19 [Rx Confirmed 11/05/19 Last Taken Unknown] aspirin [Ecotrin Low Strength] 81 mg PO BID 14 Days #28 tab 10/24/19 [Rx Co nfirmed 11/05/19 Last Taken Unknown] docusate sodium 100 mg PO BID #30 cap 10/24/19 [Rx Confirmed 11/05/19 Last Taken Unknown] hydrocodone-acetaminophen 1 tab PO Q4H PRN #10 tab 10/24/19 [Rx Confirmed 11/05/19 Last Taken Unknown] sennosides [Senna Lax] 2 tab PO DAILYP PRN #30 tab 10/24/19 [Rx Confirmed 11/04/19 Last Taken Unknown] acetaminophen 650 mg PO Q8H PRN 11/04/19 [History Confirmed 11/05/19 Last Taken Unknown] bisacodyl [Dulcolax (bisacodyl)] 10 mg MS QDAY PRN 11/05/19 [History Confirmed 11/05/19 Last Taken Unknown] COURSE Hospital Course Hospital course: Mr. Veliz is a 74 year old M with a history of CAD/DM type II/HTN/ESRD on HD 3 times a week who was recently discharged to [facility] left hip fracture. He now presents to the ER today with increasing shortness of breath, decreased LOC and low saturation during dialysis not responding to supplemental oxygen. Patient has been experiencing low-grade fever last few days. He had a Kovic test done at dialysis which was positive. Work-up was consistent severe hypoxia with sats in 70s requiring 5 L oxygen. Imaging consistent with pneumonia, patient is a DNR and hence was not accepted to tertiary center after discussion the ER physician with [place] [facility]. Patient was started on dexamethasone and subsequently hospitalist service was consulted for admission and management of COVID pneumonia. Remdesivir contraindicated in light of ESRD/GFR less than 30 At the time of evaluation patient is very drowsy sedated short of breath. No family members present. Most of the history is obtained from review of medical records and ER physician. 11/04-patient seen in room. Resting comfortably. On 4 L oxygen nasal cannula. No family at bedside. On COVID precautions. Nephrology consult for dialysis. 11/05-undergoing dialysis today. On 45 years oxygen. Able to communicate. Hard of hearing. Denies active distress.On COVID-19 precautions. Occasionally incontinent. 11/06-patient continues to be short of breath. No overnight events. White count 10,000. On 4 days oxygen. Ongoing hemodialysis per nephrology. Persistent interstitial lung disease on chest imaging. 11/07-traumatic deterioration in overall status requiring 10 L oxygen rebreather mask. Worsening respiratory status. Continue steroids/supplemental oxygen. Remains DNR. Will initiate high flow oxygen if necessary. Was barely able to tolerate hemodialysis for an hour 11/08-patient doing well. On 4 L oxygen. Alert and sitting on chair. No significant distress. No concerns per nursing staff. No overnight fever chills. Continuing dexamethasone. updated by nursing staff. 11/09-patient remains unchanged currently on 4 L oxygen. However worsening bilateral chest infiltrates on interval imaging. On dexamethasone. No overnight events. No additional concerns per staff. Ongoing hemodialysis per nephrology. Repeat chest imaging 24 hours. 11/10 Patient still has shortness of breath but feels improving. Denies fever, chills, nausea or vomiting. He is now on 2 to 5 L oxygen Patient is not a candidate for remdesivir due to poor renal function. 11/11 Patient still has shortness of breath but feels improving. Denies fever, chills, nausea or vomiting. WBC went up to 13.1 today. Afebrile. Continue monitor Patient is now on 2 to 2.5 L 11/12 Today patient blood pressure is soft, around 100. He received HD today. He is now on 0-1.5L WBC 12.1 Repeat chest x-ray - Moderate atrophy left and smaller right basilar infiltrate worsening slightly. But his condition is clinically improving. 11/13 Today he was initially scheduled to be discharged. But discharge was cancelled due to SNF no ISO beds available until tomorrow morning. Pt is fine and does not have a new complaints He is on 2 L today. He will be possibly discharged tomorrow. 11/14 He feels fine. Denies fever, chills, or chest pain. He is on 2 L oxygen Today he may have dialysis. He may be able to discharge to SNF tomorrow. 11/15 Yesterday during dialysis he became more confused and have some strange blood pressure readings found with hypertensive than hypotensive than normal. Sugar was normal. He did have an episode very similar to this last admission. Stat CT brain was done which showed no acute changes. Dialysis was stopped and patient started improving within the hour. Patient slept well overnight no issues overnight. He does have a mildly productive cough and some shortness of breath but he says that average. He is on several liters of oxygen, and was on 3 L last night. His white blood cell count is elevated today. He has been on dexamethasone and his white blood cell count was stable but did increase today. His sputum culture did grow Streptococcus agalactiae. Antibiotics started. 11/16 No issues overnight. WBC count same as yesterday. Afebrile. No new complaints. Dexamethasone stopped. Scheduled for hemodialysis today. General surgeon to evaluate his HD catheter and malposition of it. 11/17 Patient is on only several liters of oxygen yesterday morning and then in the afternoon the nurse got him up to go to the commode and suddenly desatted in the 60s and it up requiring 100s at nonrebreather. After some time on that with no significant improvement was put on BiPAP for several hours with significant improvement and subsequently transitioned to 4 L nasal cannula and he was on 3-4 overnight. Now he is on 2 L nasal cannula this morning. He feels better. He looks as good as I have ever seen him. His white blood cell count has improved again to the 12's. Right basilar infiltrates improving on chest x-ray. 11/18 No overnight event or new complaints. Patient seems to be doing well. On 1 L nasal cannula. retirement facility unable to take him now because they have too many COVID-19 patient's. *Given significant comorbidities and age patient is high risk for readmission A: *Acute hypoxic respiratory failure: 2/2 covid PNA -now on 1L NC -poor reserve, desats easily and recovering is long *COVID-19 pneumonia with superimposed Bacterial PNA (SC growing Strep Agalactiae): -CXR w/bibasilar infilatrates improving (11/20) *Leukocytosis: no bandemia, afebrile -now improving *h/o CVA w/residual right-sided weakness/numbness/Ataxia: on aspirin *Recent left hip fracture (10/20): *Sacral pressure ulcer: wound care *NPH: follows up with Dr. No *ESRD: follows with [facility]. *Malpositioned HD Tunnel Cath: needs to be withdrawn 7cm per radiology. *HTN: on thiazide/torsemide/hydralazine/BB *CADw/CABG 7 years ago at [place]: *DM type II: *h/o alcoholism: no evidence of withdrawal *GERD: continue PPI *Goals of care: long-term prognosis guarded given significant comorbidities with recent hospitalizations and age Discharge diagnosis: COVID-19 pneumonia acute hypoxic respiratory failure Secondary discharge diagnosis: History of stroke recent fracture normal pressure hydrocephalus end-stage renal disease coronary artery disease diabetes GERD hypertension Time Spent with Patient Time attestation: Total time spent providing and/or coordinating discharge services: Time spent: Greater than 30 minutes EXAM Constitutional Vitals: Temp Pulse Resp BP Pulse Ox 94.3 F L 72 24 H 145/75 90 11/15/19 13:45 11/15/19 13:45 11/15/19 12:00 11/15/19 13:45 11/15/19 12:00 Discharge Data Data Completed and Pending Labs on day of discharge: Labs from last 24 hours 11/15/19 11/15/19 05:10 05:10 WBC 12.5 H RBC 3.11 L Hgb 10.1 L Hct 30.9 L MCV 99.4 MCH 32.5 MCHC 32.7 RDW 13.8 Plt Count 233 MPV 10.2 Gran % 80.6 H Lymph % (Auto) 9.5 L [place] % (Auto) 8.7 Eos % (Auto) 0.7 Baso % (Auto) 0.5 Gran # 10.07 H Lymph # (Auto) 1.18 L [place] # (Auto) 1.08 H Eos # (Auto) 0.09 Baso # (Auto) 0.06 Differential Comment Sodium 138 Potassium 4.1 Chloride 97 Carbon Dioxide 22 Anion Gap 19.0 H BUN 61 H Creatinine 4.8 H GFR Calculation 11 Glucose 153 H Calcium 9.8 Total Bilirubin 0.5 AST 17 ALT 21 Alkaline Phosphatase 167 H Total Protein 6.9 Albumin 3.0 L Globulin 3.9 H Albumin/Globulin Ratio 0.8 L Discharge Plan Patient/Caregiver Discharge Instructions Activity: increase activity as tolerated Diet: Renal/Consistent Carbs Prescriptions: Continued fluticasone propionate 50 mcg/actuation spray,suspension 1 spray INTRANASAL QDAY RF: 0 folic acid 1 mg tablet 1 mg PO QDAY RF: 0 pantoprazole 40 mg tablet,delayed release (DR/EC) 40 mg PO BID RF: 0 torsemide 20 mg tablet 20 mg PO QDAY RF: 0 hydralazine 50 mg tablet 50 mg PO DAILY RF: 0 (DME) Accu-Chek Guide test strips Strip See Rx Instructions .ROUTE .MEDSUPPLY Qty: 10 RF: 0 metoprolol succinate 100 MG tablet extended release 24 hr 100 mg PO BID RF: 0 hydrochlorothiazide 25 MG tablet 50 mg PO DAILY RF: 0 methocarbamol 500 mg tablet 500 mg PO TID PRN (Reason: Pain and spasm) Qty: 20 RF: 0 sennosides [Senna Lax] 8.6 mg Tablet 2 tab PO DAILYP PRN (Reason: Constipation) Qty: 30 RF: 0 docusate sodium 100 mg Capsule 100 mg PO BID Qty: 30 RF: 0 aspirin [Ecotrin Low Strength] 81 mg Tablet,Delayed Release (Dr/Ec) 81 mg PO BID 14 Days Qty: 28 RF: 0 hydrocodone-acetaminophen 5-325 mg Tablet 1 tab PO Q4H PRN (Reason: Pain) Qty: 10 RF: 0 acetaminophen 325 mg Tablet 650 mg PO Q8H PRN (Reason: Pain) RF: 0 bisacodyl [Dulcolax (bisacodyl)] 10 mg Suppository 10 mg MS QDAY PRN (Reason: Constipation) RF: 0 Other Ambulatory Orders: OT Discharge Order (Routine) Facility: [facility] - Location: Conversion-Fdc Ordered By: Patrick John Physical Therapy at Discharge - General (Routine) Facility: [facility] - Location: Conversion-Fdc Ordered By: Patrick John Follow Up Plan Follow up with: Shonna Goodwin MD [Primary Care Provider] - Patient Disposition: Xfer SNF Rehab Potential: Undetermined I certify that the patient requires SNF services: Yes Overall status at discharge: patient is progressing back to baseline QUALITY VTE Deep Vein Thrombosis/Pulmonary Embolism Present on Admission: No
[2019-11-16] MEDS: 0.9 % SODIUM CHLORIDE 10 ML SYRINGE IV SCH ×3 (05:47→21:40)
[2019-11-16] MEDS: INSULIN LISPRO 1 UNIT/0.01 ML UNIT SQ SCH ×4 (07:58→21:40)
[2019-11-16] MEDS: TORSEMIDE 10 MG TABLET PO SCH (08:15)
[2019-11-16] MEDS: HYDROCHLOROTHIAZIDE 25 MG TABLET PO SCH (08:16)
[2019-11-16] MEDS: hydrALAZINE 25 MG TABLET PO SCH (08:16)
[2019-11-16] MEDS: ASPIRIN 81 MG TAB.CHEW PO SCH (08:16)
[2019-11-16] MEDS: DOCUSATE SODIUM 100 MG CAPSULE PO SCH ×2 (08:17→21:39)
[2019-11-16] MEDS: DEXAMETHASONE 4 MG TABLET PO SCH (08:17)
[2019-11-16] MEDS: METOPROLOL SUCCINATE 50 MG TAB.XL.24H PO SCH ×2 (08:17→21:40)
[2019-11-16] MEDS: PANTOPRAZOLE 40 MG TABLET PO SCH ×2 (08:20→16:56)
[2019-11-16] MEDS: FOLIC ACID 1 MG TABLET PO SCH (08:20)
[2019-11-16 08:32] LABS: ALT/SGPT 21 U/l (0-40); AST/SGOT 19 U/l (0-37); Albumin 3.4 gm/dL (3.2-5.2); Albumin/Globulin Ratio 0.9 (1.0-2.3); Alkaline Phosphatase 168 U/L (39-117); Bilirubin,Total 0.8 mg/dL (0.0-1.0); Calcium 10.2 mg/dl (8.6-10.4); Carbon Dioxide 23 mmol/L (22-30); Globulin 3.9 gm/dL (2.2-3.7); Glomerular Filtration Rate 14; Glucose 99 mg/dL (70-105)
[2019-11-16 08:35] LABS: Blood Urea Nitrogen 39 mg/dl (8-23); Chloride 95 mmol/L (96-108)
[2019-11-16 09:43] LABS: Basophils % (Auto) 0.6 % (0.0-2.0); Eosinophils # (Auto) 0.23 K/mcL (0.00-0.70); Eosinophils % (Auto) 1.3 % (0.0-7.0); Granulocytes % (Auto) 81.7 % (38.0-78.0); Hematocrit 35.4 % (40.1-51.0); Hemoglobin 11.7 g/dL (13.7-17.5); Lymphocytes # (Auto) 1.46 K/mcL (1.50-4.80); Lymphocytes % (Auto) 8.4 % (15.5-49.0); Mean Cell Volume 98.9 fL (80.0-100.0); Mean Corpuscular HGB Conc 33.1 g/dL (31.0-36.0); Monocytes # (Auto) 1.38 K/mcL (0.10-0.90); Platelet Count 248 K/mcL (140-440); RBC 3.58 M/mcL (4.63-6.08); Red Cell Distribution Width 14.1 % (11.5-14.5); WBC 17.3 K/mcL (4.50-11.00)
[2019-11-16] MEDS: FLUTICASONE PROPIONATE SPRAY.NAS NS SCH (09:43)
[2019-11-16] MEDS: TIOTROPIUM BROMIDE 18 MCG INHALANT INH SCH ×2 (09:43→11:21)
--- NOTE | 2019-11-16 10:10 | Internal Med Progress Note ---
SUBJECTIVE Subjective Patient information: Note initiated : 11/16/19 at 9:58 am Service Date, if different from initiated Date: [] Patient: Darron Veliz a 74 y/o M admitted on 11/05/19 for increased shortness of breath. Chief Complaint: [] Interval history: Mr. Veliz is a 74 year old M with a history of CAD/DM type II/HTN/ESRD on HD 3 times a week who was recently discharged to [facility] following left hip fracture. He now presents to the ER today with increasing shortness of breath, decreased LOC and low saturation during dialysis not r esponding to supplemental oxygen. Patient has been experiencing low-grade fever last few days. He had a Kovic test done at dialysis which was positive. Work-up was consistent severe hypoxia with sats in 70s requiring 5 L oxygen. Imaging consistent with pneumonia, patient is a DNR and hence was not accepted to tertiary center after discussion the ER physician with [facility]. Patient was started on dexamethasone and subsequently hospitalist service was consulted for admission and management of COVID pneumonia. Remdesivir contraindicated in light of ESRD/GFR less than 30 At the time of evaluation patient is very drowsy sedated short of breath. No family members present. Most of the history is obtained from review of medical records and ER physician. 11/04-patient seen in room. Resting comfortably. On 4 L oxygen nasal cannula. No family at bedside. On COVID precautions. Nephrology consult for dialysis. 11/05-undergoing dialysis today. On 45 years oxygen. Able to communicate. Hard of hearing. Denies active distress.On COVID-19 precautions. Occasionally incontinent. 11/06-patient continues to be short of breath. No overnight events. White count 10,000. On 4 days oxygen. Ongoing hemodialysis per nephrology. Persistent interstitial lung disease on chest imaging. 11/07-traumatic deterioration in overall status requiring 10 L oxygen rebreather mask. Worsening respiratory status. Continue steroids/supplemental oxygen. Remains DNR. Will initiate high flow oxygen if necessary. Was barely able to tolerate hemodialysis for an hour 11/08-patient doing well. On 4 L oxygen. Alert and sitting on chair. No significant distress. No concerns per nursing staff. No overnight fever chills. Continuing dexamethasone. updated by nursing staff. 11/09-patient remains unchanged currently on 4 L oxygen. However worsening bilateral chest infiltrates on interval imaging. On dexamethasone. No overnight events. No additional concerns per staff. Ongoing hemodialysis per nephrology. Repeat chest imaging 24 hours. 11/10 Patient still has shortness of breath but feels improving. Denies fever, chills, nausea or vomiting. He is now on 2 to 5 L oxygen Patient is not a candidate for remdesivir due to poor renal function. 11/11 Patient still has shortness of breath but feels improving. Denies fever, chills, nausea or vomiting. WBC went up to 13.1 today. Afebrile. Continue monitor Patient is now on 2 to 2.5 L 11/12 Today patient blood pressure is soft, around 100. He received HD today. He is now on 0-1.5L WBC 12.1 Repeat chest x-ray - Moderate atrophy left and smaller right basilar infiltrate worsening slightly. But his condition is clinically improving. 11/13 Today he was initially scheduled to be discharged. But discharge was cancelled due to SNF no ISO beds available until tomorrow morning. Pt is fine and does not have a new complaints He is on 2 L today. He will be possibly discharged tomorrow. 11/14 He feels fine. Denies fever, chills, or chest pain. He is on 2 L oxygen Today he may have dialysis. He may be able to discharge to SNF tomorrow. 11/15 Yesterday during dialysis he became more confused and have some strange blood pressure readings found with hypertensive than hypotensive than normal. Sugar was normal. He did have an episode very similar to this last admission. Stat CT brain was done which showed no acute changes. Dialysis was stopped and patient started improving within the hour. Patient slept well overnight no issues overnight. He does have a mildly productive cough and some shortness of breath but he says that average. He is on several liters of oxygen, and was on 3 L last night. His white blood cell count is elevated today. He has been on dexamethasone and his white blood cell count was stable but did increase today. His sputum culture did grow Streptococcus agalactiae. Antibiotics started. Review of Systems: denies headache/fever/chills/nausea/vomiting/chest or abdominal pain//diarrhea. Otherwise see above. Constitutional Vitals: Vital Signs Temp Pulse Resp BP Pulse Ox 97.8 F 72 20 114/72 97 11/16/19 07:40 11/16/19 07:40 11/16/19 07:40 11/16/19 07:40 11/16/19 07:40 Period Temp Pulse Resp BP Sys/Joseph Pulse Ox Last 24 Hr 94.3 F-97.8 F 67-93 18-24 86-145/53-101 90-97 Intake and Output 11/15/19 11/16/19 11/16/19 21:59 05:59 13:59 Intake Total 140 Output Total 204 Balance -204 140 Intake & Output: Intake & Output 11/15/19 11/16/19 11/16/19 21:59 05:59 13:59 Intake Total 140 Output Total 204 Balance -204 140 Intake: Oral 140 Output: Void Amount 200 # of times incontinent of urine 4 Other: Stool Size Large Stool Color Brown Stool Consistency Soft # Bowel Movements 1 Exam: General: Awake, No acute Distress Eyes/N/T: EOMI, Head/Neck: neck supple, CV: RRR, No murmurs, Pulm: diminished b/l, mild course, no wheezing Abd: soft, nontender, +BS x4 Ext: no clubbing/cyanosis/edema Neuro: Alert, follows commands , right side weakness chronic from previous cva Skin: warm/dry OBJ DATA Labs CBC & Chem 7: 11/16/19 05:00 11/16/19 05:00 Labs: Abnormal Lab Results 11/16/19 11/16/19 11/15/19 05:00 05:00 05:10 WBC 17.3 H RBC 3.58 L Hgb 11.7 L Hct 35.4 L Gran % 81.7 H Lymph % (Auto) 8.4 L Gran # 14.17 H Lymph # (Auto) 1.46 L [place] # (Auto) 1.38 H Chloride 95 L Anion Gap 22.0 H 19.0 H BUN 39 H 61 H Creatinine 4.0 H 4.8 H Glucose 153 H Alkaline Phosphatase 168 H 167 H Albumin 3.0 L Globulin 3.9 H 3.9 H Albumin/Globulin Ratio 0.9 L 0.8 L 11/15/19 11/14/19 11/14/19 05:10 05:11 05:10 WBC 12.5 H 12.2 H RBC 3.11 L 3.39 L Hgb 10.1 L 11.1 L Hct 30.9 L 33.5 L Gran % 80.6 H 80.3 H Lymph % (Auto) 9.5 L 10.2 L Gran # 10.07 H 9.76 H Lymph # (Auto) 1.18 L 1.24 L [place] # (Auto) 1.08 H 0.93 H Chloride Anion Gap 17.0 H BUN 37 H Creatinine 3.1 H Glucose Alkaline Phosphatase 196 H Albumin 3.1 L Globulin 4.1 H Albumin/Globulin Ratio 0.8 L Meds: Medications Acetaminophen (Tylenol) 650 mg PO Q8HP PRN PRN Reason: PAIN/FEVER > 101 Hydrocodone Bitart/Acetaminophen (Kila 5/325mg) 1 tab PO Q4HP PRN; Protocol PRN Reason: Pain Last Admin: 11/14/19 22:30 Dose: 1 tab Documented by: Aspirin (Aspirin) 81 mg PO BID [facility] Last Admin: 11/16/19 08:16 Dose: 81 mg Documented by: Benzonatate (Tessalon) 100 mg PO TIDP PRN PRN Reason: Cough Last Admin: 11/07/19 05:05 Dose: 100 mg Documented by: Bisacodyl (Dulcolax) 10 mg TX QDAY PRN PRN Reason: Constipation Dexamethasone (Decadron) 6 mg PO DAILY [facility] Last Admin: 11/16/19 08:17 Dose: 6 mg Documented by: Dextrose (Dextrose 50%) 0 ml IV UD PRN PRN Reason: Hypoglycemia Diagnostic Test (Pha) (Accu-Chek) 1 each FS ACHS [facility] Last Admin: 11/16/19 07:18 Dose: 1 each Documented by: Docusate Sodium (Colace) 100 mg PO BID [facility] Last Admin: 11/16/19 08:17 Dose: 100 mg Documented by: Fluticasone Propionate (Flonase) 1 spray NS DAILY [facility] Last Admin: 11/16/19 09:43 Dose: Not Given Documented by: Folic Acid (Folic Acid) 1 mg PO QDAY [facility] Last Admin: 11/16/19 08:20 Dose: 1 mg Documented by: Glucose (Insta-Glucose) 15 gm PO PRN PRN PRN Reason: Hypoglycemia Guaifenesin (Mucinex) 600 mg PO BIDP PRN PRN Reason: Congestion Hydralazine HCl (Apresoline) 50 mg PO DAILY [facility] Last Admin: 11/16/19 08:16 Dose: 50 mg Documented by: Hydrochlorothiazide (Oretic) 50 mg PO DAILY [facility] Last Admin: 11/16/19 08:16 Dose: 50 mg Documented by: Magnesium Sulfate (Magnesium Sulfate) 2 gm in 50 mls @ 50 mls/hr IV UD PRN PRN Reason: Mag < or = 1.7 Acetaminophen (Ofirmev) 650 mg in 65 mls @ 130 mls/hr IV Q6HP PRN; Protocol PRN Reason: Per Pain Protocol/Fever > 101 Piperacillin Sod/Tazobactam (Sod 3.375 gm/ Dextrose) 50 mls @ 100 mls/hr IV Q6H [place]; Protocol Insulin Human Lispro (Humalog) 0 unit SQ ACHS [facility]; Protocol Last Admin: 11/16/19 07:58 Dose: Not Given Documented by: Methocarbamol (Robaxin) 500 mg PO TIDP PRN PRN Reason: Pain and spasm Metoprolol Succinate (Toprol Xl) 100 mg PO BID [facility] Last Admin: 11/16/19 08:17 Dose: 100 mg Documented by: Pantoprazole Sodium (Protonix) 40 mg PO BIDAC [facility] Last Admin: 11/16/19 08:20 Dose: 40 mg Documented by: Potassium Chloride (Potassium Chloride) 20 meq PO BIDCC PRN PRN Reason: K <3.6 Last Admin: 11/14/19 09:03 Dose: 20 meq Documented by: Senna (Senokot) 2 tab PO DAILYP PRN PRN Reason: Constipation Sodium Chloride (Saline Flush) 10 ml IV Q8 [facility] Last Admin: 11/16/19 05:47 Dose: 10 ml Documented by: Tiotropium Mobile (Spiriva) 18 mcg INH DAILY [facility] Last Admin: 11/15/19 14:23 Dose: Not Given Documented by: Torsemide (Demadex) 20 mg PO DAILY [facility] Last Admin: 11/16/19 08:15 Dose: 20 mg Documented by: A/P Narrative A/P Narrative: A: *Acute hypoxic respiratory failure: 2/2 covid PNA -3L NC with high sats, wean *COVID-19 pneumonia with superimposed Bacterial PNA (Strep Agalactiae): *h/o CVA w/residual right-sided weakness/numbness/Ataxia: on aspirin *Recent left hip fracture (10/20): *Sacral pressure ulcer: *NPH: follows up with Dr. No *ESRD: follows with [facility]. *HTN: on thiazide/torsemide/hydralazine/BB *CADw/CABG 7 years ago at [place]: *DM type II: *h/o alcoholism: no evidence of withdrawal *GERD: continue PPI *Goals of care: long-term prognosis guarded given significant comorbidities with recent hospitalizations and age Plan: -wean o2 -check PCT, f/u chest imaging, abx, SC -Continue dexamethasone (since 11/04)/oxygen as needed -Remdesivir contraindicated in light of GFR less than 30. Continuing COVID-19 precautions. -Continue hemodialysis per nephrology -continue frequent offloading/wound care -continue basal and SSI - -Discharge planning per case management -pt/ot -ppx: heparin . Code status: DNR Time Spent With Patient Time: Total time spent is greater than 50% in coordination of care (as documented) at patient's floor/unit and/or counseling patient: QUALITY VTE Deep Vein Thrombosis/Pulmonary Embolism Present on Admission: No
[2019-11-16 10:31] LABS: Band Neutrophils % 2 % (0-10); Eosinophils % (Manual) 3 % (0-7); Lymphocytes % 7 % (15-49); Metamyelocytes % 2 % (0-0); Monocytes % (Manual) 13 % (1-12); Myelocytes % 2 % (0-0); Platelet Estimate NORMAL (NORMAL); RBC Morphology NORMAL (NORMAL); Segmented Neutrophils % 71 % (38-78)
[2019-11-16] MEDS: PIPERACILLIN SODIUM/TAZOBACTAM 2.25 GM in DEXTROSE 5% IN WATER 50 ML IV SCH ×3 (11:05→21:41)
[2019-11-16] MEDS: HEPARIN 5,000 UNIT/ML VIAL SQ SCH ×2 (11:34→21:40)
--- NOTE | 2019-11-16 15:13 | Cat Scan Report ---
CLINICAL INFORMATION: Hypoxia - Covid positive. COMPARISON: None TECHNIQUE: 0.625 mm axial slices were obtained from the lung apices through the bases without intravenous contrast. 2.5 mm Sagittal, coronal and axial reformatted images were processed and reviewed at bone, lung and soft tissue windows. 7 mm axial MIP images were also reconstructed to optimize pulmonary nodule detection.The exam was performed using radiation dose optimization techniques including, but not limited to, automated exposure control, adjustment of the mA and/or kV according to patient size and use of iterative reconstruction technique. FINDINGS: The pulmonary parenchymal windows show large alveolar infiltrates throughout both lower lobes with moderate patchy infiltrates in the lingula and posterior segment of both upper lobes. There are no effusions. Mediastinal windows show the heart is moderately enlarged. Sternotomy/CABG changes noted with very heavy calcification of the [place] coronary arteries. The noncontrast pulmonary arteries and thoracic aorta are normal in diameter. A few mildly enlarged lymph nodes seen in the lower mediastinum and hilum including the pericarinal and lower paratracheal region should represent benign reactive lymph nodes. The esophagus is grossly normal. The thyroid is unremarkable. Bone windows show no osseous abnormality. Images should the superior abdomen are unremarkable. IMPRESSION: 1. Large alveolar infiltrates throughout the lower lobes with smaller infiltrates in the lingula and posterior segment of the upper lobes. Findings would be compatible with coronavirus pneumonia. Aspiration is also possible. 2. Malpositioned right IJ central catheter. The tip is in the infrahepatic IVC. Line should be withdrawn 7.5 cm. 3. Moderate cardiomegaly with heavy calcific plaque in the coronary arteries and bypass grafts. Interpreted and Authenticated by: Abhishek Goldman 11/16/19
[2019-11-17] MEDS: PIPERACILLIN SODIUM/TAZOBACTAM 2.25 GM in DEXTROSE 5% IN WATER 50 ML IV SCH ×3 (05:44→22:09)
[2019-11-17] MEDS: 0.9 % SODIUM CHLORIDE 10 ML SYRINGE IV SCH ×3 (05:45→21:44)
[2019-11-17 06:45] LABS: Hematocrit 31.6 % (40.1-51.0); Hemoglobin 10.6 g/dL (13.7-17.5); Mean Cell Volume 97.5 fL (80.0-100.0); Mean Corpuscular HGB Conc 33.5 g/dL (31.0-36.0); Mean Platelet Volume 10.1 fL (7.4-10.4); Platelet Count 216 K/mcL (140-440); RBC 3.24 M/mcL (4.63-6.08); Red Cell Distribution Width 13.7 % (11.5-14.5); WBC 17.9 K/mcL (4.50-11.00)
[2019-11-17 07:28] LABS: Blood Urea Nitrogen 59 mg/dl (8-23); Calcium 10.1 mg/dl (8.6-10.4); Carbon Dioxide 22 mmol/L (22-30); Chloride 94 mmol/L (96-108); Glomerular Filtration Rate 10; Glucose 111 mg/dL (70-105)
[2019-11-17] MEDS: PANTOPRAZOLE 40 MG TABLET PO SCH ×2 (07:53→17:56)
--- NOTE | 2019-11-17 07:54 | Internal Med Progress Note ---
SUBJECTIVE Subjective Patient information: Note initiated : 11/17/19 at 7:44 am Service Date, if different from initiated Date: [] Patient: Darron Veliz a 74 y/o M admitted on 11/05/19 for increased shortness of breath. Chief Complaint: [] Interval history: Mr. Veliz is a 74 year old M with a history of CAD/DM type II/HTN/ESRD on HD 3 times a week who was recently discharged to [facility] following left hip fracture. He now presents to the ER today with increasing shortness of breath, decreased LOC and low saturation during dialysis not r esponding to supplemental oxygen. Patient has been experiencing low-grade fever last few days. He had a Kovic test done at dialysis which was positive. Work-up was consistent severe hypoxia with sats in 70s requiring 5 L oxygen. Imaging consistent with pneumonia, patient is a DNR and hence was not accepted to tertiary center after discussion the ER physician with [facility]. Patient was started on dexamethasone and subsequently hospitalist service was consulted for admission and management of COVID pneumonia. Remdesivir contraindicated in light of ESRD/GFR less than 30 At the time of evaluation patient is very drowsy sedated short of breath. No family members present. Most of the history is obtained from review of medical records and ER physician. 11/04-patient seen in room. Resting comfortably. On 4 L oxygen nasal cannula. No family at bedside. On COVID precautions. Nephrology consult for dialysis. 11/05-undergoing dialysis today. On 45 years oxygen. Able to communicate. Hard of hearing. Denies active distress.On COVID-19 precautions. Occasionally incontinent. 11/06-patient continues to be short of breath. No overnight events. White count 10,000. On 4 days oxygen. Ongoing hemodialysis per nephrology. Persistent interstitial lung disease on chest imaging. 11/07-traumatic deterioration in overall status requiring 10 L oxygen rebreather mask. Worsening respiratory status. Continue steroids/supplemental oxygen. Remains DNR. Will initiate high flow oxygen if necessary. Was barely able to tolerate hemodialysis for an hour 11/08-patient doing well. On 4 L oxygen. Alert and sitting on chair. No significant distress. No concerns per nursing staff. No overnight fever chills. Continuing dexamethasone. updated by nursing staff. 11/09-patient remains unchanged currently on 4 L oxygen. However worsening bilateral chest infiltrates on interval imaging. On dexamethasone. No overnight events. No additional concerns per staff. Ongoing hemodialysis per nephrology. Repeat chest imaging 24 hours. 11/10 Patient still has shortness of breath but feels improving. Denies fever, chills, nausea or vomiting. He is now on 2 to 5 L oxygen Patient is not a candidate for remdesivir due to poor renal function. 11/11 Patient still has shortness of breath but feels improving. Denies fever, chills, nausea or vomiting. WBC went up to 13.1 today. Afebrile. Continue monitor Patient is now on 2 to 2.5 L 11/12 Today patient blood pressure is soft, around 100. He received HD today. He is now on 0-1.5L WBC 12.1 Repeat chest x-ray - Moderate atrophy left and smaller right basilar infiltrate worsening slightly. But his condition is clinically improving. 11/13 Today he was initially scheduled to be discharged. But discharge was cancelled due to SNF no [facility] beds available until tomorrow morning. Pt is fine and does not have a new complaints He is on 2 L today. He will be possibly discharged tomorrow. 11/14 He feels fine. Denies fever, chills, or chest pain. He is on 2 L oxygen Today he may have dialysis. He may be able to discharge to SNF tomorrow. 11/15 Yesterday during dialysis he became more confused and have some strange blood pressure readings found with hypertensive than hypotensive than normal. Sugar was normal. He did have an episode very similar to this last admission. Stat CT brain was done which showed no acute changes. Dialysis was stopped and patient started improving within the hour. Patient slept well overnight no issues overnight. He does have a mildly productive cough and some shortness of breath but he says that average. He is on several liters of oxygen, and was on 3 L last night. His white blood cell count is elevated today. He has been on dexamethasone and his white blood cell count was stable but did increase today. His sputum culture did grow Streptococcus agalactiae. Antibiotics started. 11/16 No issues overnight. WBC count same as yesterday. Afebrile. No new complaints. Dexamethasone stopped. Scheduled for hemodialysis today. General surgeon to evaluate his HD catheter and malposition of it. Review of Systems: Unable to get review of systems as is batteries are for his cochlear implant Constitutional Vitals: Vital Signs Temp Pulse Resp BP Pulse Ox 97.5 F 65 24 H 115/64 90 11/17/19 03:08 11/17/19 03:08 11/17/19 03:08 11/17/19 03:08 11/17/19 03:25 Period Temp Pulse Resp BP Sys/Joseph Pulse Ox Last 24 Hr 97.1 F-98.3 F 65-78 14-24 102-117/51-70 85-97 Intake and Output 11/16/19 11/17/19 11/17/19 21:59 05:59 13:59 Intake Total 660 850 50 Output Total 200 180 Balance 460 670 50 Intake & Output: Intake & Output 11/16/19 11/17/19 11/17/19 21:59 05:59 13:59 Intake Total 660 850 50 Output Total 200 180 Balance 460 670 50 Intake: IV 50 50 50 Zosyn 2.25 gm In Dextrose 5% in 50 50 50 Water 50 ml @ 100 mls/hr IV Q8H [facility] Rx#:[id number] Oral 610 800 Output: Void Amount 200 180 Other: Meal Dinner Percent of Meal Consumed 75% Feeding Ability Independent Urine Appearance Clear Urine Color Tea Colored Exam: General: Awake, No acute Distress Eyes/N/T: EOMI, Head/Neck: neck supple, CV: RRR, No murmurs, Pulm: mildly diminished b/l but better, not course today, no wheezing Abd: soft, nontender, +BS x4 Ext: no clubbing/cyanosis/edema Neuro: Alert, follows commands , right side weakness chronic from previous cva Skin: warm/dry OBJ DATA Labs CBC & Chem 7: 11/17/19 04:51 11/17/19 04:50 Labs: Abnormal Lab Results 11/17/19 11/17/19 11/16/19 04:51 04:50 05:00 WBC 17.9 H RBC 3.24 L Hgb 10.6 L Hct 31.6 L Gran % Lymph % (Auto) Gran # Lymph # (Auto) Reeves # (Auto) Lymphocytes % 7 L Monocytes % (Manual) 13 H Metamyelocytes % 2 H Myelocytes % 2 H Chloride 94 L Anion Gap 22.0 H BUN 59 H Creatinine 5.1 H* Glucose 111 H Alkaline Phosphatase Albumin Globulin Albumin/Globulin Ratio 11/16/19 11/16/19 11/15/19 05:00 05:00 05:10 WBC 17.3 H RBC 3.58 L Hgb 11.7 L Hct 35.4 L Gran % 81.7 H Lymph % (Auto) 8.4 L Gran # 14.17 H Lymph # (Auto) 1.46 L Reeves # (Auto) 1.38 H Lymphocytes % Monocytes % (Manual) Metamyelocytes % Myelocytes % Chloride 95 L Anion Gap 22.0 H 19.0 H BUN 39 H 61 H Creatinine 4.0 H 4.8 H Glucose 153 H Alkaline Phosphatase 168 H 167 H Albumin 3.0 L Globulin 3.9 H 3.9 H Albumin/Globulin Ratio 0.9 L 0.8 L 11/15/19 05:10 WBC 12.5 H RBC 3.11 L Hgb 10.1 L Hct 30.9 L Gran % 80.6 H Lymph % (Auto) 9.5 L Gran # 10.07 H Lymph # (Auto) 1.18 L Reeves # (Auto) 1.08 H Lymphocytes % Monocytes % (Manual) Metamyelocytes % Myelocytes % Chloride Anion Gap BUN Creatinine Glucose Alkaline Phosphatase Albumin Globulin Albumin/Globulin Ratio Meds: Medications Acetaminophen (Tylenol) 650 mg PO Q8HP PRN PRN Reason: PAIN/FEVER > 101 Hydrocodone Bitart/Acetaminophen (Franklin 5/325mg) 1 tab PO Q4HP PRN; Protocol PRN Reason: Pain Last Admin: 11/14/19 22:30 Dose: 1 tab Documented by: Aspirin (Aspirin) 81 mg PO DAILY [facility] Benzonatate (Tessalon) 100 mg PO TIDP PRN PRN Reason: Cough Last Admin: 11/07/19 05:05 Dose: 100 mg Documented by: Bisacodyl (Dulcolax) 10 mg MT QDAY PRN PRN Reason: Constipation Dexamethasone (Decadron) 6 mg PO DAILY [facility] Last Admin: 11/16/19 08:17 Dose: 6 mg Documented by: Dextrose (Dextrose 50%) 0 ml IV UD PRN PRN Reason: Hypoglycemia Diagnostic Test (Pha) (Accu-Chek) 1 each FS ACHS [facility] Last Admin: 11/16/19 21:31 Dose: 1 each Documented by: Docusate Sodium (Colace) 100 mg PO BID [facility] Last Admin: 11/16/19 21:39 Dose: 100 mg Documented by: Fluticasone Propionate (Flonase) 1 spray NS DAILY [facility] Last Admin: 11/16/19 09:43 Dose: Not Given Documented by: Folic Acid (Folic Acid) 1 mg PO QDAY [facility] Last Admin: 11/16/19 08:20 Dose: 1 mg Documented by: Glucose (Insta-Glucose) 15 gm PO PRN PRN PRN Reason: Hypoglycemia Guaifenesin (Mucinex) 600 mg PO BIDP PRN PRN Reason: Congestion Last Admin: 11/16/19 21:40 Dose: 600 mg Documented by: Heparin Sodium (Porcine) (Heparin) 5,000 unit SQ Q12 [facility] Last Admin: 11/16/19 21:40 Dose: 5,000 unit Documented by: Hydralazine HCl (Apresoline) 50 mg PO DAILY [facility] Last Admin: 11/16/19 08:16 Dose: 50 mg Documented by: Hydrochlorothiazide (Oretic) 50 mg PO DAILY [facility] Last Admin: 11/16/19 08:16 Dose: 50 mg Documented by: Magnesium Sulfate (Magnesium Sulfate) 2 gm in 50 mls @ 50 mls/hr IV UD PRN PRN Reason: Mag < or = 1.7 Acetaminophen (Ofirmev) 650 mg in 65 mls @ 130 mls/hr IV Q6HP PRN; Protocol PRN Reason: Per Pain Protocol/Fever > 101 Piperacillin Sod/Tazobactam (Sod 2.25 gm/ Dextrose) 50 mls @ 100 mls/hr IV Q8H [facility]; Protocol Last Infusion: 11/17/19 06:31 Dose: Infused Documented by: Insulin Human Lispro (Humalog) 0 unit SQ ACHS [facility]; Protocol Last Admin: 11/16/19 21:40 Dose: 3 units Documented by: Methocarbamol (Robaxin) 500 mg PO TIDP PRN PRN Reason: Pain and spasm Metoprolol Succinate (Toprol Xl) 100 mg PO BID [facility] Last Admin: 11/16/19 21:40 Dose: 100 mg Documented by: Pantoprazole Sodium (Protonix) 40 mg PO BIDAC [facility] Last Admin: 11/16/19 16:56 Dose: 40 mg Documented by: Potassium Chloride (Potassium Chloride) 20 meq PO BIDCC PRN PRN Reason: K <3.6 Last Admin: 11/14/19 09:03 Dose: 20 meq Documented by: Senna (Senokot) 2 tab PO DAILYP PRN PRN Reason: Constipation Sodium Chloride (Saline Flush) 10 ml IV Q8 [facility] Last Admin: 11/17/19 05:45 Dose: 10 ml Documented by: Tiotropium Lloyd (Spiriva) 18 mcg INH DAILY [facility] Last Admin: 11/16/19 11:21 Dose: Not Given Documented by: Torsemide (Demadex) 20 mg PO DAILY [facility] Last Admin: 11/16/19 08:15 Dose: 20 mg Documented by: A/P Narrative A/P Narrative: A: *Acute hypoxic respiratory failure: 2/ covid PNA -now on 1.5-2L NCn *COVID-19 pneumonia with superimposed Bacterial PNA (SC growing Strep Agalactiae): *Leukocytosis: no bandemia, afebrile *h/o CVA w/residual right-sided weakness/numbness/Ataxia: on aspirin *Recent left hip fracture (10/20): *Sacral pressure ulcer: wound care *NPH: follows up with Dr. No *ESRD: follows with [facility]. *Malpositioned HD Tunnel Cath: needs to be withdrawn 7cm per radiology. *HTN: on thiazide/torsemide/hydralazine/BB *CADw/CABG 7 years ago at [facility]: *DM type II: *h/o alcoholism: no evidence of withdrawal *GERD: continue PPI *Goals of care: long-term prognosis guarded given significant comorbidities with recent hospitalizations and age Plan: -wean O2 as able, IS/Acapella -d/c dexamethasone -Remdesivir contraindicated in light of GFR less than 30. Continuing COVID-19 precautions. -Continue hemodialysis per nephrology -continue frequent offloading/wound care -continue basal and SSI -HD Tunnel Cath will need adjustment (withdrawn) once recovered from illness or done urgently if becomes nonfunctional, discussed with General Surgeon -Discharge planning per case management -pt/ot -ppx: heparin 13. Code status: DNR Time Spent With Patient Time: Total time spent is greater than 50% in coordination of care (as documented) at patient's floor/unit and/or counseling patient: QUALITY VTE Deep Vein Thrombosis/Pulmonary Embolism Present on Admission: No
[2019-11-17] MEDS: INSULIN LISPRO 1 UNIT/0.01 ML UNIT SQ SCH ×4 (08:00→21:40)
[2019-11-17 08:45] LABS: Lymphocytes % 10 % (15-49); Metamyelocytes % 1 % (0-0); Monocytes % (Manual) 8 % (1-12); Myelocytes % 3 % (0-0); Platelet Estimate NORMAL (NORMAL); RBC Morphology NORMAL (NORMAL); Segmented Neutrophils % 78 % (38-78)
[2019-11-17] MEDS ORDERED: ASPIRIN 81 MG TAB.CHEW PO SCH (09:00)
--- NOTE | 2019-11-17 09:27 | Nephrology Progress Note ---
SUBJECTIVE Subjective Patient information: Note initiated : 11/17/19 at 9:25 am Service Date, if different from initiated Date: [] Patient: Darron Veliz 74 y/o M admitted on 11/05/19 for increased shortness of breath. Chief Complaint: He feels a lot better. Breathing is better as well. Constitutional Vitals: Vital Signs Temp Pulse Resp BP Pulse Ox 97.0 F 67 20 122/75 92 11/17/19 08:00 11/17/19 08:00 11/17/19 08:00 11/17/19 08:00 11/17/19 08:00 Period Temp Pulse Resp BP Sys/Joseph Pulse Ox Last 24 Hr 97.0 F-98.3 F 65-78 14-24 102-122/51-75 85-97 Intake and Output 11/16/19 11/17/19 11/17/19 21:59 05:59 13:59 Intake Total 660 850 230 Output Total 200 180 Balance 460 670 230 Intake & Output: Intake & Output 11/16/19 11/17/19 11/17/19 21:59 05:59 13:59 Intake Total 660 850 230 Output Total 200 180 Balance 460 670 230 Intake: IV 50 50 50 Zosyn 2.25 gm In Dextrose 5% in 50 50 50 Water 50 ml @ 100 mls/hr IV Q8H [facility] Rx#:[id number] Oral 610 800 180 Output: Void Amount 200 180 Other: Meal Dinner Breakfast Percent of Meal Consumed 75% 100% Feeding Ability Independent Independent Urine Appearance Clear Urine Color Tea Colored Stool Size Large Stool Color Brown Stool Consistency Soft # Bowel Movements 1 Lungs denton rales Cardiac regular PA soft nt ext -edema A/P Narrative A/P Narrative: ESRD HD today. Will run at 300ml/min blood flow and will not take any fluid removal. Tunnel cath is deeper and surgery consult has been requested. Pneumonia. Time Spent With Patient Time: Total time spent is greater than 50% in coordination of care (as documented) at patient's floor/unit and/or counseling patient:
--- NOTE | 2019-11-17 11:01 | General Surgery Consult Note ---
HPI Data of Consult Primary Care Provider: Shonna Goodwin Consult Narrative Patient Information: Note initiated : 11/17/19 at 10:38 am Service Date, if different from initiated Date: [] Patient: Darron Veliz 74 y/o M admitted on 11/05/19 for increased shortness of breath. Chief Complaint: [mal placed HD catheter] 74yo man with anuric ESRD on HD via a tunnelled RIJ catheter now HD14 admitted for hypoxia and found to have Covid 19 and now bacterial PNA in the setting of long standing CAD and T2DM. Pt was recovering from a hip fracture/repair at [facility] when he became SOB. Surgery was asked to evaluate because on recent imaging HD catheter tip was incidentally found to be mal positioned. CT chest yesterday demonstrated the catheter transiting across the R atrium and in the retrohepatic IVC just below the level of the diaphragm. Review of multiple CXR since admission shows the tip to be at or near the diaphragm shadow in all images. CT A/P on 10/11 showes the tip in the inferior R Atrium. I discussed patient with HD RNs - pts line has tolerated typical flow rates of 400ml/min without pressure alarms this admission. Line was placed by Dr Abhishek Elizondo at [facility] in Nov 2018. cc:: CC: Del Wolf Constitutional Constitutional: Present daytime sleepiness, fatigue and malaise Cardiovascular Cardiovascular: Present leg edema Respiratory Respiratory: Present cough Gastrointestinal Gastrointestinal: Absent abdominal pain Musculoskeletal Musculoskeletal: Present abnormal gait Integumentary Integumentary: Present sores Endocrine Endocrine: Absent polyuria Hematologic/Lymphatic Hematologic/Lymphatic: Present easy bleeding Allergic/Immunologic Allergic/Immunologic: Absent lip swelling PFSH PFSH All Active Problems (Updated 11/17/19 @ 11:42 by Preston Holm MD) Hemodialysis catheter malfunction (Acute) Pneumonia due to COVID-19 virus (Acute) DNR (do not resuscitate) (Acute) Hypoxia (Acute) Poor vision (Acute) Weakness (Acute) Fever (Acute) Closed fracture of left hip (Acute) Elevated LFTs (Acute) Anemia due to chronic kidney disease (Acute) Cardiomegaly (Chronic) Multiple fractures of ribs, left side, initial encounter for closed fracture (Acute) At high risk for falls (Acute) Diabetes (Acute) Gastrointestinal stromal tumor (GIST) (Acute) Hydrocephalus (Acute) Hx of GI malignancy (Acute) History of tobacco use (Acute) Encounter for long-term (current) use of other medications (Acute) Class 1 obesity (Acute) Obstructive sleep apnea (Acute) Thrombocytopenia (Acute) Hereditary hemochromatosis (Acute) Carpal tunnel syndrome (Acute) Gout (Acute) COPD (chronic obstructive pulmonary disease) (Acute) CAD (coronary artery disease) (Acute) Arthralgia (Acute) History of squamous cell carcinoma (Acute) Weakness (Acute) Diplopia (Acute) Actinic keratosis (Acute) Confusion (Acute) Left knee pain (Acute) Osteoarthritis (Acute) Arthritis of right knee (Acute) Dependence on renal dialysis (Acute) Stroke (Acute) Chronic renal failure, stage 5 (Acute) DNR no code (do not resuscitate) (Chronic) CVA (cerebral vascular accident) (Acute) Anemia (Chronic) Cochlear implant status (Chronic) Overweight (BMI 25.0-29.9) (Chronic) History of acute myocardial infarction (Chronic) Diabetes mellitus type 2, controlled (Chronic) Normal pressure hydrocephalus (Chronic) Meniere's disease (Chronic) Chronic alcoholism (Acute) Hearing loss (Chronic) Medical History Actinic keratosis (Acute) Anemia (Chronic) Arthralgia (Acute) Arthritis of right knee (Acute) Ataxia (Resolved) CAD (coronary artery disease) (Acute) Cardiomegaly (Chronic) Carpal tunnel syndrome (Acute) Chronic alcoholism (Acute) Chronic kidney disease, stage 4 (severe) (Inactive) Chronic renal failure, stage 3 (moderate) (Inactive) creatinine 2.7 08-04-2018 Class 1 obesity (Acute) Concussion without loss of consciousness (Inactive) Confusion (Acute) COPD (chronic obstructive pulmonary disease) (Acute) Dependence on renal dialysis (Acute) Diabetes (Acute) Type 2 Diabetes mellitus type 2, controlled (Chronic) Diplopia (Acute) DNR no code (do not resuscitate) (Chronic) per patient's significant other, Medical POA, Jenny Hensley. Encounter for long-term (current) use of other medications (Acute) Gastrointestinal stromal tumor (GIST) (Acute) Gout (Acute) Hearing loss (Chronic) Hereditary hemochromatosis (Acute) History of acute myocardial infarction (Chronic) History of squamous cell carcinoma (Acute) History of tobacco use (Acute) Hx of GI malignancy (Acute) Hydrocephalus (Acute) Left knee pain (Acute) Meniere's disease (Chronic) Normal pressure hydrocephalus (Chronic) Obstructive sleep apnea (Acute) Osteoarthritis (Acute) Overweight (BMI 25.0-29.9) (Chronic) Seborrheic keratosis (Inactive) Slurred speech (Resolved) Stroke (Acute) Thrombocytopenia (Acute) Weakness (Acute) Surgical History Cochlear implant status (Chronic) H/O sinus surgery (Inactive) 3 sinus surgeries History of appendectomy (Inactive ~1947) History of carotid endarterectomy (Acute ~09/27/18) Patient significant other believes that this happened on the right in 2019. History of ear surgery (Inactive) 5 ear surgeries; cochlear implant History of four vessel coronary artery bypass graft (Acute ~04/2006) History of partial gastrectomy (Acute ~2018) Stomach cancer; [facility] History of surgery (Inactive ~01/2012) [facility] Family History Mother , Age 84 Cervical cancer Diabetes Stroke Congestive heart failure Unknown Heart disease Unknown Skin cancer Father , Age 58 COPD (chronic obstructive pulmonary disease) Congestive heart failure Social History marital status: single occupational status: disabled physical activity: none smoking status: Never smoker smoking status start date: 02/22/1959 smoking status stop date: 02/22/79 alcohol intake frequency: 2+ drinks per day counseling given: No substance use type: does not use MEDS/ALLERGIES Home Medications and Allergies Home Medications Medication Instructions Recorded Confirmed Type hydrochlorothiazide 50 mg PO DAILY 08/04/18 11/05/19 History metoprolol succinate 100 mg PO BID 08/04/18 11/05/19 History blood sugar diagnostic #10 each 10/06/19 11/04/19 History fluticasone propionate 50 1 spray INTRANASAL QDAY 10/06/19 11/05/19 History mcg/actuation nasal spray,suspension folic acid 1 mg tablet 1 mg PO QDAY 10/06/19 11/05/19 History hydralazine 50 mg tablet 50 mg PO DAILY tab 10/06/19 11/05/19 History pantoprazole 40 mg tablet,delayed 40 mg PO BID 10/06/19 11/04/19 History release torsemide 20 mg tablet 20 mg PO QDAY 10/06/19 11/04/19 History methocarbamol 500 mg PO TID PRN #20 tab 10/12/19 11/05/19 Rx aspirin [Ecotrin Low Strength] 81 mg PO BID 14 Days #28 tab 10/24/19 11/05/19 Rx docusate sodium 100 mg PO BID #30 cap 10/24/19 11/05/19 Rx hydrocodone-acetaminophen 1 tab PO Q4H PRN #10 tab 10/24/19 11/05/19 Rx sennosides [Senna Lax] 2 tab PO DAILYP PRN #30 tab 10/24/19 11/04/19 Rx acetaminophen 650 mg PO Q8H PRN 11/04/19 11/05/19 History bisacodyl [Dulcolax (bisacodyl)] 10 mg ID QDAY PRN 11/05/19 11/05/19 History Allergies Allergy/AdvReac Type Severity Reaction Status Date / Time prednisone Allergy Unknown Unknown Verified 10/21/19 07:35 aspirin AdvReac Mild Gastrointestinal Verified 10/21/19 07:35 Upset Physical Examination Vital Signs Vital signs: Temp Pulse Resp BP Pulse Ox 36.1 C 67 20 122/75 92 11/17/19 08:00 11/17/19 08:00 11/17/19 08:00 11/17/19 08:00 11/17/19 08:00 General physical appearance General physical exam: other (Fatigued appearence, HD running smoothly this Wednesday morning) Head Head exam IM: Present atraumatic and normocephalic Cardiovascular Cardiovascular: HR and BP noted wnl Respiratory Respiratory exam: other (persistent oxygent requirement ) Abdomen Abdomen: Absent distended Integumentary Integumentary: Present other (excoriations on legs) Results Labs Result diagrams: 11/17/19 04:51 11/17/19 04:50 Labs: Abnormal lab results 11/17/19 11/17/19 11/17/19 Range/Units 04:50 04:50 04:50 WBC (4.50-11.00) K/mcL RBC (4.63-6.08) M/mcL Hgb (13.7-17.5) g/dL Hct (40.1-51.0) % Lymphocytes % (15-49) % Metamyelocytes % (0-0) % Myelocytes % (0-0) % ESR 80 H (0-15) mm/hr Chloride 94 L (96-108) mmol/L Anion Gap 22.0 H (8-16) BUN 59 H (8-23) mg/dl Creatinine 5.1 H* (0.7-1.2) mg/dl Glucose 111 H (70-105) mg/dL C-Reactive Protein 1.5 H (0.0-0.8) mg/dl 11/17/19 Range/Units 04:51 WBC 17.9 H (4.50-11.00) K/mcL RBC 3.24 L (4.63-6.08) M/mcL Hgb 10.6 L (13.7-17.5) g/dL Hct 31.6 L (40.1-51.0) % Lymphocytes % 10 L (15-49) % Metamyelocytes % 1 H (0-0) % Myelocytes % 3 H (0-0) % ESR (0-15) mm/hr Chloride (96-108) mmol/L Anion Gap (8-16) BUN (8-23) mg/dl Creatinine (0.7-1.2) mg/dl Glucose (70-105) mg/dL C-Reactive Protein (0.0-0.8) mg/dl Diabetes panel 11/17/19 Range/Units 04:50 Sodium 138 (133-145) mmol/L Potassium 4.4 (3.3-5.1) mmol/L Chloride 94 L (96-108) mmol/L Carbon Dioxide 22 (22-30) mmol/L BUN 59 H (8-23) mg/dl Creatinine 5.1 H* (0.7-1.2) mg/dl Glucose 111 H (70-105) mg/dL Calcium 10.1 (8.6-10.4) mg/dl Calcium panel 11/17/19 Range/Units 04:50 Calcium 10.1 (8.6-10.4) mg/dl Pituitary panel 11/17/19 Range/Units 04:50 Sodium 138 (133-145) mmol/L Potassium 4.4 (3.3-5.1) mmol/L Chloride 94 L (96-108) mmol/L Carbon Dioxide 22 (22-30) mmol/L BUN 59 H (8-23) mg/dl Creatinine 5.1 H* (0.7-1.2) mg/dl Glucose 111 H (70-105) mg/dL Calcium 10.1 (8.6-10.4) mg/dl Adrenal panel 11/17/19 Range/Units 04:50 Sodium 138 (133-145) mmol/L Potassium 4.4 (3.3-5.1) mmol/L Chloride 94 L (96-108) mmol/L Carbon Dioxide 22 (22-30) mmol/L BUN 59 H (8-23) mg/dl Creatinine 5.1 H* (0.7-1.2) mg/dl Glucose 111 H (70-105) mg/dL Calcium 10.1 (8.6-10.4) mg/dl All other labs normal. A/P Assessment and plan (1) Hemodialysis catheter malfunction: Status: Acute Comment: 74 yo man on HD via tunneled RIJ admitted for C-19 PNA with persistent O2 need on the heals of a fall with hip repair and rib fractures one month ago. His year old HD catheter is mal positioned with the tip in the IVC near the diaphragm. Reviewing imaging going back several months it does appear to be migrating inferiority over time. Regardless of the position the catheter does seem to be functioning with normal flow rates. Adjustment of a cuffed long-term tunneled catheter would require an exchange in the OR/procedure suite. The cuff is embedded in the superficial tissue and requires dissecting this out before a new catheter could be inserted. Given the patients trauma 1 month ago and C19 PNA with bacterial superinfection - he is quite frail. I dont think a procedure at this time would be godfrey - given the current catheters functionality. However there exists a small day to day risk of thrombus formation and atrial/IVC irritation injury with a mal positioned tip. So exchange is recommended once recovery is complete. I discussed this with Dr Hensley (General Surgery) office. He does not typically do this procedure. Plan: Recommend repositioning of catheter in 1 month or so once recovering well. Locally would refer to [facility] and Dr Elizondo the original intervention radiologist who placed vs Dr Marine Dela Cruz in [place]. Preston Slavkovsky MD Time Spent With Patient Time: Total time spent is greater than 50% in coordination of care (as documented) at patient's floor/unit and/or counseling patient:
[2019-11-17] MEDS: hydrALAZINE 25 MG TABLET PO SCH (13:29)
[2019-11-17] MEDS ORDERED: hydrALAZINE 25 MG TABLET PO ONE (13:29)
[2019-11-17] MEDS ORDERED: IPRATROPIUM/ALBUTEROL 3 ML AMPUL.NEB NEB ONE ×2 (15:02→15:13)
[2019-11-17] MEDS: TIOTROPIUM BROMIDE 18 MCG INHALANT INH SCH ×3 (16:00→16:21)
[2019-11-17] MEDS: DOCUSATE SODIUM 100 MG CAPSULE PO SCH ×2 (16:03→21:26)
[2019-11-17] MEDS: FLUTICASONE PROPIONATE SPRAY.NAS NS SCH ×2 (16:04→16:22)
[2019-11-17] MEDS: HEPARIN 5,000 UNIT/ML VIAL SQ SCH ×2 (16:15→21:44)
[2019-11-17] MEDS: HYDROCHLOROTHIAZIDE 25 MG TABLET PO SCH (16:17)
[2019-11-17] MEDS: METOPROLOL SUCCINATE 50 MG TAB.XL.24H PO SCH ×2 (16:18→21:44)
[2019-11-17] MEDS: FOLIC ACID 1 MG TABLET PO SCH (16:18)
[2019-11-17] MEDS: TORSEMIDE 10 MG TABLET PO SCH (16:19)
[2019-11-17] MEDS ORDERED: DEXTROSE 31 GM ORAL.SUSP PO PRN (17:17)
[2019-11-17] MEDS ORDERED: POTASSIUM CHLORIDE 20 MEQ/15 ML ML PO PRN (17:17)
[2019-11-17] MEDS ORDERED: METHOCARBAMOL 500 MG TABLET PO PRN (17:17)
[2019-11-17] MEDS ORDERED: MAGNESIUM SULFATE 2 GM/50 ML BAG IV PRN (17:17)
[2019-11-17] MEDS ORDERED: HYDROcodone/APAP 5/325MG TABLET PO PRN (17:17)
[2019-11-17] MEDS ORDERED: DEXTROSE 50% 50 ML VIAL IV PRN (17:17)
[2019-11-17] MEDS ORDERED: BISACODYL 10 MG SUPP.RECT PR PRN (17:17)
[2019-11-17] MEDS ORDERED: guaiFENesin 600 MG TAB.SR.12H PO PRN (17:17)
[2019-11-17] MEDS ORDERED: BENZONATATE 100 MG CAPSULE PO PRN (17:17)
[2019-11-17] MEDS ORDERED: SENNOSIDES 1 TABLET PO PRN (17:17)
[2019-11-17] MEDS ORDERED: ACETAMINOPHEN 325 MG TABLET PO PRN (17:17)
[2019-11-17] MEDS ORDERED: ACETAMINOPHEN 650 MG/65 ML BOTTLE IV PRN (17:17)
[2019-11-18] MEDS: 0.9 % SODIUM CHLORIDE 10 ML SYRINGE IV SCH ×3 (05:50→21:28)
[2019-11-18] MEDS: PIPERACILLIN SODIUM/TAZOBACTAM 2.25 GM in DEXTROSE 5% IN WATER 50 ML IV SCH (05:50)
[2019-11-18 06:53] LABS: Calcium 9.4 mg/dl (8.6-10.4); Carbon Dioxide 26 mmol/L (22-30); Glucose 87 mg/dL (70-105)
[2019-11-18 06:54] LABS: Basophils # (Auto) 0.08 K/mcL (0.00-0.30); Basophils % (Auto) 0.6 % (0.0-2.0); Eosinophils # (Auto) 0.29 K/mcL (0.00-0.70); Eosinophils % (Auto) 2.3 % (0.0-7.0); Granulocytes % (Auto) 78.8 % (38.0-78.0); Hematocrit 30.1 % (40.1-51.0); Hemoglobin 10.2 g/dL (13.7-17.5); Lymphocytes # (Auto) 1.29 K/mcL (1.50-4.80); Lymphocytes % (Auto) 10.1 % (15.5-49.0); Mean Cell Volume 97.1 fL (80.0-100.0); Mean Corpuscular HGB Conc 33.9 g/dL (31.0-36.0); Mean Platelet Volume 9.9 fL (7.4-10.4); Monocytes # (Auto) 1.05 K/mcL (0.10-0.90); Monocytes % (Auto) 8.2 % (1.0-12.0); Platelet Count 172 K/mcL (140-440); WBC 12.8 K/mcL (4.50-11.00)
[2019-11-18 06:56] LABS: Blood Urea Nitrogen 30 mg/dl (8-23); Chloride 95 mmol/L (96-108); Glomerular Filtration Rate 15
--- NOTE | 2019-11-18 07:45 | Internal Med Progress Note ---
SUBJECTIVE Subjective Patient information: Note initiated : 11/18/19 at 7:40 am Service Date, if different from initiated Date: [] Patient: Darron Veliz a 74 y/o M admitted on 11/05/19 for increased shortness of breath. Chief Complaint: [] Interval history: Mr. Veliz is a 74 year old M with a history of CAD/DM type II/HTN/ESRD on HD 3 times a week who was recently discharged to [facility] following left hip fracture. He now presents to the ER today with increasing shortness of breath, decreased LOC and low saturation during dialysis not r esponding to supplemental oxygen. Patient has been experiencing low-grade fever last few days. He had a Kovic test done at dialysis which was positive. Work-up was consistent severe hypoxia with sats in 70s requiring 5 L oxygen. Imaging consistent with pneumonia, patient is a DNR and hence was not accepted to tertiary center after discussion the ER physician with [facility]. Patient was started on dexamethasone and subsequently hospitalist service was consulted for admission and management of COVID pneumonia. Remdesivir contraindicated in light of ESRD/GFR less than 30 At the time of evaluation patient is very drowsy sedated short of breath. No family members present. Most of the history is obtained from review of medical records and ER physician. 11/04-patient seen in room. Resting comfortably. On 4 L oxygen nasal cannula. No family at bedside. On COVID precautions. Nephrology consult for dialysis. 11/05-undergoing dialysis today. On 45 years oxygen. Able to communicate. Hard of hearing. Denies active distress.On COVID-19 precautions. Occasionally incontinent. 11/06-patient continues to be short of breath. No overnight events. White count 10,000. On 4 days oxygen. Ongoing hemodialysis per nephrology. Persistent interstitial lung disease on chest imaging. 11/07-traumatic deterioration in overall status requiring 10 L oxygen rebreather mask. Worsening respiratory status. Continue steroids/supplemental oxygen. Remains DNR. Will initiate high flow oxygen if necessary. Was barely able to tolerate hemodialysis for an hour 11/08-patient doing well. On 4 L oxygen. Alert and sitting on chair. No significant distress. No concerns per nursing staff. No overnight fever chills. Continuing dexamethasone. updated by nursing staff. 11/09-patient remains unchanged currently on 4 L oxygen. However worsening bilateral chest infiltrates on interval imaging. On dexamethasone. No overnight events. No additional concerns per staff. Ongoing hemodialysis per nephrology. Repeat chest imaging 24 hours. 11/10 Patient still has shortness of breath but feels improving. Denies fever, chills, nausea or vomiting. He is now on 2 to 5 L oxygen Patient is not a candidate for remdesivir due to poor renal function. 11/11 Patient still has shortness of breath but feels improving. Denies fever, chills, nausea or vomiting. WBC went up to 13.1 today. Afebrile. Continue monitor Patient is now on 2 to 2.5 L 11/12 Today patient blood pressure is soft, around 100. He received HD today. He is now on 0-1.5L WBC 12.1 Repeat chest x-ray - Moderate atrophy left and smaller right basilar infiltrate worsening slightly. But his condition is clinically improving. 11/13 Today he was initially scheduled to be discharged. But discharge was cancelled due to SNF no ISO beds available until tomorrow morning. Pt is fine and does not have a new complaints He is on 2 L today. He will be possibly discharged tomorrow. 11/14 He feels fine. Denies fever, chills, or chest pain. He is on 2 L oxygen Today he may have dialysis. He may be able to discharge to SNF tomorrow. 11/15 Yesterday during dialysis he became more confused and have some strange blood pressure readings found with hypertensive than hypotensive than normal. Sugar was normal. He did have an episode very similar to this last admission. Stat CT brain was done which showed no acute changes. Dialysis was stopped and patient started improving within the hour. Patient slept well overnight no issues overnight. He does have a mildly productive cough and some shortness of breath but he says that average. He is on several liters of oxygen, and was on 3 L last night. His white blood cell count is elevated today. He has been on dexamethasone and his white blood cell count was stable but did increase today. His sputum culture did grow Streptococcus agalactiae. Antibiotics started. 11/16 No issues overnight. WBC count same as yesterday. Afebrile. No new complaints. Dexamethasone stopped. Scheduled for hemodialysis today. General surgeon to evaluate his HD catheter and malposition of it. 11/17 Patient is on only several liters of oxygen yesterday morning and then in the afternoon the nurse got him up to go to the commode and suddenly desatted in the 60s and it up requiring 100s at nonrebreather. After some time on that with no significant improvement was put on BiPAP for several hours with significant improvement and subsequently transitioned to 4 L nasal cannula and he was on 3-4 overnight. Now he is on 2 L nasal cannula this morning. He feels better. He looks as good as I have ever seen him. His white blood cell count has improved again to the 12's. Right basilar infiltrates improving on chest x-ray. Review of Systems: Unable to get review of systems as is batteries are for his cochlear implant Constitutional Vitals: Vital Signs Temp Pulse Resp BP Pulse Ox 97.8 F 72 20 131/70 89 L 11/17/19 22:10 11/18/19 05:01 11/17/19 17:34 11/18/19 05:01 11/18/19 05:01 Period Temp Pulse Resp BP Sys/Joseph Pulse Ox Last 24 Hr 97.0 F-97.9 F 57-77 16-33 94-143/52-75 65-100 Intake and Output 11/17/19 11/18/19 11/18/19 21:59 05:59 13:59 Intake Total 690 175 50 Output Total 0 125 Balance 690 50 50 Weight 83.688 kg Intake & Output: Intake & Output 11/17/19 11/18/19 11/18/19 21:59 05:59 13:59 Intake Total 690 175 50 Output Total 0 125 Balance 690 50 50 Weight 83.688 kg Intake: IV 50 50 50 Zosyn 2.25 gm In Dextrose 5% in 50 50 50 Water 50 ml @ 100 mls/hr IV Q8H [facility] Rx#:[id number] Oral 640 125 Output: Void Amount 125 Hemodialysis UF 0 Other: Meal Dinner Percent of Meal Consumed 75% Feeding Ability Independent Urine Appearance Clear Urine Color Dark Darlene Stool Size Moderate Stool Color Brown Stool Consistency Soft # of times incontinent of 1 Bowels Exam: General: Awake, No acute Distress Eyes/N/T: EOMI, Head/Neck: neck supple, CV: RRR, No murmurs, Pulm: mildly left rhonchi, right clear laterally, no wheezing Abd: soft, nontender, +BS x4 Ext: no clubbing/cyanosis/edema Neuro: Alert, follows commands , right side weakness chronic from previous cva Skin: warm/dry OBJ DATA Labs CBC & Chem 7: 11/18/19 05:15 11/18/19 05:15 Labs: Abnormal Lab Results 11/18/19 11/18/19 11/17/19 05:15 05:15 04:51 WBC 12.8 H 17.9 H RBC 3.10 L 3.24 L Hgb 10.2 L 10.6 L Hct 30.1 L 31.6 L Gran % 78.8 H Lymph % (Auto) 10.1 L Gran # 10.07 H Lymph # (Auto) 1.29 L Ogle # (Auto) 1.05 H Lymphocytes % 10 L Monocytes % (Manual) Metamyelocytes % 1 H Myelocytes % 3 H ESR Chloride 95 L Anion Gap BUN 30 H Creatinine 3.8 H Glucose Alkaline Phosphatase C-Reactive Protein Albumin Globulin Albumin/Globulin Ratio 11/17/19 11/17/19 11/17/19 04:50 04:50 04:50 WBC RBC Hgb Hct Gran % Lymph % (Auto) Gran # Lymph # (Auto) Ogle # (Auto) Lymphocytes % Monocytes % (Manual) Metamyelocytes % Myelocytes % ESR 80 H Chloride 94 L Anion Gap 22.0 H BUN 59 H Creatinine 5.1 H* Glucose 111 H Alkaline Phosphatase C-Reactive Protein 1.5 H Albumin Globulin Albumin/Globulin Ratio 11/16/19 11/16/19 11/16/19 05:00 05:00 05:00 WBC 17.3 H RBC 3.58 L Hgb 11.7 L Hct 35.4 L Gran % 81.7 H Lymph % (Auto) 8.4 L Gran # 14.17 H Lymph # (Auto) 1.46 L Ogle # (Auto) 1.38 H Lymphocytes % 7 L Monocytes % (Manual) 13 H Metamyelocytes % 2 H Myelocytes % 2 H ESR Chloride 95 L Anion Gap 22.0 H BUN 39 H Creatinine 4.0 H Glucose Alkaline Phosphatase 168 H C-Reactive Protein Albumin Globulin 3.9 H Albumin/Globulin Ratio 0.9 L 11/15/19 11/15/19 05:10 05:10 WBC 12.5 H RBC 3.11 L Hgb 10.1 L Hct 30.9 L Gran % 80.6 H Lymph % (Auto) 9.5 L Gran # 10.07 H Lymph # (Auto) 1.18 L Ogle # (Auto) 1.08 H Lymphocytes % Monocytes % (Manual) Metamyelocytes % Myelocytes % ESR Chloride Anion Gap 19.0 H BUN 61 H Creatinine 4.8 H Glucose 153 H Alkaline Phosphatase 167 H C-Reactive Protein Albumin 3.0 L Globulin 3.9 H Albumin/Globulin Ratio 0.8 L Meds: Medications Acetaminophen (Tylenol) 650 mg PO Q8HP PRN PRN Reason: PAIN/FEVER > 101 Hydrocodone Bitart/Acetaminophen ([place] 5/325mg) 1 tab PO Q4HP PRN; Protocol PRN Reason: Pain Aspirin (Aspirin) 81 mg PO DAILY [place] Benzonatate (Tessalon) 100 mg PO TIDP PRN PRN Reason: Cough Bisacodyl (Dulcolax) 10 mg AR QDAY PRN PRN Reason: Constipation Dextrose (Dextrose 50%) 0 ml IV UD PRN PRN Reason: Hypoglycemia Diagnostic Test (Pha) (Accu-Chek) 1 each FS ACHS [facility] Last Admin: 11/17/19 21:40 Dose: 1 each Documented by: Docusate Sodium (Colace) 100 mg PO BID [facility] Last Admin: 11/17/19 21:26 Dose: Not Given Documented by: Fluticasone Propionate (Flonase) 1 spray NS DAILY [facility] Folic Acid (Folic Acid) 1 mg PO QDAY [facility] Glucose (Insta-Glucose) 15 gm PO PRN PRN PRN Reason: Hypoglycemia Guaifenesin (Mucinex) 600 mg PO BIDP PRN PRN Reason: Congestion Heparin Sodium (Porcine) (Heparin) 5,000 unit SQ Q12 [facility] Last Admin: 11/17/19 21:44 Dose: 5,000 unit Documented by: Hydralazine HCl (Apresoline) 50 mg PO DAILY [facility] Hydrochlorothiazide (Oretic) 50 mg PO DAILY [facility] Acetaminophen (Ofirmev) 650 mg in 65 mls @ 130 mls/hr IV Q6HP PRN; Protocol PRN Reason: Per Pain Protocol/Fever > 101 Magnesium Sulfate (Magnesium Sulfate) 2 gm in 50 mls @ 50 mls/hr IV UD PRN PRN Reason: Mag < or = 1.7 Piperacillin Sod/Tazobactam (Sod 2.25 gm/ Dextrose) 50 mls @ 100 mls/hr IV Q8H [facility]; Protocol Last Infusion: 11/18/19 06:20 Dose: Infused Documented by: Insulin Human Lispro (Humalog) 0 unit SQ ACHS [facility]; Protocol Last Admin: 11/17/19 21:40 Dose: Not Given Documented by: Methocarbamol (Robaxin) 500 mg PO TIDP PRN PRN Reason: Pain and spasm Metoprolol Succinate (Toprol Xl) 100 mg PO BID [place] Last Admin: 11/17/19 21:44 Dose: 100 mg Documented by: Pantoprazole Sodium (Protonix) 40 mg PO BIDAC [place] Potassium Chloride (Potassium Chloride) 20 meq PO BIDCC PRN PRN Reason: K <3.6 Senna (Senokot) 2 tab PO DAILYP PRN PRN Reason: Constipation Sodium Chloride (Saline Flush) 10 ml IV Q8 [facility] Last Admin: 11/18/19 05:50 Dose: 10 ml Documented by: Tiotropium [place] (Spiriva) 18 mcg INH DAILY [facility] Torsemide (Demadex) 20 mg PO DAILY [facility] A/P Narrative A/P Narrative: A: *Acute hypoxic respiratory failure: 2/ covid PNA -now on 2L NC -poor reserve, desats easily and recovering is long *COVID-19 pneumonia with superimposed Bacterial PNA (SC growing Strep Agalactiae ): -CXR w/bibasilar infilatrates improving (11/20) *Leukocytosis: no bandemia, afebrile -now improving *h/o CVA w/residual right-sided weakness/numbness/Ataxia: on aspirin *Recent left hip fracture (10/20): *Sacral pressure ulcer: wound care *NPH: follows up with Dr. No *ESRD: follows with [facility]. *Malpositioned HD Tunnel Cath: needs to be withdrawn 7cm per radiology. *HTN: on thiazide/torsemide/hydralazine/BB *CADw/CABG 7 years ago at [place]: *DM type II: *h/o alcoholism: no evidence of withdrawal *GERD: continue PPI *Goals of care: long-term prognosis guarded given significant comorbidities with recent hospitalizations and age Plan: -zosyn to rocephing -wean O2 as able, IS/Acapella -Continue hemodialysis per nephrology -continue frequent offloading/wound care -continue basal and SSI -HD Tunnel Cath will need adjustment (withdrawn) once recovered from illness or done urgently if becomes nonfunctional, discussed with General Surgeon -Discharge planning per case management -pt/ot -ppx: heparin Code status: DNR Time Spent With Patient Time: Total time spent is greater than 50% in coordination of care (as documented) at patient's floor/unit and/or counseling patient: QUALITY VTE Deep Vein Thrombosis/Pulmonary Embolism Present on Admission: No
[2019-11-18] MEDS: DOCUSATE SODIUM 100 MG CAPSULE PO SCH ×2 (08:29→20:57)
[2019-11-18] MEDS: TORSEMIDE 10 MG TABLET PO SCH (08:58)
[2019-11-18] MEDS: FOLIC ACID 1 MG TABLET PO SCH (08:58)
[2019-11-18] MEDS: HYDROCHLOROTHIAZIDE 25 MG TABLET PO SCH (08:59)
[2019-11-18] MEDS: METOPROLOL SUCCINATE 50 MG TAB.XL.24H PO SCH ×2 (08:59→21:28)
[2019-11-18] MEDS: HEPARIN 5,000 UNIT/ML VIAL SQ SCH ×2 (08:59→21:27)
[2019-11-18] MEDS: ASPIRIN 81 MG TAB.CHEW PO SCH (08:59)
[2019-11-18] MEDS: INSULIN LISPRO 1 UNIT/0.01 ML UNIT SQ SCH ×4 (09:13→21:28)
[2019-11-18] MEDS: cefTRIAXone 2 GM in DEXTROSE 5% IN WATER 50 ML IV SCH (09:13)
--- NOTE | 2019-11-18 09:28 | XRay Report ---
CLINICAL INFORMATION: hypoxia COMPARISON: 11/14/2019 FINDINGS: Mild cardiomegaly is unchanged. Central catheter tip overlies the right atrium near the tricuspid valve plane as before. Mediastinum and pulmonary vessels are normal. Left basilar infiltrate has improved and is now small. Right basilar infiltrate has nearly resolved. IMPRESSION: Slight improvement in moderate left basilar infiltrate. Small right basilar infiltrate is also improving Interpreted and Authenticated by: Abhishek Goldman 11/18/19
[2019-11-18] MEDS: TIOTROPIUM BROMIDE 18 MCG INHALANT INH SCH (09:44)
[2019-11-18] MEDS: hydrALAZINE 25 MG TABLET PO SCH (09:44)
[2019-11-18] MEDS: PANTOPRAZOLE 40 MG TABLET PO SCH ×2 (09:45→17:11)
[2019-11-18] MEDS: FLUTICASONE PROPIONATE SPRAY.NAS NS SCH (12:44)
[2019-11-19] MEDS: 0.9 % SODIUM CHLORIDE 10 ML SYRINGE IV SCH ×3 (05:37→21:18)
[2019-11-19] MEDS: PANTOPRAZOLE 40 MG TABLET PO SCH ×2 (06:41→17:44)
[2019-11-19] MEDS: INSULIN LISPRO 1 UNIT/0.01 ML UNIT SQ SCH ×4 (06:44→19:43)
--- NOTE | 2019-11-19 07:50 | Internal Med Progress Note ---
SUBJECTIVE Subjective Patient information: Note initiated : 11/19/19 at 7:48 am Service Date, if different from initiated Date: [] Patient: Darron Veliz a 74 y/o M admitted on 11/05/19 for increased shortness of breath. Chief Complaint: [] Interval history: Mr. Veliz is a 74 year old M with a history of CAD/DM type II/HTN/ESRD on HD 3 times a week who was recently discharged to [facility] following left hip fracture. He now presents to the ER today with increasing shortness of breath, decreased LOC and low saturation during dialysis not r esponding to supplemental oxygen. Patient has been experiencing low-grade fever last few days. He had a Kovic test done at dialysis which was positive. Work-up was consistent severe hypoxia with sats in 70s requiring 5 L oxygen. Imaging consistent with pneumonia, patient is a DNR and hence was not accepted to tertiary center after discussion the ER physician with [facility]. Patient was started on dexamethasone and subsequently hospitalist service was consulted for admission and management of COVID pneumonia. Remdesivir contraindicated in light of ESRD/GFR less than 30 At the time of evaluation patient is very drowsy sedated short of breath. No family members present. Most of the history is obtained from review of medical records and ER physician. 11/04-patient seen in room. Resting comfortably. On 4 L oxygen nasal cannula. No family at bedside. On COVID precautions. Nephrology consult for dialysis. 11/05-undergoing dialysis today. On 45 years oxygen. Able to communicate. Hard of hearing. Denies active distress.On COVID-19 precautions. Occasionally incontinent. 11/06-patient continues to be short of breath. No overnight events. White count 10,000. On 4 days oxygen. Ongoing hemodialysis per nephrology. Persistent interstitial lung disease on chest imaging. 11/07-traumatic deterioration in overall status requiring 10 L oxygen rebreather mask. Worsening respiratory status. Continue steroids/supplemental oxygen. Remains DNR. Will initiate high flow oxygen if necessary. Was barely able to tolerate hemodialysis for an hour 11/08-patient doing well. On 4 L oxygen. Alert and sitting on chair. No significant distress. No concerns per nursing staff. No overnight fever chills. Continuing dexamethasone. updated by nursing staff. 11/09-patient remains unchanged currently on 4 L oxygen. However worsening bilateral chest infiltrates on interval imaging. On dexamethasone. No overnight events. No additional concerns per staff. Ongoing hemodialysis per nephrology. Repeat chest imaging 24 hours. 11/10 Patient still has shortness of breath but feels improving. Denies fever, chills, nausea or vomiting. He is now on 2 to 5 L oxygen Patient is not a candidate for remdesivir due to poor renal function. 11/11 Patient still has shortness of breath but feels improving. Denies fever, chills, nausea or vomiting. WBC went up to 13.1 today. Afebrile. Continue monitor Patient is now on 2 to 2.5 L 11/12 Today patient blood pressure is soft, around 100. He received HD today. He is now on 0-1.5L WBC 12.1 Repeat chest x-ray - Moderate atrophy left and smaller right basilar infiltrate worsening slightly. But his condition is clinically improving. 11/13 Today he was initially scheduled to be discharged. But discharge was cancelled due to SNF no [facility] beds available until tomorrow morning. Pt is fine and does not have a new complaints He is on 2 L today. He will be possibly discharged tomorrow. 11/14 He feels fine. Denies fever, chills, or chest pain. He is on 2 L oxygen Today he may have dialysis. He may be able to discharge to SNF tomorrow. 11/15 Yesterday during dialysis he became more confused and have some strange blood pressure readings found with hypertensive than hypotensive than normal. Sugar was normal. He did have an episode very similar to this last admission. Stat CT brain was done which showed no acute changes. Dialysis was stopped and patient started improving within the hour. Patient slept well overnight no issues overnight. He does have a mildly productive cough and some shortness of breath but he says that average. He is on several liters of oxygen, and was on 3 L last night. His white blood cell count is elevated today. He has been on dexamethasone and his white blood cell count was stable but did increase today. His sputum culture did grow Streptococcus agalactiae. Antibiotics started. 11/16 No issues overnight. WBC count same as yesterday. Afebrile. No new complaints. Dexamethasone stopped. Scheduled for hemodialysis today. General surgeon to evaluate his HD catheter and malposition of it. 11/17 Patient is on only several liters of oxygen yesterday morning and then in the afternoon the nurse got him up to go to the commode and suddenly desatted in the 60s and it up requiring 100s at nonrebreather. After some time on that with no significant improvement was put on BiPAP for several hours with significant improvement and subsequently transitioned to 4 L nasal cannula and he was on 3-4 overnight. Now he is on 2 L nasal cannula this morning. He feels better. He looks as good as I have ever seen him. His white blood cell count has improved again to the 12's. Right basilar infiltrates improving on chest x-ray. 11/18 No overnight event or new complaints. Patient seems to be doing well. On 1 L nasal cannula. long-term facility unable to take him now because they have too many COVID-19 patient's. Review of Systems: Unable to get review of systems as is batteries are for his cochlear implant Constitutional Vitals: Vital Signs Temp Pulse Resp BP Pulse Ox 99.5 F H 69 18 124/64 96 11/19/19 00:01 11/18/19 09:01 11/19/19 00:01 11/19/19 04:01 11/19/19 05:59 Period Temp Pulse Resp BP Sys/Joseph Pulse Ox Last 24 Hr 97.8 F-99.9 F 67-69 16-22 97-146/53-86 90-100 Intake and Output 11/18/19 11/19/19 11/19/19 21:59 05:59 13:59 Intake Total 600 Output Total 150 125 Balance 450 -125 Weight 84.187 kg Intake & Output: Intake & Output 11/18/19 11/19/19 11/19/19 21:59 05:59 13:59 Intake Total 600 Output Total 150 125 Balance 450 -125 Weight 84.187 kg Intake: Nourishment/Supplement quantity 120 (ml) Oral 480 Output: Void Amount 150 125 Other: Meal Lunch Percent of Meal Consumed Refused Feeding Ability Independent Nourishment/Supplement name Boost Urine Appearance Clear Clear Urine Color Tea Colored Dark Darlene Stool Size Moderate Stool Color Brown Stool Consistency Soft # Bowel Movements 1 Exam: General: Awake, No acute Distress Eyes/N/T: EOMI, Head/Neck: neck supple, CV: RRR, No murmurs, Pulm: mildly left rhonchi, right clear laterally, no wheezing Abd: soft, nontender, +BS x4 Ext: no clubbing/cyanosis/edema Neuro: Alert, follows commands , right side weakness chronic from previous cva Skin: warm/dry OBJ DATA Labs CBC & Chem 7: 11/18/19 05:15 11/18/19 05:15 Labs: Abnormal Lab Results 11/18/19 11/18/19 11/17/19 05:15 05:15 04:51 WBC 12.8 H 17.9 H RBC 3.10 L 3.24 L Hgb 10.2 L 10.6 L Hct 30.1 L 31.6 L Gran % 78.8 H Lymph % (Auto) 10.1 L Gran # 10.07 H Lymph # (Auto) 1.29 L Frontier # (Auto) 1.05 H Lymphocytes % 10 L Monocytes % (Manual) Metamyelocytes % 1 H Myelocytes % 3 H ESR Chloride 95 L Anion Gap BUN 30 H Creatinine 3.8 H Glucose Alkaline Phosphatase C-Reactive Protein Globulin Albumin/Globulin Ratio 11/17/19 11/17/19 11/17/19 04:50 04:50 04:50 WBC RBC Hgb Hct Gran % Lymph % (Auto) Gran # Lymph # (Auto) Frontier # (Auto) Lymphocytes % Monocytes % (Manual) Metamyelocytes % Myelocytes % ESR 80 H Chloride 94 L Anion Gap 22.0 H BUN 59 H Creatinine 5.1 H* Glucose 111 H Alkaline Phosphatase C-Reactive Protein 1.5 H Globulin Albumin/Globulin Ratio 11/16/19 11/16/19 11/16/19 05:00 05:00 05:00 WBC 17.3 H RBC 3.58 L Hgb 11.7 L Hct 35.4 L Gran % 81.7 H Lymph % (Auto) 8.4 L Gran # 14.17 H Lymph # (Auto) 1.46 L Frontier # (Auto) 1.38 H Lymphocytes % 7 L Monocytes % (Manual) 13 H Metamyelocytes % 2 H Myelocytes % 2 H ESR Chloride 95 L Anion Gap 22.0 H BUN 39 H Creatinine 4.0 H Glucose Alkaline Phosphatase 168 H C-Reactive Protein Globulin 3.9 H Albumin/Globulin Ratio 0.9 L Meds: Medications Acetaminophen (Tylenol) 650 mg PO Q8HP PRN PRN Reason: PAIN/FEVER > 101 Hydrocodone Bitart/Acetaminophen (Verona 5/325mg) 1 tab PO Q4HP PRN; Protocol PRN Reason: Pain Aspirin (Aspirin) 81 mg PO DAILY [facility] Last Admin: 11/18/19 08:59 Dose: 81 mg Documented by: Benzonatate (Tessalon) 100 mg PO TIDP PRN PRN Reason: Cough Bisacodyl (Dulcolax) 10 mg MS QDAY PRN PRN Reason: Constipation Dextrose (Dextrose 50%) 0 ml IV UD PRN PRN Reason: Hypoglycemia Diagnostic Test (Pha) (Accu-Chek) 1 each FS ACHS [facility] Last Admin: 11/19/19 06:44 Dose: 1 each Documented by: Docusate Sodium (Colace) 100 mg PO BID [facility] Last Admin: 11/18/19 20:57 Dose: Not Given Documented by: Fluticasone Propionate (Flonase) 1 spray NS DAILY [facility] Last Admin: 11/18/19 12:44 Dose: 1 spray Documented by: Folic Acid (Folic Acid) 1 mg PO QDAY [facility] Last Admin: 11/18/19 08:58 Dose: 1 mg Documented by: Glucose (Insta-Glucose) 15 gm PO PRN PRN PRN Reason: Hypoglycemia Guaifenesin (Mucinex) 600 mg PO BIDP PRN PRN Reason: Congestion Heparin Sodium (Porcine) (Heparin) 5,000 unit SQ Q12 [facility] Last Admin: 11/18/19 21:27 Dose: 5,000 unit Documented by: Hydralazine HCl (Apresoline) 50 mg PO DAILY [facility] Last Admin: 11/18/19 09:44 Dose: 50 mg Documented by: Hydrochlorothiazide (Oretic) 50 mg PO DAILY [facility] Last Admin: 11/18/19 08:59 Dose: 50 mg Documented by: Acetaminophen (Ofirmev) 650 mg in 65 mls @ 130 mls/hr IV Q6HP PRN; Protocol PRN Reason: Per Pain Protocol/Fever > 101 Magnesium Sulfate (Magnesium Sulfate) 2 gm in 50 mls @ 50 mls/hr IV UD PRN PRN Reason: Mag < or = 1.7 Ceftriaxone Sodium 2 gm/ (Dextrose) 50 mls @ 100 mls/hr IV Q24H [facility]; Protocol Last Infusion: 11/18/19 09:45 Dose: Infused Documented by: Insulin Human Lispro (Humalog) 0 unit SQ ACHS [facility]; Protocol Last Admin: 11/19/19 06:44 Dose: Not Given Documented by: Methocarbamol (Robaxin) 500 mg PO TIDP PRN PRN Reason: Pain and spasm Metoprolol Succinate (Toprol Xl) 100 mg PO BID [facility] Last Admin: 11/18/19 21:28 Dose: 100 mg Documented by: Pantoprazole Sodium (Protonix) 40 mg PO BIDAC [facility] Last Admin: 11/19/19 06:41 Dose: 40 mg Documented by: Potassium Chloride (Potassium Chloride) 20 meq PO BIDCC PRN PRN Reason: K <3.6 Senna (Senokot) 2 tab PO DAILYP PRN PRN Reason: Constipation Sodium Chloride (Saline Flush) 10 ml IV Q8 [facility] Last Admin: 11/19/19 05:37 Dose: 10 ml Documented by: Tiotropium Meherrin (Spiriva) 18 mcg INH DAILY [facility] Last Admin: 11/18/19 09:44 Dose: 1 puff Documented by: Torsemide (Demadex) 20 mg PO DAILY [facility] Last Admin: 11/18/19 08:58 Dose: 20 mg Documented by: A/P Assessment and plan (1) Hemodialysis catheter malfunction: Status: Acute Comment: Narrative A/P Narrative: A: *Acute hypoxic respiratory failure: 2/2 covid PNA -now on 1L NC -poor reserve, desats easily and recovering is long *COVID-19 pneumonia with superimposed Bacterial PNA (SC growing Strep Agalactiae ): -CXR w/bibasilar infilatrates improving (11/20) *Leukocytosis: no bandemia, afebrile -now improving *h/o CVA w/residual right-sided weakness/numbness/Ataxia: on aspirin *Recent left hip fracture (10/20): *Sacral pressure ulcer: wound care *NPH: follows up with Dr. No *ESRD: follows with [facility]. *Malpositioned HD Tunnel Cath: needs to be withdrawn 7cm per radiology. *HTN: on thiazide/torsemide/hydralazine/BB *CADw/CABG 7 years ago at [place]: *DM type II: *h/o alcoholism: no evidence of withdrawal *GERD: continue PPI *Goals of care: long-term prognosis guarded given significant comorbidities with recent hospitalizations and age Plan: - rocephin -wean O2 as able, IS/Acapella -Continue hemodialysis per nephrology -continue frequent offloading/wound care -continue basal and SSI -HD Tunnel Cath will need adjustment (withdrawn) once recovered from illness or done urgently if becomes nonfunctional, discussed with General Surgeon. f/u with Dr. Elizondo outpt -Discharge planning per case management -pt/ot -ppx: heparin Code status: DNR Time Spent With Patient Time: Total time spent is greater than 50% in coordination of care (as documented) at patient's floor/unit and/or counseling patient: QUALITY VTE Deep Vein Thrombosis/Pulmonary Embolism Present on Admission: No
[2019-11-19] MEDS: FLUTICASONE PROPIONATE SPRAY.NAS NS SCH (09:25)
[2019-11-19] MEDS: METOPROLOL SUCCINATE 50 MG TAB.XL.24H PO SCH ×2 (09:25→21:10)
[2019-11-19] MEDS: ASPIRIN 81 MG TAB.CHEW PO SCH (09:26)
[2019-11-19] MEDS: HEPARIN 5,000 UNIT/ML VIAL SQ SCH ×2 (09:26→21:17)
[2019-11-19] MEDS: HYDROCHLOROTHIAZIDE 25 MG TABLET PO SCH (09:26)
[2019-11-19] MEDS: hydrALAZINE 25 MG TABLET PO SCH (09:26)
[2019-11-19] MEDS: FOLIC ACID 1 MG TABLET PO SCH (09:26)
[2019-11-19] MEDS: TORSEMIDE 10 MG TABLET PO SCH (09:26)
[2019-11-19] MEDS: TIOTROPIUM BROMIDE 18 MCG INHALANT INH SCH (09:27)
[2019-11-19] MEDS: cefTRIAXone 2 GM in DEXTROSE 5% IN WATER 50 ML IV SCH (09:27)
[2019-11-19] MEDS: DOCUSATE SODIUM 100 MG CAPSULE PO SCH ×2 (09:27→19:43)
[2019-11-19] MEDS ORDERED: BISACODYL 10 MG SUPP.RECT PR PRN (09:37)
[2019-11-19] MEDS ORDERED: guaiFENesin 600 MG TAB.SR.12H PO PRN (09:37)
[2019-11-19] MEDS ORDERED: POTASSIUM CHLORIDE 20 MEQ/15 ML ML PO PRN (09:37)
[2019-11-19] MEDS ORDERED: ACETAMINOPHEN 650 MG/65 ML BOTTLE IV PRN (09:37)
[2019-11-19] MEDS ORDERED: SENNOSIDES 1 TABLET PO PRN (09:37)
[2019-11-19] MEDS ORDERED: MAGNESIUM SULFATE 2 GM/50 ML BAG IV PRN (09:37)
[2019-11-19] MEDS ORDERED: DEXTROSE 50% 50 ML VIAL IV PRN (09:37)
[2019-11-19] MEDS ORDERED: DEXTROSE 31 GM ORAL.SUSP PO PRN (09:37)
[2019-11-19] MEDS ORDERED: BENZONATATE 100 MG CAPSULE PO PRN (09:37)
[2019-11-19] MEDS ORDERED: METHOCARBAMOL 500 MG TABLET PO PRN (09:37)
[2019-11-19] MEDS ORDERED: ACETAMINOPHEN 325 MG TABLET PO PRN (09:37)
[2019-11-20] MEDS: 0.9 % SODIUM CHLORIDE 10 ML SYRINGE IV SCH ×3 (05:38→20:20)
--- NOTE | 2019-11-20 07:25 | Internal Med Progress Note ---
SUBJECTIVE Subjective Patient information: Note initiated : 11/20/19 at 7:23 am Service Date, if different from initiated Date: [] Patient: Darron Veliz a 74 y/o M admitted on 11/05/19 for increased shortness of breath. Chief Complaint: [] Interval history: Mr. Veliz is a 74 year old M with a history of CAD/DM type II/HTN/ESRD on HD 3 times a week who was recently discharged to [facility] following left hip fracture. He now presents to the ER today with increasing shortness of breath, decreased LOC and low saturation during dialysis not r esponding to supplemental oxygen. Patient has been experiencing low-grade fever last few days. He had a Kovic test done at dialysis which was positive. Work-up was consistent severe hypoxia with sats in 70s requiring 5 L oxygen. Imaging consistent with pneumonia, patient is a DNR and hence was not accepted to tertiary center after discussion the ER physician with [facility]. Patient was started on dexamethasone and subsequently hospitalist service was consulted for admission and management of COVID pneumonia. Remdesivir contraindicated in light of ESRD/GFR less than 30 At the time of evaluation patient is very drowsy sedated short of breath. No family members present. Most of the history is obtained from review of medical records and ER physician. 11/04-patient seen in room. Resting comfortably. On 4 L oxygen nasal cannula. No family at bedside. On COVID precautions. Nephrology consult for dialysis. 11/05-undergoing dialysis today. On 45 years oxygen. Able to communicate. Hard of hearing. Denies active distress.On COVID-19 precautions. Occasionally incontinent. 11/06-patient continues to be short of breath. No overnight events. White count 10,000. On 4 days oxygen. Ongoing hemodialysis per nephrology. Persistent interstitial lung disease on chest imaging. 11/07-traumatic deterioration in overall status requiring 10 L oxygen rebreather mask. Worsening respiratory status. Continue steroids/supplemental oxygen. Remains DNR. Will initiate high flow oxygen if necessary. Was barely able to tolerate hemodialysis for an hour 11/08-patient doing well. On 4 L oxygen. Alert and sitting on chair. No significant distress. No concerns per nursing staff. No overnight fever chills. Continuing dexamethasone. updated by nursing staff. 11/09-patient remains unchanged currently on 4 L oxygen. However worsening bilateral chest infiltrates on interval imaging. On dexamethasone. No overnight events. No additional concerns per staff. Ongoing hemodialysis per nephrology. Repeat chest imaging 24 hours. 11/10 Patient still has shortness of breath but feels improving. Denies fever, chills, nausea or vomiting. He is now on 2 to 5 L oxygen Patient is not a candidate for remdesivir due to poor renal function. 11/11 Patient still has shortness of breath but feels improving. Denies fever, chills, nausea or vomiting. WBC went up to 13.1 today. Afebrile. Continue monitor Patient is now on 2 to 2.5 L 11/12 Today patient blood pressure is soft, around 100. He received HD today. He is now on 0-1.5L WBC 12.1 Repeat chest x-ray - Moderate atrophy left and smaller right basilar infiltrate worsening slightly. But his condition is clinically improving. 11/13 Today he was initially scheduled to be discharged. But discharge was cancelled due to SNF no [facility] beds available until tomorrow morning. Pt is fine and does not have a new complaints He is on 2 L today. He will be possibly discharged tomorrow. 11/14 He feels fine. Denies fever, chills, or chest pain. He is on 2 L oxygen Today he may have dialysis. He may be able to discharge to SNF tomorrow. 11/15 Yesterday during dialysis he became more confused and have some strange blood pressure readings found with hypertensive than hypotensive than normal. Sugar was normal. He did have an episode very similar to this last admission. Stat CT brain was done which showed no acute changes. Dialysis was stopped and patient started improving within the hour. Patient slept well overnight no issues overnight. He does have a mildly productive cough and some shortness of breath but he says that average. He is on several liters of oxygen, and was on 3 L last night. His white blood cell count is elevated today. He has been on dexamethasone and his white blood cell count was stable but did increase today. His sputum culture did grow Streptococcus agalactiae. Antibiotics started. 11/16 No issues overnight. WBC count same as yesterday. Afebrile. No new complaints. Dexamethasone stopped. Scheduled for hemodialysis today. General surgeon to evaluate his HD catheter and malposition of it. 11/17 Patient is on only several liters of oxygen yesterday morning and then in the afternoon the nurse got him up to go to the commode and suddenly desatted in the 60s and it up requiring 100s at nonrebreather. After some time on that with no significant improvement was put on BiPAP for several hours with significant improvement and subsequently transitioned to 4 L nasal cannula and he was on 3-4 overnight. Now he is on 2 L nasal cannula this morning. He feels better. He looks as good as I have ever seen him. His white blood cell count has improved again to the 12's. Right basilar infiltrates improving on chest x-ray. 11/18 No overnight event or new complaints. Patient seems to be doing well. On 1 L nasal cannula. [facility] facility unable to take him now because they have too many COVID-19 patient's. 11/19 Did well overnight. No new issues or complaints. Has good oxygenation in the mid 90s on 1 L. Scheduled to undergo dialysis today. Review of Systems: Unable to get review of systems as is batteries are for his cochlear implant Constitutional Vitals: Vital Signs Temp Pulse Resp BP Pulse Ox 98.4 F 80 18 125/65 97 11/20/19 07:00 11/20/19 03:55 11/20/19 07:00 11/20/19 07:00 11/20/19 07:00 Period Temp Pulse Resp BP Sys/Joseph Pulse Ox Last 24 Hr 97.5 F-99 F 68-83 16-20 109-155/60-90 89-100 Intake and Output 11/19/19 11/20/19 11/20/19 21:59 05:59 13:59 Intake Total 1200 800 Output Total 446 602 Balance 754 198 Intake & Output: Intake & Output 11/19/19 11/20/19 11/20/19 21:59 05:59 13:59 Intake Total 1200 800 Output Total 446 602 Balance 754 198 Intake: Oral 1200 800 Output: Void Amount 445 600 # of times incontinent of urine 1 2 Other: Meal Dinner Percent of Meal Consumed Refused Feeding Ability Assist with Tray Set Up Urine Appearance Clear Clear Urine Color Dark Yellow Light Darlene Urine Odor Strong Strong Exam: General: Awake, No acute Distress Eyes/N/T: EOMI, Head/Neck: neck supple, CV: RRR, No murmurs, Pulm: minimal left rhonchi improved, right clear laterally, no wheezing Abd: soft, nontender, +BS x4 Ext: no clubbing/cyanosis/edema Neuro: Alert, follows commands , right side weakness chronic from previous cva Skin: warm/dry OBJ DATA Labs CBC & Chem 7: 11/18/19 05:15 11/18/19 05:15 Labs: Abnormal Lab Results 11/18/19 11/18/19 11/17/19 05:15 05:15 04:51 WBC 12.8 H RBC 3.10 L Hgb 10.2 L Hct 30.1 L Gran % 78.8 H Lymph % (Auto) 10.1 L Gran # 10.07 H Lymph # (Auto) 1.29 L [place] # (Auto) 1.05 H Lymphocytes % 10 L Metamyelocytes % 1 H Myelocytes % 3 H ESR Chloride 95 L Anion Gap BUN 30 H Creatinine 3.8 H Glucose C-Reactive Protein 11/17/19 11/17/19 11/17/19 04:50 04:50 04:50 WBC RBC Hgb Hct Gran % Lymph % (Auto) Gran # Lymph # (Auto) [place] # (Auto) Lymphocytes % Metamyelocytes % Myelocytes % ESR 80 H Chloride 94 L Anion Gap 22.0 H BUN 59 H Creatinine 5.1 H* Glucose 111 H C-Reactive Protein 1.5 H Meds: Medications Acetaminophen (Tylenol) 650 mg PO Q8HP PRN PRN Reason: PAIN/FEVER > 101 Hydrocodone Bitart/Acetaminophen ([place] 5/325mg) 1 tab PO Q4HP PRN; Protocol PRN Reason: Pain Aspirin (Aspirin) 81 mg PO DAILY [place] Benzonatate (Tessalon) 100 mg PO TIDP PRN PRN Reason: Cough Bisacodyl (Dulcolax) 10 mg [place] QDAY PRN PRN Reason: Constipation Dextrose (Dextrose 50%) 0 ml IV UD PRN PRN Reason: Hypoglycemia Diagnostic Test (Pha) (Accu-Chek) 1 each FS ACHS [facility] Last Admin: 11/19/19 21:13 Dose: 1 each Documented by: Docusate Sodium (Colace) 100 mg PO BID [facility] Last Admin: 11/19/19 19:43 Dose: Not Given Documented by: Fluticasone Propionate (Flonase) 1 spray NS DAILY [facility] Folic Acid (Folic Acid) 1 mg PO QDAY [facility] Glucose (Insta-Glucose) 15 gm PO PRN PRN PRN Reason: Hypoglycemia Guaifenesin (Mucinex) 600 mg PO BIDP PRN PRN Reason: Congestion Heparin Sodium (Porcine) (Heparin) 5,000 unit SQ Q12 [facility] Last Admin: 11/19/19 21:17 Dose: 5,000 unit Documented by: Hydralazine HCl (Apresoline) 50 mg PO DAILY [facility] Hydrochlorothiazide (Oretic) 50 mg PO DAILY [facility] Ceftriaxone Sodium 2 gm/ (Dextrose) 50 mls @ 100 mls/hr IV DAILY [facility]; Protocol Acetaminophen (Ofirmev) 650 mg in 65 mls @ 130 mls/hr IV Q6HP PRN; Protocol PRN Reason: Per Pain Protocol/Fever > 101 Magnesium Sulfate (Magnesium Sulfate) 2 gm in 50 mls @ 50 mls/hr IV UD PRN PRN Reason: Mag < or = 1.7 Insulin Human Lispro (Humalog) 0 unit SQ ACHS [facility]; Protocol Last Admin: 11/19/19 19:43 Dose: Not Given Documented by: Methocarbamol (Robaxin) 500 mg PO TIDP PRN PRN Reason: Pain and spasm Metoprolol Succinate (Toprol Xl) 100 mg PO BID [facility] Last Admin: 11/19/19 21:10 Dose: 100 mg Documented by: Pantoprazole Sodium (Protonix) 40 mg PO BIDAC [facility] Last Admin: 11/19/19 17:44 Dose: 40 mg Documented by: Potassium Chloride (Potassium Chloride) 20 meq PO BIDCC PRN PRN Reason: K <3.6 Senna (Senokot) 2 tab PO DAILYP PRN PRN Reason: Constipation Sodium Chloride (Saline Flush) 10 ml IV Q8 [facility] Last Admin: 11/20/19 05:38 Dose: 10 ml Documented by: Tiotropium [place] (Spiriva) 18 mcg INH DAILY [facility] Torsemide (Demadex) 20 mg PO DAILY [facility] A/P Assessment and plan (1) Hemodialysis catheter malfunction: Status: Acute Comment: Narrative A/P Narrative: A: *Acute hypoxic respiratory failure: 2/2 covid PNA -now on 1L NC with good sats -poor reserve, desats easily and recovering is long *COVID-19 pneumonia with superimposed Bacterial PNA (SC growing Strep Agalactiae ): -CXR w/bibasilar infilatrates improving (11/20) *Leukocytosis: no bandemia, afebrile -now improved *h/o CVA w/residual right-sided weakness/numbness/Ataxia: on aspirin *Recent left hip fracture (10/20): *Sacral pressure ulcer: wound care *NPH: follows up with Dr. No *ESRD: follows with [facility]. *Malpositioned HD Tunnel Cath: needs to be withdrawn 7cm per radiology. *HTN: on thiazide/torsemide/hydralazine/BB *CADw/CABG 7 years ago at [facility]: *DM type II: *h/o alcoholism: no evidence of withdrawal *GERD: continue PPI *Goals of care: long-term prognosis guarded given significant comorbidities with recent hospitalizations and age Plan: - rocephin -wean O2 as able, IS/Acapella -Continue hemodialysis per nephrology -continue frequent offloading/wound care -continue basal and SSI -HD Tunnel Cath will need adjustment (withdrawn) once recovered from illness or done urgently if becomes nonfunctional, discussed with General Surgeon. f/u with Dr. Elizondo outpt -Discharge planning per case management -pt/ot -Awaiting placement -ppx: heparin/home ppi Code status: DNR Time Spent With Patient Time: Total time spent is greater than 50% in coordination of care (as documented) at patient's floor/unit and/or counseling patient: QUALITY VTE Deep Vein Thrombosis/Pulmonary Embolism Present on Admission: No
[2019-11-20] MEDS: INSULIN LISPRO 1 UNIT/0.01 ML UNIT SQ SCH ×4 (08:58→20:19)
[2019-11-20] MEDS: METOPROLOL SUCCINATE 50 MG TAB.XL.24H PO SCH ×2 (09:00→20:19)
[2019-11-20] MEDS: HYDROCHLOROTHIAZIDE 25 MG TABLET PO SCH ×2 (09:00→09:59)
[2019-11-20] MEDS: ASPIRIN 81 MG TAB.CHEW PO SCH (09:00)
[2019-11-20] MEDS: hydrALAZINE 25 MG TABLET PO SCH ×2 (09:02→09:58)
[2019-11-20] MEDS: FLUTICASONE PROPIONATE SPRAY.NAS NS SCH (09:02)
[2019-11-20] MEDS: TORSEMIDE 10 MG TABLET PO SCH ×2 (09:02→09:58)
[2019-11-20] MEDS: FOLIC ACID 1 MG TABLET PO SCH (09:02)
[2019-11-20] MEDS: HEPARIN 5,000 UNIT/ML VIAL SQ SCH ×2 (09:03→20:19)
[2019-11-20] MEDS: DOCUSATE SODIUM 100 MG CAPSULE PO SCH ×2 (09:03→20:18)
[2019-11-20] MEDS: cefTRIAXone 2 GM in DEXTROSE 5% IN WATER 50 ML IV SCH (09:04)
[2019-11-20] MEDS: TIOTROPIUM BROMIDE 18 MCG INHALANT INH SCH (09:04)
--- NOTE | 2019-11-20 11:14 | Nephrology Progress Note ---
SUBJECTIVE Subjective Patient information: Note initiated : 11/20/19 at 11:13 am Service Date, if different from initiated Date: [] Patient: Darron Veliz 74 y/o M admitted on 11/05/19 for increased shortness of breath. Chief Complaint: Feeling better. No shortness of breath. Constitutional Vitals: Vital Signs Temp Pulse Resp BP Pulse Ox 98.4 F 80 18 125/65 97 11/20/19 07:00 11/20/19 03:55 11/20/19 07:00 11/20/19 07:00 11/20/19 07:00 Period Temp Pulse Resp BP Sys/Joseph Pulse Ox Last 24 Hr 97.5 F-99 F 68-83 16-20 109-155/60-90 89-100 Intake and Output 11/19/19 11/20/19 11/20/19 21:59 05:59 13:59 Intake Total 1200 800 600 Output Total 446 602 Balance 754 198 600 Intake & Output: Intake & Output 11/19/19 11/20/19 11/20/19 21:59 05:59 13:59 Intake Total 1200 800 600 Output Total 446 602 Balance 754 198 600 Intake: IV 50 Rocephin 2 gm In Dextrose 5% in 50 Water 50 ml @ 100 mls/hr IV DAILY [place] Rx#:[id number] Oral 1200 800 550 Output: Void Amount 445 600 # of times incontinent of urine 1 2 Other: Meal Dinner Breakfast Percent of Meal Consumed Refused 100% Feeding Ability Assist with Tray Set Up Assist with Tray Set Up Urine Appearance Clear Clear Urine Color Dark Yellow Light Darlene Urine Odor Strong Strong Lungs, decreased air entry. Cardiac regular pa soft nt -edema. A/P Narrative A/P Narrative: ESRD For HD today. He will have about one liter of fluid removed. COVID associated penumonia. Time Spent With Patient Time: Total time spent is greater than 50% in coordination of care (as documented) at patient's floor/unit and/or counseling patient:
[2019-11-20] MEDS: PANTOPRAZOLE 40 MG TABLET PO SCH ×2 (16:59→17:02)
[2019-11-21] MEDS: 0.9 % SODIUM CHLORIDE 10 ML SYRINGE IV SCH ×3 (04:31→21:22)
[2019-11-21 06:43] LABS: Basophils # (Auto) 0.11 K/mcL (0.00-0.30); Basophils % (Auto) 0.9 % (0.0-2.0); Eosinophils # (Auto) 0.31 K/mcL (0.00-0.70); Eosinophils % (Auto) 2.6 % (0.0-7.0); Granulocytes % (Auto) 73.9 % (38.0-78.0); Hematocrit 32.2 % (40.1-51.0); Hemoglobin 9.9 g/dL (13.7-17.5); Lymphocytes # (Auto) 1.17 K/mcL (1.50-4.80); Lymphocytes % (Auto) 9.7 % (15.5-49.0); Mean Cell Volume 107.3 fL (80.0-100.0); Mean Corpuscular HGB Conc 30.7 g/dL (31.0-36.0); Mean Platelet Volume 10.1 fL (7.4-10.4); Monocytes # (Auto) 1.56 K/mcL (0.10-0.90); Monocytes % (Auto) 12.9 % (1.0-12.0); Platelet Count 137 K/mcL (140-440); Red Cell Distribution Width 14.5 % (11.5-14.5); WBC 12.1 K/mcL (4.50-11.00)
[2019-11-21 07:09] LABS: ALT/SGPT 25 U/l (0-40); AST/SGOT 24 U/l (0-37); Albumin 2.8 gm/dL (3.2-5.2); Albumin/Globulin Ratio 0.7 (1.0-2.3); Alkaline Phosphatase 151 U/L (39-117); Blood Urea Nitrogen 25 mg/dl (8-23); Calcium 10.3 mg/dl (8.6-10.4); Carbon Dioxide 23 mmol/L (22-30); Chloride 96 mmol/L (96-108); Globulin 3.9 gm/dL (2.2-3.7); Glomerular Filtration Rate 14; Glucose 101 mg/dL (70-105)
[2019-11-21] MEDS: PANTOPRAZOLE 40 MG TABLET PO SCH ×2 (08:20→17:01)
[2019-11-21] MEDS: hydrALAZINE 25 MG TABLET PO SCH (08:21)
[2019-11-21] MEDS: ASPIRIN 81 MG TAB.CHEW PO SCH (08:22)
[2019-11-21] MEDS: TORSEMIDE 10 MG TABLET PO SCH (08:23)
[2019-11-21] MEDS: DOCUSATE SODIUM 100 MG CAPSULE PO SCH ×2 (08:23→21:11)
[2019-11-21] MEDS: FOLIC ACID 1 MG TABLET PO SCH (08:24)
[2019-11-21] MEDS: HYDROCHLOROTHIAZIDE 25 MG TABLET PO SCH (08:24)
[2019-11-21] MEDS: METOPROLOL SUCCINATE 50 MG TAB.XL.24H PO SCH ×2 (08:25→21:10)
[2019-11-21] MEDS: INSULIN LISPRO 1 UNIT/0.01 ML UNIT SQ SCH ×4 (08:28→21:22)
[2019-11-21] MEDS: HEPARIN 5,000 UNIT/ML VIAL SQ SCH ×2 (08:32→21:10)
--- NOTE | 2019-11-21 08:36 | XRay Report ---
CLINICAL INFORMATION: Infiltrates COMPARISON: 11/18/2019 FINDINGS: Borderline cardiomegaly is unchanged. Right IJ double-lumen catheter is in stable position. Mediastinum and pulmonary vessels are normal. Left basilar infiltrate is better aerated with moderate residual. Small residual right basilar infiltrate has also improved. Tiny bilateral pleural effusions noted IMPRESSION: Improvement in left basilar infiltrate - modest residual. Small right basilar infiltrate improved. Interpreted and Authenticated by: Abhishek Goldman 11/21/19
[2019-11-21] MEDS: cefTRIAXone 2 GM in DEXTROSE 5% IN WATER 50 ML IV SCH (09:20)
[2019-11-21] MEDS: FLUTICASONE PROPIONATE SPRAY.NAS NS SCH (09:41)
[2019-11-21] MEDS: TIOTROPIUM BROMIDE 18 MCG INHALANT INH SCH (09:42)
--- NOTE | 2019-11-21 15:12 | Internal Med Progress Note ---
SUBJECTIVE Subjective Patient information: Note initiated : 11/21/19 at 3:10 pm Service Date, if different from initiated Date: [] Patient: Darron Veliz a 74 y/o M admitted on 11/05/19 for increased shortness of breath. Chief Complaint: [] Interval history: Mr. Veliz is a 74 year old M with a history of CAD/DM type II/HTN/ESRD on HD 3 times a week who was recently discharged to [facility] left hip fracture. He now presents to the ER today with increasing shortness of breath, decreased LOC and low saturation during dialysis not responding to supplemental oxygen. Patient has been experiencing low-grade fever last few days. He had a Kovic test done at dialysis which was positive. Work-up was consistent severe hypoxia with sats in 70s requiring 5 L oxygen. Imaging consistent with pneumonia, patient is a DNR and hence was not accepted to tertiary center after discussion the ER physician with [facility]. Patient was started on dexamethasone and subsequently hospitalist service was consulted for admission and management of COVID pneumonia. Remdesivir contra indicated in light of ESRD/GFR less than 30 At the time of evaluation patient is very drowsy sedated short of breath. No family members present. Most of the history is obtained from review of medical records and ER physician. 11/04-patient seen in room. Resting comfortably. On 4 L oxygen nasal cannula. No family at bedside. On COVID precautions. Nephrology consult for dialysis. 11/05-undergoing dialysis today. On 45 years oxygen. Able to communicate. Hard of hearing. Denies active distress.On COVID-19 precautions. Occasionally incontinent. 11/06-patient continues to be short of breath. No overnight events. White count 10,000. On 4 days oxygen. Ongoing hemodialysis per nephrology. Persistent interstitial lung disease on chest imaging. 11/07-traumatic deterioration in overall status requiring 10 L oxygen rebreather mask. Worsening respiratory status. Continue steroids/supplemental oxygen. Remains DNR. Will initiate high flow oxygen if necessary. Was barely able to tolerate hemodialysis for an hour 11/08-patient doing well. On 4 L oxygen. Alert and sitting on chair. No significant distress. No concerns per nursing staff. No overnight fever chills. Continuing dexamethasone. updated by nursing staff. 11/09-patient remains unchanged currently on 4 L oxygen. However worsening bilateral chest infiltrates on interval imaging. On dexamethasone. No overnight events. No additional concerns per staff. Ongoing hemodialysis per nephrology. Repeat chest imaging 24 hours. 11/10 Patient still has shortness of breath but feels improving. Denies fever, chills, nausea or vomiting. He is now on 2 to 5 L oxygen Patient is not a candidate for remdesivir due to poor renal function. 11/11 Patient still has shortness of breath but feels improving. Denies fever, chills, nausea or vomiting. WBC went up to 13.1 today. Afebrile. Continue monitor Patient is now on 2 to 2.5 L 11/12 Today patient blood pressure is soft, around 100. He received HD today. He is now on 0-1.5L WBC 12.1 Repeat chest x-ray - Moderate atrophy left and smaller right basilar infiltrate worsening slightly. But his condition is clinically improving. 11/13 Today he was initially scheduled to be discharged. But discharge was cancelled due to [facility] no [facility] beds available until tomorrow morning. Pt is fine and does not have a new complaints He is on 2 L today. He will be possibly discharged tomorrow. 11/14 He feels fine. Denies fever, chills, or chest pain. He is on 2 L oxygen Today he may have dialysis. He may be able to discharge to SNF tomorrow. 11/15 Yesterday during dialysis he became more confused and have some strange blood pressure readings found with hypertensive than hypotensive than normal. Sugar was normal. He did have an episode very similar to this last admission. Stat CT brain was done which showed no acute changes. Dialysis was stopped and patient started improving within the hour. Patient slept well overnight no issues overnight. He does have a mildly productive cough and some shortness of breath but he says that average. He is on several liters of oxygen, and was on 3 L last night. His white blood cell count is elevated today. He has been on dexamethasone and his white blood cell count was stable but did increase today. His sputum cultur e did grow Streptococcus agalactiae. Antibiotics started. 11/16 No issues overnight. WBC count same as yesterday. Afebrile. No new complaints. Dexamethasone stopped. Scheduled for hemodialysis today. General surgeon to evaluate his HD catheter and malposition of it. 11/17 Patient is on only several liters of oxygen yesterday morning and then in the afternoon the nurse got him up to go to the commode and suddenly desatted in the 60s and it up requiring 100s at nonrebreather. After some time on that with no significant improvement was put on BiPAP for several hours with significant improvement and subsequently transitioned to 4 L nasal cannula and he was on 3-4 overnight. Now he is on 2 L nasal cannula this morning. He feels better. He looks as good as I have ever seen him. His white blood cell count has improved again to the 12's. Right basilar infiltrates improving on chest x-ray. 11/18 No overnight event or new complaints. Patient seems to be doing well. On 1 L nasal cannula. [facility] facility unable to take him now because they have too many COVID-19 patient's. 11/19 Did well overnight. No new issues or complaints. Has good oxygenation in the mid 90s on 1 L. Scheduled to undergo dialysis today. 11/20 Patient does not have any new complaints. No overnight events she Is on 1 L Waiting for being placed -possibly on . Review of Systems: Unable to get review of systems as is batteries are for his cochlear implant Constitutional Vitals: Vital Signs Temp Pulse Resp BP Pulse Ox 99.3 F H 78 22 123/65 96 11/21/19 12:00 11/21/19 12:00 11/21/19 12:00 11/21/19 12:00 11/21/19 12:00 Period Temp Pulse Resp BP Sys/Joseph Pulse Ox Last 24 Hr 97 F-101.3 F 72-106 18-24 101-127/58-79 88-100 Intake and Output 11/21/19 11/21/19 11/21/19 05:59 13:59 21:59 Intake Total 50 50 Balance 50 50 Weight 79.107 kg Intake & Output: Intake & Output 11/21/19 11/21/19 11/21/19 05:59 13:59 21:59 Intake Total 50 50 Balance 50 50 Weight 79.107 kg Intake: IV 50 Rocephin 2 gm In Dextrose 5% in 50 Water 50 ml @ 100 mls/hr IV DAILY LA Rx#:[id number] Oral 50 Additional findings Additional findings: General: Awake, No acute Distress Eyes/N/T: EOMI, Head/Neck: neck supple, CV: RRR, No murmurs, Pulm: minimal left rhonchi improved, right clear laterally, no wheezing Abd: soft, nontender, +BS x4 Ext: no clubbing/cyanosis/edema Neuro: Alert, follows commands , right side weakness chronic from previous cva Skin: warm/dry OBJ DATA Labs CBC & Chem 7: 11/21/19 05:01 11/21/19 05:01 Labs: Abnormal Lab Results 11/21/19 11/21/19 11/21/19 05:01 05:01 05:01 WBC 12.1 H RBC 3.00 L Hgb 9.9 L Hct 32.2 L MCV 107.3 H MCHC 30.7 L Plt Count 137 L Lymph % (Auto) 9.7 L [place] % (Auto) 12.9 H Gran # 8.97 H Lymph # (Auto) 1.17 L [place] # (Auto) 1.56 H BUN 25 H Creatinine 3.9 H Alkaline Phosphatase 151 H Albumin 2.8 L Globulin 3.9 H Albumin/Globulin Ratio 0.7 L Procalcitonin 0.36 H Meds: Medications Acetaminophen (Tylenol) 650 mg PO Q8HP PRN PRN Reason: PAIN/FEVER > 101 Last Admin: 11/20/19 20:19 Dose: 650 mg Documented by: Hydrocodone Bitart/Acetaminophen ([place] 5/325mg) 1 tab PO Q4HP PRN; Protocol PRN Reason: Pain Aspirin (Aspirin) 81 mg PO DAILY PENDING SALE TO [facility] Last Admin: 11/21/19 08:22 Dose: 81 mg Documented by: Benzonatate (Tessalon) 100 mg PO TIDP PRN PRN Reason: Cough Bisacodyl (Dulcolax) 10 mg [place] QDAY PRN PRN Reason: Constipation Dextrose (Dextrose 50%) 0 ml IV UD PRN PRN Reason: Hypoglycemia Diagnostic Test (Pha) (Accu-Chek) 1 each FS ACHS PENDING SALE TO [facility] Last Admin: 11/21/19 12:15 Dose: 1 each Documented by: Docusate Sodium (Colace) 100 mg PO BID PENDING SALE TO [facility] Last Admin: 11/21/19 08:23 Dose: Not Given Documented by: Fluticasone Propionate (Flonase) 1 spray NS DAILY PENDING SALE TO [facility] Last Admin: 11/21/19 09:41 Dose: 1 spray Documented by: Folic Acid (Folic Acid) 1 mg PO QDAY PENDING SALE TO [facility] Last Admin: 11/21/19 08:24 Dose: 1 mg Documented by: Glucose (Insta-Glucose) 15 gm PO PRN PRN PRN Reason: Hypoglycemia Guaifenesin (Mucinex) 600 mg PO BIDP PRN PRN Reason: Congestion Heparin Sodium (Porcine) (Heparin) 5,000 unit SQ Q12 PENDING SALE TO [facility] Last Admin: 11/21/19 08:32 Dose: 5,000 unit Documented by: Hydralazine HCl (Apresoline) 50 mg PO DAILY PENDING SALE TO [facility] Last Admin: 11/21/19 08:21 Dose: 50 mg Documented by: Hydrochlorothiazide (Oretic) 50 mg PO DAILY PENDING SALE TO [facility] Last Admin: 11/21/19 08:24 Dose: 50 mg Documented by: Ceftriaxone Sodium 2 gm/ (Dextrose) 50 mls @ 100 mls/hr IV DAILY PENDING SALE TO [facility]; Protocol Last Infusion: 11/21/19 09:50 Dose: Infused Documented by: Acetaminophen (Ofirmev) 650 mg in 65 mls @ 130 mls/hr IV Q6HP PRN; Protocol PRN Reason: Per Pain Protocol/Fever > 101 Magnesium Sulfate (Magnesium Sulfate) 2 gm in 50 mls @ 50 mls/hr IV UD PRN PRN Reason: Mag < or = 1.7 Insulin Human Lispro (Humalog) 0 unit SQ ACHS PENDING SALE TO [facility]; Protocol Last Admin: 11/21/19 12:17 Dose: Not Given Documented by: Methocarbamol (Robaxin) 500 mg PO TIDP PRN PRN Reason: Pain and spasm Metoprolol Succinate (Toprol Xl) 100 mg PO BID PENDING SALE TO [facility] Last Admin: 11/21/19 08:25 Dose: 100 mg Documented by: Pantoprazole Sodium (Protonix) 40 mg PO BIDAC PENDING SALE TO [facility] Last Admin: 11/21/19 08:20 Dose: 40 mg Documented by: Potassium Chloride (Potassium Chloride) 20 meq PO BIDCC PRN PRN Reason: K <3.6 Senna (Senokot) 2 tab PO DAILYP PRN PRN Reason: Constipation Sodium Chloride (Saline Flush) 10 ml IV Q8 PENDING SALE TO [facility] Last Admin: 11/21/19 04:31 Dose: 10 ml Documented by: Tiotropium [place] (Spiriva) 18 mcg INH DAILY PENDING SALE TO [facility] Last Admin: 11/21/19 09:42 Dose: 1 puff Documented by: Torsemide (Demadex) 20 mg PO DAILY LA Last Admin: 11/21/19 08:23 Dose: 20 mg Documented by: A/P Narrative A/P Narrative: 1. Acute hypoxic respiratory failure: 2/2 covid PNA -now on 1L NC with good sats -poor reserve, desats easily and recovering is long 2. COVID-19 pneumonia with superimposed Bacterial PNA (SC growing Strep Agalactiae): -CXR w/bibasilar infilatrates improving (11/20) 3. Leukocytosis: no bandemia, afebrile -now improved 4. h/o CVA w/residual right-sided weakness/numbness/Ataxia: on aspirin 5. Recent left hip fracture (10/20): 6. Sacral pressure ulcer: wound care 7. NPH: follows up with Dr. No 8. ESRD: follows with [facility]. 9. Malpositioned HD Tunnel Cath: needs to be withdrawn 7cm per radiology. 10. HTN: on thiazide/torsemide/hydralazine/BB 11. CADw/CABG 7 years ago at [place]: 12. DM type II: 13. h/o alcoholism: no evidence of withdrawal 14. GERD: continue PPI 15. Goals of care: long-term prognosis guarded given significant comorbidities with recent hospitalizations and age Plan: - rocephin -since 11/19 -wean O2 as able, IS/Acapella -Continue hemodialysis per nephrology -continue frequent offloading/wound care -continue basal and SSI -HD Tunnel Cath will need adjustment (withdrawn) once recovered from illness or done urgently if becomes nonfunctional, discussed with General Surgeon. f/u with Dr. Elizondo outpt -Discharge planning per case management - possibly on . -pt/ot -Awaiting placement -ppx: heparin/home ppi Code status: DNR Time Spent With Patient Time: Total time spent is greater than 50% in coordination of care (as documented) at patient's floor/unit and/or counseling patient: QUALITY VTE Deep Vein Thrombosis/Pulmonary Embolism Present on Admission: No
[2019-11-21] MEDS: HYDROcodone/APAP 5/325MG TABLET PO PRN ×2 (17:24→21:22)
[2019-11-22] MEDS: 0.9 % SODIUM CHLORIDE 10 ML SYRINGE IV SCH ×4 (06:04→21:02)
[2019-11-22 07:01] LABS: Basophils # (Auto) 0.08 K/mcL (0.00-0.30); Basophils % (Auto) 0.8 % (0.0-2.0); Eosinophils # (Auto) 0.27 K/mcL (0.00-0.70); Eosinophils % (Auto) 2.7 % (0.0-7.0); Granulocytes % (Auto) 77.3 % (38.0-78.0); Hematocrit 31.8 % (40.1-51.0); Hemoglobin 9.8 g/dL (13.7-17.5); Lymphocytes % (Auto) 8.9 % (15.5-49.0); Mean Cell Volume 108.9 fL (80.0-100.0); Mean Corpuscular HGB Conc 30.8 g/dL (31.0-36.0); Mean Platelet Volume 9.9 fL (7.4-10.4); Monocytes # (Auto) 1.04 K/mcL (0.10-0.90); Monocytes % (Auto) 10.3 % (1.0-12.0); RBC 2.92 M/mcL (4.63-6.08); Red Cell Distribution Width 14.5 % (11.5-14.5); WBC 10.1 K/mcL (4.50-11.00)
[2019-11-22 07:32] LABS: ALT/SGPT 27 U/l (0-40); AST/SGOT 24 U/l (0-37); Albumin 2.9 gm/dL (3.2-5.2); Albumin/Globulin Ratio 0.7 (1.0-2.3); Bilirubin,Total 0.5 mg/dL (0.0-1.0); Blood Urea Nitrogen 44 mg/dl (8-23); Carbon Dioxide 22 mmol/L (22-30); Chloride 96 mmol/L (96-108); Glucose 124 mg/dL (70-105)
[2019-11-22 07:33] LABS: Alkaline Phosphatase 165 U/L (39-117); Glomerular Filtration Rate 11
[2019-11-22] MEDS: INSULIN LISPRO 1 UNIT/0.01 ML UNIT SQ SCH ×4 (08:10→21:02)
[2019-11-22] MEDS: PANTOPRAZOLE 40 MG TABLET PO SCH ×2 (08:10→16:47)
[2019-11-22 08:15] LABS: Platelet Count 134 K/mcL (140-440)
--- NOTE | 2019-11-22 08:48 | Nephrology Progress Note ---
SUBJECTIVE Subjective Patient information: Note initiated : 11/22/19 at 8:47 am Service Date, if different from initiated Date: [] Patient: Darron Veliz 74 y/o M admitted on 11/05/19 for increased shortness of breath. Chief Complaint: Feels weak. No other specific complaints. Constitutional Vitals: Vital Signs Temp Pulse Resp BP Pulse Ox 98.7 F 79 20 126/70 95 11/22/19 08:00 11/22/19 08:00 11/22/19 08:00 11/22/19 08:00 11/22/19 08:00 Period Temp Pulse Resp BP Sys/Joseph Pulse Ox Last 24 Hr 98.7 F-99.6 F 78-89 18-24 105-133/61-74 90-98 Intake and Output 11/21/19 11/22/19 11/22/19 21:59 05:59 13:59 Intake Total 240 600 Output Total 101 Balance 139 600 Intake & Output: Intake & Output 11/21/19 11/22/19 11/22/19 21:59 05:59 13:59 Intake Total 240 600 Output Total 101 Balance 139 600 Intake: Oral 240 600 Output: Void Amount 100 # of times incontinent of urine 1 Other: Meal Dinner Percent of Meal Consumed 100% Lungs occasinoal rales. cardiac regular pa soft no edema. A/P Narrative A/P Narrative: ESRD. HD today. Will attempt to remove 1 liter of fluid and on 3K. Anemia. HB stable. HTN adequately controlled. Time Spent With Patient Time: Total time spent is greater than 50% in coordination of care (as documented) at patient's floor/unit and/or counseling patient:
[2019-11-22] MEDS: cefTRIAXone 2 GM in DEXTROSE 5% IN WATER 50 ML IV SCH (10:00)
[2019-11-22] MEDS: HYDROcodone/APAP 5/325MG TABLET PO PRN ×3 (10:21→20:59)
[2019-11-22] MEDS: TIOTROPIUM BROMIDE 18 MCG INHALANT INH SCH (10:21)
[2019-11-22] MEDS: FLUTICASONE PROPIONATE SPRAY.NAS NS SCH (10:21)
[2019-11-22] MEDS: TORSEMIDE 10 MG TABLET PO SCH (11:19)
[2019-11-22] MEDS: hydrALAZINE 25 MG TABLET PO SCH (11:19)
[2019-11-22] MEDS: HYDROCHLOROTHIAZIDE 25 MG TABLET PO SCH (11:20)
[2019-11-22] MEDS: METOPROLOL SUCCINATE 50 MG TAB.XL.24H PO SCH ×2 (11:20→21:02)
[2019-11-22] MEDS: FOLIC ACID 1 MG TABLET PO SCH (11:21)
[2019-11-22] MEDS: ASPIRIN 81 MG TAB.CHEW PO SCH (11:21)
[2019-11-22] MEDS: DOCUSATE SODIUM 100 MG CAPSULE PO SCH ×2 (11:21→20:58)
[2019-11-22] MEDS: HEPARIN 5,000 UNIT/ML VIAL SQ SCH ×2 (11:22→20:52)
--- NOTE | 2019-11-22 11:28 | Internal Med Progress Note ---
SUBJECTIVE Subjective Patient information: Note initiated : 11/22/19 at 11:26 am Service Date, if different from initiated Date: [] Patient: Darron Veliz a 74 y/o M admitted on 11/05/19 for increased shortness of breath. Chief Complaint: [] Interval history: Mr. Veliz is a 74 year old M with a history of CAD/DM type II/HTN/ESRD on HD 3 times a week who was recently discharged to [facility] following left hip fracture. He now presents to the ER today with increasing shortness of breath, decreased LOC and low saturation during dialysis not responding to supplemental oxygen. Patient has been experiencing low-grade fever last few days. He had a Kovic test done at dialysis which was positive. Work-up was consistent severe hypoxia with sats in 70s requiring 5 L oxygen. Imaging consistent with pneumonia, patient is a DNR and hence was not accepted to tertiary center after discussion the ER physician with [facility]. Patient was started on dexamethasone and subsequently hospitalist service was consulted for admission and management of COVID pneumonia. Remdesivir contr aindicated in light of ESRD/GFR less than 30 At the time of evaluation patient is very drowsy sedated short of breath. No family members present. Most of the history is obtained from review of medical records and ER physician. 11/04-patient seen in room. Resting comfortably. On 4 L oxygen nasal cannula. No family at bedside. On COVID precautions. Nephrology consult for dialysis. 11/05-undergoing dialysis today. On 45 years oxygen. Able to communicate. Hard of hearing. Denies active distress.On COVID-19 precautions. Occasionally incontinent. 11/06-patient continues to be short of breath. No overnight events. White count 10,000. On 4 days oxygen. Ongoing hemodialysis per nephrology. Persistent interstitial lung disease on chest imaging. 11/07-traumatic deterioration in overall status requiring 10 L oxygen rebreather mask. Worsening respiratory status. Continue steroids/supplemental oxygen. Remains DNR. Will initiate high flow oxygen if necessary. Was barely able to tolerate hemodialysis for an hour 11/08-patient doing well. On 4 L oxygen. Alert and sitting on chair. No significant distress. No concerns per nursing staff. No overnight fever chills. Continuing dexamethasone. updated by nursing staff. 11/09-patient remains unchanged currently on 4 L oxygen. However worsening bilateral chest infiltrates on interval imaging. On dexamethasone. No overnight events. No additional concerns per staff. Ongoing hemodialysis per nephrology. Repeat chest imaging 24 hours. 11/10 Patient still has shortness of breath but feels improving. Denies fever, chills, nausea or vomiting. He is now on 2 to 5 L oxygen Patient is not a candidate for remdesivir due to poor renal function. 11/11 Patient still has shortness of breath but feels improving. Denies fever, chills, nausea or vomiting. WBC went up to 13.1 today. Afebrile. Continue monitor Patient is now on 2 to 2.5 L 11/12 Today patient blood pressure is soft, around 100. He received HD today. He is now on 0-1.5L WBC 12.1 Repeat chest x-ray - Moderate atrophy left and smaller right basilar infiltrate worsening slightly. But his condition is clinically improving. 11/13 Today he was initially scheduled to be discharged. But discharge was cancelled due to SNF no [facility] beds available until tomorrow morning. Pt is fine and does not have a new complaints He is on 2 L today. He will be possibly discharged tomorrow. 11/14 He feels fine. Denies fever, chills, or chest pain. He is on 2 L oxygen Today he may have dialysis. He may be able to discharge to SNF tomorrow. 11/15 Yesterday during dialysis he became more confused and have some strange blood pressure readings found with hypertensive than hypotensive than normal. Sugar was normal. He did have an episode very similar to this last admission. Stat CT brain was done which showed no acute changes. Dialysis was stopped and patient started improving within the hour. Patient slept well overnight no issues overnight. He does have a mildly productive cough and some shortness of breath but he says that average. He is on several liters of oxygen, and was on 3 L last night. His white blood cell count is elevated today. He has been on dexamethasone and his white blood cell count was stable but did increase today. His sputum cultu re did grow Streptococcus agalactiae. Antibiotics started. 11/16 No issues overnight. WBC count same as yesterday. Afebrile. No new complaints. Dexamethasone stopped. Scheduled for hemodialysis today. General surgeon to evaluate his HD catheter and malposition of it. 11/17 Patient is on only several liters of oxygen yesterday morning and then in the afternoon the nurse got him up to go to the commode and suddenly desatted in the 60s and it up requiring 100s at nonrebreather. After some time on that with no significant improvement was put on BiPAP for several hours with significant improvement and subsequently transitioned to 4 L nasal cannula and he was on 3-4 overnight. Now he is on 2 L nasal cannula this morning. He feels better. He looks as good as I have ever seen him. His white blood cell count has improved again to the 12's. Right basilar infiltrates improving on chest x-ray. 11/18 No overnight event or new complaints. Patient seems to be doing well. On 1 L nasal cannula. long term facility unable to take him now because they have too many COVID-19 patient's. 11/19 Did well overnight. No new issues or complaints. Has good oxygenation in the mid 90s on 1 L. Scheduled to undergo dialysis today. 11/20 Patient does not have any new complaints. No overnight events she Is on 1 L Waiting for being placed -possibly on . 11/21 Does not have any new complaints. Vital signs are stable. On 0 to 1 L oxygen with a good oxygen saturation No overnight events Review of Systems: Unable to get review of systems as is batteries are for his cochlear i mplant Constitutional Vitals: Vital Signs Temp Pulse Resp BP Pulse Ox 98.7 F 79 20 126/70 95 11/22/19 08:00 11/22/19 08:00 11/22/19 08:00 11/22/19 08:00 11/22/19 08:00 Period Temp Pulse Resp BP Sys/Joseph Pulse Ox Last 24 Hr 98.7 F-99.6 F 78-89 18-24 105-133/61-74 90-98 Intake and Output 11/21/19 11/22/19 11/22/19 21:59 05:59 13:59 Intake Total 240 600 50 Output Total 101 Balance 139 600 50 Intake & Output: Intake & Output 11/21/19 11/22/19 11/22/19 21:59 05:59 13:59 Intake Total 240 600 50 Output Total 101 Balance 139 600 50 Intake: IV 50 Rocephin 2 gm In Dextrose 5% in 50 Water 50 ml @ 100 mls/hr IV DAILY [place] Rx#:[id number] Oral 240 600 Output: Void Amount 100 # of times incontinent of urine 1 Other: Meal Dinner Percent of Meal Consumed 100% Additional findings Additional findings: General: Awake, No acute Distress Eyes/N/T: EOMI, Head/Neck: neck supple, CV: RRR, No murmurs, Pulm: minimal left rhonchi improved, right clear laterally, no wheezing Abd: soft, nontender, +BS x4 Ext: no clubbing/cyanosis/edema Neuro: Alert, follows commands , right side weakness chronic from previous cva Skin: warm/dry OBJ DATA Labs CBC & Chem 7: 11/22/19 05:05 11/22/19 05:05 Labs: Abnormal Lab Results 11/22/19 11/22/19 11/21/19 05:05 05:05 05:01 WBC RBC 2.92 L Hgb 9.8 L Hct 31.8 L MCV 108.9 H MCHC 30.8 L Plt Count 134 L Lymph % (Auto) 8.9 L Ceiba % (Auto) Gran # Lymph # (Auto) 0.90 L Ceiba # (Auto) 1.04 H Anion Gap 19.0 H BUN 44 H Creatinine 5.0 H Glucose 124 H Alkaline Phosphatase 165 H Albumin 2.9 L Globulin 4.0 H Albumin/Globulin Ratio 0.7 L Procalcitonin 0.36 H 11/21/19 11/21/19 05:01 05:01 WBC 12.1 H RBC 3.00 L Hgb 9.9 L Hct 32.2 L MCV 107.3 H MCHC 30.7 L Plt Count 137 L Lymph % (Auto) 9.7 L Ceiba % (Auto) 12.9 H Gran # 8.97 H Lymph # (Auto) 1.17 L Ceiba # (Auto) 1.56 H Anion Gap BUN 25 H Creatinine 3.9 H Glucose Alkaline Phosphatase 151 H Albumin 2.8 L Globulin 3.9 H Albumin/Globulin Ratio 0.7 L Procalcitonin Meds: Medications Acetaminophen (Tylenol) 650 mg PO Q8HP PRN PRN Reason: PAIN/FEVER > 101 Last Admin: 11/20/19 20:19 Dose: 650 mg Documented by: Hydrocodone Bitart/Acetaminophen ([place] 5/325mg) 1 tab PO Q4HP PRN; Protocol PRN Reason: Pain Last Admin: 11/22/19 10:21 Dose: 1 tab Documented by: Aspirin (Aspirin) 81 mg PO DAILY [facility] Last Admin: 11/22/19 11:21 Dose: 81 mg Documented by: Benzonatate (Tessalon) 100 mg PO TIDP PRN PRN Reason: Cough Bisacodyl (Dulcolax) 10 mg RI QDAY PRN PRN Reason: Constipation Dextrose (Dextrose 50%) 0 ml IV UD PRN PRN Reason: Hypoglycemia Diagnostic Test (Pha) (Accu-Chek) 1 each FS ACHS [facility] Last Admin: 11/22/19 08:06 Dose: 1 each Documented by: Docusate Sodium (Colace) 100 mg PO BID [facility] Last Admin: 11/22/19 11:21 Dose: 100 mg Documented by: Fluticasone Propionate (Flonase) 1 spray NS DAILY [facility] Last Admin: 11/22/19 10:21 Dose: 1 spray Documented by: Folic Acid (Folic Acid) 1 mg PO QDAY [facility] Last Admin: 11/22/19 11:21 Dose: 1 mg Documented by: Glucose (Insta-Glucose) 15 gm PO PRN PRN PRN Reason: Hypoglycemia Guaifenesin (Mucinex) 600 mg PO BIDP PRN PRN Reason: Congestion Heparin Sodium (Porcine) (Heparin) 5,000 unit SQ Q12 [facility] Last Admin: 11/22/19 11:22 Dose: 5,000 unit Documented by: Hydralazine HCl (Apresoline) 50 mg PO DAILY [facility] Last Admin: 11/22/19 11:19 Dose: Not Given Documented by: Hydrochlorothiazide (Oretic) 50 mg PO DAILY [facility] Last Admin: 11/22/19 11:20 Dose: Not Given Documented by: Ceftriaxone Sodium 2 gm/ (Dextrose) 50 mls @ 100 mls/hr IV DAILY [facility]; Protocol Last Infusion: 11/22/19 10:35 Dose: Infused Documented by: Acetaminophen (Ofirmev) 650 mg in 65 mls @ 130 mls/hr IV Q6HP PRN; Protocol PRN Reason: Per Pain Protocol/Fever > 101 Magnesium Sulfate (Magnesium Sulfate) 2 gm in 50 mls @ 50 mls/hr IV UD PRN PRN Reason: Mag < or = 1.7 Insulin Human Lispro (Humalog) 0 unit SQ ACHS [facility]; Protocol Last Admin: 11/22/19 08:10 Dose: Not Given Documented by: Methocarbamol (Robaxin) 500 mg PO TIDP PRN PRN Reason: Pain and spasm Metoprolol Succinate (Toprol Xl) 100 mg PO BID [facility] Last Admin: 11/22/19 11:20 Dose: Not Given Documented by: Pantoprazole Sodium (Protonix) 40 mg PO BIDAC [facility] Last Admin: 11/22/19 08:10 Dose: 40 mg Documented by: Potassium Chloride (Potassium Chloride) 20 meq PO BIDCC PRN PRN Reason: K <3.6 Senna (Senokot) 2 tab PO DAILYP PRN PRN Reason: Constipation Sodium Chloride (Saline Flush) 10 ml IV Q8 [facility] Last Admin: 11/22/19 06:04 Dose: 10 ml Documented by: Tiotropium [place] (Spiriva) 18 mcg INH DAILY [facility] Last Admin: 11/22/19 10:21 Dose: 1 puff Documented by: Torsemide (Demadex) 20 mg PO DAILY [facility] Last Admin: 11/22/19 11:19 Dose: Not Given Documented by: Vitamin B Complex (Vitamin B Complex) 1 cap PO DAILY [facility] A/P Narrative A/P Narrative: 1. Acute hypoxic respiratory failure: 2/2 covid PNA -now on 1L NC with good sats -poor reserve, desats easily and recovering is long 2. COVID-19 pneumonia with superimposed Bacterial PNA (SC growing Strep Agalactiae): -CXR w/bibasilar infilatrates improving (11/20) 3. Leukocytosis: no bandemia, afebrile -now improved 4. h/o CVA w/residual right-sided weakness/numbness/Ataxia: on aspirin 5. Recent left hip fracture (10/20): 6. Sacral pressure ulcer: wound care 7. NPH: follows up with Dr. No 8. ESRD: follows with [facility]. 9. Malpositioned HD Tunnel Cath: needs to be withdrawn 7cm per radiology. 10. HTN: on thiazide/torsemide/hydralazine/BB 11. CADw/CABG 7 years ago at [place]: 12. DM type II: 13. h/o alcoholism: no evidence of withdrawal 14. GERD: continue PPI 15. Goals of care: long-term prognosis guarded given significant comorbidities with recent hospitalizations and age Plan: - warrenctn -since 11/19 -wean O2 as able, IS/Acapella -Continue hemodialysis per nephrology -continue frequent offloading/wound care -continue basal and SSI -HD Tunnel Cath will need adjustment (withdrawn) once recovered from illness or done urgently if becomes nonfunctional, discussed with General Surgeon. f/u with Dr. Mikhail garciapt -Discharge planning per case management - possibly on . -pt/ot -Awaiting placement -ppx: heparin/home ppi Code status: DNR Time Spent With Patient Time: Total time spent is greater than 50% in coordination of care (as documented) at patient's floor/unit and/or counseling patient: QUALITY VTE Deep Vein Thrombosis/Pulmonary Embolism Present on Admission: No
[2019-11-23] MEDS: 0.9 % SODIUM CHLORIDE 10 ML SYRINGE IV SCH ×2 (03:37→04:38)
[2019-11-23 06:26] LABS: Basophils # (Auto) 0.06 K/mcL (0.00-0.30); Basophils % (Auto) 0.6 % (0.0-2.0); Eosinophils # (Auto) 0.23 K/mcL (0.00-0.70); Eosinophils % (Auto) 2.3 % (0.0-7.0); Granulocytes % (Auto) 75.5 % (38.0-78.0); Hematocrit 29.3 % (40.1-51.0); Hemoglobin 9.7 g/dL (13.7-17.5); Lymphocytes # (Auto) 1.06 K/mcL (1.50-4.80); Lymphocytes % (Auto) 10.4 % (15.5-49.0); Mean Cell Volume 99.7 fL (80.0-100.0); Mean Corpuscular HGB Conc 33.1 g/dL (31.0-36.0); Mean Platelet Volume 10.2 fL (7.4-10.4); Monocytes # (Auto) 1.14 K/mcL (0.10-0.90); Monocytes % (Auto) 11.2 % (1.0-12.0); Platelet Count 143 K/mcL (140-440); RBC 2.94 M/mcL (4.63-6.08); Red Cell Distribution Width 14.1 % (11.5-14.5); WBC 10.2 K/mcL (4.50-11.00)
[2019-11-23 07:00] LABS: ALT/SGPT 32 U/l (0-40); AST/SGOT 29 U/l (0-37); Albumin/Globulin Ratio 0.8 (1.0-2.3); Alkaline Phosphatase 186 U/L (39-117); Bilirubin,Total 0.6 mg/dL (0.0-1.0); Calcium 9.9 mg/dl (8.6-10.4); Carbon Dioxide 23 mmol/L (22-30); Chloride 96 mmol/L (96-108); Globulin 3.9 gm/dL (2.2-3.7); Glucose 115 mg/dL (70-105)
[2019-11-23 07:02] LABS: Blood Urea Nitrogen 24 mg/dl (8-23); Glomerular Filtration Rate 15
[2019-11-23] MEDS ORDERED: 0.9 % SODIUM CHLORIDE 1,000 ML BAG IV SCH (07:15)
[2019-11-23] MEDS ORDERED: 0.9 % SODIUM CHLORIDE 1,000 ML IV SCH (07:30)
[2019-11-23] MEDS: INSULIN LISPRO 1 UNIT/0.01 ML UNIT SQ SCH ×2 (07:34→12:03)
[2019-11-23] MEDS: PANTOPRAZOLE 40 MG TABLET PO SCH (07:35)
[2019-11-23] MEDS ORDERED: VITAMIN B COMPLEX 1 CAPSULE PO SCH (09:00)
[2019-11-23] MEDS: HYDROcodone/APAP 5/325MG TABLET PO PRN (09:31)
[2019-11-23] MEDS: HYDROCHLOROTHIAZIDE 25 MG TABLET PO SCH (09:34)
[2019-11-23] MEDS: TORSEMIDE 10 MG TABLET PO SCH (09:35)
[2019-11-23] MEDS: DOCUSATE SODIUM 100 MG CAPSULE PO SCH (09:35)
[2019-11-23] MEDS: ASPIRIN 81 MG TAB.CHEW PO SCH (09:35)
[2019-11-23] MEDS: FOLIC ACID 1 MG TABLET PO SCH (09:35)
[2019-11-23] MEDS: METOPROLOL SUCCINATE 50 MG TAB.XL.24H PO SCH (09:35)
[2019-11-23] MEDS: HEPARIN 5,000 UNIT/ML VIAL SQ SCH (09:36)
[2019-11-23] MEDS: cefTRIAXone 2 GM in DEXTROSE 5% IN WATER 50 ML IV SCH (09:36)
[2019-11-23] MEDS: FLUTICASONE PROPIONATE SPRAY.NAS NS SCH (09:37)
[2019-11-23] MEDS: hydrALAZINE 25 MG TABLET PO SCH (09:38)
[2019-11-23] MEDS: TIOTROPIUM BROMIDE 18 MCG INHALANT INH SCH (09:38)
--- NOTE | 2019-11-23 11:07 | Discharge Summary ---
Discharge Provider Provider Patient information: Note initiated : 11/23/19 at 10:56 am Service Date, if different from initiated Date: [] Patient: Darron Veliz 74 y/o M admitted on 11/05/19 for increased shortness of breath. Chief Complaint: [] Date of admission: 11/05/19 00:00 Discharge date: 11/23/19 Primary care physician: Shonna Goodwin Consults: 11/04/19 Consult to Physician [CONS] Stat Comment: Consulting Provider: Del Wolf Reason For Exam: Physician to Consult 11/05/19 11:15 Consult to Physician [CONS] Routine Comment: Consulting Provider: Braney Arguelles Reason For Exam: Physician to Consult 11/16/19 17:22 Consult to Physician [CONS] Routine Comment: HD catheter adjustment Consulting Provider: Preston Holm Reason For Exam: Physician to Consult 11/20/19 12:33 Consult to Physician [CONS] Routine Comment: Consulting Provider: [facility] Reason For Exam: Physician to Consult Discharge Meds Discharge Medications Home Medications hydrochlorothiazide 50 mg PO DAILY 08/04/18 [History Confirmed 11/05/19 Last Taken Unknown] metoprolol succinate 100 mg PO BID 08/04/18 [History Confirmed 11/05/19 Last Taken Unknown] blood sugar diagnostic #10 each 10/06/19 [History Confirmed 11/04/19 Last Taken Unknown] fluticasone propionate 50 mcg/actuation nasal spray,suspension 1 spray INTRANASAL QDAY 10/06/19 [History Confirmed 11/05/19 Last Taken Unknown] folic acid 1 mg tablet 1 mg PO QDAY 10/06/19 [History Confirmed 11/05/19 Last Taken Unknown] hydralazine 50 mg tablet 50 mg PO DAILY tab 10/06/19 [History Confirmed 11/05/19 Last Taken Unknown] pantoprazole 40 mg tablet,delayed release 40 mg PO BID 10/06/19 [History Confirmed 11/04/19 Last Taken Unknown] torsemide 20 mg tablet 20 mg PO QDAY 10/06/19 [History Confirmed 11/04/19 Last Taken Unknown] methocarbamol 500 mg PO TID PRN #20 tab 10/12/19 [Rx Confirmed 11/05/19 Last Taken Unknown] aspirin [Ecotrin Low Strength] 81 mg PO BID 14 Days #28 tab 10/24/19 [Rx Confirmed 11/05/19 Last Taken Unknown] docusate sodium 100 mg PO BID #30 cap 10/24/19 [Rx Confirmed 11/05/19 Last Taken Unknown] hydrocodone-acetaminophen 1 tab PO Q4H PRN #10 tab 10/24/19 [Rx Confirmed 11/05/19 Last Taken Unknown] bisacodyl [Dulcolax (bisacodyl)] 10 mg IA QDAY PRN 11/05/19 [History Confirmed 11/05/19 Last Taken Unknown] amoxicillin-pot clavulanate [Augmentin] 1 tab PO Q24H #5 tab 11/23/19 [Rx Last Taken Unknown] insulin lispro [Humalog U-100 Insulin] See Rx Instructions .ROUTE .COMPLEX #3 ml 11/23/19 [Rx Last Taken Unknown] COURSE Hospital Course Hospital course: 1. Acute hypoxic respiratory failure: 2/ covid PNA -now on RM with good sats 2. COVID-19 pneumonia with superimposed Bacterial PNA (SC growing Strep Agalacti ae): -CXR w/bibasilar infilatrates improving (11/20) -not a candidate for remdesivir -completed course of steroid -discontinued rocephin -since 11/19 today and will discharge him on augmentin x 5 days 3. Leukocytosis: -now improved 4. h/o CVA w/residual right-sided weakness/numbness/Ataxia: on aspirin 5. Recent left hip fracture (10/20): 6. Sacral pressure ulcer: wound care 7. NPH: follows up with Dr. No 8. ESRD: follows with [facility]. 9. Malpositioned HD Tunnel Cath: needs to be withdrawn 7cm per radiology. HD Tunnel Cath will need adjustment (withdrawn) once recovered from illness or done urgently if becomes nonfunctional, discussed with General Surgeon. f/u with Dr. Mikhail copeland 10. HTN: on thiazide/torsemide/hydralazine/BB 11. CADw/CABG 7 years ago at [place]: 12. DM type II: 13. h/o alcoholism: no evidence of withdrawal 14. GERD: continue PPI 15. Goals of care: long-term prognosis guarded given significant comorbidities with recent hospitalizations and age Interval history: Mr. Veliz is a 74 year old M with a history of CAD/DM type II/HTN/ESRD on HD 3 times a week who was recently discharged to [facility] following left hip fracture. He now presents to the ER today with increasing shortness of breath, decreased LOC and low saturation during dialysis not responding to supplemental oxygen. Patient has been experiencing low-grade fever last few days. He had a Kovic test done at dialysis which was positive. Work-up was consistent severe hypoxia with sats in 70s requiring 5 L oxygen. Imaging consistent with pneumonia, patient is a DNR and hence was not accepted to tertiary center after discussion the ER physician with [facility]. Patient was started on dexamethasone and subsequently hospitalist service was consulted for admission and management of COVID pneumonia. Remdesivir contraindicated in light of ESRD/GFR less than 30 At the time of evaluation patient is very drowsy sedated short of breath. No family members present. Most of the history is obtained from review of medical records and ER physician. 11/04-patient seen in room. Resting comfortably. On 4 L oxygen nasal cannula. No family at bedside. On COVID precautions. Nephrology consult for dialysis. 11/05-undergoing dialysis today. On 45 years oxygen. Able to communicate. Hard of hearing. Denies active distress.On COVID-19 precautions. Occasionally incontinent. 11/06-patient continues to be short of breath. No overnight events. White count 10,000. On 4 days oxygen. Ongoing hemodialysis per nephrology. Persistent interstitial lung disease on chest imaging. 11/07-traumatic deterioration in overall status requiring 10 L oxygen rebreather mask. Worsening respiratory status. Continue steroids/supplemental oxygen. Remains DNR. Will initiate high flow oxygen if necessary. Was barely able to tolerate hemodialysis for an hour 11/08-patient doing well. On 4 L oxygen. Alert and sitting on chair. No significant distress. No concerns per nursing staff. No overnight fever chills. Continuing dexamethasone. updated by nursing staff. 11/09-patient remains unchanged currently on 4 L oxygen. However worsening bilateral chest infiltrates on interval imaging. On dexamethasone. No overnight events. No additional concerns per staff. Ongoing hemodialysis per nephrology. Repeat chest imaging 24 hours. 11/10 Patient still has shortness of breath but feels improving. Denies fever, chills, nausea or vomiting. He is now on 2 to 5 L oxygen Patient is not a candidate for remdesivir due to poor renal function. 11/11 Patient still has shortness of breath but feels improving. Denies fever, chills, nausea or vomiting. WBC went up to 13.1 today. Afebrile. Continue monitor Patient is now on 2 to 2.5 L 11/12 Today patient blood pressure is soft, around 100. He received HD today. He is now on 0-1.5L WBC 12.1 Repeat chest x-ray - Moderate atrophy left and smaller right basilar infiltrate worsening slightly. But his condition is clinically improving. 11/13 Today he was initially scheduled to be discharged. But discharge was cancelled due to SNF no [facility] beds available until tomorrow morning. Pt is fine and does not have a new complaints He is on 2 L today. He will be possibly discharged tomorrow. 11/14 He feels fine. Denies fever, chills, or chest pain. He is on 2 L oxygen Today he may have dialysis. He may be able to discharge to SNF tomorrow. 11/15 Yesterday during dialysis he became more confused and have some strange blood pressure readings found with hypertensive than hypotensive than normal. Sugar was normal. He did have an episode very similar to this last admission. Stat CT brain was done which showed no acute changes. Dialysis was stopped and patient started improving within the hour. Patient slept well overnight no issues overnight. He does have a mildly productive cough and some shortness of breath but he says that average. He is on several liters of oxygen, and was on 3 L last night. His white blood cell count is elevated today. He has been on dexamethasone and his white blood cell count was stable but did increase today. His sputum culture did grow Streptococcus agalactiae. Antibiotics started. 11/16 No issues overnight. WBC count same as yesterday. Afebrile. No new complaints. Dexamethasone stopped. Scheduled for hemodialysis today. General surgeon to evaluate his HD catheter and malposition of it. 11/17 Patient is on only several liters of oxygen yesterday morning and then in the afternoon the nurse got him up to go to the commode and suddenly desatted in the 60s and it up requiring 100s at nonrebreather. After some time on that with no significant improvement was put on BiPAP for several hours with significant improvement and subsequently transitioned to 4 L nasal cannula and he was on 3-4 overnight. Now he is on 2 L nasal cannula this morning. He feels better. He looks as good as I have ever seen him. His white blood cell count has improved again to the 12's. Right basilar infiltrates improving on chest x-ray. 11/18 No overnight event or new complaints. Patient seems to be doing well. On 1 L nasal cannula. group home facility unable to take him now because they have too many COVID-19 patient's. 11/19 Did well overnight. No new issues or complaints. Has good oxygenation in the mid 90s on 1 L. Scheduled to undergo dialysis today. 11/20 Patient does not have any new complaints. No overnight events she Is on 1 L Waiting for being placed -possibly on . 11/21 Does not have any new complaints. Vital signs are stable. On 0 to 1 L oxygen with a good oxygen saturation No overnight events 11/22 Patient does not have any new complaints. Vital signs are stable. He will be discharged to SNF to follow with PCP, Dr. No, Dr. Arguelles, Dr. Elizondo, orthopedics and wound care. Continue PT OT. He will be discharged on Augmentin for 5 days. repeat CBC, CMP, and electrolytes in 3 days. Call PCP for medical issues. Patient needs to be quarantined. Discharge diagnosis: Acute hypoxic respiratory failure, Covid 19 pneumonia superimposed bacteria Time Spent with Patient Time attestation: Total time spent providing and/or coordinating discharge services: EXAM Constitutional Vitals: Temp Pulse Resp BP Pulse Ox 98.7 F 89 16 109/62 96 11/23/19 08:00 11/23/19 09:01 11/23/19 08:00 11/23/19 09:01 11/23/19 09:01 Additional findings Additional findings: General: Awake, No acute Distress Eyes/N/T: EOMI, Head/Neck: neck supple, CV: RRR, No murmurs, Pulm: minimal left rhonchi improved, right clear laterally, no wheezing Abd: soft, nontender, +BS x4 Ext: no clubbing/cyanosis/edema Neuro: Alert, follows commands , right side weakness chronic from previous cva Skin: warm/dry Discharge Data Data Completed and Pending Labs on day of discharge: Labs from last 24 hours 11/23/19 11/23/19 05:00 05:00 WBC 10.2 RBC 2.94 L Hgb 9.7 L Hct 29.3 L MCV 99.7 MCH 33.0 MCHC 33.1 RDW 14.1 Plt Count 143 MPV 10.2 Gran % 75.5 Lymph % (Auto) 10.4 L [place] % (Auto) 11.2 Eos % (Auto) 2.3 Baso % (Auto) 0.6 Gran # 7.67 Lymph # (Auto) 1.06 L [place] # (Auto) 1.14 H Eos # (Auto) 0.23 Baso # (Auto) 0.06 Sodium 133 Potassium 3.9 Chloride 96 Carbon Dioxide 23 Anion Gap 14.0 BUN 24 H Creatinine 3.8 H GFR Calculation 15 Glucose 115 H Calcium 9.9 Total Bilirubin 0.6 AST 29 ALT 32 Alkaline Phosphatase 186 H Total Protein 6.9 Albumin 3.0 L Globulin 3.9 H Albumin/Globulin Ratio 0.8 L Discharge Plan Patient/Caregiver Discharge Instructions Activity: increase activity as tolerated Diet: Renal/Consistent Carbs Activity Restrictions/Additional Instructions: f/u with pcp, Dr. No, Dr. Arguelles, Dr. Elizondo, orthopedics and wound care. augmentin x 5 days. Continue PT/OT Call PCP for medical issues Patient needs to be quarantined. Prescriptions: New insulin lispro [Humalog U-100 Insulin] 100 unit/mL Solution See Rx Instructions .ROUTE .COMPLEX Qty: 3 RF: 0 amoxicillin-pot clavulanate [Augmentin] 500-125 mg tablet 1 tab PO Q24H Qty: 5 RF: 0 Continued fluticasone propionate 50 mcg/actuation spray,suspension 1 spray INTRANASAL QDAY RF: 0 folic acid 1 mg tablet 1 mg PO QDAY RF: 0 pantoprazole 40 mg tablet,delayed release (DR/EC) 40 mg PO BID RF: 0 torsemide 20 mg tablet 20 mg PO QDAY RF: 0 hydralazine 50 mg tablet 50 mg PO DAILY RF: 0 (DME) Accu-Chek Guide test strips Strip See Rx Instructions .ROUTE .MEDSUPPLY Qty: 10 RF: 0 metoprolol succinate 100 MG tablet extended release 24 hr 100 mg PO BID RF: 0 hydrochlorothiazide 25 MG tablet 50 mg PO DAILY RF: 0 methocarbamol 500 mg tablet 500 mg PO TID PRN (Reason: Pain and spasm) Qty: 20 RF: 0 docusate sodium 100 mg Capsule 100 mg PO BID Qty: 30 RF: 0 aspirin [Ecotrin Low Strength] 81 mg Tablet,Delayed Release (Dr/Ec) 81 mg PO BID 14 Days Qty: 28 RF: 0 hydrocodone-acetaminophen 5-325 mg Tablet 1 tab PO Q4H PRN (Reason: Pain) Qty: 10 RF: 0 bisacodyl [Dulcolax (bisacodyl)] 10 mg Suppository 10 mg IA QDAY PRN (Reason: Constipation) RF: 0 Discontinued sennosides [Senna Lax] 8.6 mg Tablet 2 tab PO DAILYP PRN (Reason: Constipation) Qty: 30 RF: 0 acetaminophen 325 mg Tablet 650 mg PO Q8H PRN (Reason: Pain) RF: 0 Other Ambulatory Orders: Complete Blood Count (Routine) Timeframe: 3 Days Facility: [facility] - Location: Laboratory Ordered By: Patrick John Comprehensive Metabolic Panel (Routine) Timeframe: 3 Days Facility: [facility] - Location: Laboratory Ordered By: Patrick John Magnesium (Routine) Timeframe: 3 Days Facility: [facility] - Location: Laboratory Ordered By: Patrick John Phosphorous (Routine) Timeframe: 3 Days Facility: [facility] - Location: Laboratory Ordered By: Patrick John OT Discharge Order (Routine) Facility: [facility] - Location: [facility] Ordered By: Patrick John Physical Therapy at Discharge - General (Routine) Facility: [facility] - Location: [facility] Ordered By: Patrick John Follow Up Plan Follow up with: Unknown [Outside] (wound care within one week, Dr. No within one week, Dr. Arguelles tomorrow, Dr. Elizondo in 3 days, orthopedics in one week. ) Shonna Goodwin MD [Primary Care Provider] - Patient Disposition: Xfer SNF Rehab Potential: Undetermined I certify that the patient requires SNF services: Yes Overall status at discharge: patient is progressing back to baseline Discharge Orders: Discharge Order (Routine); Ordered 11/23/19 Ordered By: Patrick John QUALITY VTE Deep Vein Thrombosis/Pulmonary Embolism Present on Admission: No
== END 2019-11-23 13:00 | DRG 177 ==
LOC: ED 18:41 → ICU 11-05
PROVIDERS: ADMIT Internal Medicine; ATTEND Internal Medicine